=== PATIENT | male | born 1960 | race Caucasian/White ===

== ENCOUNTER 2021-03-11 | Inpatient (IN) | payer MEDICARE | END 2021-03-25 16:27 | DRG 180 | PROVIDERS: ADMIT Family Medicine | PROC: 0W9B3ZX Drainage of Left Pleural Cavity, Percutaneous Approach, Diagnostic (ICD-10-PCS; principal; 2021-03-12) | PROC: 02HV33Z Insertion of Infusion Device into Superior Vena Cava, Percutaneous Approach (ICD-10-PCS; 2021-03-15) | PROC: 3E04305 Introduction of Other Antineoplastic into Central Vein, Percutaneous Approach (ICD-10-PCS; 2021-03-20) | PROC: 0W9B3ZZ Drainage of Left Pleural Cavity, Percutaneous Approach (ICD-10-PCS; 2021-03-22) | DX: C34.82 Malignant neoplasm of overlapping sites of left bronchus and lung (principal); J96.01 Acute respiratory failure with hypoxia; J91.0 Malignant pleural effusion; E22.2 Syndrome of inappropriate secretion of antidiuretic hormone; E44.0 Moderate protein-calorie malnutrition; J98.11 Atelectasis; C79.89 Secondary malignant neoplasm of other specified sites; C78.7 Secondary malignant neoplasm of liver and intrahepatic bile duct; J43.9 Emphysema, unspecified; E11.65 Type 2 diabetes mellitus with hyperglycemia; E66.01 Morbid (severe) obesity due to excess calories; Z66 Do not resuscitate; Z20.822 Contact with and (suspected) exposure to COVID-19; J20.9 Acute bronchitis, unspecified; E78.5 Hyperlipidemia, unspecified; M48.00 Spinal stenosis, site unspecified; K21.9 Gastro-esophageal reflux disease without esophagitis; F32.9 Major depressive disorder, single episode, unspecified; M19.90 Unspecified osteoarthritis, unspecified site; T38.0X5A Adverse effect of glucocorticoids and synthetic analogues, initial encounter; L29.9 Pruritus, unspecified; M25.569 Pain in unspecified knee; R49.0 Dysphonia; R59.0 Localized enlarged lymph nodes; F17.210 Nicotine dependence, cigarettes, uncomplicated; Z71.6 Tobacco abuse counseling; Z99.81 Dependence on supplemental oxygen; Z79.899 Other long term (current) drug therapy; Z68.34 Body mass index [BMI] 34.0-34.9, adult; Z71.3 Dietary counseling and surveillance; Z87.81 Personal history of (healed) traumatic fracture; Z87.19 Personal history of other diseases of the digestive system; Z87.39 Personal history of other diseases of the musculoskeletal system and connective tissue; Z96.643 Presence of artificial hip joint, bilateral; Z60.2 Problems related to living alone; Z98.890 Other specified postprocedural states; Z80.1 Family history of malignant neoplasm of trachea, bronchus and lung; Z80.3 Family history of malignant neoplasm of breast | CPT/HCPCS: 36415; 36573; 36600; 70553; 71045; 71046; 71275; 74177; 76604; 80048; 80053; 82805; 83036; 83615; 83735; 84100; 84155; 84484; 84550; 85025; 85027; 85379; 85610; 85730; 87040; 87070; 87205; 87635; 88108; 88305; 88341; 88342; 89050; 93005; 94640; 94760; 96361; 96374; 99285 ==

== ENCOUNTER → 2021-04-19 | Outpatient (CLI) | payer MEDICARE ==
--- NOTE | 2021-04-19 14:46 | XR ---
EXAMINATION TYPE: XR chest 2V DATE OF EXAM: 04/19/2021 COMPARISON: 03/22/2021 TECHNIQUE: PA and lateral views submitted. HISTORY: History of lung cancer FINDINGS: Diffuse interstitial pattern with left lower lobe consolidation and small effusion. Left-sided PICC l ine is postsurgical change right shoulder arthropathy of the left shoulder with probable bone infarct involving the humeral head. Atherosclerotic change aorta. Underlying COPD. IMPRESSION: 1. Correlate for chronic interstitial lung disease versus interstitial pneumonitis with left lower lo be infiltrate and small effusion. Mild venous congestion in the differential diagnosis correlate clin ically.
== END | disposition home or self-care (01) ==
LOC: RADXRMAIN 14:19
PROVIDERS: ATTEND Internal Medicine Hematology & Oncology
DX: C34.90 Malignant neoplasm of unspecified part of unspecified bronchus or lung (principal); I10 Essential (primary) hypertension; E11.9 Type 2 diabetes mellitus without complications; E78.5 Hyperlipidemia, unspecified
CPT/HCPCS: 71046

== ENCOUNTER → 2021-07-22 | Outpatient (CLI) | payer MEDICARE ==
[2021-07-22 12:27] LABS: African American GFR (CKD) >90 (>60 ml/min/1.73 sqM); Blood Urea Nitrogen 7 mg/dL (9-20); Non-African American GFR(CKD) >90 (>60 ml/min/1.73 sqM)
--- NOTE | 2021-07-22 14:16 | CT ---
EXAMINATION TYPE: CT ChestAbdPelvis w con DATE OF EXAM: 07/22/2021 COMPARISON: 05/19/2021 HISTORY: Lung cancer, possible enlarged lymph nodes to neck. CT DLP: 1345.7 mGycm Automated exposure control for dose reduction was used. CONTRAST: CT scan of the chest, abdomen and pelvis is performed with Oral Contrast and with IV Contrast, patien t injected with 100 mL of Isovue M300. FINDINGS: LUNGS: Background Moderate underlying emphysematous change is redemonstrated. Persistent small left p leural effusion improved from prior. Mild left basilar linear scarring and/or atelectasis. Tiny left pleural effusion. No suspicious nodules or masses clearly seen. Right lung remains clear. Apical soft tissue attenuation within the left lung posteriorly stable measures 2.5 cm in greatest axis and prev iously measured 2.5 cm. Extends to the left hilum is unchanged in appearance. This could be on the ba sis of atelectasis or scarring rather than neoplasm is not excluded but the findings overall stable. MEDIASTINUM: There is marked interval improvement in abnormal lymph nodes in the prevascular region, AP window, paratracheal region, and right paratracheal levels. Some irregular confluent elongated 3.7 x 1.3 cm density in the AP window inferiorly extending towards the left hilum stable. Subcarinal lym ph node 1.7 x 1.0 cm stable from prior study.. Tiny pericardial effusion is now seen. No cardiomegaly . Coronary artery calcification noted. Trace of pericardial fluid seen. LIVER/GB: No significant abnormality is appreciated. PANCREAS: No significant abnormality is seen. SPLEEN: No significant abnormality is seen. ADRENALS: No significant abnormality is seen. KIDNEYS: No significant abnormality is seen. BOWEL: No significant abnormality is seen. LYMPH NODES: No greater than 1 cm abdominal or pelvic lymph nodes are appreciated. OSSEOUS STRUCTURES: Metallic hardware from right shoulder surgery is partially imaged. Metallic cover from bilateral hip arthroplasties causes streak artifact limiting evaluation of pelvic structures. N egative osseous structures are redemonstrated demineralized. Vertebroplasty at [id number] compr ession fractures T12 and L2 level redemonstrated. Multiple additional compression fractures are seen throughout the lumbar and thoracic spine.. Underlying scoliosis noted. Advanced degenerative change l eft glenohumeral joint OTHER: Moderate to severe calcified plaque of the infrarenal abdominal aorta extends into the iliac b ranch vessels. Suspected bilateral iliac artery stenoses. Correlate clinically. Left-sided central li ne or PICC line incidentally noted with tip overlying the SVC. IMPRESSION: 1. Stable previously noted adenopathy unchanged from prior exam. Apical area of consolidation extendi ng to the left hilum is unchanged from prior exam is not. Extensive changes of emphysema noted 2. . Small left pleural effusion and basilar atelectasis stable. 3. No new areas of mass or adenopathy. Overall the exam is stable from prior exam. 4. Suspect bilateral iliac artery stenoses
== END | disposition home or self-care (01) ==
LOC: RADCTMAIN 11:19
PROVIDERS: ATTEND Internal Medicine Hematology & Oncology
DX: C34.92 Malignant neoplasm of unspecified part of left bronchus or lung (principal); J90 Pleural effusion, not elsewhere classified; J98.11 Atelectasis; I10 Essential (primary) hypertension; E11.9 Type 2 diabetes mellitus without complications; E78.5 Hyperlipidemia, unspecified
CPT/HCPCS: 82565; 84520; 71260; 74177; Q9967 ×2

== ENCOUNTER → 2021-07-22 | Outpatient (CLI) | payer MEDICARE ==
[~2021-07-22] MED LIST: SODIUM CHLORIDE 0.9% 500 ML 500 ML in EMPTY BAG 1 BAG IV PRN
[2021-07-22 11:11] VITALS: BP 121/59; PULSE 96; RESP 16; TEMP 98.1
== END | disposition home or self-care (01) ==
LOC: PROCWHC3 10:48
PROVIDERS: ATTEND Internal Medicine Hematology & Oncology
DX: C34.90 Malignant neoplasm of unspecified part of unspecified bronchus or lung (principal)
CPT/HCPCS: 96523

== ENCOUNTER → 2021-08-10 | Outpatient (CLI) | payer MEDICARE ==
[2021-08-10 12:00] VITALS: BP 117/62; PULSE 107; RESP 18; TEMP 98.3
--- NOTE | 2021-08-10 12:14 | P.PAINCN ---
History of Present Illness - Reason for Consult Consult date: 08/10/21 - History of Present Illness Luiz is a 61-year-old male presenting to clinic today for initial evaluation for pain management. 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 This is Priestly completed chemotherapy for lung cancer. Currently looking into immunotherapy depending on insurance. Today he is reporting chronic long-term pain in his low back there was no precipitating event. The pain is located to the right side and left side of his low back with pain radiating down his legs right equal to left pain is radiating to buttocks the lateral portion of thighs to his feet. He describes it as a constant sharp pain. Pain is aggravated with walking and long-term standing. Pain is relieved with sitting. He has tried medications including [place] and tramadol without effect, many years ago he has had injections to attempt nerve blocks without success. Patient also reports she's had physical therapy in the past that has not helped and knees had resident care technician in the past which offered him some benefit. He rates his pain as 10 at 10 on a 0-to-10 scale. He denies any bowel or bladder dysfunction, saddle anesthesia, or any other red flag symptoms. He reports that neurosurgery has not wanted to do any procedures due to brittle bones in his avascular necrosis. Past Medical History Past Medical History: Cancer, COPD, Musculoskeletal Disorder, Osteoarthritis (OA) Additional Past Medical History / Comment(s): LUNG CANCER-currently receiving chemo, gastritis, 3 deteriorating discs History of Any Multi-Drug Resistant Organisms: None Reported Past Surgical History: Joint Replacement, Orthopedic Surgery Additional Past Surgical History / Comment(s): thomas hips & rt shoulder replaced Past Anesthesia/Blood Transfusion Reactions: No Reported Reaction Smoking Status: Former smoker - Past Family History Father Family Medical History: No Reported History Medications and Allergies Home Medications Medication Instructions Recorded Confirmed Type Acetylcyst 10% Alicia 4 ml INHALATION RT-BID 03/11/21 08/10/21 History Atorvastatin [Lipitor] 20 mg PO DAILY 03/11/21 08/10/21 History OXcarbazepine [Trileptal] 300 mg PO BID 03/11/21 08/10/21 History Pantoprazole Sodium [Protonix] 40 mg PO DAILY 03/11/21 08/10/21 History Sucralfate [Carafate] 1 gm PO ACHS 03/11/21 08/10/21 History traZODone HCL [Desyrel] 100 mg PO HS 03/11/21 08/10/21 History ALPRAZolam [Xanax] 0.25 mg PO TID PRN #6 tab 03/23/21 08/10/21 Rx Acetaminophen Tab [Tylenol] 650 mg PO Q6HR PRN tab 03/23/21 08/10/21 Rx Budesonide [Pulmicort] 1 mg INHALATION RT-BID ml 03/23/21 08/10/21 Rx Calcium Carbonate [Tums] 1,000 mg PO TID PRN chew 03/23/21 08/10/21 Rx Formoterol Fumarate [Perforomist] 20 mcg INHALATION RT-BID nebu 03/23/21 08/10/21 Rx INSULIN LISPRO (HumaLOG) [humaLOG] 0 unit SQ ACHS #1 vial 03/23/21 08/10/21 Rx Ipratropium-Albuterol Nebulize 3 ml INHALATION Q2HR PRN ml 03/23/21 08/10/21 Rx [Duoneb 0.5 mg-3 mg/3 ml Soln] Ipratropium-Albuterol Nebulize 3 ml INHALATION RT-Q4H ml 03/23/21 08/10/21 Rx [Duoneb 0.5 mg-3 mg/3 ml Soln] Lidocaine Viscous [Xylocaine 30 ml PO QID ml 03/23/21 08/10/21 Rx Viscous 2%] Nicotine 21Mg/24Hr Patch [Habitrol] 1 patch TRANSDERM DAILY patch 03/23/21 08/10/21 Rx Ondansetron [Zofran] 8 mg PO Q6HR PRN #45 tab 03/23/21 08/10/21 Rx HYDROcodone/APAP 7.5-325MG [[place] 1 tab PO Q6HR PRN 3 Days #12 tab 03/25/21 08/10/21 Rx 7.5-325] Amitriptyline HCl [Elavil] 1 tab PO DAILY 04/21/21 08/10/21 History Allergies Allergy/AdvReac Type Severity Reaction Status Date / Time No Known Allergies Allergy Verified 08/10/21 11:29 Physical Exam REVIEW OF ORGAN SYSTEMS: CONSTITUTIONAL: No fevers or chills. No recent weight loss. EYES: denies troubles with vision. HEENT: No difficulties with hearing. No nosebleeds. No difficulty swallowing. RESPIRATORY: Denies any troubles with breathing or dyspnea on exertion. History of lung cancer CARDIOVASCULAR: Denies any chest pain, palpitations, or recent heart attacks. GASTROINTESTINAL: Denies fatty food intolerance. Has change in bowel habits and gas bloat. GENITOURINARY: Denies any blood in urine. Has increased urinary frequency. NEUROLOGICAL: + numbness and tingling along the distal extremities. No seizure disorders or headaches. MUSCULOSKELETAL: Has back pain. Bilateral hip arthroplasty and right shoulder arthroplasty; avascular necrosis SKIN:no skin cancer. No rash. PSYCHIATRIC: Denies current depression or suicidal thoughts. ENDOCRINE: Denies current thyroid disorders. Denies any blood sugar glucose intolerance. HEME/LYMPHATIC: Denies any lumps and bumps around the neck. History of deep venous thrombosis. ALLERGY/IMMUNOLOGY: No immunoglobulin therapy. No immune deficiencies. BREAST: Denies current breast lumps, pain or nipple discharge. Physical Examinations : Constitutiona : Cooperative , not in acute distress . HEENT : nech : supple , no Lymphadenopathy , normal thyroid size . : eyes no ptosis , no icterus, no photophobia . : ENT normal of hearing , normal oropharynx , no Thrush . Respiratory : Chest clear to auscultations Bilaterally , no wheezing , no Rhonchi . Cardiovascula : regular rate and rhythem , S1 , S2 , no S3 , no S4. Gastrointestina : abdomen soft no tenderness , bowel sounds , no organomegally . Genitourinary : Defferred . neurologic : Cranial nerve II to XII intact , no focal neurological deffecit . psychatric : alert , oriented X 3 , appropriate affect , intact judgment and insight . Lymphatic : no Lymphadenopathy . musculoskeltal : Lumber spine moter stegnth lower extremities ,thigh and legs 5/5 Right side , 5/5 Left side deep tendon reflexes : normal Knee Jerk , normal ankle Jerk lumber facet Loading Test= positive Right , positive Left Range of motion of the lumbar spine Flexion 30 degrees, extension 10 degrees strait leg raising test , positive at 30 degree Fabere test= positive Right , and positive left . Sever tenderness over the Sacroiliac joint on the Right , and Left sides Gaenslen test= positive bilaterally. Seated flexion test= positive bilaterally. Assessment and Plan Assessment: Assessment and plan Assessment: Lumbar spinal stenosis Lumbar spondylosis with facet arthropathy without myelopathy Lumbar radiculopathy Bilateral hip arthroplasty Right shoulder arthroplasty History of lung cancer History of avascular necrosis Plan: Patient could benefit from lumbar epidural steroid injection at L4 5. Consider lumbar medial branch blocks L3 4 and L4 5 in the future up to including radiofrequency ablation Consider spinal cord stimulator Dr. Coronado was available by phone for consultation during his visit. I have spent 50 minutes on patient care today. The time was used to review the medical records including relevant urine studies and Prescription history (MAPs), review of the available imaging, evaluation and examination of the patient, coordination of care with the medical staff and if applicable referring physicians, as well as creation of the medical record. - PQRS measures = - Patient's medications are documented in the chart. -Tobacco use is negative -Patient's has not received pneumococcal vaccine. -Advanced care planning discussed, patient not eligible. -Opiate contract not signed. -Pain positive and follow-up visit/procedure is scheduled. -Patient's blood pressure measured 117/62 , and documented in the record ,and patient will follow up with the primary care. -Patient's weight was measured and body mass index [ ] above the,w ithin the normal limits and counseling was done. and patient instructed to follow-up with the primary care physician. -Patient was not identified as an unhealthy alcohol user Time with Patient: Greater than 30 PQRS Measure Charge Sheet - Pain Location Lower Back Non-Pharmacological Interventions: Chiropractic Treatment, Heat, Inactivity, Physical Therapy, Sitting Pharmacological Interventions: Medication, PRN Medication PQRS Narrative: Pain Intensity [Lower Back] 10 Scale Used Numeric (1 - 10) Home Medications: Ambulatory Orders Acetylcyst 10% Alicia 4 ml INHALATION RT-BID 03/11/21 Atorvastatin [Lipitor] 20 mg PO DAILY 03/11/21 OXcarbazepine [Trileptal] 300 mg PO BID 03/11/21 Pantoprazole Sodium [Protonix] 40 mg PO DAILY 03/11/21 Sucralfate [Carafate] 1 gm PO ACHS 03/11/21 traZODone HCL [Desyrel] 100 mg PO HS 03/11/21 ALPRAZolam [Xanax] 0.25 mg PO TID PRN #6 tab 03/23/21 Acetaminophen Tab [Tylenol] 650 mg PO Q6HR PRN tab 03/23/21 Budesonide [Pulmicort] 1 mg INHALATION RT-BID ml 03/23/21 Calcium Carbonate [Tums] 1,000 mg PO TID PRN chew 03/23/21 Formoterol Fumarate [Perforomist] 20 mcg INHALATION RT-BID nebu 03/23/21 INSULIN LISPRO (HumaLOG) [humaLOG] 0 unit SQ ACHS #1 vial 03/23/21 Ipratropium-Albuterol Nebulize [Duoneb 0.5 mg-3 mg/3 ml Soln] 3 ml INHALATION Q2HR PRN ml 03/23/21 Ipratropium-Albuterol Nebulize [Duoneb 0.5 mg-3 mg/3 ml Soln] 3 ml INHALATION RT-Q4H ml 03/23/21 Lidocaine Viscous [Xylocaine Viscous 2%] 30 ml PO QID ml 03/23/21 Nicotine 21Mg/24Hr Patch [Habitrol] 1 patch TRANSDERM DAILY patch 03/23/21 Ondansetron [Zofran] 8 mg PO Q6HR PRN #45 tab 03/23/21 HYDROcodone/APAP 7.5-325MG [[place] 7.5-325] 1 tab PO Q6HR PRN 3 Days #12 tab 03/25/21 Amitriptyline HCl [Elavil] 1 tab PO DAILY 04/21/21
== END | disposition home or self-care (01) ==
LOC: PNWHC3 11:19
PROVIDERS: ATTEND Student in an Organized Health Care Education/Training Program
DX: M47.896 Other spondylosis, lumbar region (principal); M48.061 Spinal stenosis, lumbar region without neurogenic claudication; M54.16 Radiculopathy, lumbar region; Z96.643 Presence of artificial hip joint, bilateral; Z96.611 Presence of right artificial shoulder joint; Z85.118 Personal history of other malignant neoplasm of bronchus and lung; Z87.39 Personal history of other diseases of the musculoskeletal system and connective tissue
CPT/HCPCS: G0463 ×2; 99202; 99211

== ENCOUNTER 2021-09-27 12:54 | Day surgery (SDC) | payer MEDICARE, OTHER ==
[2021-09-20 15:14] VITALS: BMI 30.9
[~2021-09-27 12:54] MED LIST changes: +LACTATED RINGERS 1,000 ML IV SCH; -SODIUM CHLORIDE 0.9% 500 ML 500 ML in EMPTY BAG 1 BAG IV PRN
[2021-09-27] MEDS: LACTATED RINGERS 1,000 ML IV SCH ×2 (13:17→13:37)
[2021-09-27 13:24] VITALS: RESP 18; TEMP 96.9
[2021-09-27] MEDS ORDERED: IOPAMIDOL M200 10 ML VIAL ONE (13:38)
[2021-09-27] MEDS ORDERED: MIDAZOLAM 2 MG/2 ML VIAL ONE (13:38)
[2021-09-27] MEDS ORDERED: fentaNYL (PF) 50 MCG/ML 2 ML AMP ONE (13:38)
[2021-09-27] MEDS ORDERED: methylPREDNISolone ACETATE 40 MG/ML 1 ML VIAL ONE (13:38)
--- NOTE | 2021-09-27 13:53 | P.PCN ---
Date of Procedure: 09/27/21 Description of Procedure: Procedure: 1. L4-L5 Epidural steroid injection under fluoroscopic guidance # 1/ , 2. Lumbar epidurogram PREOPERATIVE DIAGNOSIS: Lumbar degenerative disc disease, and Lumbar radiculopathy. POSTOPERATIVE DIAGNOSIS: Lumbar degenerative disc disease, and Lumbar radiculopathy. SURGEON: Mary Rooney ANESTHESIA: Local with 1% lidocaine, and IV sedation as per anesthesia record EBL: None. Specimen removed: None Fluoroscopic image: saved to electronic medical records PROCEDURE INDICATION: The patient had history of Lumbar degenerative disc disease and Lumbar radiculopathy. Failed to conservative therapy. Presented for epidural steroid injection. PROCEDURE DESCRIPTION: The patient was seen and identified in the preoperative area. Risks, benefits, complications, and alternatives were discussed with the patient. The patient agreed to proceed with the procedure and signed the consent. IV was started, and vital signs were stable. Patient was taken to the procedure area, and time out was completed. The patient was placed in the prone position on procedure table and a pillow was placed under the abdomen to reduce lumbar lordosis. The lumbosacral area was prepped and draped in the usual sterile fashion. Critical pause was taken. Vital signs were closely monitored during the procedure. Using anterior-posterior fluoroscopy, the L4-L5 interlaminar space was identified, and skin and deeper tissues were localized with 1% lidocaine. Using anterior-posterior fluoroscopy, lateral fluoroscopy, and [id number]-[id number] technique, a 20 gauge 3.5 Tuohy epidural needle entered the epidural space. After negative aspiration of CSF and blood with no paresthesias, 2 ml of [id number] contrast dye was injected and an excellent epidurogram was seen. Again after negative aspiration of CSF and blood with no paresthesias, 8 mL of block solution was injected into the epidural space. Block solution contained 80 mg of Depo-Medrol, and 7 mL of preservative-free normal saline. Needle was withdrawn intact, skin was cleansed, and bandages were applied. COMPLICATIONS: None. DISPOSITION / PLANS: The patient was placed in a supine position and transferred to the recovery area in a stable condition for observation. Patient was discharged from the recovery room after meeting discharge criteria. Home discharge instructions given to the patient by the staff. The patient was reexamined prior to discharge. The patient will schedule a follow up in the clinic in 4 weeks.
[2021-09-27] MEDS ORDERED: IV FLUID CONTINUATION 1,000 ML IV ONE (13:59)
--- NOTE | 2021-09-27 14:08 | FL ---
EXAMINATION TYPE: FL guided pain mgmt statistic DATE OF EXAM: 09/27/2021 HISTORY: Fluoroscopy time 5 seconds of fluoroscopy provided. IMPRESSION: 1. Fluoroscopy time.
[2021-09-27 14:15] VITALS: BP 103/60; PULSE 82
== END 2021-09-27 14:34 | disposition home or self-care (01) ==
LOC: ORPAIN 12:54
DX: M50.30 Other cervical disc degeneration, unspecified cervical region (principal); M51.16 Intervertebral disc disorders with radiculopathy, lumbar region; Z85.118 Personal history of other malignant neoplasm of bronchus and lung; Z96.643 Presence of artificial hip joint, bilateral; Z96.611 Presence of right artificial shoulder joint
CPT/HCPCS: 62323; J2250; J1030; J3010; Q9966; 99152

== ENCOUNTER → 2021-10-18 | Outpatient (CLI) | payer MEDICARE ==
[2021-10-18 15:06] LABS: African American GFR (CKD) >90 (>60 ml/min/1.73 sqM); Blood Urea Nitrogen 14 mg/dL (9-20); Non-African American GFR(CKD) 85 (>60 ml/min/1.73 sqM)
--- NOTE | 2021-10-18 15:57 | CT ---
EXAMINATION TYPE: CT ChestAbdPelvis w con DATE OF EXAM: 10/18/2021 COMPARISON: 07/22/2021 HISTORY: h/o lung CA, obs for mets CT DLP: 1414.2 mGycm CONTRAST: CT scan of the chest, abdomen and pelvis is performed with Oral Contrast and with IV Contrast, patien t injected with 100 mL of Isovue 300. CT Chest: LUNGS: There is an enlarging left upper lobe mass extending from the left hilum to the left upper lob e with pleural extension. The mass measures approximately 7 cm in craniocaudal dimension by 2.8 cm in AP dimension. There is a new pleural-based satellite nodule left lower lobe measuring 9.2 mm. Additi onal satellite nodule left lower lobe measuring 2 mm and 6 mm respectively. MEDIASTINUM: There is new adenopathy noted in the right paratracheal region measuring 2.7 cm. Precari nal adenopathy measures 1.3 cm and right tracheobronchial adenopathy measures 1.3 cm. AP window adeno madhuri measures 2.1 cm. HILAR STRUCTURES: No evidence for mass. No hilar adenopathy is appreciated. OTHER: No significant abnormality. CONTRAST CT ABDOMEN AND PELVIS FINDINGS: LIVER/GB: No calcified gallstones. No space occupying hepatic lesion. Biliary tree is of normal ca liber. PANCREAS: No inflammation. No distinct mass. SPLEEN: No splenic enlargement. No lesion seen. ADRENALS: No nodule. No thickening. KIDNEYS/BLADDER: No hydronephrosis. No nephrolithiasis. No disctinct renal mass. BOWEL: Normal appendix. Normal bowel caliber. No inflammation. GENITAL ORGANS: No gross abnormality. LYMPH NODES: No greater than 1cm abdominal or pelvic lymph nodes are appreciated. AORTA: No significant abnormality. OSSEOUS STRUCTURES: Multiple compression deformities seen throughout the thoracic and lumbar spines u nchanged from prior study. OTHER: No significant additional abnormality is seen. IMPRESSION: 1. Left upper lobe neoplasm with new hilar or mediastinal adenopathy compatible with malignancy.
== END | disposition home or self-care (01) ==
LOC: RADCTMAIN 13:38
PROVIDERS: ATTEND Internal Medicine Hematology & Oncology
DX: Z03.89 Encounter for observation for other suspected diseases and conditions ruled out (principal); C34.92 Malignant neoplasm of unspecified part of left bronchus or lung
CPT/HCPCS: 82565; 84520; 71260; 74177; 36415; Q9967

== ENCOUNTER → 2021-10-24 | Outpatient (CLI) | payer MEDICARE ==
[2021-10-24 13:45] VITALS: BP 127/57; PULSE 100; RESP 18; TEMP 98.4
--- NOTE | 2021-10-24 13:56 | P.PN ---
Subjective Progress Note Date: 10/24/21 Principal diagnosis: A 61 yr old male with a history of severe and chronic low back pain secondary to lumbar degenerative disc diseases and lumbar spondylosis with facet arthropathy presents today for follow-up status post LESI of the L4-L5. Patient states he experienced 0% pain relief with the procedure. Pain level is at 2 out of 10 in intensity at rest but escalates to a 10 out of 10 in intensity when standing for peers of 30 minutes or more. Pain is dull/ achy in the lumbar spine with sharp/ shooting character towards the bilateral hips. Pain is alleviated with medications, injections, physical therapy, chiropractic treatment, home exercise regimen, massage and rest. Interventional pain procedures completed include L4-L5 LESI Patient is currently on Motrin OTC Patient denies any side effects of the medication(s), denies excessive drowsiness or sleepiness, denies suicidal ideation and reports that the current pain medication is helping to control the pain and improve activities of daily living. Patient denies any motor or sensory deficits. Patient denies any fever or night sweats, denies any change in the bowel movements or urination. Physical Examination: -Constitutional: Cooperative. Not in acute distress . -HEENT: Neck is supple. No lymphadenopathy. No thyromegaly. Normal thyroid size. Eyes: No ptosis , no icterus, no photophobia. ENT: No auditory deficits. Normal oropharynx. No Thrush. - Respiratory: Chest clear to auscultations bilaterally. No wheezing. No rhonchi. - Cardiovascular: Regular rate and rhythm. S1 / S2 , no S3 , no S4. - Gastrointestinal: Abdomen soft no tenderness. Bowel sounds positive in all four quadrants. No organomegaly. - Genitourinary: Deferred. - Neurologic: Cranial nerve II to XII intact. No focal neurological deficits. - Psychatric: Alert & oriented x 3. Matching mood & appropriate affect. Judgment and insight intact. - Lymphatic: No Lymphadenopathy. - Musculoskeletal: Cervical spine: Muscle bulk/ tone/ strength in the bilateral upper extremities normal. Facet loading test cervical area positive. Lumbar spine: Motor bulk/ tone/ strength lower extremities , thigh and legs : 5/5 Deep tendon reflexes : Normal Knee Jerk. Normal Ankle Jerk . Mild vertebral body tenderness over the L4 and L5 Lumbar Facet Loading Test positive - mild Straight Leg Raise: positive at 30 degree right side/ left side Grayson test: positive right side / left side Range of motion: Flexion of the lumbar spine <75 degrees Range of motion: Extension of the lumbar spine <20 degrees Severe tenderness over the Sacroiliac joint: right side / left side Assessment and plan: Chronic low back pain secondary to lumbar degenerative disc disease , lumbar spondylosis with facet arthropathy without myelopathy Recommendation of LESI L4-L5 #2 Tylenol 3 one tablet twice daily when necessary pain dispense 60 with 1 refill Urine collected for UDS Opioid agreement signed Chronic and current use of high-risk medication (Opioids). The patient was counseled about risk of opioid use, psychological risk associated with opioids and was orally counseled to not overuse , divert or sell medications. Pt is to store medication in a safe location. The patient is counseled against driving while using narcotic medications and also not to use alcohol or any illicit recreational drugs. Patient verbalized understanding that the lack of compliance will result in failure to renew narcotic prescription(s) as well as possible discharge from the clinic Diagnoses, prognosis and treatment options including but not limited to physical therapy, surgical interventions, interventional therapies and medication management including narcotics and adjuvant medication were discussed. All patient questions answered MAPS reviewed and it was appropriate. I have spent 31 minutes on patient care today. Dr Coronado was available by phone for the evaluation of this patient. The time was used to review the medical records including relevant urine studies and Prescription history (MAPs), review of the available imaging, evaluation and examination of the patient, coordination of care with the medical staff and if applicable referring physicians, as well as creation of the medical record Objective - Vital Signs Vital signs: Vital Signs Temp 98.4 F 10/24/21 13:38 Pulse 100 10/24/21 13:38 Resp 18 10/24/21 13:38 BP 127/57 10/24/21 13:38 Pulse Ox 92 L 10/24/21 13:38 PQRS Measure Charge Sheet Mode of Arrival: Ambulatory, Wheelchair - Pain Location Lower Back Non-Pharmacological Interventions: Chiropractic Treatment, Heat, Home Exercise, Ice, Inactivity, Massage, Physical Therapy, Sitting, Stretching Pharmacological Interventions: Epidural, PRN Medication PQRS Narrative: Blood Pressure 127/57 Pain Intensity [Lower Back] 2 Scale Used Numeric (1 - 10) Hx Alcohol Use (MH) No Home Medications: Ambulatory Orders Acetylcyst 10% Alicia 4 ml INHALATION RT-BID 03/11/21 Atorvastatin [Lipitor] 20 mg PO DAILY 03/11/21 OXcarbazepine [Trileptal] 300 mg PO BID 03/11/21 Pantoprazole Sodium [Protonix] 40 mg PO DAILY 03/11/21 Sucralfate [Carafate] 1 gm PO ACHS 03/11/21 traZODone HCL [Desyrel] 100 mg PO HS 03/11/21 ALPRAZolam [Xanax] 0.25 mg PO TID PRN #6 tab 03/23/21 Budesonide [Pulmicort] 1 mg INHALATION RT-BID ml 03/23/21 Calcium Carbonate [Tums] 1,000 mg PO TID PRN chew 03/23/21 Formoterol Fumarate [Perforomist] 20 mcg INHALATION RT-BID nebu 03/23/21 Ipratropium-Albuterol Nebulize [Duoneb 0.5 mg-3 mg/3 ml Soln] 3 ml INHALATION RT-Q4H ml 03/23/21 Nicotine 21Mg/24Hr Patch [Habitrol] 1 patch TRANSDERM DAILY patch 03/23/21 Melatonin 3 mg PO HS 09/20/21 Atezolizumab [Tecentriq] 1 dose IV Q21D 10/20/21 Ibuprofen 200 - 400 mg PO Q6H PRN 10/20/21
== END | disposition home or self-care (01) ==
LOC: PNWHC3 12:49
PROVIDERS: ATTEND Physician Assistant Medical
DX: M50.30 Other cervical disc degeneration, unspecified cervical region (principal); M51.36 Other intervertebral disc degeneration, lumbar region; M54.50 Low back pain, unspecified
CPT/HCPCS: 99211

== ENCOUNTER → 2021-11-17 | Day surgery (SDC) | payer MEDICARE ==
[2021-11-16 11:24] VITALS: BMI 31.9
[~2021-11-17] MED LIST changes: +IOPAMIDOL M200 10 ML VIAL ONE; +TRIAMCINOLONE ACETONIDE 40 MG/ML 1 ML VIAL ONE
[2021-11-17 11:54] VITALS: TEMP 97.7
--- NOTE | 2021-11-17 12:40 | P.PCN ---
Date of Procedure: 11/17/21 Description of Procedure: Procedure: 1. L4-L5 Epidural steroid injection under fluoroscopic guidance #2, 2. Lumbar epidurogram PREOPERATIVE DIAGNOSIS: Lumbar degenerative disc disease, and Lumbar radiculopathy. POSTOPERATIVE DIAGNOSIS: Lumbar degenerative disc disease, and Lumbar rad iculopathy. SURGEON: Mary Rooney ANESTHESIA: Local with 1% lidocaine, and IV sedation: None. EBL: None. Specimen removed: None Fluoroscopic image: saved to electronic medical records PROCEDURE INDICATION: The patient had history of Lumbar degenerative disc disease and Lumbar radiculopathy. Failed to conservative therapy. Came here for repeat epidural steroid injection. PROCEDURE DESCRIPTION: The patient was seen and identified in the preoperative area. Risks, benefits, complications, and alternatives were discussed with the patient. The patient agreed to proceed with the procedure and signed the consent. IV was started, and vital signs were stable. Patient was taken to the procedure area, and time out was completed. The patient was placed in the prone position on procedure table and a pillow was placed under the abdomen to reduce lumbar lordosis. The lumbosacral area was prepped and draped in the usual sterile fashion. Critical pause was taken. Vital signs were closely monitored during the procedure. Using anterior-posterior fluoroscopy, the L4-L5 interlaminar space was identified, and skin and deeper tissues were localized with 1% lidocaine. Using anterior-posterior fluoroscopy, lateral fluoroscopy, and xcoi-fx-ohkrrjxkad technique, a 20 gauge 3.5 Tuohy epidural needle entered the epidural space. After negative aspiration of CSF and blood with no paresthesias, 2 ml of [id number] contrast dye was injected and an excellent epidurogram was seen. Again after negative aspiration of CSF and blood with no paresthesias, 7 mL of block solution was injected into the epidural space. Block solution contained 80 Kenalog , and 5 mL of preservative-free normal saline. Needle was withdrawn intact, skin was cleansed, and bandages were applied. COMPLICATIONS: None. DISPOSITION / PLANS: The patient was placed in a supine position and transferred to the recovery area in a stable condition for observation. Patient was discharged from the recovery room after meeting discharge criteria. Home discharge instructions given to the patient by the staff. The patient was reexamined prior to discharge. The patient will schedule a follow up in the clinic in 4 weeks.
[2021-11-17 13:02] VITALS: BP 123/70; PULSE 91; RESP 16
--- NOTE | 2021-11-17 13:30 | FL ---
Fluoroscopy HISTORY: Pain 5 seconds fluoroscopy time supplied to the referring clinician. 3 intraoperative C-arm images docume nt the procedure. See dictated report from anesthesia.
== END ==
LOC: ORPAIN 11:38
DX: M51.16 Intervertebral disc disorders with radiculopathy, lumbar region (principal); I10 Essential (primary) hypertension; E11.9 Type 2 diabetes mellitus without complications; J44.9 Chronic obstructive pulmonary disease, unspecified; K21.9 Gastro-esophageal reflux disease without esophagitis; Z96.643 Presence of artificial hip joint, bilateral; Z98.890 Other specified postprocedural states
CPT/HCPCS: 62323; J3301; Q9966

== ENCOUNTER → 2021-11-23 | Outpatient (CLI) | payer MEDICARE ==
[2021-11-23 16:00] LABS: African American GFR (CKD) >90 (>60 ml/min/1.73 sqM); Blood Urea Nitrogen 14 mg/dL (9-20); Non-African American GFR(CKD) >90 (>60 ml/min/1.73 sqM)
--- NOTE | 2021-11-23 16:55 | CT ---
EXAMINATION TYPE: CT angio chest DATE OF EXAM: 11/23/2021 4:26 PM COMPARISON: 10/18/2021 HISTORY: SOB, back pain. History of lung cancer. CT DLP: 399.2 mGycm Automated exposure control for dose reduction was used. CONTRAST: CTA scan of the thorax is performed with IV Contrast, patient injected with 80 mL of Isovue 370, pulm onary embolism protocol. MIP images are created and reviewed. FINDINGS: LUNGS: There is interval increase in size of 5.3 x 3.3 cm irregular left upper lobe perihilar mass (p reviously measured 3.4 x 2.2 cm). The mass encases the adjacent pulmonary arteries without occlusion. There are increased scattered numerous subpleural nodules throughout the left lung, greater than 7 i n number and measuring 0.3 cm to 3.3 cm. Additional scattered few intraparenchymal nodules in the lef t upper and lower lobes measuring up to 4 mm also seen. Also new 4 mm right middle lobe nodule. There is background of moderate centrilobular emphysema. There are persistent diffuse mild peripheral opac ities. No pleural effusion or pneumothorax. MEDIASTINUM: There is satisfactory enhancement of the pulmonary artery and its branches, there is no CT evidence for pulmonary embolism. There are increased scattered numerous mediastinal and hilar lymp h nodes. Index 3.8 x 3.5 cm right paratracheal (previously 2.7 x 2 cm) and 3.5 x 2.6 cm left hilar ly mph nodes are noted (previously measures up to 2.7 cm). Small pericardial effusion is seen. Increased multiple pericardial nodules/lymph nodes measuring up to 1 cm also seen. OTHER: Chronic multiple lower thoracic vertebral compression fractures and T12 vertebroplasty seen. A lso few nodules measuring up to 1.4 cm in the left paravertebral region at T9-T11 seen. IMPRESSION: NO ACUTE PE. PROGRESSION OF LEFT UPPER LOBE PERIHILAR MASS WITH BILATERAL PULMONARY NODULES AND MEDIASTINAL/HILAR LYMPHADENOPATHY DESCRIBED. Increased multiple pericardial nodules/lymph nodes as well as increase prominent left paravertebral r egion nodules.
== END | disposition home or self-care (01) ==
LOC: RADCTMAIN 15:20
PROVIDERS: ATTEND Internal Medicine Hematology & Oncology
DX: C34.92 Malignant neoplasm of unspecified part of left bronchus or lung (principal); R06.02 Shortness of breath
CPT/HCPCS: 82565; 84520; 71275; Q9967

== ENCOUNTER → 2021-12-08 | Outpatient (CLI) | payer MEDICARE ==
[2021-12-08 15:23] LABS: African American GFR (CKD) >90 (>60 ml/min/1.73 sqM); Blood Urea Nitrogen 17 mg/dL (9-20); Non-African American GFR(CKD) >90 (>60 ml/min/1.73 sqM)
--- NOTE | 2021-12-09 01:31 | CT ---
EXAMINATION TYPE: CT ChestAbdPelvis w con DATE OF EXAM: 12/08/2021 COMPARISON: CT dated 10/18/2021 HISTORY: h/o lung CA, obs for mets CT DLP: 1448.6 mGycm Automated exposure control for dose reduction was used. CONTRAST: CT scan of the chest, abdomen and pelvis is performed with Oral Contrast and with IV Contrast, patien t injected with 100 mL of Isovue 300. FINDINGS: LUNGS: Slightly smaller left upper lobe posterior mass extending from the left hilum up to the left l moi apex. It measures up to 2.5 cm in the left hilum compared to 2.8 cm previously. It is inseparable from the bifurcation of the left pulmonary artery. The left lower lobe superior segment pleural-base d posterior nodule is larger measuring 13 mm compared to 9 mm previously. Newly seen 5 mm nodule hellen g the inferior aspect of the left oblique fissure. Minimal infiltration is newly seen in the right up per lobe centrally, nonspecific. No other definite new lung nodule identified. Persistent areas of th ickening along the left pleura, difficult to precisely compare and probably metastatic. MEDIASTINUM: Larger retrocaval lymph node measuring 3.1 cm compared to 2.7 cm previously. An aortopul monary conglomerate of lymph nodes measures 3.6 cm compared to 2.9 cm previously. Unchanged heart and mediastinal vessels. Small pericardial fluid. Larger left pericardiophrenic lymph node measuring 8mm compared to 3 mm previously. OTHER: Slightly larger lytic area in the axillary portion of the left fifth rib, possibly metastatic . Please correlate with bone scan results. Osteopenia. Multilevel vertebral body collapse and vertebr oplasty, appreciated previously. LIVER/GB: No definite hepatic focal lesion. The gallbladder is not distended. PANCREAS: Suspicious centrally necrotic nodule inseparable from the superior aspect of the pancreatic neck measuring 14 mm compared to 8mm previously, likely metastatic. SPLEEN: No significant abnormality is seen. ADRENALS: Larger left retroperitoneal nodule inseparable from the left adrenal gland measuring 2 cm c ompared to 17 mm previously. Unremarkable right adrenal. KIDNEYS: No significant abnormality is seen. BOWEL: No significant abnormality is seen. REPRODUCTIVE ORGANS: Obscured by artifacts. LYMPH NODES: No other pathologically enlarged lymph nodes in the abdomen or the pelvis. OSSEOUS STRUCTURES: Osteopenia. Multilevel vertebral body collapse and vertebroplasty. Bilateral tota l hip arthroplasty causing beam hardening artifacts on the adjacent pelvic structures. OTHER: Extensive arterial atherosclerotic calcifications. Fat-containing umbilical hernia. No sizable ascites. IMPRESSION: Slightly smaller left lung mass however there is interval progression the mediastinal lym phadenopathy, upper abdominal lymph nodes/metastatic nodules, pericardiophrenic lymph nodes with at l east one new lung nodule as described above. This is suggestive of progressive disease. Slightly more prominent lytic lesion in the axillary portion of the left fifth rib, please correlate with bone sca n results. Other interval changes as described above.
== END | disposition home or self-care (01) ==
LOC: RADCTMAIN 10:21
PROVIDERS: ATTEND Internal Medicine Hematology & Oncology
DX: Z03.89 Encounter for observation for other suspected diseases and conditions ruled out (principal); C34.92 Malignant neoplasm of unspecified part of left bronchus or lung; E11.9 Type 2 diabetes mellitus without complications
CPT/HCPCS: 82565; 84520; 71260; 74177; Q9967

== ENCOUNTER 2022-01-03 11:02 | Day surgery (SDC) | payer MEDICARE ==
[2022-01-02 10:57] VITALS: BMI 31.9
[~2022-01-03 11:02] MED LIST changes: -IOPAMIDOL M200 10 ML VIAL ONE; +LIDOCAINE 1% (10MG/ML) FOR IV START INTRADERMA PRN; -TRIAMCINOLONE ACETONIDE 40 MG/ML 1 ML VIAL ONE
[2022-01-03 11:26] VITALS: RESP 16; TEMP 98
[2022-01-03] MEDS ORDERED: methylPREDNISolone ACETATE 40 MG/ML 1 ML VIAL ONE (11:55)
[2022-01-03] MEDS ORDERED: MIDAZOLAM 2 MG/2 ML VIAL ONE (11:55)
[2022-01-03] MEDS ORDERED: fentaNYL (PF) 50 MCG/ML 2 ML AMP ONE (11:55)
[2022-01-03] MEDS ORDERED: ROPIVACAINE 5MG/ML 20ML VIAL ONE (11:55)
--- NOTE | 2022-01-03 12:17 | P.PCN ---
Date of Procedure: 01/03/22 Procedure(s) Performed: PREOPERATIVE DIAGNOSIS : 1- Lumbar spondylosis with Facet Arthropathy without myelopathy . 2- Lumber degenerative disc disease POSTOPERATIVE DIAGNOSIS: 1- Lumbar spondylosis with Facet Arthropathy without myelopathy . 2- Lumber degenerative disc disease PROCEDURE: Diagnostic bilateral L3 , L4 , and L5 medial branch block under fluoroscopy guidance(fluoroscopy images available in the radiology Department ) ( To target the facet joint between bilateral L4-5 , and L5-S1 ) ANESTHESIA:, moderate sedation with intravenous Versed 2 mg and Fentanyl 100 mcg. EBL: Minimal COMPLICATION: None PROCEDURE INDICATION: Chronic low back pain secondary to Facet arthropathy unresponsive to conservative treatment. PROCEDURE DESCRIPTION: the patient was seen and identified in the preop holding area , risks and benefits and possible complications of the procedure and alternative were discussed with the patient, and the patient agreed to proceed with the procedure and signed the consent and vital signs monitored during the procedure and fluoroscopy was used to maximize the benefit and accuracy of the needle placement, and sedation was given to decrease patient anxiety, patient was taken to the procedure room and placed in prone position vital signs monitored in the back prepped with chlorhexidine X3 then under strict sterile technique using a right oblique fluoroscopy ,the junction of the transverse process and the superior articulating process of the right L3 , L4 , and L5 vertebra which corresponding to the fluoroscopy image of the eye of the Roly dog on the block side for the medial branches and subsequently , after local infiltration of skin and subcu tissuies with Ropivacaine 0.5 % , one mL at each level ,then 22-gauge Quincke-type needles , 3 needle was used , each one of them placed at the junction of the base of the transverse process and the superior articular process at the appropriate level, and the needle was advanced until the periosteum contacted, needle placement confirmed with AP oblique and lateral view and after appropriate needle placement confirmed, and after negative aspiration for heme and CSF and there was no paresthesia 1-1/2 mL of Ropivacaine 0.5% mixed with 20 mg Depo-Medrol , then half mL injected at each level after negative aspiration the needle subsequently removed and the same procedure repeated for the left side at left side at L3 , L4 and L5 levels. At the end of the procedure and the needles removed and a bandage applied after the skin was cleaned the cleaning solution patient taken to recovery room in stable condition and monitors in the recovery room for 20-30 minutes and discharged home in stable condition after discharge criteria met and patient will follow up with the pain clinic in 2-4 weeks
[2022-01-03] MEDS ORDERED: IV FLUID CONTINUATION 1,000 ML IV ONE ×2 (12:23)
[2022-01-03 12:34] VITALS: BP 121/79; PULSE 104
--- NOTE | 2022-01-03 12:36 | FL ---
EXAMINATION TYPE: FL guided pain mgmt statistic DATE OF EXAM: 01/03/2022 HISTORY: Fluoroscopy time 10 seconds of fluoroscopy provided. IMPRESSION: 1. Fluoroscopy time.
== END 2022-01-03 12:48 | disposition home or self-care (01) ==
LOC: ORPAIN 11:02
PROVIDERS: ATTEND Specialist
DX: G89.29 Other chronic pain (principal); M47.816 Spondylosis without myelopathy or radiculopathy, lumbar region; M51.36 Other intervertebral disc degeneration, lumbar region
CPT/HCPCS: 64493; 64494; J2250; J1030; J3010; J2795; 99152

== ENCOUNTER → 2022-01-06 | Outpatient (CLI) | payer MEDICARE ==
--- NOTE | 2022-01-09 12:08 | NM ---
EXAMINATION TYPE: NM bone scan whole body DATE OF EXAM: 01/06/2022 COMPARISON: 12/08/2021 CT scan HISTORY: Low back and chest pain Delayed whole-body scanning was performed following the injection of 22.5 mCi Tc 99m MDP. Images acq uired 3.25 hours post injection. FINDINGS: Photopenic defects involving the hips compatible with previous surgery. Mild intensity uptake involving the feet, ankles and knees most typical of arthritic change. Photopenic defect involving the right shoulder compatible with previous surgery. Moderate increased u ptake involving the left shoulder suggestive of severe arthropathy. There is a scoliosis of the spine with multilevel mild to moderate intensity uptake throughout the lo wer cervical, thoracic and lumbar spine appears most likely degenerative. Areas of vertebral plasty a nd compression fracture also likely account for some of the areas of increased uptake. Abnormal uptake involving the left rib cage suggests prior trauma. IMPRESSION: 1. Abnormal uptake noted above suggestive of postsurgical changes, degenerative changes of the spine with evidence of previous vertebroplasty and compression fracture and post arthritic changes as discu ssed above. 2. Intense area of abnormal uptake involving the left rib cage appears to correspond to the CT abnorm ality of a fracture. Review of the previous CT scan does demonstrate some pleural-based thickening th ere. This area should be followed to exclude pathologic fracture. Correlate for history of previous t rauma.
== END | disposition home or self-care (01) ==
LOC: RADNMMAIN 10:54
PROVIDERS: ATTEND Family Medicine
DX: C34.92 Malignant neoplasm of unspecified part of left bronchus or lung (principal); M89.9 Disorder of bone, unspecified
CPT/HCPCS: 78306; A9503

== ENCOUNTER 2022-01-16 10:24 | Day surgery (SDC) | payer MEDICARE ==
[2022-01-13 12:27] VITALS: BMI 30.9
[2022-01-16 10:41] VITALS: TEMP 98.5
[2022-01-16 11:08] LABS: African American GFR (CKD) >90 (>60 ml/min/1.73 sqM); Blood Urea Nitrogen 12 mg/dL (9-20); Non-African American GFR(CKD) >90 (>60 ml/min/1.73 sqM)
[2022-01-16] MEDS ORDERED: LIDOCAINE 1% INJ 10MG/ML (5 ML VIAL-PF) SQ ONE (11:54)
[2022-01-16 12:31] VITALS: BP 148/72; PULSE 110; RESP 16
--- NOTE | 2022-01-16 12:55 | IR ---
PICC LINE exchange over guidewire: HISTORY: Infection requiring long-term antibiotic therapy PROCEDURE: Ultrasound and fluoroscopic guidance of PICC line placement. COMPLICATIONS: None ANESTHESIA: 1. 1% Lidocaine locally. FINDINGS/TECHNIQUE: The procedure was explained to the patient. The risks, complications, benefits and alternatives were discussed and any questions were answered. Informed consent was obtained. The patient was placed supine on the fluoroscopic table and prepped and draped in the usual sterile fash ion. Pre-existing PICC line was cut and exchanged over an 0.018 guidewire. The vein is patent. A 5-F r sheath was placed over the guidewire. The guidewire and dilator were removed and a 5-F. Double lum en PICC line was placed through the sheath with the tip at the level of the SVC. The sheath was umang rob, the catheter was flushed and sutured into position. The patient was stable throughout the proce dure and remained stable upon discharge from the Department of Radiology. The vein puncture was patent under ultrasound. A lopez scale image was obtained to document patency of the vein punctured. All elements of the maximal barrier technique were utilized. FLUOROSCOPY TIME: 320 minutes IMPRESSION: 1. Successful fluoroscopic guided PICC line exchange over guidewire.
== END 2022-01-16 12:51 | disposition home or self-care (01) ==
LOC: CATHCVL 10:24
PROVIDERS: ATTEND Radiology Diagnostic Radiology
DX: Z45.2 Encounter for adjustment and management of vascular access device (principal)
CPT/HCPCS: 36573; 82565; 84520; C1751 ×2; C1769 ×2; J2001

== ENCOUNTER → 2022-01-16 | Outpatient (CLI) | payer MEDICARE ==
[2022-01-16 13:30] VITALS: BP 128/73; PULSE 117; RESP 18; TEMP 97.9
--- NOTE | 2022-01-16 13:32 | P.PN ---
Subjective Progress Note Date: 01/16/22 Principal diagnosis: A 61 yr old male with a history of severe and chronic low back pain secondary to lumbar degenerative disc diseases and lumbar spondylosis with facet arthropathy presents today for evaluation s/p FB of the medial branches BL L4- L5, L5-S1 #1. He states he experienced 80% pain relief for 1 day status post procedure. Pain level is currently at 4 out of 10 in intensity, sore, sharp, fluctuant pain that waxes and wanes throughout the day based on activity but is localized in the mid to lower aspects of his lumbar spine with radiation of sharp pain to the right groin and right knee. Pain is alleviated with medications although Lilly 5/325 has been ineffective per patient, Tylenol OTC, injections, ice, heat, physical therapy years ago, chiropractic treatments 1 year ago but was discharged due to multiple hardware placement in his spine, home stretching regimen and rest. Interventional pain procedures completed include FB/MBBs L3-5 #1 Patient is currently on Lilly 5/325mg, Tylenol OTC Patient denies any side effects of the medication(s), denies excessive drowsiness or sleepiness, denies suicidal ideation and reports that the current pain medication is helping to control the pain and improve activities of daily living. Patient denies any motor or sensory deficits. Patient denies any fever or night sweats, denies any change in the bowel movements or urination. Physical Examination: -Constitutional: Cooperative. Not in acute distress . -HEENT: Neck is supple. No lymphadenopathy. No thyromegaly. Normal thyroid size. Eyes: No ptosis , no icterus, no photophobia. ENT: No auditory deficits. Normal oropharynx. No Thrush. - Respiratory: Chest clear to auscultations bilaterally. No wheezing. No rhonchi. - Cardiovascular: Regular rate and rhythm. S1 / S2 , no S3 , no S4. - Gastrointestinal: Abdomen soft no tenderness. Bowel sounds positive in all four quadrants. No organomegaly. - Genitourinary: Deferred. - Neurologic: Cranial nerve II to XII intact. No focal neurological deficits. - Psychatric: Alert & oriented x 3. Matching mood & appropriate affect. Judgment and insight intact. - Lymphatic: No Lymphadenopathy. - Musculoskeletal: Cervical spine: Muscle bulk/ tone/ strength in the bilateral upper extremities normal. Facet loading test cervical area positive. Lumbar spine: Motor bulk/ tone/ strength lower extremities , thigh and legs : 5/5 Deep tendon reflexes : Normal Knee Jerk. Normal Ankle Jerk . Vertebral body tenderness to palpation over Lumbar Facet Loading Test positive Straight Leg Raise: positive at 30 degrees right side/ left side Gaenslen's Test positive Sacral spine : Severe tenderness over the Sacroiliac joint: right side / left side Range of motion: Flexion of the lumbar spine <60 degrees Range of motion: Extension of the lumbar spine <20 degrees Gaenslen's Test positive Grayson test: positive right side / left side Imaging: Body Scan from 01/06/22 reviewed. Assessment and plan: Chronic low back pain secondary to lumbar degenerative disc disease , lumbar spondylosis with facet arthropathy without myelopathy Recommendation of FB of the MBs L4-L5, L5-S1 #2. Risks, benefit of procedure discussed and pt verbalized understanding. Denies anticoagulant use or medical history of diabetes. Chronic and current use of high-risk medication (Opioids). The patient was counseled about risk of opioid use, psychological risk associated with opioids and was orally counseled to not overuse , divert or sell medications. Pt is to store medication in a safe location. The patient is counseled against driving while using narcotic medications and also not to use alcohol or any illicit recreational drugs. Patient verbalized understanding that the lack of compliance will result in failure to renew narcotic prescription(s) as well as possible discharge from the clinic Diagnoses, prognosis and treatment options including but not limited to physical therapy, surgical interventions, interventional therapies and medication management including narcotics and adjuvant medication were discussed. All patient questions answered MAPS reviewed and it was appropriate. UDS from 12/05/21 reviewed and consistent Prescription for Lilly 10/325mg #60 w 1 refill. I have spent 31 minutes on patient care today. Dr Coronado was available by phone for the evaluation of this patient. The time was used to review the medical records including relevant urine studies and Prescription history (MAPs), review of the available imaging, evaluation and examination of the patient, coordination of care with the medical staff and if applicable referring physicians, as well as creation of the medical record PQRS Measure Charge Sheet Mode of Arrival: Ambulatory, Wheelchair PQRS Narrative: Narcotic Agreement Date Signed 10/24/21 Blood Pressure 128/73 Pain Intensity [Bilateral 4 Lower Back] Scale Used Numeric (1 - 10) Hx Alcohol Use (MH) No Home Medications: Ambulatory Orders Atorvastatin [Lipitor] 20 mg PO DAILY 03/11/21 OXcarbazepine [Trileptal] 300 mg PO BID 03/11/21 Pantoprazole Sodium [Protonix] 40 mg PO BID 03/11/21 Sucralfate [Carafate] 1 gm PO QID 03/11/21 traZODone HCL [Desyrel] 100 mg PO HS 03/11/21 Nicotine 21Mg/24Hr Patch [Habitrol] 1 patch TRANSDERM DAILY patch 03/23/21 HYDROcodone/APAP 5-325MG [Lilly 5-325] 1 tab PO Q12HR PRN 30 Days #60 tab 12/05/21 ALPRAZolam [Xanax] 0.5 mg PO BID 01/13/22 Albuterol .083%/3ml 1 dose INHALATION DIRECTED 01/13/22 Budesonide [Pulmicort] 0.25 mg INHALATION BID 01/13/22 Ergocalciferol [Vitamin D2 (1250 Mcg = 73474 Iu)] 1,250 mcg PO WEEKLY 01/13/22 Famotidine [Pepcid] 40 mg PO DAILY 01/13/22 Fluconazole [Diflucan] 100 mg PO BID 01/13/22 Hydrocortisone [Cortef] 10 mg PO W/SUPPER 01/13/22 Hydrocortisone [Cortef] 20 mg PO QAM 01/13/22 Ipratropium-Albuterol Nebulize [Duoneb 0.5 mg-3 mg/3 ml Soln] 3 ml INHALATION QID 01/13/22 Omeprazole [PriLOSEC] 40 mg PO BID 01/13/22 Ondansetron [Zofran] 4 mg PO Q8HR PRN 01/13/22 metFORMIN HCL 500 mg PO BID 01/13/22
== END | disposition home or self-care (01) ==
LOC: PNWHC3 12:58
PROVIDERS: ATTEND Specialist
DX: M47.896 Other spondylosis, lumbar region (principal)
CPT/HCPCS: 99211

== ENCOUNTER → 2022-01-19 | Outpatient (CLI) | payer MEDICARE ==
[2022-01-19 11:58] LABS: African American GFR (CKD) >90 (>60 ml/min/1.73 sqM); Blood Urea Nitrogen 11 mg/dL (9-20); Non-African American GFR(CKD) >90 (>60 ml/min/1.73 sqM)
--- NOTE | 2022-01-19 13:13 | CT ---
EXAMINATION TYPE: CT ChestAbdPelvis w con DATE OF EXAM: 01/19/2022 COMPARISON: 12/08/2021 HISTORY: Lung cancer CT DLP: 1372.90 mGycm CONTRAST: CT scan of the chest, abdomen and pelvis is performed with Oral Contrast and with IV Contrast, patien t injected with 100 mL of Isovue [address]. [address] Chest: LUNGS: Left suprahilar mass which extends to the left upper lobe pleural surface persists and measure s 5.3 cm in length by 1.7 cm. Prior measurement is 7.0 x 2.7 cm. The mass has decreased in size. Pleu ral-based nodule posterior aspect of the superior segment left lower lobe measures 9 mm versus 1.3 cm previously. No additional pulmonary nodules seen. No new masses present. Scattered subpleural fibros is. Mild hyperinflation compatible with COPD. MEDIASTINUM/HILAR STRUCTURES: Persistent but much improved AP window adenopathy measuring 1.7 cm vers us 3.6 cm previously. Right paratracheal adenopathy is also much improved and currently measures 1.5 cm versus 3.1 cm. No new adenopathy appreciated. Pericardial lymph nodes persist however smaller in s ize. OTHER: No significant abnormality. CONTRAST CT ABDOMEN AND PELVIS FINDINGS: LIVER/GB: Hepatic steatosis. No calcified gallstones. No space occupying hepatic lesion. Biliary t ree is of normal caliber. PANCREAS: No inflammation. No distinct mass. SPLEEN: No splenic enlargement. No lesion seen. ADRENALS: No nodule. No thickening. KIDNEYS/BLADDER: No hydronephrosis. No nephrolithiasis. No disctinct renal mass. BOWEL: Normal appendix. Normal bowel caliber. No inflammation. GENITAL ORGANS: No gross abnormality. LYMPH NODES: Upper abdominal adenopathy persists although is smaller in size for example adjacent to the left celiac axis there is a 1.2 cm lymph node seen versus 2.0 cm previously. Lymph node adjacent to the pancreas seen previously has resolved. No additional adenopathy within the abdomen or pelvis. AORTA: No significant abnormality. OSSEOUS STRUCTURES: Osteopenia. Multilevel vertebral body collapse and vertebroplasty. Bilateral tot al hip arthroplasty causing beam hardening artifacts on the adjacent pelvic structures. OTHER: No significant additional abnormality is seen. IMPRESSION: 1. Left upper lobe mass persists although has diminished in size. No new masses identified. 2. There is also improving mediastinal and upper abdominal adenopathy.
== END | disposition home or self-care (01) ==
LOC: RADCTMAIN 10:54
PROVIDERS: ATTEND Internal Medicine Hematology & Oncology
DX: Z03.89 Encounter for observation for other suspected diseases and conditions ruled out (principal); C34.92 Malignant neoplasm of unspecified part of left bronchus or lung
CPT/HCPCS: 82565; 84520; 71260; 74177; 36415; Q9967

== ENCOUNTER 2022-02-17 12:21 | Day surgery (SDC) | payer MEDICARE ==
[2022-02-17 12:45] VITALS: TEMP 97.5
[2022-02-17 12:45] LABS: Glucose,Whole Blood 256 mg/dL (75-99)
[2022-02-17] MEDS ORDERED: INSULIN ASPART (NovoLOG) 100 UNIT/ML VIAL SQ ONE (12:59)
[2022-02-17] MEDS ORDERED: MIDAZOLAM 2 MG/2 ML VIAL ONE (13:02)
[2022-02-17] MEDS ORDERED: methylPREDNISolone ACETATE 40 MG/ML 1 ML VIAL ONE (13:02)
[2022-02-17] MEDS ORDERED: ROPIVACAINE 5MG/ML 20ML VIAL ONE (13:02)
--- NOTE | 2022-02-17 13:18 | P.PCN ---
Date of Procedure: 02/17/22 Procedure(s) Performed: PREOPERATIVE DIAGNOSIS : 1- Lumbar spondylosis with Facet Arthropathy without myelopathy . 2- Lumber degenerative disc disease POSTOPERATIVE DIAGNOSIS: 1- Lumbar spondylosis with Facet Arthropathy without myelopathy . 2- Lumber degenerative disc disease PROCEDURE: Diagnostic bilateral L3 , L4 , and L5 medial branch block under fluoroscopy guidance(fluoroscopy images available in the radiology Department ) ( To target the facet joint between bilateral L4-5 , and L5-S1 )# 2nd ANESTHESIA:, monitered anesthesia care as per anesthesia department. EBL: Minimal COMPLICATION: None PROCEDURE INDICATION: Chronic low back pain secondary to Facet arthropathy unresponsive to conservative treatment. PROCEDURE DESCRIPTION: the patient was seen and identified in the preop holding area , risks and benefits and possible complications of the procedure and alternative were discussed with the patient, and the patient agreed to proceed with the procedure and signed the consent and vital signs monitored during the procedure and fluoroscopy was used to maximize the benefit and accuracy of the needle placement, and sedation was given to decrease patient anxiety, patient was taken to the procedure room and placed in prone position vital signs monitored in the back prepped with chlorhexidine X3 then under strict sterile technique using a right oblique fluoroscopy ,the junction of the transverse process and the superior articulating process of the right L3 , L4 , and L5 vertebra which corresponding to the fluoroscopy image of the eye of the Roly dog on the block side for the medial branches and subsequently , after local infiltration of skin and subcu tissuies with Ropivacaine 0.5 % , one mL at each level ,then 22-gauge Quincke-type needles , 3 needle was used , each one of them placed at the junction of the base of the transverse process and the superior articular process at the appropriate level, and the needle was advanced until the periosteum contacted, needle placement confirmed with AP oblique and lateral view and after appropriate needle placement confirmed, and after negative aspiration for heme and CSF and there was no paresthesia 1-1/2 mL of Ropivacaine 0.5% mixed with 20 mg Depo-Medrol , then half mL injected at each level after negative aspiration the needle subsequently removed and the same procedure repeated for the left side at left side at L3 , L4 and L5 levels. At the end of the procedure and the needles removed and a bandage applied after the skin was cleaned the cleaning solution patient taken to recovery room in stable condition and monitors in the recovery room for 20-30 minutes and discharged home in stable condition after discharge criteria met and patient will follow up with the pain clinic in 2-4 weeks
[2022-02-17 13:48] VITALS: BP 103/66; PULSE 92; RESP 16
--- NOTE | 2022-02-17 14:09 | FL ---
Fluoroscopy HISTORY: Pain 30 seconds fluoroscopy time supplied to the referring clinician. 4 intraoperative C-arm images docum ent the procedure. See dictated report from anesthesia.
== END 2022-02-17 14:02 | disposition home or self-care (01) ==
LOC: ORPAIN 12:21
PROVIDERS: ATTEND Specialist
DX: M47.816 Spondylosis without myelopathy or radiculopathy, lumbar region (principal); M51.36 Other intervertebral disc degeneration, lumbar region; Z85.118 Personal history of other malignant neoplasm of bronchus and lung; E11.9 Type 2 diabetes mellitus without complications; Z79.899 Other long term (current) drug therapy; Z79.51 Long term (current) use of inhaled steroids; Z79.4 Long term (current) use of insulin
CPT/HCPCS: 64493; 64494; J2250; J1030; J2795

== ENCOUNTER 2022-02-23 05:53 | Inpatient (IN) | payer MEDICARE, OTHER ==
[2022-02-23] MEDS ORDERED: SODIUM CHLORIDE 0.9% 1,000 ML IV STA (06:25)
[2022-02-23] MEDS ORDERED: HYDROmorphone 0.5 MG/0.5 ML SYRINGE IVP STA ×2 (06:25→07:35)
[2022-02-23] MEDS ORDERED: ONDANSETRON 4 MG/2 ML VIAL IVP STA (06:25)
[2022-02-23 06:58] LABS: Anisocytosis Slight; Basophils % (A) 0 %; Eosinophils # (A) 0.1 k/uL (0-0.7); Eosinophils % (A) 1 %; HCT 32.7 % (39.0-53.0); HGB 10.7 gm/dL (13.0-17.5); Lymphocytes # (A) 1.2 k/uL (1.0-4.8); Lymphocytes % (A) 16 %; MCH 35.1 pg (25.0-35.0); MCHC 32.9 g/dL (31.0-37.0); MCV 106.6 fL (80.0-100.0); Macrocytosis Marked; Mean Platelet Volume 8.2; Monocytes # (A) 0.7 k/uL (0-1.0); Monocytes % (A) 9 %; Neutrophils # (A) 5.5 k/uL (1.3-7.7); Neutrophils % (A) 70 %; Poikilocytosis Slight; RBC 3.07 m/uL (4.30-5.90); RDW 18.5 % (11.5-15.5); WBC 7.9 k/uL (3.8-10.6)
[2022-02-23 06:59] LABS: Platelet Count 70 k/uL (150-450)
[2022-02-23 07:30] LABS: ALT 24 U/L (4-49); AST 19 U/L (17-59); African American GFR (CKD) >90 (>60 ml/min/1.73 sqM); Albumin 3.5 g/dL (3.5-5.0); Alkaline Phosphatase 94 U/L (38-126); Amylase 40 U/L (30-110); Anion Gap 10 mmol/L; Blood Urea Nitrogen 11 mg/dL (9-20); Calcium 8.5 mg/dL (8.4-10.2); Carbon Dioxide 20 mmol/L (22-30); Chloride 97 mmol/L (98-107); Glucose 412 mg/dL (74-99); Lipase 86 U/L (23-300); Non-African American GFR(CKD) >90 (>60 ml/min/1.73 sqM); Sodium 127 mmol/L (137-145); Total Bilirubin 0.4 mg/dL (0.2-1.3); Total Protein 6.4 g/dL (6.3-8.2)
[2022-02-23 07:47] LABS: Appearance,Urine Clear (Clear); Bilirubin,Urine Negative (Negative); Blood,Urine Negative (Negative); Color,Urine Light Yellow; Glucose,Urine (UA) 4+ (Negative); Ketones,Urine Negative (Negative); Leukocyte Esterase,Urine Negative (Negative); Nitrite,Urine Negative (Negative); PH, Urine 6.5 (5.0-8.0); Protein,Urine Negative (Negative); Specific Gravity,Urine 1.031 (1.001-1.035); Urobilinogen,Urine <2.0 mg/dL (<2.0)
--- NOTE | 2022-02-23 08:39 | CT ---
EXAMINATION TYPE: CT abdomen pelvis w con DATE OF EXAM: 02/23/2022 COMPARISON: CT dated 01/19/2022 HISTORY: Hx of stomach tumor, lung cancer CT DLP: 1149 mGycm Automated exposure control for dose reduction was used. TECHNIQUE: Helical acquisition of images was performed from the lung bases through the pelvis. CONTRAST: Performed without Oral Contrast and with IV Contrast, patient injected with 70 ml mL of Isovue 300. FINDINGS: LUNG BASES: Mild peripheral pulmonary reticulation and subtle fibrotic changes. Pericardiophrenic nod ules, likely metastatic, measuring up to 16 mm compared to 12 mm previously. LIVER/GB: Suspected hepatic steatosis with this limitation, no definite hepatic focal lesion identifi ed. Unremarkable gallbladder. PANCREAS: No significant abnormality is seen. SPLEEN: No significant abnormality is seen. ADRENALS: Interval progression of the metastatic nodule adjacent to the left adrenal gland measuring 3 cm compared to 1.8 cm previously. Unremarkable right adrenal. KIDNEYS: Larger left perinephric nodule along the upper pole of the left kidney measuring 9 mm compar ed to 6 mm previously. Unremarkable kidneys otherwise. FREE AIR: No free air is visualized. RETROPERITONEAL ADENOPATHY: No other pathologically enlarged retroperitoneal lymph nodes. REPRODUCTIVE ORGANS: Obscured by artifacts. URINARY BLADDER: Obscured by artifacts. PELVIC ADENOPATHY: No pathologically enlarged pelvic lymph nodes. OSSEOUS STRUCTURES: Osteopenia. Bilateral total hip arthroplasty. Multilevel lower thoracic and lumb ar vertebral body collapse, appreciated previously. BOWEL: The known gastric tumor is not well appreciated by this CT scan. No evidence of gastric obstr uction. No gross duodenal or small bowel abnormality. No gross colonic mass. OTHER: Extensive arterial atherosclerotic calcifications. Infrarenal abdominal aortic ectasia measuri ng 2.6 cm. No sizable ascites. IMPRESSION: The known gastric lesion is not appreciated by this CT scan. No evidence of small or large bowel obst ruction. Progressive metastatic pericardiophrenic and upper abdominal nodules/lymph nodes as detailed above. Other interval changes as described above.
[2022-02-23] MEDS ORDERED: NALOXONE 0.4 MG/ML 1 ML VIAL IV PRN (09:09)
[2022-02-23] MEDS ORDERED: ONDANSETRON 4 MG/2 ML VIAL IVP PRN (09:09)
--- NOTE | 2022-02-23 09:09 | ED ---
Abdominal Pain HPI - General Chief Complaint: Abdominal Pain Stated Complaint: abd pain Time Seen by Provider: 02/23/22 06:09 Source: patient, RN notes reviewed Mode of arrival: ambulatory Limitations: no limitations - History of Present Illness Initial Comments: 62-year-old male presents emergency apartment with chief complaint abdominal pain. Patient states that he's having increasing abdominal last 24 hours. Patient states that he feels nauseated having normal bowel movements. 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 Patient states she is scheduled for chemotherapy today. He is followed by Dr. Barksdale. Patient states that his never had any pain like this in the past. Denies any fevers or chills. Patient does have mild pressure feeling. Patient denies any dysuria hematuria. - Related Data Home Medications Medication Instructions Recorded Confirmed Atorvastatin [Lipitor] 20 mg PO DAILY 03/11/21 02/17/22 OXcarbazepine [Trileptal] 300 mg PO BID 03/11/21 02/17/22 Pantoprazole Sodium [Protonix] 40 mg PO BID 03/11/21 02/17/22 Sucralfate [Carafate] 1 gm PO QID 03/11/21 02/17/22 traZODone HCL [Desyrel] 100 mg PO HS 03/11/21 02/17/22 ALPRAZolam [Xanax] 0.5 mg PO BID 01/13/22 02/17/22 Albuterol .083%/3ml 1 dose INHALATION DIRECTED 01/13/22 02/17/22 Budesonide [Pulmicort] 0.25 mg INHALATION BID 01/13/22 02/17/22 Ergocalciferol [Vitamin D2 (1250 1,250 mcg PO WEEKLY 01/13/22 02/17/22 Mcg = 69321 Iu)] Famotidine [Pepcid] 40 mg PO DAILY 01/13/22 02/17/22 Fluconazole [Diflucan] 100 mg PO BID 01/13/22 02/17/22 Hydrocortisone [Cortef] 10 mg PO W/SUPPER 01/13/22 02/17/22 Hydrocortisone [Cortef] 20 mg PO QAM 01/13/22 02/17/22 Ipratropium-Albuterol Nebulize 3 ml INHALATION QID 01/13/22 02/17/22 [Duoneb 0.5 mg-3 mg/3 ml Soln] Omeprazole [PriLOSEC] 40 mg PO BID 01/13/22 02/17/22 Ondansetron [Zofran] 4 mg PO Q8HR PRN 01/13/22 02/17/22 metFORMIN HCL 500 mg PO BID 01/13/22 02/17/22 Previous Rx's Medication Instructions Recorded Nicotine 21Mg/24Hr Patch [Habitrol] 1 patch TRANSDERM DAILY patch 03/23/21 HYDROcodone/APAP 10-325MG [[place] 1 tab PO Q12HR PRN 30 Days #60 tab 01/16/22 10-325] Allergies Allergy/AdvReac Type Severity Reaction Status Date / Time No Known Allergies Allergy Verified 02/23/22 05:59 Review of Systems ROS Statement: Those systems with pertinent positive or pertinent negative responses have been documented in the HPI. ROS Other: All systems not noted in ROS Statement are negative. Past Medical History Past Medical History: Cancer, COPD, GERD/Reflux Additional Past Medical History / Comment(s): LUNG CANCER WITH TUMOR IN STOMACH AND STATES ALSO IN HIS NECK.,. RECEIVING CHEMOTHERAPY., DDD WITH BACK ,HIP & LEG PAIN., (PAIN CLINIC PATIENT)., EMPHYSEMA., GASTRITIS. History of Any Multi-Drug Resistant Organisms: None Reported Past Surgical History: Joint Replacement, Orthopedic Surgery Additional Past Surgical History / Comment(s): RIGHT AND LEFT TOTAL HIPS, RIGHT SHOULDER SURGERY. Past Anesthesia/Blood Transfusion Reactions: No Reported Reaction Past Psychological History: Anxiety, Depression Smoking Status: Former smoker - Past Family History Father Family Medical History: No Reported History General Exam Limitations: no limitations General appearance: alert, in no apparent distress Head exam: Present: atraumatic, normocephalic, normal inspection Eye exam: Present: normal appearance, PERRL, EOMI. Absent: scleral icterus, conjunctival injection, periorbital swelling ENT exam: Present: normal exam, normal oropharynx, mucous membranes moist Neck exam: Present: normal inspection, full ROM. Absent: tenderness, me ningismus, lymphadenopathy Respiratory exam: Present: normal lung sounds bilaterally. Absent: respiratory distress, wheezes, rales, rhonchi, stridor Cardiovascular Exam: Present: normal rhythm, tachycardia, normal heart sounds. Absent: systolic murmur, diastolic murmur, rubs, gallop, clicks GI/Abdominal exam: Present: soft, tenderness, normal bowel sounds. Absent: distended, guarding, rebound, rigid Back exam: Absent: CVA tenderness (R), CVA tenderness (L) Course Vital Signs 02/23/22 02/23/22 05:54 06:17 Temperature 98.0 F Pulse Rate 114 H 112 H Respiratory 18 20 Rate Blood Pressure 142/75 181/87 O2 Sat by Pulse 96 Oximetry Medical Decision Making - Medical Decision Making 61-year-old male presented for increased abdominal pain with normal lung cancer metastasized. CT of abdomen pelvis shows no evidence of bowel instruction progressive metastatic pericardiophrenic and upper abdominal nodes patient does have mild hyponatremic, increase abdominal pain, unable tolerate oral intake. Patient be admitted for pain control, IV fluid hydration. - Lab Data Result diagrams: 02/23/22 06:34 02/23/22 06:34 Lab Results 02/23/22 02/23/22 02/23/22 Range/Units 06:34 06:34 06:34 WBC 7.9 (3.8-10.6) k/uL RBC 3.07 L (4.30-5.90) m/uL Hgb 10.7 L (13.0-17.5) gm/dL Hct 32.7 L (39.0-53.0) % MCV 106.6 H (80.0-100.0) fL MCH 35.1 H (25.0-35.0) pg MCHC 32.9 (31.0-37.0) g/dL RDW 18.5 H (11.5-15.5) % Plt Count 70 L (150-450) k/uL MPV 8.2 Neutrophils % 70 % Lymphocytes % 16 % Monocytes % 9 % Eosinophils % 1 % Basophils % 0 % Neutrophils # 5.5 (1.3-7.7) k/uL Lymphocytes # 1.2 (1.0-4.8) k/uL Monocytes # 0.7 (0-1.0) k/uL Eosinophils # 0.1 (0-0.7) k/uL Basophils # 0.0 (0-0.2) k/uL Poikilocytosis Slight Anisocytosis Slight Macrocytosis Marked A Sodium 127 L (137-145) mmol/L Potassium 4.0 (3.5-5.1) mmol/L Chloride 97 L (98-107) mmol/L Carbon Dioxide 20 L (22-30) mmol/L Anion Gap 10 mmol/L BUN 11 (9-20) mg/dL Creatinine 0.57 L (0.66-1.25) mg/dL Est GFR (CKD-EPI)AfAm >90 (>60 ml/min/1.73 sqM) Est GFR (CKD-EPI)NonAf >90 (>60 ml/min/1.73 sqM) Glucose 412 H (74-99) mg/dL Plasma Lactic Acid Nicholas 2.2 H* (0.7-2.0) mmol/L Calcium 8.5 (8.4-10.2) mg/dL Total Bilirubin 0.4 (0.2-1.3) mg/dL AST 19 (17-59) U/L ALT 24 (4-49) U/L Alkaline Phosphatase 94 (38-126) U/L Total Protein 6.4 (6.3-8.2) g/dL Albumin 3.5 (3.5-5.0) g/dL Amylase 40 (30-110) U/L Lipase 86 (23-300) U/L Urine Color Urine Appearance (Clear) Urine pH (5.0-8.0) Ur Specific [place] (1.001-1.035) Urine Protein (Negative) Urine Glucose (UA) (Negative) Urine Ketones (Negative) Urine Blood (Negative) Urine Nitrite (Negative) Urine Bilirubin (Negative) Urine Urobilinogen (<2.0) mg/dL Ur Leukocyte Esterase (Negative) 02/23/22 Range/Units 07:35 WBC (3.8-10.6) k/uL RBC (4.30-5.90) m/uL Hgb (13.0-17.5) gm/dL Hct (39.0-53.0) % MCV (80.0-100.0) fL MCH (25.0-35.0) pg MCHC (31.0-37.0) g/dL RDW (11.5-15.5) % Plt Count (150-450) k/uL MPV Neutrophils % % Lymphocytes % % Monocytes % % Eosinophils % % Basophils % % Neutrophils # (1.3-7.7) k/uL Lymphocytes # (1.0-4.8) k/uL Monocytes # (0-1.0) k/uL Eosinophils # (0-0.7) k/uL Basophils # (0-0.2) k/uL Poikilocytosis Anisocytosis Macrocytosis Sodium (137-145) mmol/L Potassium (3.5-5.1) mmol/L Chloride (98-107) mmol/L Carbon Dioxide (22-30) mmol/L Anion Gap mmol/L BUN (9-20) mg/dL Creatinine (0.66-1.25) mg/dL Est GFR (CKD-EPI)AfAm (>60 ml/min/1.73 sqM) Est GFR (CKD-EPI)NonAf (>60 ml/min/1.73 sqM) Glucose (74-99) mg/dL Plasma Lactic Acid Nicholas (0.7-2.0) mmol/L Calcium (8.4-10.2) mg/dL Total Bilirubin (0.2-1.3) mg/dL AST (17-59) U/L ALT (4-49) U/L Alkaline Phosphatase (38-126) U/L Total Protein (6.3-8.2) g/dL Albumin (3.5-5.0) g/dL Amylase (30-110) U/L Lipase (23-300) U/L Urine Color Light Yellow Urine Appearance Clear (Clear) Urine pH 6.5 (5.0-8.0) Ur Specific [place] 1.031 (1.001-1.035) Urine Protein Negative (Negative) Urine Glucose (UA) 4+ H (Negative) Urine Ketones Negative (Negative) Urine Blood Negative (Negative) Urine Nitrite Negative (Negative) Urine Bilirubin Negative (Negative) Urine Urobilinogen <2.0 (<2.0) mg/dL Ur Leukocyte Esterase Negative (Negative) Disposition Clinical Impression: Metastatic lung cancer (metastasis from lung to other site), Hyponatremia, Abdominal pain, Hyperglycemia Disposition: ADMITTED IP TO THIS [facility] Condition: Fair Referrals: Alesha Ceron DO [Primary Care Provider] - 1-2 days Time of Disposition: 09:08
[2022-02-23] MEDS: SODIUM CHLORIDE 0.9% 1,000 ML IV SCH ×2 (09:56→23:33)
[2022-02-23] MEDS: HYDROmorphone 0.5 MG/0.5 ML SYRINGE IVP PRN ×4 (09:57→21:16)
--- NOTE | 2022-02-23 21:18 | P.CONS ---
History of Present Illness - Reason for Consult Consult date: 02/23/22 SCLC on treatment Requesting physician: Reji Massey - Chief Complaint abd pain - History of Present Illness Mr Sanchez is a very pleasant 62-year-old male patient of Dr. Barksdale, diagnosed in February 2021 with metastatic small cell lung cancer. Patient has been through multiple lines of therapy-summarized below-currently admitted with abdominal pain. Pain is periumbilical, associated with increase in gas, it started with a rather sudden onset in the last day, persistent, nothing has been helping to relieve the pain, he increased his antacids with no relief. He did have normal consistency stool yesterday. His last treatment was 2 weeks ago he was due for day 15 today. Patient denied fevers, nausea, vomiting, bleeding, cough, dysuria, swelling of the legs. Initially seen in consult Tian 03/12/21, admitted with progressively worsening shortness of breath x 2 weeks. CXR revealed essentially opacification of the left hemithorax. CT scan showed a large mediastinal mass measuring 9.5 cm with pleural effusion. Admitted to the ICU, thoracentesis, positive for metastatic small cell carcinoma. CT AP 03/14/21 showed a large left-sided pleural effusion, bilateral retroperitoneal nodes largest measuring 1.9 cm, periaortic nodes and multiple iliac chain and perirectal lymph nodes, largest measuring 1.2 cm. MRI of the brain on 03/14/21 showed no metastatic disease. He had his first chemotherapy in patient. Symptoms improved, he was transferred to [facility] from the hospital. Seen for his first office visit on 04/13/21. He continued on carboplatin/[employer]. Did very well, completed [address] CAP stable disease no new sites of disease. The patient was subsequently able to get coverage for immunotherapy, and started Tecentriq on 09/28/21, maintenance. Did well until 12/06. He was having increased shortness of breath, CT confirmed progression. He was started on second line treatment with carboplatin and IV irinotecan on 12/01/21. He is status post 4 cycles. Review of Systems 10 point review systems is negative except as stated in HPI Past Medical History Past Medical History: Cancer, COPD, GERD/Reflux Additional Past Medical History / Comment(s): LUNG CANCER WITH TUMOR IN STOMACH AND STATES ALSO IN HIS NECK.,. RECEIVING CHEMOTHERAPY., DDD WITH BACK ,HIP & LEG PAIN., (PAIN CLINIC PATIENT)., EMPHYSEMA., GASTRITIS. History of Any Multi-Drug Resistant Organisms: None Reported Past Surgical History: Joint Replacement, Orthopedic Surgery Additional Past Surgical History / Comment(s): RIGHT AND LEFT TOTAL HIPS, RIGHT SHOULDER SURGERY. Past Anesthesia/Blood Transfusion Reactions: No Reported Reaction Past Psychological History: Anxiety, Depression Smoking Status: Former smoker - Past Family History Father Family Medical History: No Reported History Medications and Allergies Home Medications Medication Instructions Recorded Confirmed Type Atorvastatin [Lipitor] 20 mg PO DAILY 03/11/21 02/23/22 History OXcarbazepine [Trileptal] 300 mg PO BID 03/11/21 02/23/22 History Pantoprazole Sodium [Protonix] 40 mg PO BID 03/11/21 02/23/22 History Sucralfate [Carafate] 1 gm PO QID 03/11/21 02/23/22 History traZODone HCL [Desyrel] 100 mg PO HS 03/11/21 02/23/22 History ALPRAZolam [Xanax] 0.5 mg PO BID 01/13/22 02/23/22 History Budesonide [Pulmicort] 0.25 mg INHALATION RT-BID 01/13/22 02/23/22 History Ergocalciferol [Vitamin D2 (1250 1,250 mcg PO Q7D 01/13/22 02/23/22 History Mcg = 13730 Iu)] Famotidine [Pepcid] 40 mg PO DAILY 01/13/22 02/23/22 History Hydrocortisone [Cortef] 10 mg PO W/SUPPER 01/13/22 02/17/22 History Hydrocortisone [Cortef] 20 mg PO QAM 01/13/22 02/17/22 History Ipratropium-Albuterol Nebulize 3 ml INHALATION RT-QID 01/13/22 02/23/22 History [Duoneb 0.5 mg-3 mg/3 ml Soln] Omeprazole [PriLOSEC] 40 mg PO BID 01/13/22 02/23/22 History Ondansetron [Zofran] 4 mg PO Q8HR PRN 01/13/22 02/23/22 History metFORMIN HCL 500 mg PO BID 04/29/22 06/09/22 History HYDROcodone/APAP 10-325MG [[place] 1 tab PO Q12HR PRN 30 Days #60 tab 01/16/22 02/23/22 Rx 10-325] Albuterol Sulfate [Accuneb] 3 ml INHALATION RT-QID 02/23/22 02/23/22 History Fluconazole [Diflucan] 100 mg PO DAILY PRN 02/23/22 02/23/22 History Allergies Allergy/AdvReac Type Severity Reaction Status Date / Time No Known Allergies Allergy Verified 02/23/22 05:59 Physical Exam Vitals: Vital Signs Temp Pulse Resp BP Pulse Ox 02/23/22 18:05 98 18 138/76 95 02/23/22 12:37 107 H 18 132/92 97 02/23/22 09:58 107 H 18 151/83 96 02/23/22 06:17 112 H 20 181/87 02/23/22 05:54 98.0 F 114 H 18 142/75 96 Intake and Output 02/23/22 02/23/22 02/23/22 06:59 14:59 22:59 Other: Weight 78.925 kg - Constitutional General appearance: average body habitus, cooperative, no acute distress - EENT Eyes: anicteric sclerae, EOMI ENT: hearing grossly normal, normal oropharynx - Neck Neck: no lymphadenopathy - Respiratory Respiratory: bilateral: CTA, diminished - Cardiovascular Rhythm: regular Heart sounds: normal: S1, S2 Abnormal Heart Sounds: no systolic murmur, no diastolic murmur, no rub, no S3 Gallop, no S4 Gallop, no click, no other leg Peripheral Edema: bilateral: None - Gastrointestinal General gastrointestinal: no absent bowel sounds, decreased bowel sounds, no distended, no hepatomegaly, no hyperactive bowel sounds, no normal bowel sounds, no organomegaly, no rigid, no scaphoid, soft, no splenomegaly, no tenderness, no umbilical hernia, no ventral hernia - Integumentary Integumentary: pale - Neurologic Neurologic: CNII-XII intact - Musculoskeletal Musculoskeletal: strength equal bilaterally - Psychiatric Psychiatric: A&O x's 3, appropriate affect, intact judgment & insight Results CBC & Chem 7: 02/23/22 06:34 02/23/22 06:34 Labs: Abnormal Lab Results - Last 24 Hours (Table) 02/23/22 02/23/22 02/23/22 Range/Units 06:34 06:34 06:34 RBC 3.07 L (4.30-5.90) m/uL Hgb 10.7 L (13.0-17.5) gm/dL Hct 32.7 L (39.0-53.0) % MCV 106.6 H (80.0-100.0) fL MCH 35.1 H (25.0-35.0) pg RDW 18.5 H (11.5-15.5) % Plt Count 70 L (150-450) k/uL Macrocytosis Marked A Sodium 127 L (137-145) mmol/L Chloride 97 L (98-107) mmol/L Carbon Dioxide 20 L (22-30) mmol/L Creatinine 0.57 L (0.66-1.25) mg/dL Glucose 412 H (74-99) mg/dL Plasma Lactic Acid Nicholas 2.2 H* (0.7-2.0) mmol/L Urine Glucose (UA) (Negative) 02/23/22 Range/Units 07:35 RBC (4.30-5.90) m/uL Hgb (13.0-17.5) gm/dL Hct (39.0-53.0) % MCV (80.0-100.0) fL MCH (25.0-35.0) pg RDW (11.5-15.5) % Plt Count (150-450) k/uL Macrocytosis Sodium (137-145) mmol/L Chloride (98-107) mmol/L Carbon Dioxide (22-30) mmol/L Creatinine (0.66-1.25) mg/dL Glucose (74-99) mg/dL Plasma Lactic Acid Nicholas (0.7-2.0) mmol/L Urine Glucose (UA) 4+ H (Negative) CT scan - abdomen: report reviewed CT scan - pelvis: report reviewed Assessment and Plan (1) Abdominal pain Current Visit: Yes Status: Acute Priority: High Code(s): R10.9 - UNSPECIFIED ABDOMINAL PAIN SNOMED Code(s): 96707422 (2) Hyperglycemia Current Visit: Yes Status: Acute Priority: High Code(s): R73.9 - HYPERGLYCEMIA, UNSPECIFIED SNOMED Code(s): 12470690 (3) Small cell lung cancer Current Visit: No Status: Chronic Priority: Medium Code(s): C34.90 - MALIGNANT NEOPLASM OF UNSP PART OF UNSP BRONCHUS OR LUNG SNOMED Code(s): 273813512 Plan: Dr. Barksdale reviewed CT of the abdomen and pelvis with patient. There is an adrenal nodule that is enlarged but not felt to be contributing to patient's acute situation. Amylase and lipase WNL. Patient has been using a very excessive amount of PPIs, changed to Carafate only, before meals and at bedtime. Consulted Surgeon to evaluate patient, concerns for maybe in early onset ischemic bowel? Pending their evaluation and recommendations. Patient is actually been doing pretty well on this most recent treatment for small cell lung cancer. Pending recovery from his current situation, treatment will be rescheduled. attests: I have performed H&P, seen and examined patient, developed impression and plan of care. Discussed with dictator. Agree with documentation dictated as a scribe
[2022-02-23] MEDS: PANTOPRAZOLE 40 MG/10 ML VIAL IVP SCH (23:32)
--- NOTE | 2022-02-24 00:28 | P.HPIM ---
History of Present Illness H&P Date: 02/23/22 Chief Complaint: abdominal pain Patient is a 62-year-old male metastatic Lung cancer, COPD, GERD, diabetes type 2 non insulin-dependent, anxiety/depression and previous history of smoking presents to ER with complaints of abdominal pain mainly in the mid abdomen and bloating and distention. Patient has been having symptoms since the yesterday. However his patient did have a small bowel movement yesterday. Denies any nausea or vomiting. No fever no chills. No cough or sputum. No chest pain or shortness of breath. CT of the abdomen pelvis CT abdomen pelvis showed known gastric lesion is not appreciated by the CT scan. No evidence of small or large bowel obstruction. Progressive metastatic pericardiophrenic and upper abdominal nodules and lymph nodes present. Interval progression of the metastatic nodule adjacent to the left adrenal gland measuring 3 cm compared to 1.8 cm previously.Patient is currently on chemotherapy and last dose was 2 weeks ago. Patient is supposed to get chemotherapy today. Laboratory data showed WBC 7.9 hemoglobin 10.7 and platelets 70 Sodium 127 potassium 4.0 chloride 97 bicarb is 20 BUN 11 and creatinine 0.57 and lactic acid 2.2 blood sugars 412 Review of Systems Constitutional: Patient denies any fever or chills . Generalized weakness. Abdomen: Patient denied any nausea or vomiting. Patient does have abdominal pain. Cardiovascular: Patient denies any chest pain or short of breath no pal pitations. Respiratory: patient denied any cough is from production. No shortness of breath Neurologic: Patient denied any numbness or tingling headache. Musculoskeletal: Patient denies any complaints of joint swelling or deformity. Skin: Negative Psychiatric: Negative Endocrine: No heat or cold intolerance. No recent weight gain. Genitourinary: No dysuria or hematuria. All other 14 point ROS negative except the above. Past Medical History Past Medical History: Cancer, COPD, GERD/Reflux Additional Past Medical History / Comment(s): LUNG CANCER WITH TUMOR IN STOMACH AND STATES ALSO IN HIS NECK.,. RECEIVING CHEMOTHERAPY., DDD WITH BACK ,HIP & LEG PAIN., (PAIN CLINIC PATIENT)., EMPHYSEMA., GASTRITIS. History of Any Multi-Drug Resistant Organisms: None Reported Past Surgical History: Joint Replacement, Orthopedic Surgery Additional Past Surgical History / Comment(s): RIGHT AND LEFT TOTAL HIPS, RIGHT SHOULDER SURGERY. Past Anesthesia/Blood Transfusion Reactions: No Reported Reaction Past Psychological History: Anxiety, Depression Smoking Status: Former smoker - Past Family History Father Family Medical History: No Reported History Medications and Allergies Home Medications Medication Instructions Recorded Confirmed Type Atorvastatin [Lipitor] 20 mg PO DAILY 03/11/21 02/23/22 History OXcarbazepine [Trileptal] 300 mg PO BID 03/11/21 02/23/22 History Pantoprazole Sodium [Protonix] 40 mg PO BID 03/11/21 02/23/22 History Sucralfate [Carafate] 1 gm PO QID 03/11/21 02/23/22 History traZODone HCL [Desyrel] 100 mg PO HS 03/11/21 02/23/22 History ALPRAZolam [Xanax] 0.5 mg PO BID 01/13/22 02/23/22 History Budesonide [Pulmicort] 0.25 mg INHALATION RT-BID 01/13/22 02/23/22 History Ergocalciferol [Vitamin D2 (1250 1,250 mcg PO Q7D 01/13/22 02/23/22 History Mcg = 64721 Iu)] Famotidine [Pepcid] 40 mg PO DAILY 01/13/22 02/23/22 History Hydrocortisone [Cortef] 10 mg PO W/SUPPER 01/13/22 02/17/22 History Hydrocortisone [Cortef] 20 mg PO QAM 01/13/22 02/17/22 History Ipratropium-Albuterol Nebulize 3 ml INHALATION RT-QID 01/13/22 02/23/22 History [Duoneb 0.5 mg-3 mg/3 ml Soln] Omeprazole [PriLOSEC] 40 mg PO BID 01/13/22 02/23/22 History Ondansetron [Zofran] 4 mg PO Q8HR PRN 01/13/22 02/23/22 History metFORMIN HCL 500 mg PO BID 01/13/22 02/23/22 History HYDROcodone/APAP 10-325MG [[place] 1 tab PO Q12HR PRN 30 Days #60 tab 01/16/22 02/23/22 Rx 10-325] Albuterol Nebulized [Ventolin 2.5 mg INHALATION RT-QID 02/23/22 02/23/22 History Nebulized] Fluconazole [Diflucan] 100 mg PO DAILY PRN 02/23/22 02/23/22 History Allergies Allergy/AdvReac Type Severity Reaction Status Date / Time No Known Allergies Allergy Verified 02/23/22 05:59 Physical Exam Vitals: Vital Signs Temp Pulse Pulse Resp BP BP Pulse Ox 02/23/22 21:00 98.2 F 111 H 18 145/78 95 02/23/22 20:34 100.2 F H 111 H 16 142/77 96 02/23/22 20:00 18 02/23/22 18:05 98 18 138/76 95 02/23/22 12:37 107 H 18 132/92 97 02/23/22 12:10 18 02/23/22 09:58 107 H 18 151/83 96 02/23/22 06:17 112 H 20 181/87 02/23/22 05:54 98.0 F 114 H 18 142/75 96 Intake and Output 02/23/22 02/23/22 02/24/22 14:59 22:59 06:59 Intake Total 240 Balance 240 Intake: Oral 240 Other: Voiding Method Toilet Weight 78.925 kg PHYSICAL EXAMINATION: Patient is lying in the bed comfortably, no acute distress, awake alert and oriented.. HEENT: Normocephalic. Neck is supple. Pupils reactive. Nostrils clear. Oral cavity is moist. Neck reveals no JVD, carotid bruits, or thyromegaly. CHEST EXAMINATION: Trachea is central. Symmetrical expansion. Lung varner clear to auscultation and percussion. CARDIAC: Normal S1, S2 with no gallops. No murmurs ABDOMEN: Soft. Bowel sounds present. Nontender. No organomegaly. No abdominal bruits. Extremities: reveal no edema. No clubbing or cyanosis Neurologically awake, alert, oriented x3 with well-coordinated movements. No focal deficits noted Skin: No rash or skin lesions. Psychiatric: Coperative. Nonsuicidal, anxious. Musculoskeletal: No joint swelling or deformity. Normal range of motion. Results CBC & Chem 7: 02/23/22 06:34 02/23/22 06:34 Labs: Abnormal Lab Results - Last 24 Hours (Table) 02/23/22 02/23/22 02/23/22 Range/Units 06:34 06:34 06:34 RBC 3.07 L (4.30-5.90) m/uL Hgb 10.7 L (13.0-17.5) gm/dL Hct 32.7 L (39.0-53.0) % MCV 106.6 H (80.0-100.0) fL MCH 35.1 H (25.0-35.0) pg RDW 18.5 H (11.5-15.5) % Plt Count 70 L (150-450) k/uL Macrocytosis Marked A Sodium 127 L (137-145) mmol/L Chloride 97 L (98-107) mmol/L Carbon Dioxide 20 L (22-30) mmol/L Creatinine 0.57 L (0.66-1.25) mg/dL Glucose 412 H (74-99) mg/dL Plasma Lactic Acid Nicholas 2.2 H* (0.7-2.0) mmol/L Urine Glucose (UA) (Negative) 02/23/22 Range/Units 07:35 RBC (4.30-5.90) m/uL Hgb (13.0-17.5) gm/dL Hct (39.0-53.0) % MCV (80.0-100.0) fL MCH (25.0-35.0) pg RDW (11.5-15.5) % Plt Count (150-450) k/uL Macrocytosis Sodium (137-145) mmol/L Chloride (98-107) mmol/L Carbon Dioxide (22-30) mmol/L Creatinine (0.66-1.25) mg/dL Glucose (74-99) mg/dL Plasma Lactic Acid Nicholas (0.7-2.0) mmol/L Urine Glucose (UA) 4+ H (Negative) Thrombosis Risk Factor Assmnt - DVT/VTE Prophylaxis DVT/VTE Prophylaxis: Pharmacologic Prophylaxis ordered - Choose All That Apply Any of the Below Risk Factors Present?: Yes Each Risk Factor Represents 2 Points: Age 61-74 years, Malignancy Thrombosis Risk Factor Assessment Total Risk Factor Score: 4 Thrombosis Risk Factor Assessment Level: Moderate Risk Assessment and Plan Assessment: Abdominal pain likely due to interval progression of the metastatic nodules. New metastatic nodular lesion to the left adrenal gland unlikely the cause of pain. Lactic acidosis Hyperglycemia with uncontrolled diabetes type 2 [id number] Hypovolemic hyponatremia/pseudohyponatremia Thrombocytopenia COPD not in exacerbation GERD Anxiety/depression Previous history of smoking Plan: Patient will be current on IV hydration and pain management with Dilaudid IV. Continue with insulin sliding scale and will add long-acting insulin as needed. Patient is also on hydrocortisone at home. Oncology was consulted and follow-up closely. Continue with supportive care. Prognosis is guarded at this time. Time with Patient: Greater than 30
[2022-02-24 02:10] LABS: Appearance,Urine Clear (Clear); Bilirubin,Urine Negative (Negative); Blood,Urine Negative (Negative); Color,Urine Yellow; Glucose,Urine (UA) 3+ (Negative); Leukocyte Esterase,Urine Negative (Negative); Nitrite,Urine Negative (Negative); Protein,Urine Trace (Negative); Urobilinogen,Urine <2.0 mg/dL (<2.0)
[2022-02-24 02:15] LABS: Ketones,Urine 3+ (Negative)
[2022-02-24 02:25] LABS: Glucose,Whole Blood 184 mg/dL (75-99)
[2022-02-24] MEDS: HYDROmorphone 0.5 MG/0.5 ML SYRINGE IVP PRN ×8 (03:02→23:28)
[2022-02-24] MEDS: SODIUM CHLORIDE 0.9% 1,000 ML IV SCH (03:04)
[2022-02-24 07:39] LABS: Glucose,Whole Blood 183 mg/dL (75-99)
[2022-02-24] MEDS: BUDESONIDE 0.25 MG/2 ML NEBU INHALATION SCH ×2 (08:13→19:48)
[2022-02-24 08:28] LABS: Partial Thromboplastin Time 26.5 sec (22.0-30.0); Prothrombin Time 10.6 sec (9.0-12.0)
[2022-02-24] MEDS: ENOXAPARIN 40 MG/0.4 ML SYRINGE SQ SCH (08:49)
[2022-02-24] MEDS: ATORVASTATIN 20 MG TAB PO SCH (08:50)
[2022-02-24] MEDS: INSULIN ASPART (NovoLOG) 100 UNIT/ML VIAL SQ SCH ×4 (08:50→20:32)
[2022-02-24] MEDS: metFORMIN 500 MG TAB PO SCH ×2 (08:50→20:34)
[2022-02-24] MEDS: PANTOPRAZOLE 40 MG/10 ML VIAL IVP SCH ×2 (08:50→20:34)
[2022-02-24] MEDS: SUCRALFATE 1 GM TAB PO SCH ×4 (08:50→20:40)
[2022-02-24] MEDS: ALPRAZolam 0.5 MG TAB PO SCH ×2 (08:50→22:52)
--- NOTE | 2022-02-24 08:52 | XR ---
EXAMINATION TYPE: XR abdomen 2V DATE OF EXAM: 02/24/2022 COMPARISON: NONE HISTORY: Pain TECHNIQUE: One view abdominal series FINDINGS: The osseous structures are intact. The bowel gas pattern is nonspecific. Postsurgical changes bilate ral hip with vertebroplasty and degenerative changes with scoliosis spine. Retained fecal debris thro ughout the colon. Calcifications in the pelvis are nonspecific IMPRESSION: Nonspecific abdomen correlate constipation.
--- NOTE | 2022-02-24 08:57 | XR ---
EXAMINATION TYPE: XR chest 1V DATE OF EXAM: 02/24/2022 COMPARISON: 04/19/2021 HISTORY: Pain TECHNIQUE: Single frontal view of the chest is obtained. FINDINGS: Biapical pleural thickening noted with small pleural effusions. There is widening of the m ediastinum and left suprahilar soft tissue mass. Coarsened interstitium suggests chronic interstitial lung disease. Postsurgical change right shoulder. Nonspecific sclerotic changes involving the left h umerus partially included on the exam to correlate with bone scan IMPRESSION: 1. Left upper lobe mass and small bilateral pleural effusions correlate for chronic interstitial lung disease, mediastinal adenopathy, and COPD.
[2022-02-24 11:02] LABS: % Iron Saturation 16.12 (15.00-50.00); African American GFR (CKD) 131.5 (60.0-200.0); Albumin 3.4 g/dL (3.8-4.9); Albumin/Globulin Ratio 1.45 (1.60-3.17); Anion Gap 11.6 mmol/L (10.00-18.00); BUN/Creat Ratio 15.31 Ratio (12.00-20.00); Calcium 8.4 mg/dL (8.7-10.3); Carbon Dioxide 23.1 mmol/L (20.0-27.5); Globulin 2.4 g/dL (1.6-3.3); Magnesium 1.6 mg/dL (1.5-2.4); Non-African American GFR(CKD) 113.5 (60.0-200.0); Potassium 3.3 mmol/L (3.5-5.5); Total Bilirubin 0.5 mg/dL (0.30-1.20); Total Protein 5.8 g/dL (6.2-8.2)
[2022-02-24 11:12] LABS: Glucose,Whole Blood 155 mg/dL (75-99)
--- NOTE | 2022-02-24 11:34 | P.PN ---
Subjective Progress Note Date: 02/24/22 Principal diagnosis: ITP Abdominal Xray without obstuction Objective - Vital Signs Vital signs: Vital Signs Temp 98.2 F 02/24/22 05:08 Pulse 80 02/24/22 08:27 Resp 18 02/24/22 05:08 BP 146/84 02/24/22 05:08 Pulse Ox 96 02/24/22 05:08 FiO2 Intake & Output 02/23/22 02/24/22 02/24/22 18:59 06:59 18:59 Intake Total 240 Balance 240 Weight 78.925 kg Intake: Oral 240 Other: Voiding Method Toilet Toilet # Voids 1 - Exam Constitutional General appearance: average body habitus, cooperative, no acute distress - EENT Eyes: anicteric sclerae, EOMI ENT: hearing grossly normal, normal oropharynx - Neck Neck: no lymphadenopathy - Respiratory Respiratory: bilateral: CTA, diminished - Cardiovascular Rhythm: regular Heart sounds: normal: S1, S2 Abnormal Heart Sounds: no systolic murmur, no diastolic murmur, no rub, no S3 Gallop, no S4 Gallop, no click, no other leg Peripheral Edema: bilateral: None - Gastrointestinal General gastrointestinal: no absent bowel sounds, decreased bowel sounds, no distended, no hepatomegaly, no hyperactive bowel sounds, no normal bowel sounds, no organomegaly, no rigid, no scaphoid, soft, no splenomegaly, no tenderness, no umbilical hernia, no ventral hernia - Integumentary Integumentary: pale - Neurologic Neurologic: CNII-XII intact - Musculoskeletal Musculoskeletal: strength equal bilaterally - Labs CBC & Chem 7: 02/24/22 07:41 02/24/22 07:41 Labs: Abnormal Lab Results - Last 24 Hours (Table) 02/24/22 02/24/22 02/24/22 Range/Units 01:35 02:23 07:37 Sodium (135-145) mmol/L Potassium (3.5-5.5) mmol/L BUN (9.0-27.0) mg/dL Creatinine (0.6-1.5) mg/dL Glucose (70-110) mg/dL POC Glucose (mg/dL) 184 H 183 H (75-99) mg/dL Calcium (8.7-10.3) mg/dL Iron (65-175) ug/dL TIBC (228-460) ug/dL Transferrin (204.0-354.0) mg/dL Ferritin (22.0-322.0) ng/mL Total Protein (6.2-8.2) g/dL Albumin (3.8-4.9) g/dL Albumin/Globulin Ratio (1.60-3.17) g/dL Amylase (23-121) U/L Urine Protein Trace H (Negative) Urine Glucose (UA) 3+ H (Negative) Urine Ketones 3+ H (Negative) 02/24/22 02/24/22 Range/Units 07:41 11:10 Sodium 131 L (135-145) mmol/L Potassium 3.3 L (3.5-5.5) mmol/L BUN 8.0 L (9.0-27.0) mg/dL Creatinine 0.5 L (0.6-1.5) mg/dL Glucose 168 H (70-110) mg/dL POC Glucose (mg/dL) 155 H (75-99) mg/dL Calcium 8.4 L (8.7-10.3) mg/dL Iron 34 L (65-175) ug/dL TIBC 213 L (228-460) ug/dL Transferrin 152.0 L (204.0-354.0) mg/dL Ferritin 422.0 H (22.0-322.0) ng/mL Total Protein 5.8 L (6.2-8.2) g/dL Albumin 3.4 L (3.8-4.9) g/dL Albumin/Globulin Ratio 1.45 L (1.60-3.17) g/dL Amylase 12 L (23-121) U/L Urine Protein (Negative) Urine Glucose (UA) (Negative) Urine Ketones (Negative) Assessment and Plan Plan: CT scan - abdomen: report reviewed CT scan - pelvis: report reviewed Assessment and Plan (1) Abdominal pain Current Visit: Yes Status: Acute Priority: High Code(s): R10.9 - UN SPECIFIED ABDOMINAL PAIN SNOMED Code(s): 70196339 - Compoenent of constipation but ensure no evidence of obstruction or ischemic bowel (2) Hyperglycemia Current Visit: Yes Status: Acute Priority: High Code(s): R73.9 - HYPERGLYCEMIA, UNSPECIFIED SNOMED Code(s): 74441058 (3) Small cell lung cancer Current Visit: No Status: Chronic Priority: Medium Code(s): C34.90 - MALIGNANT NEOPLASM OF UNSP PART OF UNSP BRONCHUS OR LUNG SNOMED Code(s): 375984938 Plan: Dr. Barksdale reviewed CT of the abdomen and pelvis with patient yesterday evening. There is an adrenal nodule that is enlarged but not felt to be contributing to patient's acute situation. Patient has been using a very excessive amount of PPIs, changed to IV PPI and Carafateper Dr. Barksdalebefore meals and at bedtime. With Excessive PPI use must consider bacterial overgrowth and/or fungal compoenent - EGD maybe beneficial Consulted Surgeon to evaluate patient, concerns for maybe in early onset ischemic bowel? Pending their evaluation and recommendations as they have not seen at his time yet. . Patient is actually been doing pretty well on this most recent treatment for small cell lung cancer. Pending recovery from his current situation, treatment will be rescheduled. Xray of abdomene with fecal status: - Bowel regimen - Reglan (?) await Surgery farshad Valiente attests: I have performed H&P, seen and examined patient, developed impression and plan of care. Discussed with dictator. Agree with documentation dictated as a scribe
[2022-02-24 12:11] LABS: Basophils # (A) 0.01 X 10*3/uL (0.00-0.10); Basophils % (A) 0.1 %; Eosinophils # (A) 0.06 X 10*3/uL (0.04-0.35); Eosinophils % (A) 0.7 %; HCT 27.2 % (39.6-50.0); HGB 9.5 g/dL (13.0-17.0); Immature Grans, Automated 0.5 %; Immature Platelet Fraction 4.4 % (1.1-6.1); Lymphocytes # (A) 0.89 X 10*3/uL (0.90-5.00); Lymphocytes % (A) 10.8 %; MCH 35.8 pg (27.0-32.0); MCHC 34.9 g/dL (32.0-37.0); MCV 102.6 fL (80.0-97.0); Mean Platelet Volume 10.6 fL (9.5-12.2); Monocytes # (A) 1.21 X 10*3/uL (0.20-1.00); Monocytes % (A) 14.6 %; NRBC Per 100 WBC 0 /100 WBCS (0.0-0.0); Neutrophils # (A) 6.06 X 10*3/uL (1.80-7.70); Neutrophils % (A) 73.3 %; Platelet Count 71 X 10*3/uL (140-440); RBC 2.65 X 10*6/uL (4.40-5.60); RDW 18.7 % (11.5-14.5); WBC 8.27 X 10*3/uL (4.50-10.00)
--- NOTE | 2022-02-24 15:49 | P.GSCN ---
History of Present Illness Consult date: 02/24/22 History of present illness: CHIEF COMPLAINT: Abdominal pain HISTORY OF PRESENT ILLNESS: This is a 62-year-old male who presented to the hospital with complaints of abdominal pain for the last 4 days. He reports the pain is diffuse pain and describes it as sharp. At times it was 10 out of 10 pain. He also has been having nausea no vomiting. Denies any fever chills or sweats. He does have a history of metastatic lung cancer to the stomach. He had received chemotherapy in February last year and he was scheduled to start chemotherapy yesterday. Patient has been having low-grade temps of a heart 0.2 last night and mild tachycardic. White count was normal and he did have a lactic acid elevated on admission of 2.2. Patient reports that his bowel movements have been normal. He denies any prior abdominal surgeries. He reports upset stomach after eating and a decreased appetite. His last EGD was in February of last year which was when the stomach cancer was diagnosed per patient. Last colonoscopy was greater than 10 years ago. Patient denies any cardiac history. Denies being on any blood thinners. Patient reports improvement in abdominal pain with pain medication. PAST MEDICAL HISTORY: See list. PAST SURGICAL HISTORY: See list. MEDICATIONS: See list. ALLERGIES: See list. SOCIAL HISTORY: No illicit drug use. REVIEW OF SYSTEMS: CONSTITUTIONAL: Denies fever or chills. HEENT: Denies blurred vision, vision changes, or eye pain. Denies hemoptysis CARDIOVASCULAR: Denies chest pain or pressure. RESPIRATORY: No shortness of breath. GASTROINTESTINAL: See HPI for pertinent findings HEMATOLOGIC: Denies bleeding disorders. GENITOURINARY: Denies any blood in urine or increased urinary frequency. SKIN: Denies pruitis. Denies rash. PHYSICAL EXAM: VITAL SIGNS: Reviewed GENERAL: Well-developed in no acute distress. HEENT: No sclera icterus. Extraocular movements grossly intact. Moist buccal mucosa. Head is atraumatic, normocephalic. No nasal drainage. ABDOMEN: Soft. Nondistended. Nontender NEUROLOGIC: Alert and oriented. Cranial nerves II through XII grossly intact. LABORATORY DATA: WBC 7.9 hemoglobin 9.5 platelets 71 INR 1.0 Sodium 131 potassium 3.3 creatinine 0.5 glucose 168 iron 34 LFTs normal lipase 86 urinalysis and negative for infection IMAGING: Abdominal x-ray nonspecific abdomen correlate constipation Computed tomography scan abdomen and pelvis with IV contrast the known gastric lesion is not appreciated by the computed tomography scan. No evidence of small or large bowel obstruction. Progressive metastatic pericardiophrenic and upper abdominal nodules/lymph nodes. ASSESSMENT: 1. Abdominal pain 2. Constipation 3. Lung cancer with metastatic disease and evidence of progressive lymph nodes of the abdomen on CAT scan 4. Lactic acidosis 5. Hyponatremia PLAN: -Further recommendations forthcoming per surgeon -Agree with good bowel regimen to treat constipation -Continue IV fluids -Continue clear liquid diet Thank you for this consultation Physician Process Control Tech note has been reviewed by physician. Signing provider agrees with the documented findings, assessment, and plan of care. Past Medical History Past Medical History: Cancer, COPD, GERD/Reflux Additional Past Medical History / Comment(s): LUNG CANCER WITH TUMOR IN STOMACH AND STATES ALSO IN HIS NECK.,. RECEIVING CHEMOTHERAPY., DDD WITH BACK ,HIP & LEG PAIN., (PAIN CLINIC PATIENT)., EMPHYSEMA., GASTRITIS. History of Any Multi-Drug Resistant Organisms: None Reported Past Surgical History: Joint Replacement, Orthopedic Surgery Additional Past Surgical History / Comment(s): RIGHT AND LEFT TOTAL HIPS, RIGHT SHOULDER SURGERY. Past Anesthesia/Blood Transfusion Reactions: No Reported Reaction Past Psychological History: Anxiety, Depression Smoking Status: Former smoker - Past Family History Father Family Medical History: No Reported History Medications and Allergies Home Medications Medication Instructions Recorded Confirmed Type Atorvastatin [Lipitor] 20 mg PO DAILY 03/11/21 02/23/22 History OXcarbazepine [Trileptal] 300 mg PO BID 03/11/21 02/23/22 History Pantoprazole Sodium [Protonix] 40 mg PO BID 03/11/21 02/23/22 History Sucralfate [Carafate] 1 gm PO QID 03/11/21 02/23/22 History traZODone HCL [Desyrel] 100 mg PO HS 03/11/21 02/23/22 History ALPRAZolam [Xanax] 0.5 mg PO BID 01/13/22 02/23/22 History Budesonide [Pulmicort] 0.25 mg INHALATION RT-BID 01/13/22 02/23/22 History Ergocalciferol [Vitamin D2 (1250 1,250 mcg PO Q7D 01/13/22 02/23/22 History Mcg = 95228 Iu)] Famotidine [Pepcid] 40 mg PO DAILY 01/13/22 02/23/22 History Hydrocortisone [Cortef] 10 mg PO W/SUPPER 01/13/22 02/24/22 History Hydrocortisone [Cortef] 20 mg PO DAILY 01/13/22 02/24/22 History Ipratropium-Albuterol Nebulize 3 ml INHALATION RT-QID 01/13/22 02/23/22 History [Duoneb 0.5 mg-3 mg/3 ml Soln] Omeprazole [PriLOSEC] 40 mg PO BID 01/13/22 02/23/22 History Ondansetron [Zofran] 4 mg PO Q8HR PRN 01/13/22 02/23/22 History metFORMIN HCL 500 mg PO BID 01/13/22 02/23/22 History HYDROcodone/APAP 10-325MG [[place] 1 tab PO Q12HR PRN 30 Days #60 tab 01/16/22 02/23/22 Rx 10-325] Albuterol Nebulized [Ventolin 2.5 mg INHALATION RT-QID 02/23/22 02/23/22 History Nebulized] Fluconazole [Diflucan] 100 mg PO DAILY PRN 02/23/22 02/23/22 History Insulin Aspart [NovoLOG Flexpen] See Protocol SQ ACHS 02/24/22 02/24/22 History Allergies Allergy/AdvReac Type Severity Reaction Status Date / Time No Known Allergies Allergy Verified 02/23/22 05:59 Surgical - Exam Vital Signs Temp Pulse Resp BP Pulse Ox 98.0 F 114 H 18 142/75 96 02/23/22 05:54 02/23/22 05:54 02/23/22 05:54 02/23/22 05:54 02/23/22 05:54 Results - Labs 02/24/22 07:41 02/24/22 07:41 Abnormal Lab Results - Last 24 Hours (Table) 02/24/22 02/24/22 02/24/22 Range/Units 01:35 02:23 07:37 RBC (4.40-5.60) X 10*6/uL Hgb (13.0-17.0) g/dL Hct (39.6-50.0) % MCV (80.0-97.0) fL MCH (27.0-32.0) pg RDW (11.5-14.5) % Plt Count (140-440) X 10*3/uL Plt Count Comment Lymphocytes # (0.90-5.00) X 10*3/uL Monocytes # (0.20-1.00) X 10*3/uL Sodium (135-145) mmol/L Potassium (3.5-5.5) mmol/L BUN (9.0-27.0) mg/dL Creatinine (0.6-1.5) mg/dL Glucose (70-110) mg/dL POC Glucose (mg/dL) 184 H 183 H (75-99) mg/dL Calcium (8.7-10.3) mg/dL Iron (65-175) ug/dL TIBC (228-460) ug/dL Transferrin (204.0-354.0) mg/dL Ferritin (22.0-322.0) ng/mL Total Protein (6.2-8.2) g/dL Albumin (3.8-4.9) g/dL Albumin/Globulin Ratio (1.60-3.17) g/dL Amylase (23-121) U/L Urine Protein Trace H (Negative) Urine Glucose (UA) 3+ H (Negative) Urine Ketones 3+ H (Negative) 02/24/22 02/24/22 02/24/22 Range/Units 07:41 07:41 11:10 RBC 2.65 L (4.40-5.60) X 10*6/uL Hgb 9.5 L (13.0-17.0) g/dL Hct 27.2 L (39.6-50.0) % MCV 102.6 H (80.0-97.0) fL MCH 35.8 H (27.0-32.0) pg RDW 18.7 H (11.5-14.5) % Plt Count 71 L (140-440) X 10*3/uL Plt Count Comment DECREASED A Lymphocytes # 0.89 L (0.90-5.00) X 10*3/uL Monocytes # 1.21 H (0.20-1.00) X 10*3/uL Sodium 131 L (135-145) mmol/L Potassium 3.3 L (3.5-5.5) mmol/L BUN 8.0 L (9.0-27.0) mg/dL Creatinine 0.5 L (0.6-1.5) mg/dL Glucose 168 H (70-110) mg/dL POC Glucose (mg/dL) 155 H (75-99) mg/dL Calcium 8.4 L (8.7-10.3) mg/dL Iron 34 L (65-175) ug/dL TIBC 213 L (228-460) ug/dL Transferrin 152.0 L (204.0-354.0) mg/dL Ferritin 422.0 H (22.0-322.0) ng/mL Total Protein 5.8 L (6.2-8.2) g/dL Albumin 3.4 L (3.8-4.9) g/dL Albumin/Globulin Ratio 1.45 L (1.60-3.17) g/dL Amylase 12 L (23-121) U/L Urine Protein (Negative) Urine Glucose (UA) (Negative) Urine Ketones (Negative) Diabetes panel 02/24/22 Range/Units 07:41 Sodium 131 L (135-145) mmol/L Potassium 3.3 L (3.5-5.5) mmol/L Chloride 96 (96-109) mmol/L Carbon Dioxide 23.1 (20.0-27.5) mmol/L BUN 8.0 L (9.0-27.0) mg/dL Creatinine 0.5 L (0.6-1.5) mg/dL Glucose 168 H (70-110) mg/dL Calcium 8.4 L (8.7-10.3) mg/dL AST 16 (14-35) U/L ALT 21 (10-49) U/L Alkaline Phosphatase 81 (41-126) U/L Total Protein 5.8 L (6.2-8.2) g/dL Albumin 3.4 L (3.8-4.9) g/dL Calcium panel 02/24/22 Range/Units 07:41 Calcium 8.4 L (8.7-10.3) mg/dL Albumin 3.4 L (3.8-4.9) g/dL Pituitary panel 02/24/22 Range/Units 07:41 Sodium 131 L (135-145) mmol/L Potassium 3.3 L (3.5-5.5) mmol/L Chloride 96 (96-109) mmol/L Carbon Dioxide 23.1 (20.0-27.5) mmol/L BUN 8.0 L (9.0-27.0) mg/dL Creatinine 0.5 L (0.6-1.5) mg/dL Glucose 168 H (70-110) mg/dL Calcium 8.4 L (8.7-10.3) mg/dL Adrenal panel 02/24/22 Range/Units 07:41 Sodium 131 L (135-145) mmol/L Potassium 3.3 L (3.5-5.5) mmol/L Chloride 96 (96-109) mmol/L Carbon Dioxide 23.1 (20.0-27.5) mmol/L BUN 8.0 L (9.0-27.0) mg/dL Creatinine 0.5 L (0.6-1.5) mg/dL Glucose 168 H (70-110) mg/dL Calcium 8.4 L (8.7-10.3) mg/dL Total Bilirubin 0.50 (0.30-1.20) mg/dL AST 16 (14-35) U/L ALT 21 (10-49) U/L Alkaline Phosphatase 81 (41-126) U/L Total Protein 5.8 L (6.2-8.2) g/dL Albumin 3.4 L (3.8-4.9) g/dL
[2022-02-24 17:00] LABS: Glucose,Whole Blood 131 mg/dL (75-99)
--- NOTE | 2022-02-24 18:56 | P.PN ---
Subjective Progress Note Date: 02/24/22 62-year-old male metastatic Lung cancer, COPD, GERD, diabetes type 2 non insulin-dependent, anxiety/depression and previous history of smoking presents to ER with complaints of abdominal pain mainly in the mid abdomen and bloating and distention. Patient has been having symptoms since the yesterday. However his patient did have a small bowel movement yesterday. Denies any nausea or vomiting. No fever no chills. No cough or sputum. No chest pain or shortness of breath. CT of the abdomen pelvis CT abdomen pelvis showed known gastric lesion is not appreciated by the CT scan. No evidence of small or large bowel obstruction. Progressive metastatic pericardiophrenic and upper abdominal nodules and lymph nodes present. Interval progression of the metastatic nodule adjacent to the left adrenal gland measuring 3 cm compared to 1.8 cm previously.Patient is currently on chemotherapy and last dose was 2 weeks ago. Patient is supposed to get chemotherapy today. Laboratory data showed WBC 7.9 hemoglobin 10.7 and platelets 70 Sodium 127 potassium 4.0 chloride 97 bicarb is 20 BUN 11 and creatinine 0.57 and lactic acid 2.2 blood sugars 412 Objective - Vital Signs Vital signs: Vital Signs Temp 97.9 F 02/24/22 12:17 Pulse 106 H 02/24/22 12:17 Resp 13 02/24/22 12:17 BP 132/70 02/24/22 12:17 Pulse Ox 95 02/24/22 12:17 FiO2 Intake & Output 02/23/22 02/24/22 02/24/22 18:59 06:59 18:59 Intake Total 240 Balance 240 Weight 78.925 kg Intake: Oral 240 Other: Voiding Method Toilet Toilet # Voids 1 - Exam Patient is lying in the bed comfortably, no acute distress, awake alert and oriented.. HEENT: Normocephalic. Neck is supple. Pupils reactive. Nostrils clear. Oral cavity is moist. Neck reveals no JVD, carotid bruits, or thyromegaly. CHEST EXAMINATION: Trachea is central. Symmetrical expansion. Lung varner clear to auscultation and percussion. CARDIAC: Normal S1, S2 with no gallops. No murmurs ABDOMEN: Soft. Bowel sounds present. Nontender. No organomegaly. No abdominal bruits. Extremities: reveal no edema. No clubbing or cyanosis Neurologically awake, alert, oriented x3 with well-coordinated movements. No focal deficits noted Skin: No rash or skin lesions. - Labs CBC & Chem 7: 02/24/22 07:41 02/24/22 07:41 Labs: Abnormal Lab Results - Last 24 Hours (Table) 02/24/22 02/24/22 02/24/22 Range/Units 01:35 02:23 07:37 RBC (4.40-5.60) X 10*6/uL Hgb (13.0-17.0) g/dL Hct (39.6-50.0) % MCV (80.0-97.0) fL MCH (27.0-32.0) pg RDW (11.5-14.5) % Plt Count (140-440) X 10*3/uL Plt Count Comment Lymphocytes # (0.90-5.00) X 10*3/uL Monocytes # (0.20-1.00) X 10*3/uL Sodium (135-145) mmol/L Potassium (3.5-5.5) mmol/L BUN (9.0-27.0) mg/dL Creatinine (0.6-1.5) mg/dL Glucose (70-110) mg/dL POC Glucose (mg/dL) 184 H 183 H (75-99) mg/dL Calcium (8.7-10.3) mg/dL Iron (65-175) ug/dL TIBC (228-460) ug/dL Transferrin (204.0-354.0) mg/dL Ferritin (22.0-322.0) ng/mL Total Protein (6.2-8.2) g/dL Albumin (3.8-4.9) g/dL Albumin/Globulin Ratio (1.60-3.17) g/dL Amylase (23-121) U/L Urine Protein Trace H (Negative) Urine Glucose (UA) 3+ H (Negative) Urine Ketones 3+ H (Negative) 02/24/22 02/24/22 02/24/22 Range/Units 07:41 07:41 11:10 RBC 2.65 L (4.40-5.60) X 10*6/uL Hgb 9.5 L (13.0-17.0) g/dL Hct 27.2 L (39.6-50.0) % MCV 102.6 H (80.0-97.0) fL MCH 35.8 H (27.0-32.0) pg RDW 18.7 H (11.5-14.5) % Plt Count 71 L (140-440) X 10*3/uL Plt Count Comment DECREASED A Lymphocytes # 0.89 L (0.90-5.00) X 10*3/uL Monocytes # 1.21 H (0.20-1.00) X 10*3/uL Sodium 131 L (135-145) mmol/L Potassium 3.3 L (3.5-5.5) mmol/L BUN 8.0 L (9.0-27.0) mg/dL Creatinine 0.5 L (0.6-1.5) mg/dL Glucose 168 H (70-110) mg/dL POC Glucose (mg/dL) 155 H (75-99) mg/dL Calcium 8.4 L (8.7-10.3) mg/dL Iron 34 L (65-175) ug/dL TIBC 213 L (228-460) ug/dL Transferrin 152.0 L (204.0-354.0) mg/dL Ferritin 422.0 H (22.0-322.0) ng/mL Total Protein 5.8 L (6.2-8.2) g/dL Albumin 3.4 L (3.8-4.9) g/dL Albumin/Globulin Ratio 1.45 L (1.60-3.17) g/dL Amylase 12 L (23-121) U/L Urine Protein (Negative) Urine Glucose (UA) (Negative) Urine Ketones (Negative) Assessment and Plan Assessment: Abdominal pain likely due to interval progression of the metastatic nodules. New metastatic nodular lesion to the left adrenal gland unlikely the cause of pain. Lactic acidosis Hyperglycemia with uncontrolled diabetes type 2 [id number] Hypovolemic hyponatremia/pseudohyponatremia Thrombocytopenia COPD not in exacerbation GERD Anxiety/depression Previous history of smoking Plan: Patient will be current on IV hydration and pain management with Dilaudid IV. Continue with insulin sliding scale and will add long-acting insulin as needed. Patient is also on hydrocortisone at home. Oncology was consulted and follow-up closely. Continue with supportive care. Prognosis is guarded at this time.
[2022-02-24 20:17] LABS: Glucose,Whole Blood 121 mg/dL (75-99)
[2022-02-24] MEDS: SENNOSIDES-DOCUSATE SODIUM 1 EACH TAB PO SCH (20:34)
[2022-02-25] MEDS: HYDROmorphone 0.5 MG/0.5 ML SYRINGE IVP PRN ×8 (02:39→22:02)
[2022-02-25] MEDS: SODIUM CHLORIDE 0.9% 1,000 ML IV SCH ×2 (04:18→15:52)
[2022-02-25 07:21] LABS: Glucose,Whole Blood 124 mg/dL (75-99)
[2022-02-25] MEDS: INSULIN ASPART (NovoLOG) 100 UNIT/ML VIAL SQ SCH ×4 (07:26→21:25)
[2022-02-25] MEDS: ALBUTEROL NEBULIZED 2.5 MG/3 ML INHALATION SCH ×7 (07:34→19:06)
[2022-02-25] MEDS: polyethylene glycoL 3350 17 GM POWD.PACK PO SCH (07:34)
[2022-02-25] MEDS: SUCRALFATE 1 GM TAB PO SCH ×4 (08:06→21:24)
[2022-02-25] MEDS: ENOXAPARIN 40 MG/0.4 ML SYRINGE SQ SCH (08:06)
[2022-02-25] MEDS: SENNOSIDES-DOCUSATE SODIUM 1 EACH TAB PO SCH ×2 (08:06→21:25)
[2022-02-25] MEDS: PANTOPRAZOLE 40 MG/10 ML VIAL IVP SCH ×2 (08:06→21:25)
[2022-02-25] MEDS: ATORVASTATIN 20 MG TAB PO SCH (08:06)
[2022-02-25] MEDS: ALPRAZolam 0.5 MG TAB PO SCH ×2 (08:06→22:25)
[2022-02-25] MEDS: metFORMIN 500 MG TAB PO SCH ×2 (08:06→21:25)
[2022-02-25] MEDS: BUDESONIDE 0.25 MG/2 ML NEBU INHALATION SCH ×2 (09:02→19:07)
[2022-02-25 11:55] LABS: Glucose,Whole Blood 97 mg/dL (75-99)
--- NOTE | 2022-02-25 11:58 | P.PN ---
Progress Note - Text Progress Note Date: 02/25/22 Patient has some complaints of back pain and some mild epigastric pain. He is tolerating clear liquids. On exam vitals are stable. Abdomen soft. Metastatic cancer multiple rhytides. Patient will continue to have supportive care. No surgical intervention is planned. He is tolerating his diet currently.
[2022-02-25 17:30] LABS: Glucose,Whole Blood 107 mg/dL (75-99)
--- NOTE | 2022-02-25 19:39 | P.PN ---
Subjective Progress Note Date: 02/25/22 Principal diagnosis: Abdominal pain likely due to interval progression of the metastatic nodules. New metastatic nodular lesion to the left adrenal gland unlikely the cause of pain. Lactic acidosis Hyperglycemia with uncontrolled diabetes type 2 [id number] Hypovolemic hyponatremia/pseudohyponatremia Thrombocytopenia 62-year-old male metastatic Lung cancer, COPD, GERD, diabetes type 2 non insulin-dependent, anxiety/depression and previous history of smoking presents to ER with complaints of abdominal pain mainly in the mid abdomen and bloating and distention. Patient has been having symptoms since the yesterday. However his patient did have a small bowel movement yesterday. Denies any nausea or vomiting. No fever no chills. No cough or sputum. No chest pain or shortness of breath. CT of the abdomen pelvis CT abdomen pelvis showed known gastric lesion is not appreciated by the CT scan. No evidence of small or large bowel o bstruction. Progressive metastatic pericardiophrenic and upper abdominal nodules and lymph nodes present. Interval progression of the metastatic nodule adjacent to the left adrenal gland measuring 3 cm compared to 1.8 cm previously.Patient is currently on chemotherapy and last dose was 2 weeks ago. Patient is supposed to get chemotherapy today. Laboratory data showed WBC 7.9 hemoglobin 10.7 and platelets 70 Sodium 127 potassium 4.0 chloride 97 bicarb is 20 BUN 11 and creatinine 0.57 and lactic acid 2.2 blood sugars 412 02/25/2022 Patient continues to have complaints of back pain and some mild epigastric pain. He is tolerating clear liquids. Vital signs are reviewed and reveal temperature 90.8, pulse 1:15, respiration 18 and blood pressure 112/61 and O2 saturation of 96% on On exam vitals are stable. Abdomen soft. Metastatic cancer multiple rhytides. Patient will continue to have supportive care. No surgical intervention is planned. He is tolerating his diet currently. Objective - Vital Signs Vital signs: Vital Signs Temp 98.8 F 02/25/22 11:32 Pulse 112 H 02/25/22 11:47 Resp 18 02/25/22 11:32 BP 112/61 02/25/22 11:32 Pulse Ox 96 02/25/22 11:32 FiO2 Intake & Output 02/24/22 02/25/22 02/25/22 18:59 06:59 18:59 Intake Total 1020 1330 Balance 1020 1330 Intake: Intake, IV Titration 900 750 Amount Sodium Chloride 0.9% 1, 900 750 000 ml @ 75 mls/hr IV . [id number] [facility] Rx#:[id number] Oral 120 580 Other: Voiding Method Toilet Toilet # Voids 5 - Exam Patient is lying in the bed comfortably, no acute distress, awake alert and oriented.. HEENT: Normocephalic. Neck is supple. Pupils reactive. Nostrils clear. Oral cavity is moist. Neck reveals no JVD, carotid bruits, or thyromegaly. CHEST EXAMINATION: Trachea is central. Symmetrical expansion. Lung varner clear to auscultation and percussion. CARDIAC: Normal S1, S2 with no gallops. No murmurs ABDOMEN: Soft. Bowel sounds present. Nontender. No organomegaly. No abdominal bruits. Extremities: reveal no edema. No clubbing or cyanosis Neurologically awake, alert, oriented x3 with well-coordinated movements. No focal deficits noted Skin: No rash or skin lesions. - Labs CBC & Chem 7: 02/24/22 07:41 02/24/22 07:41 Labs: Abnormal Lab Results - Last 24 Hours (Table) 02/24/22 02/24/22 02/25/22 Range/Units 16:58 20:09 07:10 POC Glucose (mg/dL) 131 H 121 H 124 H (75-99) mg/dL Assessment and Plan Assessment: Abdominal pain likely due to interval progression of the metastatic nodules. New metastatic nodular lesion to the left adrenal gland unlikely the cause of pain. Lactic acidosis Hyperglycemia with uncontrolled diabetes type 2 [id number] Hypovolemic hyponatremia/pseudohyponatremia Thrombocytopenia COPD not in exacerbation GERD Anxiety/depression Previous history of smoking Plan: Patient will be current on IV hydration and pain management with Dilaudid IV. Continue with insulin sliding scale and will add long-acting insulin as needed. Patient is also on hydrocortisone at home. Oncology was consulted and follow-up closely. Continue with supportive care. Prognosis is guarded at this time.
[2022-02-25 21:17] LABS: Glucose,Whole Blood 129 mg/dL (75-99)
[2022-02-26] MEDS: HYDROmorphone 0.5 MG/0.5 ML SYRINGE IVP PRN ×8 (01:23→22:13)
[2022-02-26] MEDS: SODIUM CHLORIDE 0.9% 1,000 ML IV SCH ×2 (04:13→16:08)
[2022-02-26] MEDS: metFORMIN 500 MG TAB PO SCH ×2 (07:15→21:07)
[2022-02-26] MEDS: SENNOSIDES-DOCUSATE SODIUM 1 EACH TAB PO SCH ×2 (07:15→21:08)
[2022-02-26] MEDS: ALPRAZolam 0.5 MG TAB PO SCH (07:15)
[2022-02-26] MEDS: ENOXAPARIN 40 MG/0.4 ML SYRINGE SQ SCH (07:15)
[2022-02-26] MEDS: SUCRALFATE 1 GM TAB PO SCH ×4 (07:16→21:07)
[2022-02-26] MEDS: ATORVASTATIN 20 MG TAB PO SCH (07:16)
[2022-02-26] MEDS: PANTOPRAZOLE 40 MG/10 ML VIAL IVP SCH ×2 (07:16→21:08)
[2022-02-26 07:19] LABS: Glucose,Whole Blood 131 mg/dL (75-99)
[2022-02-26] MEDS: polyethylene glycoL 3350 17 GM POWD.PACK PO SCH (07:19)
[2022-02-26] MEDS: INSULIN ASPART (NovoLOG) 100 UNIT/ML VIAL SQ SCH ×4 (07:22→21:06)
[2022-02-26] MEDS: ALBUTEROL NEBULIZED 2.5 MG/3 ML INHALATION SCH ×4 (07:44→19:33)
[2022-02-26] MEDS: BUDESONIDE 0.25 MG/2 ML NEBU INHALATION SCH ×2 (07:44→19:33)
[2022-02-26 09:20] LABS: HCT 27.5 % (39.6-50.0); HGB 9.1 g/dL (13.0-17.0); MCH 34.9 pg (27.0-32.0); MCHC 33.1 g/dL (32.0-37.0); MCV 105.4 fL (80.0-97.0); Mean Platelet Volume 10.7 fL (9.5-12.2); NRBC Per 100 WBC 0 /100 WBCS (0.0-0.0); Platelet Count 80 X 10*3/uL (140-440); RBC 2.61 X 10*6/uL (4.40-5.60); RDW 19.2 % (11.5-14.5); WBC 7.15 X 10*3/uL (4.50-10.00)
[2022-02-26 09:33] LABS: African American GFR (CKD) 123.6 (60.0-200.0); Anion Gap 10.8 mmol/L (10.00-18.00); BUN/Creat Ratio 8.31 Ratio (12.00-20.00); Calcium 8.3 mg/dL (8.7-10.3); Carbon Dioxide 23.3 mmol/L (20.0-27.5); Non-African American GFR(CKD) 106.6 (60.0-200.0); Potassium 3.1 mmol/L (3.5-5.5)
[2022-02-26] MEDS ORDERED: Potassium Replacement Protocol 1 EACH MISC MISCELLANE PRN ×2 (09:46→14:52)
[2022-02-26] MEDS: POTASSIUM CHLORIDE ER 20 MEQ TAB.ER PO SCH ×4 (10:00→16:48)
[2022-02-26 10:36] LABS: Basophils # (A) 0.02 X 10*3/uL (0.00-0.10); Basophils % (A) 0.3 %; Eosinophils # (A) 0.12 X 10*3/uL (0.04-0.35); Eosinophils % (A) 1.7 %; Immature Grans, Automated 0.4 %; Lymphocytes # (A) 1.07 X 10*3/uL (0.90-5.00); Monocytes # (A) 0.95 X 10*3/uL (0.20-1.00); Monocytes % (A) 13.3 %; Neutrophils # (A) 4.96 X 10*3/uL (1.80-7.70); Neutrophils % (A) 69.3 %; Rouleaux PRESENT
--- NOTE | 2022-02-26 12:13 | P.PN ---
Progress Note - Text Progress Note Date: 02/26/22 Patient is clinically unchanged. He is tolerating a diet. His abdomen soft. Metastatic cancer. Patient feels supportive care.
[2022-02-26 12:28] LABS: Glucose,Whole Blood 94 mg/dL (75-99)
[2022-02-26 17:05] LABS: Glucose,Whole Blood 102 mg/dL (75-99)
[2022-02-26 20:36] LABS: Glucose,Whole Blood 112 mg/dL (75-99)
[2022-02-26 21:26] VITALS: RESP 16
[2022-02-27] MEDS: HYDROmorphone 0.5 MG/0.5 ML SYRINGE IVP PRN ×7 (01:14→22:28)
[2022-02-27] MEDS: ALPRAZolam 0.5 MG TAB PO SCH ×3 (01:20→21:47)
[2022-02-27 07:23] LABS: Glucose,Whole Blood 116 mg/dL (75-99)
[2022-02-27] MEDS: INSULIN ASPART (NovoLOG) 100 UNIT/ML VIAL SQ SCH ×4 (07:35→21:47)
[2022-02-27] MEDS: SODIUM CHLORIDE 0.9% 1,000 ML IV SCH ×2 (08:19→17:05)
[2022-02-27] MEDS: PANTOPRAZOLE 40 MG/10 ML VIAL IVP SCH ×2 (08:20→21:47)
[2022-02-27] MEDS: SENNOSIDES-DOCUSATE SODIUM 1 EACH TAB PO SCH ×2 (08:20→21:47)
[2022-02-27] MEDS: metFORMIN 500 MG TAB PO SCH ×2 (08:20→21:47)
[2022-02-27] MEDS: SUCRALFATE 1 GM TAB PO SCH ×4 (08:20→21:47)
[2022-02-27] MEDS: ATORVASTATIN 20 MG TAB PO SCH (08:21)
[2022-02-27] MEDS: ENOXAPARIN 40 MG/0.4 ML SYRINGE SQ SCH (08:21)
[2022-02-27] MEDS: polyethylene glycoL 3350 17 GM POWD.PACK PO SCH (08:22)
[2022-02-27] MEDS: BUDESONIDE 0.25 MG/2 ML NEBU INHALATION SCH ×2 (08:59→20:16)
[2022-02-27] MEDS: ALBUTEROL NEBULIZED 2.5 MG/3 ML INHALATION SCH ×2 (08:59→11:49)
[2022-02-27] MEDS ORDERED: oxyCODONE-APAP 5-325MG 1 EACH TAB PO PRN (10:45)
[2022-02-27 11:38] LABS: Glucose,Whole Blood 112 mg/dL (75-99)
--- NOTE | 2022-02-27 12:03 | P.PN ---
Subjective Progress Note Date: 02/26/22 Principal diagnosis: Abdominal pain likely due to interval progression of the metastatic nodules. New metastatic nodular lesion to the left adrenal gland unlikely the cause of pain. Lactic acidosis Hyperglycemia with uncontrolled diabetes type 2 [id number] Hypovolemic hyponatremia/pseudohyponatremia Thrombocytopenia 62-year-old male metastatic Lung cancer, COPD, GERD, diabetes type 2 non insulin-dependent, anxiety/depression and previous history of smoking presents to ER with complaints of abdominal pain mainly in the mid abdomen and bloating and distention. Patient has been having symptoms since the yesterday. However his patient did have a small bowel movement yesterday. Denies any nausea or vomiting. No fever no chills. No cough or sputum. No chest pain or shortness of breath. CT of the abdomen pelvis CT abdomen pelvis showed known gastric lesion is not appreciated by the CT scan. No evidence of small or large bowel obstruction. Progressive metastatic pericardiophrenic and upper abdominal nodules and lymph nodes present. Interval progression of the metastatic nodule adjacent to the left adrenal gland measuring 3 cm compared to 1.8 cm previously.Patient is currently on chemotherapy and last dose was 2 weeks ago. Patient is supposed to get chemotherapy today. Laboratory data showed WBC 7.9 hemoglobin 10.7 and platelets 70 Sodium 127 potassium 4.0 chloride 97 bicarb is 20 BUN 11 and creatinine 0.57 and lactic acid 2.2 blood sugars 412 02/25/2022 Patient continues to have complaints of back pain and some mild epigastric pain. He is tolerating clear liquids. Vital signs are reviewed and reveal temperature 90.8, pulse 1:15, respiration 18 and blood pressure 112/61 and O2 saturation of 96% on On exam vitals are stable. Abdomen soft. Metastatic cancer multiple rhytides. Patient will continue to have supportive care. No surgical intervention is planned. He is tolerating his diet currently. 02/26/22 Patient is currently sitting in a chair. Awake alert oriented 3. No compressive chest pain or shortness of breath. Abdominal pain is controlled with medications. No fever no chills. No other acute overnight issues Patient is tolerating oral diet. Anticipate discharge next 24 hours. Laboratory data showed WBC 7.1 hemoglobin 9.1 and platelets 80 Sodium 132 potassium 3.1 chloride 98 bicarb is 23.3 BUN 5 and creatinine 0.6 blood sugar is 122 Current medications reviewed. Objective - Vital Signs Vital signs: Vital Signs Temp 98.4 F 02/26/22 11:37 Pulse 104 H 02/26/22 12:02 Resp 18 02/26/22 11:37 BP 141/67 02/26/22 11:37 Pulse Ox 95 02/26/22 04:32 FiO2 Intake & Output 02/25/22 02/26/22 02/26/22 18:59 06:59 18:59 Intake Total 900 500 Balance 900 500 Intake: Intake, IV Titration 900 Amount Sodium Chloride 0.9% 1, 900 000 ml @ 75 mls/hr IV . [id number] [facility] Rx#:[id number] Oral 500 Other: Voiding Method Toilet Toilet # Voids 4 - Labs CBC & Chem 7: 02/26/22 06:04 02/26/22 14:17 Labs: Abnormal Lab Results - Last 24 Hours (Table) 02/25/22 02/25/22 02/26/22 Range/Units 17:13 21:02 06:04 RBC 2.61 L (4.40-5.60) X 10*6/uL Hgb 9.1 L (13.0-17.0) g/dL Hct 27.5 L (39.6-50.0) % MCV 105.4 H (80.0-97.0) fL MCH 34.9 H (27.0-32.0) pg RDW 19.2 H (11.5-14.5) % Plt Count 80 L (140-440) X 10*3/uL Plt Count Comment DECREASED A Sodium (135-145) mmol/L Potassium (3.5-5.5) mmol/L BUN (9.0-27.0) mg/dL BUN/Creatinine Ratio (12.00-20.00) Ratio Glucose (70-110) mg/dL POC Glucose (mg/dL) 107 H 129 H (75-99) mg/dL Calcium (8.7-10.3) mg/dL 02/26/22 02/26/22 02/26/22 Range/Units 06:04 07:03 14:17 RBC (4.40-5.60) X 10*6/uL Hgb (13.0-17.0) g/dL Hct (39.6-50.0) % MCV (80.0-97.0) fL MCH (27.0-32.0) pg RDW (11.5-14.5) % Plt Count (140-440) X 10*3/uL Plt Count Comment Sodium 132 L (135-145) mmol/L Potassium 3.1 L 3.2 L (3.5-5.5) mmol/L BUN 5.0 L (9.0-27.0) mg/dL BUN/Creatinine Ratio 8.31 L (12.00-20.00) Ratio Glucose 122 H (70-110) mg/dL POC Glucose (mg/dL) 131 H (75-99) mg/dL Calcium 8.3 L (8.7-10.3) mg/dL Assessment and Plan Assessment: Abdominal pain due to interval progression of the metastatic nodules. Controlledwith pain medications. New metastatic nodular lesion to the left adrenal gland unlikely the cause of pain. Lactic acidosis Hyperglycemia with uncontrolled diabetes type 2 [id number] Hypovolemic hyponatremia/pseudohyponatremia Thrombocytopenia COPD not in exacerbation GERD Anxiety/depression Previous history of smoking Plan: Patient will be current on IV hydration and pain management with Dilaudid IV. Continue with insulin sliding scale and will add long-acting insulin as needed. Replace electrolyte. Patient is also on hydrocortisone at home. Oncology was consulted and follow-up closely. Continue with supportive care. Prognosis is guarded at this time.
[2022-02-27] MEDS ORDERED: IPRATROPIUM-ALBUTEROL 3 ML NEB INHALATION PRN (12:45)
[2022-02-27] MEDS ORDERED: Potassium Replacement Protocol 1 EACH MISC MISCELLANE PRN (12:48)
[2022-02-27] MEDS ORDERED: Magnesium Replacement Protocol 1 EACH MISC MISCELLANE PRN (12:48)
--- NOTE | 2022-02-27 12:51 | P.PN ---
Subjective Progress Note Date: 02/27/22 This is a 62-year-old gentleman with past medical history of metastatic small cell lung CA, last treatment approximately 3 weeks ago, admitted with "constant sharp abdominal pain, unchanged since admission, nontender to palpation. Requiring Dilaudid IV push every 3 hours but states it only is lasting him two. Currently not on any oral opioids .Diarrhea by surgery with no surgical intervention recommended. X-ray of abdomen reported fecal stasis, patient reports having bowel movements, last one yesterday. Increased appetite, tolerating well with no nausea or vomiting. Blood sugars controlled. Denies chest pain, palpitations or shortness of breath. Objective - Vital Signs Vital signs: Vital Signs Temp 98.9 F 02/27/22 05:00 Pulse 80 02/27/22 11:50 Resp 16 02/26/22 21:00 BP 113/70 02/27/22 05:00 Pulse Ox 96 02/27/22 05:00 FiO2 Intake & Output 02/26/22 02/27/22 02/27/22 18:59 06:59 18:59 Intake Total 360 590 Balance 360 590 Intake: Oral 360 590 Other: Voiding Method Toilet Toilet Toilet # Voids 4 2 - Exam PHYSICAL EXAM: VITAL SIGNS: As above GENERAL: Alert and oriented 3, Sitting up at side of bed, no acute distress HEENT: Conjunctivae normal. eyes normal. NECK: No JVD. No thyroid enlargement. No LNs CARDIOVASCULAR: S1, S2 regular. No murmur RESPIRATION: Breath sounds diminished in the bases. No rhonchi or crackles. No bronchial breathing. ABDOMEN: Soft, nontender . No guarding. no masses palpable. Bowel sounds heard. LEGS: No edema. no swelling NERVOUS SYSTEM: Cranial N 2-12 grossly normal. Moves all 4 limbs. No focal deficits. Strength and sensation grossly intact. Skin: Warm and dry, no rash - Labs CBC & Chem 7: 02/26/22 06:04 02/26/22 14:17 Labs: Abnormal Lab Results - Last 24 Hours (Table) 02/26/22 02/26/22 02/26/22 Range/Units 14:17 17:01 20:36 Potassium 3.2 L (3.5-5.1) mmol/L POC Glucose (mg/dL) 102 H 112 H (75-99) mg/dL 02/27/22 02/27/22 Range/Units 07:21 11:37 Potassium (3.5-5.1) mmol/L POC Glucose (mg/dL) 116 H 112 H (75-99) mg/dL Assessment and Plan Assessment: Abdominal pain. 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 Enlarged ad renal nodule per oncology's review of CT-not contributing to patient's acute abdominal pain. Small cell lung CA Diabetes mellitus type 2 Hyponatremia, hypovolemic Thrombocytopenia Gastroesophageal reflux disease COPD, stable Anxiety Depression Former nicotine dependence Plan: Continue on current medication regime ,monitoring and symptomatic treatment. Oral opioids added to pain management- Percocet. CBC, potassium magnesium level ordered/pending .Discharge planning in progress for tomorrow, pending oncology DC recommendations including pain management and clearance. The impression and plan of care has been dictated as directed. : I performed a history and examination of this patient, discussed the same with the dictator. I agree with the dictator's note ,documented as a scribe. Any additional findings or plans will be noted.
[2022-02-27 13:19] LABS: Anisocytosis Slight; HCT 28.8 % (39.0-53.0); HGB 9.3 gm/dL (13.0-17.5); Hypochromasia Slight; MCH 35.5 pg (25.0-35.0); MCHC 32.4 g/dL (31.0-37.0); MCV 109.6 fL (80.0-100.0); Macrocytosis Marked; Mean Platelet Volume 8.9; Poikilocytosis Slight; RBC 2.63 m/uL (4.30-5.90); RDW 18.1 % (11.5-15.5); WBC 5.1 k/uL (3.8-10.6)
[2022-02-27 13:52] LABS: Magnesium 1.7 mg/dL (1.6-2.3); Potassium 3.6 mmol/L (3.5-5.1)
[2022-02-27 14:24] LABS: Eosinophils # (M) 0.26 k/uL (0-0.7); Lymphocytes # (M) 1.17 k/uL (1.0-4.8); Monocytes # (M) 0.51 k/uL (0-1.0); Neutrophils # (M) 3.16 k/uL (1.3-7.7); Neutrophils % (M) 62 %; Nucleated Red Blood Cells 0 /100 WBC (0-0); Total Cells Counted 100
[2022-02-27 14:27] LABS: Platelet Count 72 k/uL (150-450)
--- NOTE | 2022-02-27 14:51 | P.PN ---
Progress Note - Text Progress Note Date: 02/27/22 Patient is resting in his bed comfortably. He denies any significant abdominal pain. He is tolerating diet. On exam vital signs are still. Abdomen soft. Patient will continue receive supportive care. No surgical intervention is planned.
--- NOTE | 2022-02-27 15:34 | P.PN ---
Subjective Progress Note Date: 02/27/22 Principal diagnosis: ITP Patient sitting on side of bed, states he feels ok. Objective - Vital Signs Vital signs: Vital Signs Temp 98.4 F 02/27/22 12:22 Pulse 106 H 02/27/22 12:22 Resp 16 02/27/22 12:22 BP 110/61 02/27/22 12:22 Pulse Ox 99 02/27/22 12:22 FiO2 Intake & Output 02/26/22 02/27/22 02/27/22 18:59 06:59 18:59 Intake Total 360 590 Balance 360 590 Intake: Oral 360 590 Other: Voiding Method Toilet Toilet Toilet # Voids 4 2 - Exam Constitutional General appearance: average body habitus, cooperative, no acute distress - EENT Eyes: anicteric sclerae, EOMI ENT: hearing grossly normal, normal oropharynx - Neck Neck: no lymphadenopathy - Respiratory Respiratory: bilateral: CTA, diminished - Cardiovascular Rhythm: regular Heart sounds: normal: S1, S2 Abnormal Heart Sounds: no systolic murmur, no diastolic murmur, no rub, no S3 Gallop, no S4 Gallop, no click, no other leg Peripheral Edema: bilateral: None - Gastrointestinal General gastrointestinal: no absent bowel sounds, decreased bowel sounds, no distended, no hepatomegaly, no hyperactive bowel sounds, no normal bowel sounds, no organomegaly, no rigid, no scaphoid, soft, no splenomegaly, no tenderness, no umbilical hernia, no ventral hernia - Integumentary Integumentary: pale - Neurologic Neurologic: CNII-XII intact - Musculoskeletal Musculoskeletal: strength equal bilaterally - Labs CBC & Chem 7: 02/27/22 13:00 02/27/22 13:00 Labs: Abnormal Lab Results - Last 24 Hours (Table) 02/26/22 02/26/22 02/27/22 Range/Units 17:01 20:36 07:21 RBC (4.30-5.90) m/uL Hgb (13.0-17.5) gm/dL Hct (39.0-53.0) % MCV (80.0-100.0) fL MCH (25.0-35.0) pg RDW (11.5-15.5) % Plt Count (150-450) k/uL Macrocytosis POC Glucose (mg/dL) 102 H 112 H 116 H (75-99) mg/dL 02/27/22 02/27/22 Range/Units 11:37 13:00 RBC 2.63 L (4.30-5.90) m/uL Hgb 9.3 L (13.0-17.5) gm/dL Hct 28.8 L (39.0-53.0) % MCV 109.6 H (80.0-100.0) fL MCH 35.5 H (25.0-35.0) pg RDW 18.1 H (11.5-15.5) % Plt Count 72 L (150-450) k/uL Macrocytosis Marked A POC Glucose (mg/dL) 112 H (75-99) mg/dL Assessment and Plan Plan: CT scan - abdomen: report reviewed CT scan - pelvis: report reviewed Assessment and Plan (1) Abdominal pain Current Visit: Yes Status: Acute Priority: High Code(s): R10.9 - UNSPECIFIED ABDOMINAL PAIN SNOMED Code(s): 51332569 - Compoenent of constipation but ensure no evidence of obstruction or ischemic bowel (2) Hyperglycemia Current Visit: Yes Status: Acute Priority: High Code(s): R73.9 - HYPERGLYCEMIA, UNSPECIFIED SNOMED Code(s): 58305790 (3) Small cell lung cancer Current Visit: No Status: Chronic Priority: Medium Code(s): C34.90 - MALIGNANT NEOPLASM OF UNSP PART OF UNSP BRONCHUS OR LUNG SNOMED Code(s): 084751519 Plan: Dr. Barksdale reviewed CT of the abdomen and pelvis with patient yesterday evening. There is an adrenal nodule that is enlarged but not felt to be contributing to patient's acute situation. Patient has been using a very excessive amount of PPIs, changed to IV PPI and Carafateper Dr. Barksdalebefore meals and at bedtime. With Excessive PPI use must consider bacterial overgrowth and/or fungal compoenent - EGD maybe beneficial Consulted Surgeon to evaluate patient, concerns for maybe in early onset ischemic bowel? Pending their evaluation and recommendations as they have not seen at his time yet. . Patient is actually been doing pretty well on this most recent treatment for small cell lung cancer. Pending recovery from his current situation, treatment will be rescheduled. Xray of abdomene with fecal status: - Bowel regimen - Reglan (?) - Surgery has evaluated and do not feel he is a surgical candidate at this time Qill continue supportive care and await recovery to resume treatment for SCLCA
[2022-02-27] MEDS: IPRATROPIUM-ALBUTEROL 3 ML NEB INHALATION SCH ×2 (16:04→20:08)
[2022-02-27 17:33] LABS: Glucose,Whole Blood 104 mg/dL (75-99)
[2022-02-27] MEDS: MAGNESIUM SULFATE-D5W PMX 1 GM in DEXTROSE/WATER 1 100ML.BAG IVPB SCH ×2 (17:45→19:36)
[2022-02-27] MEDS ORDERED: POTASSIUM CHLORIDE ER 20 MEQ TAB.ER PO SCH (18:00)
[2022-02-27 20:22] LABS: Glucose,Whole Blood 151 mg/dL (75-99)
[2022-02-28] MEDS: HYDROmorphone 0.5 MG/0.5 ML SYRINGE IVP PRN ×3 (01:09→08:36)
[2022-02-28] MEDS: SODIUM CHLORIDE 0.9% 1,000 ML IV SCH (05:58)
[2022-02-28 07:10] LABS: Glucose,Whole Blood 138 mg/dL (75-99)
[2022-02-28] MEDS: BUDESONIDE 0.25 MG/2 ML NEBU INHALATION SCH (08:20)
[2022-02-28] MEDS: IPRATROPIUM-ALBUTEROL 3 ML NEB INHALATION SCH ×2 (08:20→11:35)
[2022-02-28] MEDS: INSULIN ASPART (NovoLOG) 100 UNIT/ML VIAL SQ SCH ×2 (08:35→12:08)
[2022-02-28] MEDS: ALPRAZolam 0.5 MG TAB PO SCH (08:36)
[2022-02-28] MEDS: metFORMIN 500 MG TAB PO SCH (08:36)
[2022-02-28] MEDS: ATORVASTATIN 20 MG TAB PO SCH (08:36)
[2022-02-28] MEDS: SUCRALFATE 1 GM TAB PO SCH ×2 (08:36→12:09)
[2022-02-28] MEDS: polyethylene glycoL 3350 17 GM POWD.PACK PO SCH (08:37)
[2022-02-28] MEDS: ENOXAPARIN 40 MG/0.4 ML SYRINGE SQ SCH (08:37)
[2022-02-28] MEDS: PANTOPRAZOLE 40 MG/10 ML VIAL IVP SCH (08:37)
[2022-02-28] MEDS: SENNOSIDES-DOCUSATE SODIUM 1 EACH TAB PO SCH (08:38)
[2022-02-28 09:33] LABS: Anion Gap 11.5 mmol/L (10.00-18.00); Blood Urea Nitrogen 2.4 mg/dL (9.0-27.0); Carbon Dioxide 22.5 mmol/L (20.0-27.5); Potassium 3.8 mmol/L (3.5-5.5)
[2022-02-28] MEDS ORDERED: HYDROmorphone 0.5 MG/0.5 ML SYRINGE IVP PRN (09:40)
[2022-02-28] MEDS ORDERED: oxyCODONE-APAP 10-325MG 1 EACH TAB PO PRN (09:41)
[2022-02-28 11:47] LABS: Glucose,Whole Blood 70 mg/dL (75-99)
[2022-02-28 13:06] VITALS: BP 103/54; PULSE 106; TEMP 98
--- NOTE | 2022-02-28 13:10 | P.PN ---
Progress Note - Text Progress Note Date: 02/28/22 Patient feels better today. He does have some back pain. He is requesting Morty was placed on a regular diet. On exam vital signs are stable. Abdomen soft. Patient will have his diet advanced to regular diet. No surgical intervention is planned.
--- NOTE | 2022-03-01 14:50 | P.DS ---
Providers Date of admission: 02/23/22 09:01 Expected date of discharge: 02/28/22 Attending physician: Raghav Ceron MD Consults: 02/23/22 09:09 Consult Physician Urgent Consulting Provider: Maynor Barksdale Consult Reason/Comments: Established patient Do you want consulting provider notified?: Yes 02/23/22 21:02 Consult Physician Routine Consulting Provider: Rod Muro Consult Reason/Comments: abd pain, on chemo, concern for bowel ischemia Do you want consulting provider notified?: Yes, Notify in am Primary care physician: Alesha Ceron [facility] Course: Final Diagnoses: Abdominal pain. 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 Enlarged adrenal nodule per oncology's review of CT-not contributing to patient's acute abdominal pain. Right hand cellulitis, secondary to infiltrated IV Small cell lung CA Diabetes mellitus type 2 Hyponatremia, hypovolemic Thrombocytopenia Gastroesophageal reflux disease COPD, stable Anxiety Depression Former nicotine dependence Hospital course:This is a 62-year-old gentleman with past medical history of metastatic small cell lung CA, last treatment approximately 3 weeks ago, admitted with "constant sharp abdominal pain, unchanged since admission, nontender to palpation. Requiring Dilaudid IV push every 3 hours but states it only is lasting him two. Currently not on any oral opioids .Diarrhea by surgery with no surgical intervention recommended. X-ray of abdomen reported fecal stasis, patient reports having bowel movements, last one yesterday. Increased appetite, tolerating well with no nausea or vomiting. Blood sugars controlled. Denies chest pain, palpitations or shortness of breath. Percocet added to med regimen yesterday in preparation for planning for oral pain management and discharge today. Patient reports tried one last night at bedtime, didn't work as well as the Dilaudid IV and continued on Dilaudid IV push throughout the night into this morning. Percocet dose will be increased. Positive bowel movement this morning. Denies nausea or vomiting. Pain currently controlled. Patient also presents with a right hand cellulitis from IV saline infiltration and will be discharged home on oral antibiotics .Significant clinical improvement. Patient will be discharged home today in a stable condition with guarded prognosis. The impression and plan of care has been dictated as directed. : I performed a history and examination of this patient, discussed the same with the dictator. I agree with the dictator's note ,documented as a scribe. Any additional findings or plans will be noted. Patient Condition at Discharge: Stable Plan - Discharge Summary Discharge Rx Participant: No New Discharge Prescriptions: New polyethylene glycoL 3350 [Miralax] 17 gm PO DAILY packet oxyCODONE-APAP 10-325MG [Percocet 10-325 mg] 1 each PO Q8H PRN #9 tab PRN Reason: Pain Sennosides-Docusate Sodium [Senokot-S] 2 each PO BID tab Cephalexin [Keflex] 500 mg PO QID 5 Days #20 cap Continue Sucralfate [Carafate] 1 gm PO QID Pantoprazole Sodium [Protonix] 40 mg PO BID OXcarbazepine [Trileptal] 300 mg PO BID Atorvastatin [Lipitor] 20 mg PO DAILY traZODone HCL [Desyrel] 100 mg PO HS Ergocalciferol [Vitamin D2 (1250 Mcg = 32748 Iu)] 1,250 mcg PO Q7D Ondansetron [Zofran] 4 mg PO Q8HR PRN PRN Reason: Nausea metFORMIN HCL 500 mg PO BID Famotidine [Pepcid] 40 mg PO DAILY Omeprazole [PriLOSEC] 40 mg PO BID Hydrocortisone [Cortef] 20 mg PO DAILY Budesonide [Pulmicort] 0.25 mg INHALATION RT-BID Fluconazole [Diflucan] 100 mg PO DAILY PRN PRN Reason: THRUSH Albuterol Nebulized [Ventolin Nebulized] 2.5 mg INHALATION RT-QID Ipratropium-Albuterol Nebulize [Duoneb 0.5 mg-3 mg/3 ml Soln] 3 ml INHALATION RT-QID ALPRAZolam [Xanax] 0.5 mg PO BID Hydrocortisone [Cortef] 10 mg PO W/SUPPER Insulin Aspart [NovoLOG Flexpen] See Protocol SQ ACHS Discontinued HYDROcodone/APAP 10-325MG [[place] 10-325] 1 tab PO Q12HR PRN 30 Days #60 tab PRN Reason: Pain Discharge Medication List Atorvastatin [Lipitor] 20 mg PO DAILY 03/11/21 [History] OXcarbazepine [Trileptal] 300 mg PO BID 03/11/21 [History] Pantoprazole Sodium [Protonix] 40 mg PO BID 06/25/21 [History] Sucralfate [Carafate] 1 gm PO QID 03/11/21 [History] traZODone HCL [Desyrel] 100 mg PO HS 03/11/21 [History] ALPRAZolam [Xanax] 0.5 mg PO BID 01/13/22 [History] Budesonide [Pulmicort] 0.25 mg INHALATION RT-BID 01/13/22 [History] Ergocalciferol [Vitamin D2 (1250 Mcg = 69030 Iu)] 1,250 mcg PO Q7D 01/13/22 [History] Famotidine [Pepcid] 40 mg PO DAILY 01/13/22 [History] Hydrocortisone [Cortef] 10 mg PO W/SUPPER 01/13/22 [History] Hydrocortisone [Cortef] 20 mg PO DAILY 01/13/22 [History] Ipratropium-Albuterol Nebulize [Duoneb 0.5 mg-3 mg/3 ml Soln] 3 ml INHALATION RT-QID 01/13/22 [History] Omeprazole [PriLOSEC] 40 mg PO BID 01/13/22 [History] Ondansetron [Zofran] 4 mg PO Q8HR PRN 01/13/22 [History] metFORMIN HCL 500 mg PO BID 01/13/22 [History] Albuterol Nebulized [Ventolin Nebulized] 2.5 mg INHALATION RT-QID 02/23/22 [History] Fluconazole [Diflucan] 100 mg PO DAILY PRN 02/23/22 [History] Insulin Aspart [NovoLOG Flexpen] See Protocol SQ ACHS 02/24/22 [History] Cephalexin [Keflex] 500 mg PO QID 5 Days #20 cap 02/28/22 [Rx] Sennosides-Docusate Sodium [Senokot-S] 2 each PO BID tab 02/28/22 [Rx] oxyCODONE-APAP 10-325MG [Percocet 10-325 mg] 1 each PO Q8H PRN #9 tab 02/28/22 [Rx] polyethylene glycoL 3350 [Miralax] 17 gm PO DAILY packet 02/28/22 [Rx] Follow up Appointment(s)/Referral(s): Maynor Barksdale MD [STAFF PHYSICIAN] - 1 Week (Dr. Herrera office will be in contact to arrange for follow-up appt. and next chemotherapy. ) Alesha Ceron DO [Primary Care Provider] - 03/02/22 2:45 pm (This will be at the [place] office.) Patient Instructions/Handouts: Cephalexin (By mouth), Oxycodone/Acetaminophen (By mouth), Hyponatremia (DC), Type 2 Diabetes in the Older Adult (DC) Activity/Diet/Wound Care/Special Instructions: Right hand, site of prior IV infiltration of saline. Minimally raised, reddened with serous drainage, cultured. Discharge on Keflex 500 mg 4 times a day 5 days-reevaluate site in clinic at follow-up visit with PCP. Per Dr. Muro-Diet as tolerated-Consistent Carbohydrate Discharge Disposition: HOME SELF-CARE
[2022-03-01 16:35] LABS: LD Isoenzymes 1 24 % (19-38); LD Isoenzymes 2 37 % (30-43); LD Isoenzymes 3 21 % (16-26); LD Isoenzymes 4 8 % (3-12); LD Isoenzymes 5 10 % (3-14); Lactacte Dehydrogenase(LD) ISO 202 U/L (120-250)
== END 2022-02-28 14:21 | disposition home or self-care (01) | DRG 375 ==
LOC: EC 05:53 → 5NMEDONC 09:01
PROVIDERS: ADMIT Family Medicine; ATTEND Family Medicine
DX: C78.89 Secondary malignant neoplasm of other digestive organs (principal); C77.1 Secondary and unspecified malignant neoplasm of intrathoracic lymph nodes; C79.72 Secondary malignant neoplasm of left adrenal gland; D69.3 Immune thrombocytopenic purpura; E87.1 Hypo-osmolality and hyponatremia; C34.12 Malignant neoplasm of upper lobe, left bronchus or lung; E87.2 Acidosis; T80.29XA Infection following other infusion, transfusion and therapeutic injection, initial encounter; L03.113 Cellulitis of right upper limb; E11.65 Type 2 diabetes mellitus with hyperglycemia; J43.9 Emphysema, unspecified; Z79.4 Long term (current) use of insulin; E86.1 Hypovolemia; G89.3 Neoplasm related pain (acute) (chronic); K59.00 Constipation, unspecified; K29.70 Gastritis, unspecified, without bleeding; K21.9 Gastro-esophageal reflux disease without esophagitis; M54.9 Dorsalgia, unspecified; F41.9 Anxiety disorder, unspecified; F32.A Depression, unspecified; Z79.51 Long term (current) use of inhaled steroids; Z79.84 Long term (current) use of oral hypoglycemic drugs; Z79.899 Other long term (current) drug therapy; Z96.643 Presence of artificial hip joint, bilateral; Z87.891 Personal history of nicotine dependence; Z87.39 Personal history of other diseases of the musculoskeletal system and connective tissue; Z98.890 Other specified postprocedural states; Y92.230 Patient room in hospital as the place of occurrence of the external cause
CPT/HCPCS: 36415; 71045; 74019; 74177; 80048; 80053; 81003; 82150; 82728; 83540; 83550; 83605; 83625; 83690; 83735; 84132; 85025; 85610; 85730; 87070; 87077; 87186; 87205; 94640; 96361; 96374; 96375; 96376; 99285

== ENCOUNTER → 2022-03-06 | Outpatient (CLI) | payer MEDICARE ==
[2022-03-06 13:40] VITALS: BP 134/71; PULSE 109; RESP 18; TEMP 98.1
--- NOTE | 2022-03-06 13:44 | P.PAINPG ---
PQRS Measure Charge Sheet Comment: HISTORY OF PRESENT ILLNESS: 62 yr old male presents today with severe and chronic LBP secondary to DDD and facet arthropathy for evaluation. Pt completed a BL facet block L4-L5, L5-S1 #2 with 75% pain relief x 2 hrs s/p procedure. Today, he states his LBP is 4/10 in intensity, constant, dull & achy in character but escalates to 8/10 in intensity when standing with change in character to sharp and shooting intensity. Pain is relieved with medications (Tylenol OTC, Keno), pain patches but are difficult to put on/take off by himself, alternating heat or ice, sitting, repositioning and rest. Pt has a history of Lung CA and states the Keno 10/325mg prescribed to him at a prior visit is ineffective in managing his pain. REVIEW OF ORGAN SYSTEMS: CONSTITUTIONAL: No fevers or chills. No recent weight loss. HEENT: No visual acuity loss, eye pain, difficulties with hearing. No nosebleeds. No difficulty swallowing. RESPIRATORY: Denies any troubles with breathing or dyspnea on exertion. CARDIOVASCULAR: Denies any chest pain, palpitations, or recent heart attacks. GASTROINTESTINAL: Denies fatty food intolerance. Has change in bowel habits and gas bloat. GENITOURINARY: Denies any blood in urine. Has increased urinary frequency. NEUROLOGICAL: + numbness and tingling along the distal extremities. No seizure disorders or headaches. MUSCULOSKELETAL: + back pain SKIN: No skin cancer. No rash. PSYCHIATRIC: Denies current depression or suicidal thoughts. ENDOCRINE: Denies current thyroid disorders. Denies any blood sugar glucose intolerance. HEME/LYMPHATIC: Denies any lumps and bumps around the neck. History of deep venous thrombosis. ALLERGY/IMMUNOLOGY: No immunoglobulin therapy. No immune deficiencies. BREAST: Denies current breast lumps, pain or nipple discharge. Physical Examinations : Constitutional : Cooperative , not in acute distress . HEENT: Neck supple. No Lymphadenopathy. Normal thyroid size . Eyes no ptosis , no icterus, no photophobia . Hearing intact. Normal oropharynx. No Thrush. Respiratory : Chest clear to auscultations bilaterally. No wheezing. No rhonchi. Cardiovascular : Regular rate and rhythm , S1 / S2. No S3 . No S4. Gastrointestinal : Abdomen soft. No tenderness. Bowel sounds x 4. No organomegaly . Genitourinary : Deferred. Neurologic : Cranial nerve II to XII intact. No focal neurological deficits. Psychiatric : alert & oriented x 3. Matching mood & appropriate affect. Judgment & insight intact. Lymphatic No Lymphadenopathy. Musculoskeletal : Cervical Spine Motor strength in the deltoid and biceps: Normal right side. Normal Left side Motor strength biceps and the wrist extensors: Normal right side . Normal left side Motor strength in the triceps muscle: Normal right side. Normal left side Deep tendon reflexes: Normal at the biceps. Normal at Brachioradialis. Normal at triceps Cervical facet loading test: positive bilaterally Spurling test: positive bilaterally Neck distraction test: positive bilaterally Dandy sign: positive bilaterally Lumbar spine Motor strength lower extremities ,thigh and legs 5/5 Right side , 5/5 Left side Deep tendon reflexes : Normal Knee Jerk. Normal Ankle Jerk Vertebral body tenderness over Lumbar facet Loading Test: positive Right / positive Left Range of motion of the lumbar spine Flexion 30 degrees, extension 10 degrees Straight Leg Raise test: Left/ Right positive at degree Grayson test: positive right / positive left. Severe tenderness over the Sacroiliac joint on the Right / Left sides Gaenslen test: positive bilaterally Seated flexion test: positive bilaterally. Sacral spine : Severe tenderness over the Sacroiliac joint: right side / left side Range of motion: Flexion of the lumbar spine <60 degrees Range of motion: Extension of the lumbar spine <20 degrees Gaenslen's Test positive Lawrence's Test positive Grayson test: positive right side / left side Thigh Thrust Test Sacral Thrust Test Assessment/ Plan : Lumbar DDD, Lumbar Radiculopathy Recommendation of BL RFA L4-L5, L5-S1. Patient experienced sufficient and satisfactory pain relief with the prior facet blocks of the medial branches. Risks, benefits of procedure discussed and patient verbalized understanding. Denies aspirin or anti- coagulant use. Admits to a medical history of diabetes. Protocol for discontinuation/continuation of medications jasmine procedure discussed. All questions answered. Discontinue Keno 10/325mg #90. Prescribe MS ER 15mg BID #60 w 1 refill. New opiate agreement signed. Use of medication, side effects, storage, drug interactions and what to do in case of emergency discussed. Pt acknowledged understanding. I have spent greater than 50 minutes on patient care today. Dr Coronado was available by phone for the evaluation of this patient. The time was used to review the medical records including relevant urine studies and Prescription history (MAPs), review of the available imaging, evaluation and examination of the patient, coordination of care with the medical staff and if applicable referring physicians, as well as creation of the medical record - Pain Location Bilateral Lower Back Non-Pharmacological Interventions: Inactivity, Sitting Pharmacological Interventions: Block, Scheduled Medication PQRS Narrative: Narcotic Agreement Date Signed 10/24/21 Hx Alcohol Use (MH) No Home Medications: Ambulatory Orders Atorvastatin [Lipitor] 20 mg PO DAILY 03/11/21 OXcarbazepine [Trileptal] 300 mg PO BID 03/11/21 Pantoprazole Sodium [Protonix] 40 mg PO BID 03/11/21 Sucralfate [Carafate] 1 gm PO QID 03/11/21 traZODone HCL [Desyrel] 100 mg PO HS 03/11/21 ALPRAZolam [Xanax] 0.5 mg PO BID 01/13/22 Budesonide [Pulmicort] 0.25 mg INHALATION RT-BID 01/13/22 Ergocalciferol [Vitamin D2 (1250 Mcg = 98083 Iu)] 1,250 mcg PO Q7D 01/13/22 Famotidine [Pepcid] 40 mg PO DAILY 01/13/22 Hydrocortisone [Cortef] 10 mg PO W/SUPPER 01/13/22 Hydrocortisone [Cortef] 20 mg PO DAILY 01/13/22 Ipratropium-Albuterol Nebulize [Duoneb 0.5 mg-3 mg/3 ml Soln] 3 ml INHALATION RT-QID 01/13/22 Omeprazole [PriLOSEC] 40 mg PO BID 01/13/22 Ondansetron [Zofran] 4 mg PO Q8HR PRN 01/13/22 metFORMIN HCL 500 mg PO BID 01/13/22 Albuterol Nebulized [Ventolin Nebulized] 2.5 mg INHALATION RT-QID 02/23/22 Fluconazole [Diflucan] 100 mg PO DAILY PRN 02/23/22 Insulin Aspart [NovoLOG Flexpen] See Protocol SQ ACHS 02/24/22 Cephalexin [Keflex] 500 mg PO QID 5 Days #20 cap 02/28/22 Sennosides-Docusate Sodium [Senokot-S] 2 each PO BID tab 02/28/22 oxyCODONE-APAP 10-325MG [Percocet 10-325 mg] 1 each PO Q8H PRN #9 tab 02/28/22 polyethylene glycoL 3350 [Miralax] 17 gm PO DAILY packet 02/28/22 Morphine Sulfate ER [Ms Contin] 15 mg PO BID 30 Days #60 tab 03/06/22 Morphine Sulfate ER [Ms Contin] 15 mg PO Q12HR 30 Days #60 tab 03/06/22 Controlled Substance Measures - Controlled Substance Measures Is patient prescribed a controlled substance at discharge?: Yes When asked, does pt state using other controlled substances?: Yes If prescribed controlled substance>3 days was MAPS reviewed?: Yes If Rx opioid, was Start Talking consent form obtained?: Yes If opioid is for acute pain is fill amount 7 days or less?: Yes Was information provided regarding opioid addiction?: Yes
== END | disposition home or self-care (01) ==
LOC: PNWHC3 13:04
PROVIDERS: ATTEND Specialist
DX: M51.16 Intervertebral disc disorders with radiculopathy, lumbar region (principal)
CPT/HCPCS: 99211

== ENCOUNTER → 2022-03-29 | Outpatient (CLI) | payer MEDICARE ==
[2022-03-29 16:19] LABS: African American GFR (CKD) >90 (>60 ml/min/1.73 sqM); Blood Urea Nitrogen 8 mg/dL (9-20); Non-African American GFR(CKD) >90 (>60 ml/min/1.73 sqM)
--- NOTE | 2022-03-29 22:41 | CT ---
EXAMINATION TYPE: CT ChestAbdPelvis w con CT DLP: 1411 mGycm, Automated exposure control for dose reduction was used. DATE OF EXAM: 03/29/2022 5:11 PM COMPARISON: CT chest abdomen pelvis 01/19/2022 and 02/23/2022 CT abdomen pelvis. CLINICAL INDICATION:Male, 62 years old with history of C34.92 lung ca; h/o Lung CA, f/u Technique: Multiple axial images of the chest, abdomen, and pelvis were obtained following the intrav enous administration of 70 mL Isovue-300. Two-dimensional coronal and sagittal reconstructions were o btained. Findings: CHEST: LUNGS/ PLEURA: Left perihilar soft tissue/lymphadenopathy measures 25 x 24 mm. There is more distal s uspected atelectasis changes present extending to the pleural surface. These are not significantly ch anged from immediate prior. There is severe centrilobular emphysema changes throughout the lungs. Sca ttered increased reticulation of the lung parenchyma is present AIRWAY: Patent and unremarkable.. HEART: Size within normal limits. . Mediastinum: interval decrease in epicardial fat lymph nodes now measuring 7 mm short axis previously measuring 9 mm. There is similar versus fractionally increased in size lymph node measuring 17 mm on today's exam and 16 mm on prior, this could be within measuring error. AP window lymph node is small er measuring 16 mm in short axis, previously 18 mm. Layering oral contrast is seen throughout the eso phagus. VASCULATURE: No aortic aneurysm. Atherosclerosis of the arterial vasculature is present. MUSCULOSKELETAL: No acute osseous abnormalities. Right shoulder arthroplasty changes are present. Sub acute left rib 6 fracture. SOFT TISSUES/LYMPH NODES: Unremarkable. LOWER NECK: No significant findings. ABDOMEN: ABDOMEN LIVER: Diffusely hypoattenuating parenchyma. GALLBLADDER AND BILE DUCTS: Unremarkable. PANCREAS: Unremarkable. SPLEEN: Unremarkable. ADRENAL GLANDS: Interval decrease in size of left adrenal mass now measuring 21 x 16 mm, previously 3 0 x 21 mm. KIDNEYS AND URETERS: No evidence of hydronephrosis or renal calculus. The ureters are unremarkable. PELVIS Evaluation of the pelvis is limited given streak artifact. BLADDER: Incompletely evaluated due to streak artifact. REPRODUCTIVE: Incompletely evaluated due to streak artifact. ABDOMEN & PELVIS STOMACH AND BOWEL: There is a moderate stool burden throughout the colon. No evidence of bowel obstru ction. PERITONEUM: No evidence of pneumoperitoneum or free fluid. VASCULATURE: There is moderate to severe atherosclerosis changes throughout the visualized aorta. MUSCULOSKELETAL: No acute osseous abnormalities. There are vertebroplasty changes at L1 and T11. Otf tional multilevel biconcave vertebral body compression deformities are present. Overall the osseous s tructure findings are not significantly changed from prior examinations. LYMPH NODES: Lymph nodes just superior to the left renal sinus measures 6 mm in short axis which is l arger than prior where it measured 4 mm. SOFT TISSUE/ABDOMINAL WALL: Fat containing umbilical hernia. IMPRESSION: 1. Persistent left hilar consolidation with suspected atelectasis extending to the lung periphery. 2. Interval decrease in size of a majority of the lymph nodes seen on prior. One right low paratrach eal lymph node appears stable to fractionally increased in size. Additional intra-abdominal lymph nod e just superior to the left renal sinus has increased in size on today's exam. 3. Layering debris within the esophagus likely secondary to reflux and/or esophageal dysmotility. 4. Hepatic steatosis. 5. Severe COPD
== END | disposition home or self-care (01) ==
LOC: RADCTMAIN 14:45
PROVIDERS: ATTEND Internal Medicine Hematology & Oncology
DX: Z03.89 Encounter for observation for other suspected diseases and conditions ruled out (principal); C34.92 Malignant neoplasm of unspecified part of left bronchus or lung
CPT/HCPCS: 82565; 84520; 71260; 74177; 36415; Q9967

== ENCOUNTER 2022-04-07 12:42 | Day surgery (SDC) | payer MEDICARE ==
[2022-04-06 12:03] VITALS: BMI 29.8
[2022-04-07 12:56] VITALS: RESP 18; TEMP 97.8
[2022-04-07] MEDS ORDERED: LACTATED RINGERS 1,000 ML IV ONE (12:56)
[2022-04-07 13:06] LABS: Glucose,Whole Blood 140 mg/dL (70-110)
[2022-04-07] MEDS ORDERED: MIDAZOLAM 2 MG/2 ML VIAL ONE (13:17)
[2022-04-07] MEDS ORDERED: ROPIVACAINE 5 MG/ML 20 ML AMPULE ONE (13:17)
[2022-04-07] MEDS ORDERED: fentaNYL (PF) 50 MCG/ML 2 ML AMP ONE (13:17)
[2022-04-07] MEDS ORDERED: TRIAMCINOLONE ACETONIDE 40 MG/ML 1 ML VIAL ONE (13:17)
[2022-04-07] MEDS ORDERED: LIDOCAINE 2% INJ 20 MG/ML (2 ML VIAL) ONE (13:17)
--- NOTE | 2022-04-07 13:50 | P.PCN ---
Date of Procedure: 04/07/22 Surgeon: Lamont Guillen Pathology: none sent Condition: stable Disposition: PACU Description of Procedure: PREOPERATIVE DIAGNOSIS: Lumbar spondylosis without myelopathy, morbid obesity POSTOPERATIVE DIAGNOSIS: Lumbar spondylosis without myelopathy,morbid obesity PROCEDURES : Bilateral Radiofrequency thermocoagulation L4-L5, and L5-S1 medial branch, with fluoroscopic guidance ANESTHESIA: IV moderate conscious sedation with versed and fentanyl by the anesthesia Department and local infiltration with lidocaine 1% 5 ml Physician:Lamont Guillen MD EBL: Minimal PROCEDURE INDICATION: The patient with low back pain secondary to lumbar facet arthropathy who had significant relief of pain with previous diagnostic lumbar medial branch block with Ropivacaine0.5%. PROCEDURE DESCRIPTION / TECHNIQUE: The patient was seen and identified in the preoperative area. Risks, benefits, complications, including but not limited to risk of infection ,bleeding , allergic reactions to the medications and no complete pain relief , and alternatives were discussed with the patient, the patient agreed to proceed with the procedure and signed the consent. IV was started. Vital signs remained stable throughout the procedure. Patient was taken to the OR and time out was completed. The patient was placed in the prone position on the procedure table. The lumber area was prepped and draped in the usual sterile fashion. . Vital signs were closely monitored during the procedure .IV sedation was used during the procedure to decrease patients anxiety. The target points were identified as follows: For the L5-S1 level which corresponds to the dorsal ramus of L5 the target point was at the superior medial aspect of the sacral ala on the Rt side of the spine on the AP view of fluoroscopy and for the L3, and L4 medial branches the target points were at the connection between the transverse process and the superior articular process of L4, and L5 vertebra respectively on the Rt oblique view of fluoroscopy. skin was marked, and localized with 1% lidocaineat these points. Subsequently, an 18 [id number] radiofrequency needles with a 10-mm curved active tips were advanced guided by fluoroscopy to each of the target points mentioned above in a superior medial direction to get the active tips as parallel as possible to the medial branches tracks. AP, oblique, and lateral views of fluoroscopy were used to verify needle tips position. Each level then underwent motor testing at 2.5 Hz and 0 to 3 volt with local stimulation, but no radicular symptoms down the legs. I then injected 1 mL of lidocaine 1% in each needle before starting radiofrequency thermocoagulation at 80 degrees celsius for 90 seconds. After that I injected 1 ml of PF Ropivacaine 0.5%(3 mls) with 40 mg of Kenalog, 1 mL of this mixture was given in each needle before taking the needles out intact. Then the left side with the same levels was done in the same manner. At the end of the procedure, the skin was cleansed and bandages were applied. A copy of needle placement fluoroscopy was saved on the C-arm machine. COMPLICATIONS: No acute complications. DISPOSITION / PLANS: The patient was placed in a supine position and transferred to the recovery area in a stable condition for observation and was discharged from the recovery room after meeting discharge criteria. Home discharge instructions given to the patient by the staff. The patient was reexamined prior to discharge. The patient will schedule a follow up in the clinic in 2-4 weeks.
[2022-04-07] MEDS ORDERED: IV FLUID CONTINUATION 1,000 ML IV ONE (13:53)
[2022-04-07 14:10] VITALS: BP 126/71; PULSE 106
--- NOTE | 2022-04-07 14:48 | FL ---
Fluoroscopy HISTORY: Pain 29 seconds fluoroscopy time supplied to the referring clinician. 5 intraoperative C-arm images docum ent the procedure. See dictated report from anesthesia.
== END 2022-04-07 14:24 | disposition home or self-care (01) ==
LOC: ORPAIN 12:42
PROVIDERS: ATTEND Anesthesiology
DX: M47.817 Spondylosis without myelopathy or radiculopathy, lumbosacral region (principal); E11.9 Type 2 diabetes mellitus without complications; E66.01 Morbid (severe) obesity due to excess calories; J44.9 Chronic obstructive pulmonary disease, unspecified; C34.90 Malignant neoplasm of unspecified part of unspecified bronchus or lung; F41.9 Anxiety disorder, unspecified; F32.A Depression, unspecified; Z68.29 Body mass index [BMI] 29.0-29.9, adult; Z79.899 Other long term (current) drug therapy; Z79.84 Long term (current) use of oral hypoglycemic drugs; Z79.4 Long term (current) use of insulin; Z97.2 Presence of dental prosthetic device (complete) (partial)
CPT/HCPCS: 64635; 64636; J2250; J3301; J2001 ×2; J3010; J2795

== ENCOUNTER 2022-04-12 15:48 | Emergency (ER) | payer MEDICARE ==
[2022-04-12] MEDS ORDERED: SODIUM CHLORIDE 0.9% 1,000 ML IV STA (16:38)
[2022-04-12] MEDS ORDERED: HYDROmorphone 0.5 MG/0.5 ML SYRINGE IVP STA ×2 (16:38→18:11)
[2022-04-12] MEDS ORDERED: ONDANSETRON 4 MG/2 ML VIAL IVP STA (16:39)
[2022-04-12 17:00] LABS: ALT 26 U/L (4-49); AST 24 U/L (17-59); African American GFR (CKD) >90 (>60 ml/min/1.73 sqM); Albumin 3.6 g/dL (3.5-5.0); Alkaline Phosphatase 86 U/L (38-126); Amylase 30 U/L (30-110); Anion Gap 8 mmol/L; Blood Urea Nitrogen 22 mg/dL (9-20); Calcium 8.5 mg/dL (8.4-10.2); Carbon Dioxide 26 mmol/L (22-30); Chloride 100 mmol/L (98-107); Glucose 113 mg/dL (74-99); Lipase 158 U/L (23-300); Non-African American GFR(CKD) >90 (>60 ml/min/1.73 sqM); Potassium 3.3 mmol/L (3.5-5.1); Sodium 134 mmol/L (137-145); Total Bilirubin 0.8 mg/dL (0.2-1.3); Total Protein 6.6 g/dL (6.3-8.2)
--- NOTE | 2022-04-12 17:00 | XR ---
EXAMINATION TYPE: XR KUB DATE OF EXAM: 04/12/2022 4:50 PM INDICATION: Patient age:Male; 62 years old; Reason for study: abdominal pain; COMPARISON: Abdominal radiograph 02/24/2022 TECHNIQUE: One radiographic view of the abdomen was obtained. FINDINGS: The bowel gas pattern is nonspecific without dilated loops of small or large bowel. There i s no evidence for organomegaly or pneumoperitoneum. The osseous structures are intact. No abnormal calcifications are present. Fecal material and gas are demonstrated throughout the colon and rectum. Bilateral hip prostheses. There is multilevel disc degeneration changes with vertebroplasty changes. IMPRESSION: Nonspecific bowel gas pattern without radiographic evidence for acute process.
[2022-04-12 17:01] LABS: Partial Thromboplastin Time 23.8 sec (22.0-30.0); Prothrombin Time 11.2 sec (9.0-12.0)
--- NOTE | 2022-04-12 17:02 | XR ---
EXAMINATION TYPE: XR chest 1V portable DATE OF EXAM: 04/12/2022 4:50 PM COMPARISON: Chest radiographs from 02/24/2022 TECHNIQUE: XR chest 1V portable Portable AP radiograph of the chest. CLINICAL INDICATION:Male, 62 years old with history of abdominal pain; FINDINGS: Lungs/Pleura: Prominent interstitial lung markings are seen scattered throughout the lungs. No eviden ce of focal consolidation, pneumothorax or pleural effusion. Pulmonary vascularity: Unremarkable. Heart/mediastinum: Cardiomediastinal silhouette is unremarkable. Musculoskeletal: No acute osseous pathology. Right shoulder arthroplasty changes. Hardware is intact. IMPRESSION: Chronic changes without acute pulmonary process. No significant change from prior.
[2022-04-12 17:03] LABS: Anisocytosis Slight; Basophils % (A) 0 %; Eosinophils # (A) 0.1 k/uL (0-0.7); Eosinophils % (A) 1 %; HCT 30.6 % (39.0-53.0); HGB 10.2 gm/dL (13.0-17.5); Hypochromasia Slight; Lymphocytes # (A) 1.1 k/uL (1.0-4.8); Lymphocytes % (A) 22 %; MCH 36.7 pg (25.0-35.0); MCHC 33.4 g/dL (31.0-37.0); MCV 109.8 fL (80.0-100.0); Macrocytosis Marked; Mean Platelet Volume 9.3; Monocytes # (A) 0.6 k/uL (0-1.0); Monocytes % (A) 12 %; Neutrophils % (A) 61 %; Poikilocytosis Slight; RBC 2.78 m/uL (4.30-5.90); RDW 17.6 % (11.5-15.5); WBC 4.9 k/uL (3.8-10.6)
[2022-04-12] MEDS ORDERED: MAG HYDROX/AL HYDROX/SIMETH 30 ML, HYOSCYAMINE ELIXIR 10 ML, LIDOCAINE VISCOUS 2% 10 ML PO STA ×3 (17:25)
--- NOTE | 2022-04-12 17:29 | ED ---
General Adult HPI - General Chief complaint: Abdominal Pain Stated complaint: ABD Pain Time Seen by Provider: 04/12/22 16:25 Source: patient, EMS, RN notes reviewed, old records reviewed Mode of arrival: EMS Limitations: no limitations - History of Present Illness Initial comments: Patient is a 62-year-old male with past medical history remarkable for lung cancer currently receiving chemotherapy presents emergency Department complaining of 2 day history of diffuse nonspecific sharp abdominal pain. Does not radiate. Denies nausea, vomiting, diarrhea. States he still having normal bowel movements. Still tolerating oral intake. Has a history of gastritis. Denies any chest pain, shortness of breath. His no other acute complaints at this time. Presents emergency department for further evaluation. Denies any fevers, chills, cough. Uncertain what is causing this pain. - Related Data Home Medications Medication Instructions Recorded Confirmed Atorvastatin [Lipitor] 20 mg PO DAILY 03/11/21 04/12/22 OXcarbazepine [Trileptal] 300 mg PO BID 03/11/21 04/12/22 Pantoprazole Sodium [Protonix] 40 mg PO BID 03/11/21 04/12/22 Sucralfate [Carafate] 1 gm PO QID 03/11/21 04/12/22 traZODone HCL [Desyrel] 100 mg PO HS 03/11/21 04/12/22 ALPRAZolam [Xanax] 0.5 mg PO BID 01/13/22 04/12/22 Budesonide [Pulmicort] 0.25 mg INHALATION RT-BID 01/13/22 04/12/22 Hydrocortisone [Cortef] 10 mg PO W/SUPPER 01/13/22 04/12/22 Hydrocortisone [Cortef] 20 mg PO DAILY 01/13/22 04/12/22 Ipratropium-Albuterol Nebulize 3 ml INHALATION RT-QID 01/13/22 04/12/22 [Duoneb 0.5 mg-3 mg/3 ml Soln] Ondansetron [Zofran] 4 mg PO Q8HR PRN 01/13/22 04/12/22 metFORMIN HCL 500 mg PO BID 01/13/22 04/12/22 Albuterol Nebulized [Ventolin 2.5 mg INHALATION RT-QID 02/23/22 04/12/22 Nebulized] Fluconazole [Diflucan] 100 mg PO DAILY PRN 02/23/22 04/12/22 Insulin Aspart [NovoLOG Flexpen] See Protocol SQ ACHS 02/24/22 04/12/22 Famotidine 40 mg PO DAILY 04/12/22 04/12/22 Gabapentin [Neurontin] 400 mg PO BID 04/12/22 04/12/22 Metoclopramide [Reglan] 5 mg PO AC-BID PRN 04/12/22 04/12/22 Semaglutide [Rybelsus] 3 mg PO DAILY 04/12/22 04/12/22 oxyCODONE-APAP 10-325MG [Percocet 1 tab PO Q8HR PRN 04/12/22 04/12/22 10-325 mg] Previous Rx's Medication Instructions Recorded polyethylene glycoL 3350 [Miralax] 17 gm PO DAILY packet 02/28/22 Morphine Sulfate ER [Ms Contin] 15 mg PO BID 30 Days #60 tab 03/06/22 Dicyclomine [Bentyl] 10 mg PO TID PRN 10 Days #30 04/12/22 capsule HYDROcodone/APAP 5-325MG [[place] 1 tab PO Q6HR PRN 3 Days #12 tab 04/12/22 5-325] Allergies Allergy/AdvReac Type Severity Reaction Status Date / Time No Known Allergies Allergy Verified 04/12/22 17:00 Review of Systems ROS Statement: Those systems with pertinent positive or pertinent negative responses have been documented in the HPI. Review of Systems: CONST: Denies fever EYES: Denies blurry vision ENT: Denies nasal congestion C/V: Denies Chest pain RESP: Denies shortness of breath GI: Endorses abdominal pain : Denies dysuria SKIN: Denies rash. MSK: Denies joint pain. NEURO: Denies headache ROS Other: All systems not noted in ROS Statement are negative. Past Medical History Past Medical History: Cancer, COPD, GERD/Reflux Additional Past Medical History / Comment(s): LUNG CANCER WITH TUMOR IN STOMACH AND STATES ALSO IN HIS NECK.,. RECEIVING CHEMOTHERAPY., DDD WITH BACK ,HIP & LEG PAIN., (PAIN CLINIC PATIENT)., EMPHYSEMA., GASTRITIS. History of Any Multi-Drug Resistant Organisms: None Reported Past Surgical History: Joint Replacement, Orthopedic Surgery Additional Past Surgical History / Comment(s): RIGHT AND LEFT TOTAL HIPS, RIGHT SHOULDER SURGERY. Past Anesthesia/Blood Transfusion Reactions: No Reported Reaction Past Psychological History: Anxiety, Depression Smoking Status: Former smoker Past Alcohol Use History: None Reported Past Drug Use History: None Reported - Past Family History Father Family Medical History: No Reported History General Exam - General Exam Comments Initial Comments: General: Appears in no acute distress. HEAD: Normal with no signs of head trauma. EYES: PERRLA, EOMI, conjunctiva normal, no discharge. ENT: Hearing grossly intact, normal oropharynx. RESPIRATORY: Clear breath sounds bilaterally. No wheezes, rales, or rhonchi. C/V: Regular rate and rhythm. S1 and S2 auscultated, no edema, peripheral pulses 2+ and intact throughout ABD: Abdomen soft, nondistended. Diffusely tender with no focal areas. No guarding. No peritoneal signs. No rebound tenderness. EXT: Normal range of motion, no obvious deformity SKIN: No rashes or lesions observed on exposed skin. NEURO: Alert and oriented 4. No focal deficits. Limitations: no limitations Course Vital Signs 04/12/22 04/12/22 04/12/22 15:50 18:15 19:52 Temperature 98.1 F 98.2 F Pulse Rate 110 H 105 H 103 H Respiratory 20 18 18 Rate Blood Pressure 165/84 133/69 119/60 O2 Sat by Pulse 98 97 97 Oximetry Medical Decision Making - Medical Decision Making Based on the patient's presentation and physical exam, I'm concerned for acute intra-abdominal process for his current symptoms. We'll obtain abdominal laboratory studies, screening EKG, as well as abdominal imaging. We will be symptomatically treated with IV pain medications, GI cocktail, 1 L fluid bolus. He was in agreement this plan. Laboratory studies remarkable for a macrocytic anemia with hemoglobin of 10.2 which is chronic for the patient. Patient also has some lymphocytopenia with a platelet count 75 which is also chronic for the patient. Both likely related to his current chemoradiation. Patient is slightly hypokalemic at 3.3, Covid is negative. Urine is still pending. Chest and abdominal x-ray revealed no acute process. Abdominal and pelvis CT was obtained as well. It shows possibly worsening metastatic cancer disease. The lymphadenopathy seems to be progressed versus CAT scan from last month. I discussed the findings with the patient. I discussed discharged home with his oncology follow-up or admission for pain control, as his symptoms seem chronic, likely secondary to his progressing disease.. I believe it is safe for him to go home and he was in agreement this plan. Will be sent home with Mon[place] 5. He was in agreement this plan. We'll follow up with his oncologist this week. I will provide the patient with a prescription for [place] 5. I instructed the patient to follow up with their PCP in the next 1-3 days. I explained that the patient should return to the emergency department if they experience any worsening symptoms. Strict return precautions were discussed with the patient. The patient expressed understanding of these instructions. I answered all questions that the patient had. The patient was discharged home in fair condition with their prescriptions and follow up information. - Lab Data Result diagrams: 04/12/22 16:43 04/12/22 16:43 Lab Results 04/12/22 04/12/22 04/12/22 Range/Units 16:43 16:43 16:43 WBC 4.9 (3.8-10.6) k/uL RBC 2.78 L (4.30-5.90) m/uL Hgb 10.2 L (13.0-17.5) gm/dL Hct 30.6 L (39.0-53.0) % MCV 109.8 H (80.0-100.0) fL MCH 36.7 H (25.0-35.0) pg MCHC 33.4 (31.0-37.0) g/dL RDW 17.6 H (11.5-15.5) % Plt Count 75 L D (150-450) k/uL MPV 9.3 Neutrophils % 61 % Lymphocytes % 22 % Monocytes % 12 % Eosinophils % 1 % Basophils % 0 % Neutrophils # 3.0 (1.3-7.7) k/uL Lymphocytes # 1.1 (1.0-4.8) k/uL Monocytes # 0.6 (0-1.0) k/uL Eosinophils # 0.1 (0-0.7) k/uL Basophils # 0.0 (0-0.2) k/uL Manual Slide Review Performed Polychromasia Present Hypochromasia Slight Poikilocytosis Slight Anisocytosis Slight Macrocytosis Marked A PT 11.2 (9.0-12.0) sec INR 1.0 (<1.2) APTT 23.8 (22.0-30.0) sec Sodium 134 L (137-145) mmol/L Potassium 3.3 L (3.5-5.1) mmol/L Chloride 100 (98-107) mmol/L Carbon Dioxide 26 (22-30) mmol/L Anion Gap 8 mmol/L BUN 22 H (9-20) mg/dL Creatinine 0.63 L (0.66-1.25) mg/dL Est GFR (CKD-EPI)AfAm >90 (>60 ml/min/1.73 sqM) Est GFR (CKD-EPI)NonAf >90 (>60 ml/min/1.73 sqM) Glucose 113 H (74-99) mg/dL Plasma Lactic Acid Nicholas (0.7-2.0) mmol/L Calcium 8.5 (8.4-10.2) mg/dL Total Bilirubin 0.8 (0.2-1.3) mg/dL AST 24 (17-59) U/L ALT 26 (4-49) U/L Alkaline Phosphatase 86 (38-126) U/L Total Protein 6.6 (6.3-8.2) g/dL Albumin 3.6 (3.5-5.0) g/dL Amylase 30 (30-110) U/L Lipase 158 (23-300) U/L Coronavirus (PCR) (Not Detectd) 04/12/22 04/12/22 Range/Units 16:43 17:24 WBC (3.8-10.6) k/uL RBC (4.30-5.90) m/uL Hgb (13.0-17.5) gm/dL Hct (39.0-53.0) % MCV (80.0-100.0) fL MCH (25.0-35.0) pg MCHC (31.0-37.0) g/dL RDW (11.5-15.5) % Plt Count (150-450) k/uL MPV Neutrophils % % Lymphocytes % % Monocytes % % Eosinophils % % Basophils % % Neutrophils # (1.3-7.7) k/uL Lymphocytes # (1.0-4.8) k/uL Monocytes # (0-1.0) k/uL Eosinophils # (0-0.7) k/uL Basophils # (0-0.2) k/uL Manual Slide Review Polychromasia Hypochromasia Poikilocytosis Anisocytosis Macrocytosis PT (9.0-12.0) sec INR (<1.2) APTT (22.0-30.0) sec Sodium (137-145) mmol/L Potassium (3.5-5.1) mmol/L Chloride (98-107) mmol/L Carbon Dioxide (22-30) mmol/L Anion Gap mmol/L BUN (9-20) mg/dL Creatinine (0.66-1.25) mg/dL Est GFR (CKD-EPI)AfAm (>60 ml/min/1.73 sqM) Est GFR (CKD-EPI)NonAf (>60 ml/min/1.73 sqM) Glucose (74-99) mg/dL Plasma Lactic Acid Nicholas 1.6 (0.7-2.0) mmol/L Calcium (8.4-10.2) mg/dL Total Bilirubin (0.2-1.3) mg/dL AST (17-59) U/L ALT (4-49) U/L Alkaline Phosphatase (38-126) U/L Total Protein (6.3-8.2) g/dL Albumin (3.5-5.0) g/dL Amylase (30-110) U/L Lipase (23-300) U/L Coronavirus (PCR) Not Detected (Not Detectd) - EKG Data -: EKG Interpreted by Me EKG Comments: 12-lead Electrocardiogram Interpretation Note EKG was reviewed and interpreted by myself. 12-lead ECG performed at 1711 is interpreted by me as revealing sinus tachycardia at a rate of 111 beats per minute. [place] is normal. CT interval is 131 ms, QRS duration is 82 ms, QTc is 416 ms.. There were no ST or T wave abnormalities to suggest myocardial ischemia or injury. R wave progression across the precordium was satisfactory. By my interpretation this EKG is non-diagnostic for acute ischemia. Disposition Clinical Impression: Abdominal pain of unknown cause, Metastatic cancer, Chronic abdominal pain Disposition: HOME SELF-CARE Condition: Fair Instructions (If sedation given, give patient instructions): Abdominal Pain (ED) Prescriptions: Dicyclomine [Bentyl] 10 mg PO TID PRN 10 Days #30 capsule PRN Reason: Pain HYDROcodone/APAP 5-325MG [[place] 5-325] 1 tab PO Q6HR PRN 3 Days #12 tab PRN Reason: Pain Is patient prescribed a controlled substance at d/c from ED?: Yes When asked, does pt state using other controlled substances?: No If prescribed controlled substance>3 days was MAPS reviewed?: Prescribed <3 Days If opioid is for acute pain is fill amount 7 days or less?: Yes If Rx opioid, was Start Talking consent form obtained?: Yes Referrals: Alesha Ceron DO [Primary Care Provider] - 1-2 days Time of Disposition: 19:00
[2022-04-12 18:11] LABS: Polychromasia Present
[2022-04-12 18:12] LABS: Platelet Count 75 k/uL (150-450)
[2022-04-12 18:16] VITALS: RESP 18
--- NOTE | 2022-04-12 18:17 | CT ---
EXAMINATION TYPE: CT abdomen pelvis w con CT DLP: 1168.7 mGycm, Automated exposure control for dose reduction was used. DATE OF EXAM: 04/12/2022 5:52 PM COMPARISON: 03/29/2022 CLINICAL INDICATION:Male, 62 years old with history of abdominal pain, acute, nonlocalized; abdominal pain TECHNIQUE: Axial CT of the abdomen and pelvis. Sagittal and coronal reformats were created on a [employer] workstation. Contrast used:100 mL of Isovue 300 with IV Contrast, Oral contrast used: without Oral Contrast FINDINGS: LOWER CHEST: Left epicardial fat lymph nodes have increased in size now measuring 1.4 and 1.5 cm in s hort axis previously 0.7 and 1.0 cm lung within the lymph node previously 0.6 cm 1.3 cm. ABDOMEN LIVER: Marketed low-attenuation to the liver, GALLBLADDER AND BILE DUCTS: Unremarkable. PANCREAS: Unremarkable. SPLEEN: Unremarkable. ADRENAL GLANDS: Unremarkable. KIDNEYS AND URETERS: No evidence of hydronephrosis or renal calculus. The ureters are unremarkable. PELVIS, streak artifact limits evaluation of the pelvis. BLADDER: Unremarkable REPRODUCTIVE: Unremarkable. ABDOMEN & PELVIS STOMACH AND BOWEL: Scattered clonic diverticula present. No evidence of bowel obstruction. PERITONEUM: No evidence of pneumoperitoneum or free fluid. VASCULATURE: No evidence of aortic aneurysm. Moderate to severe coronary artery atherosclerosis MUSCULOSKELETAL: No acute osseous abnormalities, multilevel disc degeneration changes seen throughout the spine multilevel biconcave vertebral deformity with vertebroplasty changes at L2 and T12. Fixati on hardware bilaterally of the hips noted which limits evaluation the pelvis. Mild dextroscoliosis ap ex at L1. LYMPH NODES: Soft tissue mass near the aorta just below the left diaphragm measuring 3.1 x 2.7 cm pre viously 03/29/2022 measuring 2.1 x 1.6 cm. Additional adjacent to the left kidney superior pole medial ly is a 1.1 cm lymph node in short axis previously 0.9 cm. SOFT TISSUE/ABDOMINAL WALL: Unremarkable IMPRESSION: 1. No evidence for acute intra-abdominal process 2. Increase in size of left aortic lymphadenopathy near the gastroesophageal junction and increase in size of left epicardial fat lymph nodes concerning for progression of disease. 3. Hepatic steatosis.
[2022-04-12] MEDS ORDERED: ACET/COD 300 MG/30 MG STARTER PACK 6 TAB BTL PO STA (19:39)
[2022-04-12 19:54] VITALS: BP 119/60; PULSE 103; TEMP 98.2
== END 2022-04-12 19:55 | disposition home or self-care (01) ==
LOC: EC 15:48
DX: C76.2 Malignant neoplasm of abdomen (principal); C34.90 Malignant neoplasm of unspecified part of unspecified bronchus or lung; D53.9 Nutritional anemia, unspecified; E87.6 Hypokalemia; Z87.891 Personal history of nicotine dependence; J44.9 Chronic obstructive pulmonary disease, unspecified; K21.9 Gastro-esophageal reflux disease without esophagitis; Z20.822 Contact with and (suspected) exposure to COVID-19; Z79.899 Other long term (current) drug therapy; Z79.51 Long term (current) use of inhaled steroids
CPT/HCPCS: 93005; 80053; 82150; 83605; 83690; 85025; 85610; 85730; 87635; 71045; 74018; 74177; 99285; 96374; 96375; 96361; 96376; J2405; J1170; Q9967

== ENCOUNTER → 2022-04-19 | Outpatient (CLI) | payer MEDICARE ==
[2022-04-19 14:27] VITALS: BP 123/78; PULSE 109; RESP 18; TEMP 97.7
--- NOTE | 2022-04-24 08:15 | P.PAINPG ---
PQRS Measure Charge Sheet Comment: A 62 yr old male with a history of severe and chronic low back pain secondary to lumbar degenerative disc diseases and lumbar spondylosis with facet arthropathy presents today for evaluation s/p BL RFA L3-L5 and medication refills. Pt states he received 20% pain relief s/p procedure. Pain level is currently at 4/10 in intensity, constant, sharp, stabbing, sore shooting towards the BLEs. Pain is provoked by chiropractic treatments which provide no relief, standing/ walking for periods of 15 min or more. Pain is alleviated with medications (MS), pain patches, heat, ice, sitting, repositioning and rest. Interventional pain procedures completed include LESIs, BL RFA L3-L5 Patient is currently on Morphine Sulfate 15mg #60 Patient denies any side effects of the medication(s), denies excessive drowsiness or sleepiness, denies suicidal ideation and reports that the current pain medication is helping to control the pain and improve activities of daily living. Patient denies any motor or sensory deficits. Patient denies any fever or night sweats, denies any change in the bowel movements or urination. Physical Examination: -Constitutional: Cooperative. Not in acute distress . - Neurologic: Cranial nerve II to XII intact. No focal neurological deficits. - Psychatric: Alert & oriented x 3. Matching mood & appropriate affect. Judgment and insight intact. - Musculoskeletal: Cervical spine: Muscle bulk/ tone/ strength in the bilateral upper extremities normal Vertebral body tenderness to palpation over Spurling test positive Distraction test positive Facet loading test positive Thoracic spine Muscle bulk / tone/ strength in the bilateral paraspinal muscles normal Vertebral body tender to palpation over Facet loading test positive Lumbar spine: Motor bulk/ tone/ strength lower extremities , thigh and legs : 5/5 Deep tendon reflexes : Normal Knee Jerk. Normal Ankle Jerk . Vertebral body tenderness to palpation over L1-L2 Lumbar Facet Loading Test positive Straight Leg Raise: positive at 30 degrees right side/ left side Gaenslen's Test positive Sacral spine : Severe tenderness over the Sacroiliac joint: right side / left side Range of motion: Flexion of the lumbar spine <60 degrees Range of motion: Extension of the lumbar spine <20 degrees Gaenslen's Test positive Lawrence's Test positive Grayson test: positive right side / left side Thigh Thrust Test Sacral Thrust Test Assessment and plan: Chronic low back pain secondary to lumbar degenerative disc disease , lumbar spondylosis with facet arthropathy without myelopathy Recommendation of LESI L1-L2. May need a series of injections, up to 4 within a 12 mo period, for optimal pain relief. Risks, benefits of procedure discussed and pt verbalized understanding. Denies anticoagulant use or medical history of diabetes. Chronic and current use of high-risk medication (Opioids). The patient was counseled about risk of opioid use, psychological risk associated with opioids and was orally counseled to not overuse , divert or sell medications. Pt is to store medication in a safe location. The patient is counseled against driving while using narcotic medications and also not to use alcohol or any illicit recreational drugs. Patient verbalized understanding that the lack of compliance will result in failure to renew narcotic prescription(s) as well as possible discharge from the clinic Diagnoses, prognosis and treatment options including but not limited to physical therapy, surgical interventions, interventional therapies and medication management including narcotics and adjuvant medication were discussed. All patient questions answered MAPS reviewed and it was appropriate. UDS to be collected at next visit. Pt states he no longer takes [place] because it does not alleviate pain. Prescription refill for Morphine Sulfate 30mg #60 w 1 refill. I have spent less than 30 minutes on patient care today. Dr Coronado was available by phone for the evaluation of this patient. The time was used to review the medical records including relevant urine studies and Prescription history (MAPs), review of the available imaging, evaluation and examination of the patient, coordination of care with the medical staff and if applicable referring physicians, as well as creation of the medical record - Pain Location Bilateral Lower Back Non-Pharmacological Interventions: Chiropractic Treatment, Heat, Ice, Inactivity, Sitting Pharmacological Interventions: Block, Epidural, Scheduled Medication, Topical Medication PQRS Narrative: Narcotic Agreement Date Signed 10/24/21 Hx Alcohol Use (MH) No Home Medications: Ambulatory Orders Atorvastatin [Lipitor] 20 mg PO DAILY 03/11/21 OXcarbazepine [Trileptal] 300 mg PO BID 03/11/21 Pantoprazole Sodium [Protonix] 40 mg PO BID 03/11/21 Sucralfate [Carafate] 1 gm PO QID 03/11/21 traZODone HCL [Desyrel] 100 mg PO HS 03/11/21 ALPRAZolam [Xanax] 0.5 mg PO BID 01/13/22 Budesonide [Pulmicort] 0.25 mg INHALATION RT-BID 01/13/22 Hydrocortisone [Cortef] 10 mg PO W/SUPPER 01/13/22 Ipratropium-Albuterol Nebulize [Duoneb 0.5 mg-3 mg/3 ml Soln] 3 ml INHALATION RT-QID 01/13/22 Ondansetron [Zofran] 4 mg PO Q8HR PRN 01/13/22 metFORMIN HCL 500 mg PO BID 01/13/22 Albuterol Nebulized [Ventolin Nebulized] 2.5 mg INHALATION RT-QID 02/23/22 Fluconazole [Diflucan] 100 mg PO DAILY PRN 02/23/22 Insulin Aspart [NovoLOG Flexpen] See Protocol SQ ACHS 02/24/22 polyethylene glycoL 3350 [Miralax] 17 gm PO DAILY packet 02/28/22 Dicyclomine [Bentyl] 10 mg PO TID PRN 10 Days #30 capsule 04/12/22 Famotidine 40 mg PO DAILY 04/12/22 Gabapentin [Neurontin] 400 mg PO BID 04/12/22 Metoclopramide [Reglan] 5 mg PO AC-BID PRN 04/12/22 Semaglutide [Rybelsus] 3 mg PO DAILY 04/12/22 oxyCODONE-APAP 10-325MG [Percocet 10-325 mg] 1 tab PO Q8HR PRN 04/12/22 Morphine Sulfate ER [Ms Contin] 30 mg PO BID 30 Days #60 tab 04/19/22 Morphine Sulfate ER [Ms Contin] 30 mg PO Q12HR 30 Days #60 tab 04/19/22 Controlled Substance Measures - Controlled Substance Measures Is patient prescribed a controlled substance at discharge?: Yes When asked, does pt state using other controlled substances?: No If prescribed controlled substance>3 days was MAPS reviewed?: Yes If Rx opioid, was Start Talking consent form obtained?: Yes Was information provided regarding opioid addiction?: Yes
== END | disposition home or self-care (01) ==
LOC: PNWHC3 13:47
PROVIDERS: ATTEND Specialist
DX: M47.896 Other spondylosis, lumbar region (principal); M51.36 Other intervertebral disc degeneration, lumbar region
CPT/HCPCS: 99211

== ENCOUNTER → 2022-05-24 | Outpatient (CLI) | payer MEDICARE ==
[2022-05-24 14:14] VITALS: BP 142/58; PULSE 110; RESP 16; TEMP 98.6
--- NOTE | 2022-05-24 14:41 | P.PN ---
Subjective Progress Note Date: 05/24/22 This is 62 yr old male with a history of severe and chronic low back pain secondary to lumbar degenerative disc diseases ,and lumbar spondylosis with facet arthropathy presents today for evaluation s/p BL RFA L3-L5 and medication refills. Pt states he received 20% pain relief s/p procedure. Patient continued to have severe low back pain with some numbness and tingling sensation in the lower extremity Pain level is currently at 4/10 in intensity, constant, sharp, stabbing, sore shooting towards the BLEs. Pain is provoked by chiropractic treatments which provide no relief, standing/ walking for periods of 15 min or more, she'll currently on morphine sulfate 30 mg twice a day, was on Neurontin 400 mg twice a day and he stopped taking it for a few weeks, since reported that the current medication is not helping his pain Patient denies any side effects of the medication(s), denies excessive d rowsiness or sleepiness, denies suicidal ideation and reports that the current pain medication is helping to control the pain and improve activities of daily living. Patient denies any motor or sensory deficits. Patient denies any fever or night sweats, denies any change in the bowel movements or urination. Physical Examinations : -Constitutiona : Cooperative , not in acute distress . -HEENT : nech : supple , no Lymphadenopathy , normal thyroid size . : eyes : no ptosis , no icterus, no photophobia . - neurologic : Cranial nerve II to XII intact , no focal neurological deffecit . -psychatric : alert , oriented X 3 , appropriate affect , intact judgment and insight . -Lymphatic : no Lymphadenopathy . - musculoskeltal : Lumber spine moter stegnth lower extremities ,thigh and legs 5/5 Right side , 5/5 Left side deep tendon reflexes : normal Knee Jerk , normal ankle Jerk lumber facet Loading Test =positive Right , positive Left Range of motion of the lumbar spine Flexion 30 degrees, extension 10 degrees strait leg raising test = negative bilaterally Fabere test= positive Right , and positive LT . mild tenderness over the Sacroiliac joint on the Right , and Left sides Assessment and plan: Chronic low back pain secondary to lumbar degenerative disc disease , lumbar spondylosis with facet arthropathy without myelopathy he had limited benefit from interventional pain management Chronic and current use of high-risk medication (Opioids). The patient was counseled about risk of opioid use, psychological risk associated with opioids and was orally counseled to not overuse , divert or sell medications. Pt is to store medication in a safe location. The patient is counseled against driving while using narcotic medications and also not to use alcohol or any illicit recreational drugs. Patient verbalized understanding that the lack of compliance will result in failure to renew narcotic prescription(s) as well as possible discharge from the clinic Diagnoses, prognosis and treatment options including but not limited to physical therapy, surgical interventions, interventional therapies and medication management including narcotics and adjuvant medication were discussed. All patient questions answered MAPS reviewed and it was appropriate. UDS to be collected at next visit. Pt states he no longer takes [place] because it does not alleviate pain. Recommend to discontinue morphine sulfate ( had no benefit from it ) Recommend to start patient on fentanyl patch 25 g every 72 hours dispense 10 with no refills. ReCommend to restart patient on Neurontin 100 mg 3 times a day, dispensed 90 with no refills Next visit we'll reevaluate Objective - Vital Signs Vital signs: Vital Signs Temp 98.6 F 05/24/22 14:09 Pulse 110 H 05/24/22 14:09 Resp 16 05/24/22 14:09 BP 142/58 05/24/22 14:09 Pulse Ox 96 05/24/22 14:09 FiO2 Intake & Output 05/23/22 05/24/22 05/24/22 18:59 06:59 18:59 Weight 80.286 kg
== END ==
LOC: PNWHC3 13:48
PROVIDERS: ATTEND Specialist
DX: M51.36 Other intervertebral disc degeneration, lumbar region (principal); M47.816 Spondylosis without myelopathy or radiculopathy, lumbar region; G89.29 Other chronic pain; Z79.891 Long term (current) use of opiate analgesic
CPT/HCPCS: 99211

== ENCOUNTER → 2022-06-09 | Outpatient (CLI) | payer MEDICARE ==
[2022-06-09 10:02] LABS: African American GFR (CKD) >90 (>60 ml/min/1.73 sqM); Blood Urea Nitrogen 9 mg/dL (9-20); Non-African American GFR(CKD) >90 (>60 ml/min/1.73 sqM)
--- NOTE | 2022-06-09 12:02 | CT ---
EXAMINATION TYPE: CT ChestAbdPelvis w con DATE OF EXAM: 06/09/2022 COMPARISON: 03/29/2022 HISTORY: Lung cancer CT DLP: 1106.7 mGycm CONTRAST: CT scan of the chest, abdomen and pelvis is performed with Oral Contrast and with IV Contrast, patien t injected with 70 mL of Isovue 300. CT Chest: LUNGS: Left suprahilar mass with extension to the left upper lobe pleural surface. Suprahilar compone nt measures 3.0 x 2.9 cm versus 2.5 x 2.4 cm previously. Left upper lobe pleural-based mass component currently measuring 3.0 x 3.0 cm versus 2.8 x 2.5 cm previously. 1 cm pleural-based nodule left upper lobe posteriorly image 23. No additional masses present. Scatter ed subpleural fibrosis. Small stable 4 mm nodular density right upper lobe image 26. MEDIASTINUM: Progressive mediastinal adenopathy. Low right paratracheal lymph node measures 1.7 cm pr eviously versus 3.4 cm currently. AP window adenopathy measures 1.7 cm versus 1.6 cm. Increasing left hilar adenopathy measuring up to 1.8 cm. Left Epicardial lymph nodes persist and have increased in s ize measuring 2.1 cm and 1.8 cm versus 10 mm and 7 mm previously. Thoracic aorta is of normal caliber .: No evidence for mass. No hilar adenopathy is appreciated. OTHER: There are new paraspinal soft tissue masses measuring 1.6 cm and 2.1 cm left paraspinal region of T8 and T9 levels. CONTRAST CT ABDOMEN AND PELVIS FINDINGS: LIVER/GB: No calcified gallstones. Hepatic steatosis noted. No space occupying hepatic lesion. Jeremy iary tree is of normal caliber. PANCREAS: No inflammation. No distinct mass. SPLEEN: No splenic enlargement. No lesion seen. ADRENALS: Left adrenal mass has increased in size and measures 3.1 x 3.2 cm versus 2.1 x 1.6 cm previ ously. KIDNEYS/BLADDER: No hydronephrosis. No nephrolithiasis. No distinct renal mass. BOWEL: Normal appendix. Normal bowel caliber. No inflammation. GENITAL ORGANS: No gross abnormality. LYMPH NODES: No greater than 1cm abdominal or pelvic lymph nodes are appreciated. AORTA: No significant abnormality. OSSEOUS STRUCTURES: Loss of vertebral body height at multiple levels persists. Bilateral hip prosthes es with streak artifact within the pelvis. OTHER: No significant additional abnormality is seen. IMPRESSION: 1. Findings compatible with disease progression with enlarging left upper mass and increasing adenopa thy. There is a new Pleural-based nodule left upper lobe posteriorly 2. There are new paraspinal soft tissue masses measuring 1.6 cm and 2.1 cm left paraspinal region of T8 and T9 levels. 3 enlarging left adrenal mass.
== END | disposition home or self-care (01) ==
LOC: RADCTMAIN 09:18
PROVIDERS: ATTEND Internal Medicine Hematology & Oncology
DX: Z03.89 Encounter for observation for other suspected diseases and conditions ruled out (principal); C34.92 Malignant neoplasm of unspecified part of left bronchus or lung
CPT/HCPCS: 82565; 84520; 71260; 74177; 36415; Q9967 ×2

== ENCOUNTER 2022-06-17 16:08 | Inpatient (IN) | payer MEDICARE ==
--- NOTE | 2022-06-17 16:16 | ED ---
General Adult HPI - General Chief complaint: Shortness of Breath Stated complaint: JASVIR, Back Pain Time Seen by Provider: 06/17/22 16:14 Source: patient Mode of arrival: ambulatory Limitations: no limitations - History of Present Illness Initial comments: Patient presents to the ED complaining of having left posterior rib/back pain that has become worse over the past few weeks. Patient has metastatic lung cancer, and he states that he is always dyspneic, but he admits to having slightly increased dyspnea today. Patient states that he did take 2 home neb treatments today. Patient denies known trauma/injury/fall, fever or chills, headache, focal neuro deficit, chest pain or pressure, cough or cold symptoms, palpitations, dizziness, abdominal pain, nausea/vomiting/diarrhea, dysuria/hematuria/urinary frequency/urinary symptoms, leg pain/numbness/ weakness, incontinence, urinary retention, leg or calf swelling or pain, or any other symptoms or complaints. - Related Data Home Medications Medication Instructions Recorded Confirmed Atorvastatin [Lipitor] 20 mg PO DAILY 03/11/21 05/26/22 OXcarbazepine [Trileptal] 300 mg PO BID 03/11/21 05/26/22 Pantoprazole Sodium [Protonix] 40 mg PO BID 03/11/21 05/26/22 Sucralfate [Carafate] 1 gm PO QID 03/11/21 05/26/22 traZODone HCL [Desyrel] 100 mg PO HS 03/11/21 05/26/22 ALPRAZolam [Xanax] 0.5 mg PO BID 01/13/22 05/26/22 Budesonide [Pulmicort] 0.25 mg INHALATION RT-BID 01/13/22 05/26/22 Hydrocortisone [Cortef] 10 mg PO W/SUPPER 01/13/22 05/26/22 Ipratropium-Albuterol Nebulize 3 ml INHALATION RT-QID 01/13/22 05/26/22 [Duoneb 0.5 mg-3 mg/3 ml Soln] Ondansetron [Zofran] 4 mg PO Q8HR PRN 01/13/22 05/26/22 metFORMIN HCL 500 mg PO BID 01/13/22 05/26/22 Albuterol Nebulized [Ventolin 2.5 mg INHALATION RT-QID 02/23/22 05/26/22 Nebulized] Fluconazole [Diflucan] 100 mg PO DAILY PRN 02/23/22 05/26/22 Insulin Aspart [NovoLOG Flexpen] See Protocol SQ ACHS 02/24/22 05/26/22 Famotidine 40 mg PO DAILY 04/12/22 05/26/22 Metoclopramide [Reglan] 5 mg PO AC-BID PRN 04/12/22 05/26/22 Semaglutide [Rybelsus] 3 mg PO DAILY 04/12/22 05/26/22 Previous Rx's Medication Instructions Recorded polyethylene glycoL 3350 [Miralax] 17 gm PO DAILY packet 02/28/22 Dicyclomine [Bentyl] 10 mg PO TID PRN 10 Days #30 04/12/22 capsule fentaNYL 25MCG/HR PATCH [Duragesic 25 mcg TRANSDERM Q72H 30 Days #10 05/24/22 25MCG/HR] patch fentaNYL 25MCG/HR PATCH [Duragesic 25 mcg TRANSDERM Q72H 15 Days #5 05/29/22 25MCG/HR] patch fentaNYL 25MCG/HR PATCH [Duragesic 25 mcg TRANSDERM Q72H 30 Days #10 06/14/22 25MCG/HR] patch Gabapentin [Neurontin] 100 mg PO BID 30 Days #60 cap 06/15/22 fentaNYL 25MCG/HR PATCH [Duragesic 25 mcg TRANSDERM Q48H 30 Days #15 06/15/22 25MCG/HR] patch Allergies Allergy/AdvReac Type Severity Reaction Status Date / Time No Known Allergies Allergy Verified 06/17/22 16:13 Review of Systems ROS Statement: Those systems with pertinent positive or pertinent negative responses have been documented in the HPI. ROS Other: All systems not noted in ROS Statement are negative. Past Medical History Past Medical History: Cancer, COPD, GERD/Reflux Additional Past Medical History / Comment(s): LUNG CANCER WITH TUMOR IN STOMACH AND STATES ALSO IN HIS NECK.,. RECEIVING CHEMOTHERAPY., DDD WITH BACK ,HIP & L EG PAIN., (PAIN CLINIC PATIENT)., EMPHYSEMA., GASTRITIS. History of Any Multi-Drug Resistant Organisms: None Reported Past Surgical History: Joint Replacement, Orthopedic Surgery Additional Past Surgical History / Comment(s): RIGHT AND LEFT TOTAL HIPS, RIGHT SHOULDER SURGERY. Past Anesthesia/Blood Transfusion Reactions: No Reported Reaction Past Psychological History: Anxiety, Depression Smoking Status: Former smoker Past Alcohol Use History: None Reported Past Drug Use History: None Reported - Past Family History Father Family Medical History: No Reported History General Exam Limitations: no limitations General appearance: alert Head exam: Present: atraumatic, normocephalic Eye exam: Present: normal appearance, EOMI ENT exam: Present: mucous membranes moist Neck exam: Present: other (Trachea is in midline) Respiratory exam: Present: respiratory distress, wheezes. Absent: rales, rhonchi, stridor, chest wall tenderness Cardiovascular Exam: Present: normal rhythm, tachycardia, normal heart sounds, other (Normal radial pulses bilaterally) GI/Abdominal exam: Present: soft. Absent: distended, tenderness, guarding Extremities exam: Present: other (Negative Homans sign bilaterally). Absent: tenderness, pedal edema, calf tenderness Back exam: Absent: tenderness, CVA tenderness (R), CVA tenderness (L) Neurological exam: Present: alert, oriented X3, other (No evidence of lower extremity neurological deficit or saddle anesthesia on exam). Absent: motor sensory deficit Psychiatric exam: Present: anxious Skin exam: Present: warm, dry, intact, normal color Course Vital Signs 06/17/22 06/17/22 06/17/22 16:11 16:47 16:54 Temperature 98 F Pulse Rate 130 H 100 108 H Respiratory 38 H Rate Blood Pressure 146/91 O2 Sat by Pulse 96 Oximetry 06/17/22 17:11 Temperature Pulse Rate 123 H Respiratory 25 H Rate Blood Pressure 126/76 O2 Sat by Pulse 97 Oximetry - Reevaluation(s) Reevaluation #1: 06/17/22 19:07 Case, H&P, test results and ED management were discussed with RADHA Hardy. He accepts hospital admission on behalf of himself in Dr. Trotter. He agrees with oncology (Dr. Barksdale) consultation. He has no further recommendations at this time. 06/17/22 19:10 Patient is now breathing more comfortably. Patient's wheezing has improved on examination. Patient states that his dyspnea and pain have both improved, and he denies development of any new symptoms while in the ED. Patient is aware of his test results, and he agrees with hospital admission at this time. EKG Findings - EKG Comments: EKG Findings:: EKG is somewhat limited secondary to motion; Sinus tachycardia, ventricular rate 117 bpm, no ectopy, normal KS and QRS intervals, normal QT interval, normal axis, no definite ST or T-wave abnormality Medical Decision Making - Medical Decision Making Patient's CTs are negative for a definite explanation for the patient's pain. Patient does not have any evidence of pulmonary embolism. I suspect that the patient's pain is likely due to metastatic disease. I suspect that the patien t's wheezing and dyspnea are likely due to COPD exacerbation. Will admit the patient to the hospital for continued pain management, neb treatments and oncology consultation. RADHA Hardy has accepted admission on behalf of himself and Dr. Trotter. - Lab Data Result diagrams: 06/17/22 16:43 06/17/22 16:43 Lab Results 06/17/22 06/17/22 06/17/22 Range/Units 16:43 16:43 16:43 WBC 7.9 (3.8-10.6) k/uL RBC 2.38 L (4.30-5.90) m/uL Hgb 8.7 L (13.0-17.5) gm/dL Hct 26.3 L (39.0-53.0) % MCV 110.6 H (80.0-100.0) fL MCH 36.5 H (25.0-35.0) pg MCHC 33.0 (31.0-37.0) g/dL RDW 17.6 H (11.5-15.5) % Plt Count 90 L D (150-450) k/uL MPV 8.9 Neutrophils % 85 % Lymphocytes % 9 % Monocytes % 4 % Eosinophils % 1 % Basophils % 0 % Neutrophils # 6.7 (1.3-7.7) k/uL Lymphocytes # 0.7 L (1.0-4.8) k/uL Monocytes # 0.3 (0-1.0) k/uL Eosinophils # 0.0 (0-0.7) k/uL Basophils # 0.0 (0-0.2) k/uL Manual Slide Review Performed Hypochromasia Slight Poikilocytosis Slight Anisocytosis Slight Macrocytosis Marked A PT 10.5 (9.0-12.0) sec INR 1.0 (<1.2) APTT 32.2 H (22.0-30.0) sec Sodium 126 L (137-145) mmol/L Potassium 4.4 (3.5-5.1) mmol/L Chloride 96 L (98-107) mmol/L Carbon Dioxide 15 L (22-30) mmol/L Anion Gap 15 mmol/L BUN 13 (9-20) mg/dL Creatinine 0.51 L (0.66-1.25) mg/dL Est GFR (CKD-EPI)AfAm >90 (>60 ml/min/1.73 sqM) Est GFR (CKD-EPI)NonAf >90 (>60 ml/min/1.73 sqM) Glucose 205 H (74-99) mg/dL Calcium 8.6 (8.4-10.2) mg/dL Magnesium 1.7 (1.6-2.3) mg/dL Total Bilirubin 0.2 (0.2-1.3) mg/dL AST 41 (17-59) U/L ALT 26 (4-49) U/L Alkaline Phosphatase 88 (38-126) U/L Troponin I (0.000-0.034) ng/mL NT-Pro-B Natriuret Pep pg/mL Total Protein 7.0 (6.3-8.2) g/dL Albumin 3.8 (3.5-5.0) g/dL 06/17/22 06/17/22 Range/Units 16:43 16:43 WBC (3.8-10.6) k/uL RBC (4.30-5.90) m/uL Hgb (13.0-17.5) gm/dL Hct (39.0-53.0) % MCV (80.0-100.0) fL MCH (25.0-35.0) pg MCHC (31.0-37.0) g/dL RDW (11.5-15.5) % Plt Count (150-450) k/uL MPV Neutrophils % % Lymphocytes % % Monocytes % % Eosinophils % % Basophils % % Neutrophils # (1.3-7.7) k/uL Lymphocytes # (1.0-4.8) k/uL Monocytes # (0-1.0) k/uL Eosinophils # (0-0.7) k/uL Basophils # (0-0.2) k/uL Manual Slide Review Hypochromasia Poikilocytosis Anisocytosis Macrocytosis PT (9.0-12.0) sec INR (<1.2) APTT (22.0-30.0) sec Sodium (137-145) mmol/L Potassium (3.5-5.1) mmol/L Chloride (98-107) mmol/L Carbon Dioxide (22-30) mmol/L Anion Gap mmol/L BUN (9-20) mg/dL Creatinine (0.66-1.25) mg/dL Est GFR (CKD-EPI)AfAm (>60 ml/min/1.73 sqM) Est GFR (CKD-EPI)NonAf (>60 ml/min/1.73 sqM) Glucose (74-99) mg/dL Calcium (8.4-10.2) mg/dL Magnesium (1.6-2.3) mg/dL Total Bilirubin (0.2-1.3) mg/dL AST (17-59) U/L ALT (4-49) U/L Alkaline Phosphatase (38-126) U/L Troponin I <0.012 (0.000-0.034) ng/mL NT-Pro-B Natriuret Pep 182 pg/mL Total Protein (6.3-8.2) g/dL Albumin (3.5-5.0) g/dL - Radiology Data CT angiography chest with IV contrast: No evidence of pulmonary embolism. Large mass at the left pulmonary hilum with encasement of the left lower lobe pulmonary artery which has progressed compared to old exam. Left upper lobe masslike infiltrate slightly decreased in size compared to the old exam. Massive mediastinal adenopathy without change. There is right middle lobe nodule which is new compared to old exam and could be metastatic disease. There is left adrenal mass increased compared to old exam and consistent with metastatic disease. Noncontrast CT abdomen/pelvis: Pericardial effusion is slightly increased compared to last exam. Masses at the left cardiac border are the same or increased. Left adrenal mass slightly increased. Retrocrural metastatic nodules in the left paraspinal region slightly increased. Disposition Clinical Impression: COPD exacerbation, Back pain, Metastatic disease, Hyponatremia Disposition: ADMITTED IP TO THIS HOSP Condition: Stable Is patient prescribed a controlled substance at d/c from ED?: No Referrals: None,Stated [REFERRING] - 1-2 days Time of Disposition: 19:11
[2022-06-17] MEDS ORDERED: SODIUM CHLORIDE 0.9% 500 ML 500 ML IV STA (16:26)
[2022-06-17] MEDS ORDERED: predniSONE 20 MG TAB PO STA (16:28)
[2022-06-17] MEDS ORDERED: HYDROmorphone 1 MG/ML 1 ML SYRINGE IVP STA (16:28)
[2022-06-17] MEDS ORDERED: IPRATROPIUM-ALBUTEROL 3 ML NEB INHALATION STA (16:28)
[2022-06-17] MEDS ORDERED: LORazepam 2 MG/ML INJ IV STA (16:54)
[2022-06-17 17:05] LABS: ALT 26 U/L (4-49); AST 41 U/L (17-59); African American GFR (CKD) >90 (>60 ml/min/1.73 sqM); Albumin 3.8 g/dL (3.5-5.0); Alkaline Phosphatase 88 U/L (38-126); Anion Gap 15 mmol/L; Blood Urea Nitrogen 13 mg/dL (9-20); Calcium 8.6 mg/dL (8.4-10.2); Carbon Dioxide 15 mmol/L (22-30); Chloride 96 mmol/L (98-107); Glucose 205 mg/dL (74-99); Magnesium 1.7 mg/dL (1.6-2.3); Non-African American GFR(CKD) >90 (>60 ml/min/1.73 sqM); Potassium 4.4 mmol/L (3.5-5.1); Sodium 126 mmol/L (137-145); Total Bilirubin 0.2 mg/dL (0.2-1.3)
[2022-06-17 17:06] LABS: Partial Thromboplastin Time 32.2 sec (22.0-30.0); Prothrombin Time 10.5 sec (9.0-12.0)
[2022-06-17 17:09] LABS: Anisocytosis Slight; Basophils % (A) 0 %; Eosinophils % (A) 1 %; HCT 26.3 % (39.0-53.0); HGB 8.7 gm/dL (13.0-17.5); Hypochromasia Slight; Lymphocytes # (A) 0.7 k/uL (1.0-4.8); Lymphocytes % (A) 9 %; MCH 36.5 pg (25.0-35.0); MCV 110.6 fL (80.0-100.0); Macrocytosis Marked; Mean Platelet Volume 8.9; Monocytes # (A) 0.3 k/uL (0-1.0); Monocytes % (A) 4 %; Neutrophils # (A) 6.7 k/uL (1.3-7.7); Neutrophils % (A) 85 %; Poikilocytosis Slight; RBC 2.38 m/uL (4.30-5.90); RDW 17.6 % (11.5-15.5); WBC 7.9 k/uL (3.8-10.6)
[2022-06-17 17:26] LABS: Platelet Count 90 k/uL (150-450)
[2022-06-17] MEDS ORDERED: MORPHINE SULFATE 4 MG/ML SYRINGE IVP STA (17:40)
--- NOTE | 2022-06-17 18:39 | CT ---
EXAMINATION TYPE: CT chest angio for PE DATE OF EXAM: 06/17/2022 COMPARISON: 11/23/2021 HISTORY: metastatic lung CA and JASVIR CT DLP: combined 2277.3 mGycm Automated exposure control for dose reduction was used. CONTRAST: Performed with IV Contrast, patient injected with 68 mL of Isovue 370. There are Three-D postprocessed images. There is mediastinal adenopathy with paratracheal and anterior mediastinal masses that measure up to 3.5 cm. There is mass at the left pulmonary hilum that measures 6 cm. There is some encasement of the pulmonary arteries. There is significant luminal narrowing of the left lower lobe pulmonary artery. No filling defect. There is a 3.5 cm mass at the left cardiac border cardiophrenic angle. There is 1. 6 cm rounded mass also at the left lateral cardiac border. Thoracic aorta is intact. No aneurysm or d issection. Heart size is normal. There is some left upper lobe patchy consolidation extending from the left ovary hilum to the left up per lateral chest wall. There is pulmonary emphysema. There is some reticular patchy interstitial inf iltrate in the right mid lung field. There is 1 cm noncalcified nodule in the lateral right middle lo be. There is a 4 cm left adrenal mass. There is biconcave deformity and compression fractures of numerous thoracic vertebra up to 50%. Torres um is intact. There is vertebroplasty of T12. IMPRESSION: No evidence of pulmonary embolism. Large mass at the left pulmonary hilum with encasement of the left lower lobe pulmonary artery which has progressed compared to old exam. Left upper lobe masslike infiltrate slightly decreased in size c ompared to the old exam. Massive mediastinal adenopathy without change. There is right middle lobe no dule which is new compared to old exam and could be metastatic disease. There is left adrenal mass in creased compared to old exam and consistent with metastatic disease.
--- NOTE | 2022-06-17 18:49 | CT ---
EXAMINATION TYPE: CT abdomen pelvis wo con DATE OF EXAM: 06/17/2022 COMPARISON: 06/09/2022 HISTORY: left posterior rib/flank pain. pt had hard time holding breath for length of scan due to met astatic lung CA. no contrast. pt had ct scan on 06.09.22 with oral and iv contrast CT DLP: combined 2277.3 mGycm Automated exposure control for dose reduction was used. Images obtained from the diaphragm to the floor the pelvis with oral contrast only. There is normal size heart. There is pericardial effusion. There are rounded masses at the left cardi ac border consistent with metastatic disease. There is some mild interstitial infiltrates in the lowe r lung varner. No pleural effusion. Liver and spleen are intact. Stomach is intact. The bile duct are not dilated. No pancreatic mass. Ga llbladder appears normal. There are retrocrural masses in the left paraspinal region of the lower thoracic spine. These are con sistent with metastatic disease. Masses measure up to 1.5 cm in thickness. There is 4 cm rounded left adrenal mass. Kidneys have normal size. No hydronephrosis. Ureters are not dilated. No retroperitoneal adenopathy. Abdominal aorta is atheromatous. The bladder distends smoothly. There is no inguinal hernia. There is metal artifact from bilateral hi p prosthesis. No mesenteric edema. No ascites or free air. No sign of a bowel obstruction. There is contrast materi al down to the rectum. Appendix appears normal. There is compression deformities of the lumbar vertebra up to 50%. There is biconcave deformities. Th ere is vertebroplasty of L2 and T12. IMPRESSION: Pericardial effusion is slightly increased compared to last exam. Masses at the left cardiac border a re the same or increased. Left adrenal mass slightly increased. Retrocrural metastatic nodules in the left paraspinal region slightly increased.
[2022-06-17] MEDS ORDERED: NALOXONE 0.4 MG/ML 1 ML VIAL IV PRN (19:11)
[2022-06-17] MEDS: ALBUTEROL NEBULIZED 2.5 MG/3 ML INHALATION SCH (19:28)
[2022-06-17 20:43] LABS: Appearance,Urine Clear (Clear); Bilirubin,Urine Negative (Negative); Blood,Urine Negative (Negative); Color,Urine Light Yellow; Glucose,Urine (UA) 3+ (Negative); Ketones,Urine 1+ (Negative); Leukocyte Esterase,Urine Negative (Negative); Nitrite,Urine Negative (Negative); PH, Urine 5.5 (5.0-8.0); Protein,Urine Trace (Negative); Urobilinogen,Urine <2.0 mg/dL (<2.0)
[2022-06-17] MEDS: HYDROmorphone 1 MG/ML 1 ML SYRINGE IVP PRN (23:44)
[2022-06-18] MEDS: ALBUTEROL NEBULIZED 2.5 MG/3 ML INHALATION SCH ×2 (01:21→08:09)
[2022-06-18] MEDS: PANTOPRAZOLE 40 MG/10 ML VIAL IVP SCH ×2 (01:45→08:20)
[2022-06-18] MEDS: KETOROLAC 15 MG/ML 1 ML VIAL IVP PRN (01:46)
[2022-06-18] MEDS: HYDROmorphone 1 MG/ML 1 ML SYRINGE IVP PRN ×6 (02:37→21:38)
[2022-06-18 09:33] LABS: Basophils # (A) 0.01 X 10*3/uL (0.00-0.10); Basophils % (A) 0.1 %; Eosinophils # (A) 0 X 10*3/uL (0.04-0.35); Eosinophils % (A) 0 %; HCT 28.5 % (39.6-50.0); HGB 9.3 g/dL (13.0-17.0); Immature Grans, Automated 0.8 %; Lymphocytes # (A) 0.61 X 10*3/uL (0.90-5.00); Lymphocytes % (A) 8.6 %; MCH 37.1 pg (27.0-32.0); MCHC 32.6 g/dL (32.0-37.0); MCV 113.5 fL (80.0-97.0); Mean Platelet Volume 9.9 fL (9.5-12.2); Monocytes # (A) 0.22 X 10*3/uL (0.20-1.00); Monocytes % (A) 3.1 %; NRBC Per 100 WBC 0 /100 WBCS (0.0-0.0); Neutrophils # (A) 6.16 X 10*3/uL (1.80-7.70); Neutrophils % (A) 87.4 %; Platelet Count 89 X 10*3/uL (140-440); RBC 2.51 X 10*6/uL (4.40-5.60); RDW 18.6 % (11.5-14.5); WBC 7.06 X 10*3/uL (4.50-10.00)
[2022-06-18 09:42] LABS: ALT 37 U/L (10-49); AST 45 U/L (14-35); African American GFR (CKD) 111.6 (60.0-200.0); Albumin 4.1 g/dL (3.8-4.9); Albumin/Globulin Ratio 1.35 (1.60-3.17); Alkaline Phosphatase 83 U/L (41-126); BUN/Creat Ratio 19.85 Ratio (12.00-20.00); Blood Urea Nitrogen 15.4 mg/dL (9.0-27.0); Calcium 8.4 mg/dL (8.7-10.3); Carbon Dioxide 17.4 mmol/L (20.0-27.5); Chloride 97 mmol/L (96-109); Glucose 174 mg/dL (70-110); Non-African American GFR(CKD) 96.3 (60.0-200.0); Potassium 3.9 mmol/L (3.5-5.5); Sodium 132 mmol/L (135-145); Total Bilirubin <0.15 mg/dL (0.30-1.20)
[2022-06-18] MEDS ORDERED: polyethylene glycoL 3350 17 GM POWD.PACK PO PRN (10:49)
[2022-06-18] MEDS ORDERED: DICYCLOMINE 10 MG CAP PO PRN (10:49)
[2022-06-18] MEDS: IPRATROPIUM-ALBUTEROL 3 ML NEB INHALATION PRN ×2 (11:50→20:24)
[2022-06-18] MEDS: FAMOTIDINE 20 MG TAB PO SCH (13:00)
[2022-06-18] MEDS: MORPHINE SULFATE ER 30 MG TABLET PO PRN (13:01)
[2022-06-18 17:03] LABS: Glucose,Whole Blood 108 mg/dL (70-110)
[2022-06-18] MEDS: HYDROCORTISONE 10 MG TAB PO SCH (17:36)
[2022-06-18] MEDS: BUDESONIDE 0.25 MG/2 ML NEBU INHALATION SCH (20:24)
[2022-06-18] MEDS: PANTOPRAZOLE 40 MG TABLET PO SCH (21:37)
[2022-06-18] MEDS: traZODone HCL 100 MG TAB PO SCH (21:37)
[2022-06-18] MEDS: GABAPENTIN 100 MG CAP PO SCH (21:37)
[2022-06-18] MEDS: OXcarbazepine 300 MG TAB PO SCH (21:38)
--- NOTE | 2022-06-18 23:05 | P.HPIM ---
History of Present Illness H&P Date: 06/18/22 Chief Complaint: Rib pain and back pain Patient is a 62-year-old male with a known history of lung cancer with mets to bone/ribs, currently undergoing chemotherapy, biliary dyskinesis, GERD, COPD, anxiety/depression and prior history of smoking presents to ER with complaints of pain mainly in the left posterior rib and back pain. Patient has been having pain for several weeks. Patient is also complaining of dyspnea and also anxious. Patient did take breathing treatments today without much improvement. Denies any falls. No complaints of chest pain. No cough or sputum production. No fever no chills. No nausea vomiting abdominal pain or diarrhea. Denies any dysuria or hematuria. No bowel or bladder incontinence. CTA chest showed no evidence of PE. Lung mass at the left pulmonary hilum with encasement of the left lower lobe pulmonary artery which has progressed compared to old exam. Left upper lobe masslike infiltrate slightly decreased in size compared to old exam. Massive mediastinal adenopathy without change. There is a right middle lobe nodule which is new compared to old exam. And could be metastatic disease. There is a left adrenal mass increased compared to old exam consistent with metastatic disease. CT of the abdomen pelvis showed pericardial effusion is slightly increased compared to last exam. Masses in the left cardiac border are the same or decreases. Laboratory pressure WBC 7.9 hemoglobin 8.7 platelets 90 Sodium 126 potassium 4.4 chloride 96 bicarb is 15 BUN 39 creatinine 0.51 and blood sugar is 205 Neurology has evaluated proBNP 182 and troponin x1 negative urinalysis is negative for infection. Review of Systems Constitutional: Patient denies any fever or chills . no Generalized weakness. Abdomen: Patient denied any nausea or vomiting or abd. pain Cardiovascular: Patient denies any chest pain or short of breath no palpitations. Respiratory: patient denied any cough . no sputum production. No shortness of breath Neurologic: Patient denied any numbness or tingling headache. Musculoskeletal: Patient denies any complaints of joint swelling or deformity. Patient does have left-sided rib pains and chest pain. Skin: Negative Psychiatric: Negative Endocrine: No heat or cold intolerance. No recent weight gain. Genitourinary: No dysuria or hematuria. All other 14 point ROS negative except the above Past Medical History Past Medical History: Cancer, COPD, GERD/Reflux Additional Past Medical History / Comment(s): LUNG CANCER WITH TUMOR IN STOMACH AND STATES ALSO IN HIS NECK.,. RECEIVING CHEMOTHERAPY., DDD WITH BACK ,HIP & LEG PAIN., (PAIN CLINIC PATIENT)., EMPHYSEMA., GASTRITIS. History of Any Multi-Drug Resistant Organisms: None Reported Past Surgical History: Joint Replacement, Orthopedic Surgery Additional Past Surgical History / Comment(s): RIGHT AND LEFT TOTAL HIPS, RIGHT SHOULDER SURGERY. Past Anesthesia/Blood Transfusion Reactions: No Reported Reaction Past Psychological History: Anxiety, Depression Smoking Status: Former smoker Past Alcohol Use History: None Reported Past Drug Use History: None Reported - Past Family History Father Family Medical History: No Reported History Medications and Allergies Home Medications Medication Instructions Recorded Confirmed Type Atorvastatin [Lipitor] 20 mg PO DAILY 03/11/21 06/17/22 History OXcarbazepine [Trileptal] 300 mg PO BID 03/11/21 06/17/22 History Pantoprazole Sodium [Protonix] 40 mg PO BID 03/11/21 06/17/22 History Sucralfate [Carafate] 1 gm PO ACHS 03/11/21 06/17/22 History traZODone HCL [Desyrel] 100 mg PO HS 03/11/21 06/17/22 History ALPRAZolam [Xanax] 0.5 mg PO BID PRN 01/13/22 06/17/22 History Budesonide [Pulmicort] 0.25 mg INHALATION RT-BID 01/13/22 06/17/22 History Hydrocortisone [Cortef] 10 mg PO DAILY@1400 01/13/22 06/17/22 History Ipratropium-Albuterol Nebulize 3 ml INHALATION RT-QID PRN 01/13/22 06/17/22 History [Duoneb 0.5 mg-3 mg/3 ml Soln] metFORMIN HCL 500 mg PO BID 01/13/22 06/17/22 History Albuterol Nebulized [Ventolin 2.5 mg INHALATION RT-QID PRN 02/23/22 06/17/22 History Nebulized] Fluconazole [Diflucan] 100 mg PO DAILY PRN 02/23/22 06/17/22 History Insulin Aspart [NovoLOG Flexpen] See Protocol SQ ACHS 02/24/22 06/17/22 History Dicyclomine [Bentyl] 10 mg PO TID PRN 10 Days #30 04/12/22 06/17/22 Rx capsule Famotidine 40 mg PO DAILY 04/12/22 06/17/22 History Metoclopramide [Reglan] 5 mg PO AC-BID PRN 04/12/22 06/17/22 History Semaglutide [Rybelsus] 3 mg PO DAILY 04/12/22 06/17/22 History Gabapentin [Neurontin] 100 mg PO BID 30 Days #60 cap 06/15/22 06/17/22 Rx Hydrocortisone [Cortef] 20 mg PO DAILY@0800 06/17/22 06/17/22 History Morphine Sulfate ER [Ms Contin] 30 mg PO Q12HR PRN 06/17/22 06/17/22 History fentaNYL 25MCG/HR PATCH [Duragesic 1 patch TRANSDERM Q72H 06/17/22 06/17/22 History 25MCG/HR] polyethylene glycoL 3350 [Miralax] 17 gm PO DAILY PRN 06/17/22 06/17/22 History Allergies Allergy/AdvReac Type Severity Reaction Status Date / Time No Known Allergies Allergy Verified 06/17/22 21:46 Physical Exam Vitals: Vital Signs Temp Pulse Pulse Resp BP BP Pulse Ox 06/18/22 08:21 110 H 06/18/22 08:09 110 H 06/18/22 07:27 111 H 18 113/69 100 06/18/22 01:32 117 H 06/18/22 01:21 114 H 06/18/22 01:10 98.9 F 120 H 22 142/80 97 06/17/22 23:40 116 H 20 125/73 97 06/17/22 21:24 121 H 26 H 137/87 97 06/17/22 20:28 117 H 98 06/17/22 20:03 120 H 94 L 06/17/22 19:43 124 H 06/17/22 19:28 110 H 06/17/22 17:11 123 H 25 H 126/76 97 06/17/22 16:54 108 H 06/17/22 16:47 100 06/17/22 16:11 98 F 130 H 38 H 146/91 96 Intake and Output 06/17/22 06/18/22 06/18/22 22:59 06:59 14:59 Output Total 500 Balance -500 Output: Urine 500 Other: Weight 77.564 kg PHYSICAL EXAMINATION: Patient is lying in the bed comfortably, no acute distress, awake alert and oriented.. HEENT: Normocephalic. Neck is supple. Pupils reactive. Nostrils clear. Oral cavity is moist. Neck reveals no JVD, carotid bruits, or thyromegaly. CHEST EXAMINATION: Trachea is central. Symmetrical expansion. Lung varner clear to auscultation and percussion. CARDIAC: Normal S1, S2 with no gallops. No murmurs ABDOMEN: Soft. Bowel sounds present. Nontender. No organomegaly. No abdominal bruits. Extremities: reveal no edema. No clubbing or cyanosis Tenderness of the left rib cage. Neurologically awake, alert, oriented x3 with well-coordinated movements. No focal deficits noted Skin: No rash or skin lesions. Psychiatric: Coperative. Nonsuicidal, Musculoskeletal: No joint swelling or deformity. Normal range of motion. Results CBC & Chem 7: 06/25/22 08:07 06/25/22 08:07 Labs: Abnormal Lab Results - Last 24 Hours (Table) 06/17/22 06/17/22 06/17/22 Range/Units 16:43 16:43 16:43 RBC 2.38 L (4.30-5.90) m/uL Hgb 8.7 L (13.0-17.5) gm/dL Hct 26.3 L (39.0-53.0) % MCV 110.6 H (80.0-100.0) fL MCH 36.5 H (25.0-35.0) pg RDW 17.6 H (11.5-15.5) % Plt Count 90 L D (150-450) k/uL Immature Gran # (0.00-0.04) X 10*3/uL Lymphocytes # 0.7 L (1.0-4.8) k/uL Eosinophils # (0.04-0.35) X 10*3/uL Macrocytosis Marked A APTT 32.2 H (22.0-30.0) sec Sodium 126 L (137-145) mmol/L Chloride 96 L (98-107) mmol/L Carbon Dioxide 15 L (22-30) mmol/L Creatinine 0.51 L (0.66-1.25) mg/dL Glucose 205 H (74-99) mg/dL Calcium (8.7-10.3) mg/dL Total Bilirubin (0.30-1.20) mg/dL AST (14-35) U/L Albumin/Globulin Ratio (1.60-3.17) g/dL Ur Specific Powell (1.001-1.035) Urine Protein (Negative) Urine Glucose (UA) (Negative) Urine Ketones (Negative) 06/17/22 06/18/22 06/18/22 Range/Units 20:28 04:57 04:57 RBC 2.51 L (4.30-5.90) m/uL Hgb 9.3 L (13.0-17.5) gm/dL Hct 28.5 L (39.0-53.0) % MCV 113.5 H (80.0-100.0) fL MCH 37.1 H (25.0-35.0) pg RDW 18.6 H (11.5-15.5) % Plt Count 89 L (150-450) k/uL Immature Gran # 0.06 H (0.00-0.04) X 10*3/uL Lymphocytes # 0.61 L (1.0-4.8) k/uL Eosinophils # 0 L (0.04-0.35) X 10*3/uL Macrocytosis APTT (22.0-30.0) sec Sodium 132 L (137-145) mmol/L Chloride (98-107) mmol/L Carbon Dioxide 17.4 L (22-30) mmol/L Creatinine (0.66-1.25) mg/dL Glucose 174 H (74-99) mg/dL Calcium 8.4 L (8.7-10.3) mg/dL Total Bilirubin <0.15 L (0.30-1.20) mg/dL AST 45 H (14-35) U/L Albumin/Globulin Ratio 1.35 L (1.60-3.17) g/dL Ur Specific Powell 1.050 H (1.001-1.035) Urine Protein Trace H (Negative) Urine Glucose (UA) 3+ H (Negative) Urine Ketones 1+ H (Negative) Thrombosis Risk Factor Assmnt - DVT/VTE Prophylaxis DVT/VTE Prophylaxis: Pharmacologic Prophylaxis ordered Assessment and Plan Assessment: Left rib cage and back pain due to metastatic lung disease Left pulmonary hilum lung mass with multiple mets in the lung increased in size compared to previous exam Adrenal mass likely secondary to metastatic lesion. Shortness of breath secondary to lung mass COPD GERD Anxiety/depression Previous history of smoking Adrenal insufficiency currently on Cortef at home. DVT prophylaxis with Lovenox subcu. Plan: Patient will be current pain management with Dilaudid IV and also on gabapentin. Continue with GI DVT prophylaxis. Continue with home medications and duo nebs. Oncology was consulted. Prognosis poor at this time. Continue to follow closely. Time with Patient: Greater than 30
--- NOTE | 2022-06-18 23:48 | P.CONS ---
History of Present Illness - Reason for Consult Consult date: 06/18/22 - History of Present Illness The patient is a 62-year-old white male,well known to myself, with a a known diagnosis of metastatic small cell lung cancer. The patient has had ongoing issues with left-sided mid back and flank pain with radiation to the abdomen, as well as generalized abdominal pain. He has previously been admitted with complaint of abdominal pain, with no etiology found on workup. The patient follows up with the pain clinic, and has been prescribed fentanyl 25 g, as well as morphine. He was seen in the office recently, with CT scans of the chest abdomen and pelvis showing evidence of progression in the lung, as well as a new paraspinal masses in the lower thoracic/upper lumbar area. The patient apparently had used up his morphine prior to the end date of his prescription. apparently he had not received his fentanyl prescription either.he had contacted the pain clinic and had an appointment upcoming this week. he did become his fentanyl prescription and apply detachment states that his lower, generalized abdominal pain was very significant, and not controlled with the same. He therefore came into the emergency room. In the ER, on evaluation he was also found to be more short of breath compared to his baseline. He was therefore admitted for further management. His oncology history is as follows: He was initially seen in consult at [facility] on 03/12/21. He had been admitted with progressively worsening shortness of breath over the past 2 weeks. In the ER he had a chest x-ray that revealed essentially opacification of the left hemithorax. A CT scan showed a large mediastinal mass measuring 9.5 cm with pleural effusion. The patient was subsequently admitted to the ICU. He then had a thoracentesis. At the time of his initial evaluation cytology was pending. This subsequently came back positive for metastatic small cell carcinoma CT of the abdomen and pelvis on 03/14/21 showed a large left-sided pleural effusion, bilateral retroperitoneal nodes largest measuring 1.9 cm. In addition there were periaortic nodes and multiple iliac chain and perirectal lymph nodes, largest measuring 1.2 cm. MRI of the brain on 03/14/21 showed no metastatic disease. Even after the thoracentesis and some improvement, the patient is still extremely short of breath. After cytology was obtained, the diagnosis and indications were discussed in detail with the patient and his family. They decided to opt for active treatment and the patient received [facility]16 and carboplatin inpatient from 03/19-03/21/21. The patient actually tolerated treatment quite well with mucositis as the main side effects. Posttreatment within 2-3 days he started having improvement in his shortness of breath. As the patient was still quite weak, [facility]. He came back home on 04/11/21 and was seen for his first office visit on 04/13/21. The patient has a long-standing history of smoking, currently about a pack a day. He had started smoking in his early teens and for most of his life and smoked between 1-1/2-2 packs a day. Prior to his symptoms leading up to this admission his performance status had been well maintained. He did have a prior history of COPD, and has been on O2 since his hospitalization. The patient was started back on chemotherapy after his initial office visit on 04/13/21. Immunotherapy was not covered by his insurance, despite multiple attempts from our office. The patient was subsequently able to get coverage for immunotherapy, and started Tecentriq on 09/28/21. H reported some increase in cough at his visit in 10/08. Repeat Ct scans showed increase in size at the primary sites and in some mmediastinal zachary areas. It is felt that this potentially could be due to pseudo-progression from immunotherapy. Therefore chemotherapy was continued with plan to repeat CT scans in 5-6 weeks. The patient had a CTA in the hospital in early 12/06 as he was having increased shortness of breath. This confirmed further progression. Chemotherapy was therefore discontinued and the patient was started on second line treatment with carboplatin and IV irinotecan on 12/01/21. He is status post 6 cycles He was admitted during C4 with abdominal pain. No specific etiology was found, on imaging and labs. It was felt this was possibly due to chemo related bowel inflammation. He improved with supportive care. 06/14/22 OV note: He denied any fever/chills/n/vomiting. he continues to complain of left mid back/flank pain, with radiation and anteriorly, which has become more prominent. Patient is on fentanyl 25 g, prescribed by the pain clinic, but states that this is not effective. He reports persistent SOB with exertion. this is overall stable. he has not had O2 at home due to insurance issues. He reports stable cough. Breathing is stable. He has had dizziness with changing positions, that is stable. He has not had any near syncopes or falls. He continues to have some hoarseness of voice, and occasional difficulty swallowing with thin liquids. He states that he is being careful after sitting or laying down for any prolonged period of time. He has not had any falls or syncope. No history of any mouth sores or diarrhea. most recent CT scans from 06/09/22 showed progression in the lung, as well as new paraspinal masses. Patient's current treatment was discontinued. He was recommended to be switched to Lubrinectedin, and was also referred to radiation oncology for radiation to the paraspinal masses. He has not yet started his new treatment. Review of Systems Constitutional: Reports chronic pain, Reports fatigue, Reports poor appetite, Reports weakness Eyes: denies blurred vision, denies pain Ears: bilateral: decreased hearing, deny: ear discharge, earache, tinnitus Ears, nose, mouth and throat: Reports hoarseness Cardiovascular: Reports shortness of breath Respiratory: Reports cough (the), Reports dyspnea Gastrointestinal: Reports abdominal pain, Reports loss of appetite Genitourinary: Reports as per HPI (he is an) Musculoskeletal: Reports muscle weakness (is) Integumentary: Denies pruritus, Denies rash Neurological: Reports weakness (he isS) Psychiatric: Reports anxiety (she) Endocrine: Reports fatigue, Reports weight change (this) Hematologic/Lymphatic: Reports as per HPI Past Medical History Past Medical History: Cancer, COPD, GERD/Reflux Additional Past Medical History / Comment(s): LUNG CANCER WITH TUMOR IN STOMACH AND STATES ALSO IN HIS NECK.,. RECEIVING CHEMOTHERAPY., DDD WITH BACK ,HIP & LEG PAIN., (PAIN CLINIC PATIENT)., EMPHYSEMA., GASTRITIS. History of Any Multi-Drug Resistant Organisms: None Reported Past Surgical History: Joint Replacement, Orthopedic Surgery Additional Past Surgical History / Comment(s): RIGHT AND LEFT TOTAL HIPS, RIGHT SHOULDER SURGERY. Past Anesthesia/Blood Transfusion Reactions: No Reported Reaction Past Psychological History: Anxiety, Depression Smoking Status: Former smoker Past Alcohol Use History: None Reported Past Drug Use History: None Reported - Past Family History Father Family Medical History: No Reported History Medications and Allergies Home Medications Medication Instructions Recorded Confirmed Type Atorvastatin [Lipitor] 20 mg PO DAILY 03/11/21 06/17/22 History OXcarbazepine [Trileptal] 300 mg PO BID 03/11/21 06/17/22 History Pantoprazole Sodium [Protonix] 40 mg PO BID 03/11/21 06/17/22 History Sucralfate [Carafate] 1 gm PO ACHS 03/11/21 06/17/22 History traZODone HCL [Desyrel] 100 mg PO HS 03/11/21 06/17/22 History ALPRAZolam [Xanax] 0.5 mg PO BID PRN 01/13/22 06/17/22 History Budesonide [Pulmicort] 0.25 mg INHALATION RT-BID 01/13/22 06/17/22 History Hydrocortisone [Cortef] 10 mg PO DAILY@1400 01/13/22 06/17/22 History Ipratropium-Albuterol Nebulize 3 ml INHALATION RT-QID PRN 01/13/22 06/17/22 History [Duoneb 0.5 mg-3 mg/3 ml Soln] metFORMIN HCL 500 mg PO BID 01/13/22 06/17/22 History Albuterol Nebulized [Ventolin 2.5 mg INHALATION RT-QID PRN 02/23/22 06/17/22 History Nebulized] Fluconazole [Diflucan] 100 mg PO DAILY PRN 02/23/22 06/17/22 History Insulin Aspart [NovoLOG Flexpen] See Protocol SQ ACHS 02/24/22 06/17/22 History Dicyclomine [Bentyl] 10 mg PO TID PRN 10 Days #30 04/12/22 06/17/22 Rx capsule Famotidine 40 mg PO DAILY 04/12/22 06/17/22 History Metoclopramide [Reglan] 5 mg PO AC-BID PRN 04/12/22 06/17/22 History Semaglutide [Rybelsus] 3 mg PO DAILY 04/12/22 06/17/22 History Gabapentin [Neurontin] 100 mg PO BID 30 Days #60 cap 06/15/22 06/17/22 Rx Hydrocortisone [Cortef] 20 mg PO DAILY@0800 06/17/22 06/17/22 History Morphine Sulfate ER [Ms Contin] 30 mg PO Q12HR PRN 06/17/22 06/17/22 History fentaNYL 25MCG/HR PATCH [Duragesic 1 patch TRANSDERM Q72H 06/17/22 06/17/22 History 25MCG/HR] polyethylene glycoL 3350 [Miralax] 17 gm PO DAILY PRN 06/17/22 06/17/22 History Allergies Allergy/AdvReac Type Severity Reaction Status Date / Time No Known Allergies Allergy Verified 06/17/22 21:46 Physical Exam Vitals: Vital Signs Temp Pulse Pulse Resp BP BP Pulse Ox 06/18/22 20:36 104 H 06/18/22 20:24 105 H 95 06/18/22 16:13 97.9 F 117 H 18 104/59 94 L 06/18/22 13:02 111 H 20 137/60 96 06/18/22 11:59 110 H 06/18/22 11:50 109 H 06/18/22 08:21 110 H 06/18/22 08:09 110 H 06/18/22 07:27 111 H 18 113/69 100 06/18/22 01:32 117 H 06/18/22 01:21 114 H 06/18/22 01:10 98.9 F 120 H 22 142/80 97 06/17/22 23:40 116 H 20 125/73 97 FiO2 06/18/22 20:36 06/18/22 20:24 21 06/18/22 16:13 06/18/22 13:02 06/18/22 11:59 06/18/22 11:50 06/18/22 08:21 06/18/22 08:09 06/18/22 07:27 06/18/22 01:32 06/18/22 01:21 06/18/22 01:10 06/17/22 23:40 Intake and Output 06/18/22 06/18/22 06/19/22 14:59 22:59 06:59 Intake Total 118 Balance 118 Intake: Oral 118 Other: # Voids 2 Weight 77.564 kg - Constitutional General appearance: mild distress - EENT Eyes: EOMI, PERRLA ENT: hearing grossly normal, normal oropharynx (visit is) - Neck Neck: no lymphadenopathy Thyroid: bilateral: normal size - Respiratory Respiratory: bilateral: diminished - Cardiovascular Rhythm: regular Heart sounds: normal: S1, S2 - Gastrointestinal General gastrointestinal: normal bowel sounds, soft - Integumentary Integumentary: normal - Neurologic Neurologic: CNII-XII intact - Musculoskeletal Musculoskeletal: generalized weakness, strength equal bilaterally - Psychiatric Psychiatric: A&O x's 3 Results Results: CBC & Chem 7: 06/18/22 04:57 06/18/22 04:57 Labs: Abnormal Lab Results - Last 24 Hours (Table) 06/18/22 06/18/22 Range/Units 04:57 04:57 RBC 2.51 L (4.40-5.60) X 10*6/uL Hgb 9.3 L (13.0-17.0) g/dL Hct 28.5 L (39.6-50.0) % MCV 113.5 H (80.0-97.0) fL MCH 37.1 H (27.0-32.0) pg RDW 18.6 H (11.5-14.5) % Plt Count 89 L (140-440) X 10*3/uL Immature Gran # 0.06 H (0.00-0.04) X 10*3/uL Lymphocytes # 0.61 L (0.90-5.00) X 10*3/uL Eosinophils # 0 L (0.04-0.35) X 10*3/uL Sodium 132 L (135-145) mmol/L Carbon Dioxide 17.4 L (20.0-27.5) mmol/L Glucose 174 H (70-110) mg/dL Calcium 8.4 L (8.7-10.3) mg/dL Total Bilirubin <0.15 L (0.30-1.20) mg/dL AST 45 H (14-35) U/L Albumin/Globulin Ratio 1.35 L (1.60-3.17) g/dL Comments: EKG reviewed CT scan - chest: image reviewed CT scan - pelvis: image reviewed Assessment and Plan (1) Abdominal pain Narrative/Plan: the patient has been having issues with abdominal pain now for some months without a clear etiology. He was extensively evaluated when he was in the hospital previously with no etiology found. This was therefore presumed to be chemotherapy effect. However patient continues to have the same complains and without any definite relation to when he gets chemotherapy. In addition he does not have any diarrhea which would typically be expected with colitis related to his regimen. Patient had CT scans most recently on 06/09/22 which showed no findings that would explain his lower and mid abdominal pain. - Patient's pain has gotten worse recently, as he had not been able to get his fentanyl prescription on time, and use of his morphine prior to the end plate of the prescription. He'll get started back on the fentanyl, but states that it is not working. - Consult GI for endoscopic evaluation for possible etiology. -Continue fentanyl, with IV short-acting morphine for breakthrough. Consult pain management service to adjust his medications for home, depending on his need for the short acting medication Current Visit: No Status: Acute Priority: High Code(s): R10.9 - UNSPECIFIED ABDOMINAL PAIN SNOMED Code(s): 81216083 (2) COPD exacerbation Narrative/Plan: the patient has chronic shortness of breath, but does not have oxygen at home, because of coverage issues. His breathing was worse during this admission and he was admitted also for COPD exacerbation. Deferred to the admitting service and pulmonary medicine for management Current Visit: Yes Status: Acute Code(s): J44.1 - CHRONIC OBSTRUCTIVE PULMONARY DISEASE W (ACUTE) EXACERBATION SNOMED Code(s): 203702585 (3) Primary small cell malignant neoplasm of lung, stage 4 Narrative/Plan: diagnostic and therapeutic circumstances as described. The patient has been prescribed a new regimen but has not yet started that. He was scheduled to see radiation oncology this week for palliative radiation to a new paraspinal masses which are felt to be the cause of his left flank and back pain and possibly some of the upper abdominal pain. These are however unlikely to be the cause of his middle and lower abdominal pain, has a symptoms predate the findings of these masses by some months - consult radiation oncology Current Visit: No Status: Acute Code(s): C34.90 - MALIGNANT NEOPLASM OF UNSP PART OF UNSP BRONCHUS OR LUNG SNOMED Code(s): 16519099650295
[2022-06-19] MEDS: MORPHINE SULFATE ER 30 MG TABLET PO PRN (05:48)
[2022-06-19] MEDS: BUDESONIDE 0.25 MG/2 ML NEBU INHALATION SCH ×2 (07:46→19:55)
[2022-06-19] MEDS: IPRATROPIUM-ALBUTEROL 3 ML NEB INHALATION PRN ×4 (07:46→19:56)
[2022-06-19] MEDS: PANTOPRAZOLE 40 MG TABLET PO SCH ×2 (08:34→20:44)
[2022-06-19] MEDS: ENOXAPARIN 30 MG/0.3 ML SYRINGE SQ SCH (08:34)
[2022-06-19] MEDS: ATORVASTATIN 20 MG TAB PO SCH (08:34)
[2022-06-19] MEDS: HYDROCORTISONE 20 MG TAB PO SCH (08:34)
[2022-06-19] MEDS: FAMOTIDINE 20 MG TAB PO SCH (08:34)
[2022-06-19] MEDS: HYDROmorphone 1 MG/ML 1 ML SYRINGE IVP PRN ×4 (08:35→20:45)
[2022-06-19 09:32] LABS: Anion Gap 12.1 mmol/L (10.00-18.00); BUN/Creat Ratio 23.33 Ratio (12.00-20.00); Calcium 7.9 mg/dL (8.7-10.3); Carbon Dioxide 21.9 mmol/L (20.0-27.5); Non-African American GFR(CKD) 90.6 (60.0-200.0); Potassium 3.3 mmol/L (3.5-5.5)
[2022-06-19 09:39] LABS: Basophils # (A) 0.02 X 10*3/uL (0.00-0.10); Basophils % (A) 0.3 %; Eosinophils # (A) 0.08 X 10*3/uL (0.04-0.35); Eosinophils % (A) 1.3 %; HCT 24.5 % (39.6-50.0); Immature Grans, Automated 0.5 %; Lymphocytes # (A) 1.14 X 10*3/uL (0.90-5.00); Lymphocytes % (A) 18.7 %; MCH 37.4 pg (27.0-32.0); MCHC 32.7 g/dL (32.0-37.0); MCV 114.5 fL (80.0-97.0); Mean Platelet Volume 10.7 fL (9.5-12.2); Monocytes # (A) 1.14 X 10*3/uL (0.20-1.00); Monocytes % (A) 18.7 %; NRBC Per 100 WBC 0.5 /100 WBCS (0.0-0.0); Neutrophils % (A) 60.5 %; Platelet Count 85 X 10*3/uL (140-440); RBC 2.14 X 10*6/uL (4.40-5.60); RDW 18.8 % (11.5-14.5); WBC 6.11 X 10*3/uL (4.50-10.00)
[2022-06-19] MEDS: GABAPENTIN 100 MG CAP PO SCH ×2 (10:32→20:44)
[2022-06-19] MEDS: OXcarbazepine 300 MG TAB PO SCH ×2 (10:33→20:44)
[2022-06-19] MEDS ORDERED: METOCLOPRAMIDE 5 MG TAB PO PRN (10:37)
--- NOTE | 2022-06-19 14:58 | P.CONS ---
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 He underwent treatment with chemotherapy followed by immunotherapy, and had evidence of disease progression in November 2021. At this time, he started carboplatin and Irinotecan. His most recent chemotherapy was approximately 2-3 weeks ago. The patient was hospitalized secondary to increased pain and difficulty controlling his pain at home. Following his hospitalization, the patient underwent a repeat CT scan of the chest, abdomen and pelvis on June 17. This revealed increased size of the left hilar lesion, as well as stable enlarged mediastinal adenopathy bilaterally. There was an increased size of the left adrenal nodule as well. There is increased size of left-sided paraspinal region nodularity. At this time, the patient reports that he has pains that are very sharp and frequent. He is currently getting some relief from his pain medication, but during this hospital stay he is currently taking Dilaudid, a fentanyl patch and gabapentin. The patient reports that the pain is primarily in the left flank, and that he also has some generalized abdominal pain as well. These 2 areas of pain do not always correlate. His current pain is approximately 4 out of 10, and at the time of my visit he is about to take his next Dilaudid. Review of Systems Constitutional: Denies chills, Denies fever Eyes: denies blurred vision Ears, nose, mouth and throat: Denies headache Respiratory: Denies congestion, Denies cough Gastrointestinal: Reports abdominal pain Genitourinary: Reports flank pain Musculoskeletal: Denies arm numbness/tingling, Denies frequent falls Neurological: Denies ataxia, Denies confusion Psychiatric: Denies anxiety Past Medical History Past Medical History: Cancer, COPD, GERD/Reflux Additional Past Medical History / Comment(s): LUNG CANCER WITH TUMOR IN STOMACH AND STATES ALSO IN HIS NECK.,. RECEIVING CHEMOTHERAPY., DDD WITH BACK ,HIP & LEG PAIN., (PAIN CLINIC PATIENT)., EMPHYSEMA., GASTRITIS. History of Any Multi-Drug Resistant Organisms: None Reported Past Surgical History: Joint Replacement, Orthopedic Surgery Additional Past Surgical History / Comment(s): RIGHT AND LEFT TOTAL HIPS, RIGHT SHOULDER SURGERY. Past Anesthesia/Blood Transfusion Reactions: No Reported Reaction Past Psychological History: Anxiety, Depression Smoking Status: Former smoker Past Alcohol Use History: None Reported Past Drug Use History: None Reported - Past Family History Father Family Medical History: No Reported History Medications and Allergies Home Medications Medication Instructions Recorded Confirmed Type Atorvastatin [Lipitor] 20 mg PO DAILY 03/11/21 06/17/22 History OXcarbazepine [Trileptal] 300 mg PO BID 03/11/21 06/17/22 History Pantoprazole Sodium [Protonix] 40 mg PO BID 03/11/21 06/17/22 History Sucralfate [Carafate] 1 gm PO ACHS 03/11/21 06/17/22 History traZODone HCL [Desyrel] 100 mg PO HS 03/11/21 06/17/22 History ALPRAZolam [Xanax] 0.5 mg PO BID PRN 01/13/22 06/17/22 History Budesonide [Pulmicort] 0.25 mg INHALATION RT-BID 01/13/22 06/17/22 History Hydrocortisone [Cortef] 10 mg PO DAILY@1400 01/13/22 06/17/22 History Ipratropium-Albuterol Nebulize 3 ml INHALATION RT-QID PRN 01/13/22 06/17/22 History [Duoneb 0.5 mg-3 mg/3 ml Soln] metFORMIN HCL 500 mg PO BID 01/13/22 06/17/22 History Albuterol Nebulized [Ventolin 2.5 mg INHALATION RT-QID PRN 02/23/22 06/17/22 History Nebulized] Fluconazole [Diflucan] 100 mg PO DAILY PRN 02/23/22 06/17/22 History Insulin Aspart [NovoLOG Flexpen] See Protocol SQ ACHS 02/24/22 06/17/22 History Dicyclomine [Bentyl] 10 mg PO TID PRN 10 Days #30 04/12/22 06/17/22 Rx capsule Famotidine 40 mg PO DAILY 04/12/22 06/17/22 History Metoclopramide [Reglan] 5 mg PO AC-BID PRN 04/12/22 06/17/22 History Semaglutide [Rybelsus] 3 mg PO DAILY 04/12/22 06/17/22 History Gabapentin [Neurontin] 100 mg PO BID 30 Days #60 cap 06/15/22 06/17/22 Rx Hydrocortisone [Cortef] 20 mg PO DAILY@0800 06/17/22 06/17/22 History Morphine Sulfate ER [Ms Contin] 30 mg PO Q12HR PRN 06/17/22 06/17/22 History fentaNYL 25MCG/HR PATCH [Duragesic 1 patch TRANSDERM Q72H 06/17/22 06/17/22 History 25MCG/HR] polyethylene glycoL 3350 [Miralax] 17 gm PO DAILY PRN 06/17/22 06/17/22 History Allergies Allergy/AdvReac Type Severity Reaction Status Date / Time No Known Allergies Allergy Verified 06/17/22 21:46 Physical Exam Vitals: Vital Signs Temp Pulse Pulse Resp BP Pulse Ox FiO2 06/19/22 12:32 118 H 06/19/22 12:22 113 H 06/19/22 07:57 124 H 06/19/22 07:49 97 06/19/22 07:46 118 H 06/19/22 07:11 98.3 F 128 H 18 99/51 96 06/19/22 02:36 97.1 F L 106 H 17 111/54 95 06/18/22 20:36 104 H 06/18/22 20:24 105 H 95 21 06/18/22 20:21 97.7 F 117 H 19 104/51 94 L 06/18/22 16:13 97.9 F 117 H 18 104/59 94 L Intake and Output 06/18/22 06/19/22 06/19/22 22:59 06:59 14:59 Intake Total 118 360 Balance 118 360 Intake: Oral 118 360 Other: # Voids 2 2 Weight 77.564 kg - Constitutional General appearance: no acute distress - EENT Eyes: PERRLA ENT: hearing grossly normal - Neck Neck: no lymphadenopathy - Respiratory Respiratory: bilateral: CTA - Cardiovascular Rhythm: regular - Gastrointestinal General gastrointestinal: no distended, no tenderness - Integumentary Integumentary: pale - Neurologic Neurologic: CNII-XII intact - Musculoskeletal Musculoskeletal: strength equal bilaterally - Psychiatric Psychiatric: A&O x's 3, appropriate affect Results CBC & Chem 7: 06/19/22 04:55 06/19/22 04:55 Labs: Abnormal Lab Results - Last 24 Hours (Table) 06/19/22 06/19/22 Range/Units 04:55 04:55 RBC 2.14 L (4.40-5.60) X 10*6/uL Hgb 8.0 L (13.0-17.0) g/dL Hct 24.5 L (39.6-50.0) % MCV 114.5 H (80.0-97.0) fL MCH 37.4 H (27.0-32.0) pg RDW 18.8 H (11.5-14.5) % Plt Count 85 L (140-440) X 10*3/uL Absolute Nucleated RBC 0.03 H (0.00-0.00) X 10*3/uL Monocytes # 1.14 H (0.20-1.00) X 10*3/uL NRBC/100 WBC Diff 0.5 H (0.0-0.0) /100 WBCS Sodium 134 L (135-145) mmol/L Potassium 3.3 L (3.5-5.5) mmol/L BUN/Creatinine Ratio 23.33 H (12.00-20.00) Ratio Calcium 7.9 L (8.7-10.3) mg/dL CT scan - abdomen: report reviewed, image reviewed CT scan - chest: report reviewed, image reviewed CT Scan - head: report reviewed, image reviewed Assessment and Plan Assessment: The patient is a 62-year-old male with a history of the metastatic small cell lung cancer of the left lung, diagnosed in February 2021. He underwent treatment with chemotherapy followed by immunotherapy, and had evidence of disease progression in November 2021. At this time, he started carboplatin and Irinotecan. His most recent chemotherapy was approximately 2-3 weeks ago. The patient was hospitalized secondary to increased pain and difficulty controlling his pain at home. Plan: 1. Left flank pain: I discussed with the patient that the left paraspinal lesions may be the source of his pain. These are located in the lower thoracic spine. These are situated such that they may be causing compression of exiting nerves. The patient also has an enlarging left adrenal mass. I discussed with the patient that a palliative course of radiotherapy directed to this area would be reasonable. I explained that small cell lung cancer is typically responsive to radiation treatments. I discussed however that the benefit of this pain relief may take 1-2 weeks for full treatment affect. I discussed the importance of finding is stable pain regimen during this hospital stay. 2. Abdominal pain: At least based on his imaging, there is no clear etiology for the generalized abdominal pain. The enlarging left adrenal mass does abut the celiac plexus, but this may also simply be contributing to his left-sided flank pain. 3. Metastatic SCLC: As noted above, the patient unfortunately appears to be progressing on second line chemotherapy. Considering this progression, it may be reasonable to repeat neuro imaging although the patient is not symptomatic at this time. The patient is agreeable to undergo a palliative course of radiotherapy. We will plan to target the paraspinal lesions, and also may include the left adrenal mass considering the location. I discussed with the patient that he would first undergo CT simulation for treatment planning. I explained the treatments to be delivered over approximately 1 week. I discussed possible side effects this treatment includes, but is not limited to; fatigue, skin irritation, nausea, esophagitis, and low risk of long-term toxicity considering palliative dosing. The patient was agreeable to move forward with treatment as discussed. Time: I spent 40 minutes with this patient, of which greater than 50% of that time was spent counseling, coordinating care, and reviewing the risks, benefits, and all potential complications of radiation. I appreciate the opportunity to participate in the care of this patient. Time with Patient: Greater than 30
--- NOTE | 2022-06-19 15:18 | P.PAINPG ---
Objective - Vital Signs Vital signs: Vital Signs Temp 98.1 F 06/19/22 14:00 Pulse 120 H 06/19/22 14:00 Resp 16 06/19/22 14:00 BP 102/59 06/19/22 14:00 Pulse Ox 93 L 06/19/22 14:00 FiO2 21 06/18/22 20:24 Intake & Output 06/18/22 06/19/22 06/19/22 18:59 06:59 18:59 Intake Total 118 360 Balance 118 360 Weight 77.564 kg Intake: Oral 118 360 Other: # Voids 2 2 - Labs CBC & Chem 7: 06/19/22 04:55 06/19/22 04:55 Labs: Abnormal Lab Results - Last 24 Hours (Table) 06/19/22 06/19/22 Range/Units 04:55 04:55 RBC 2.14 L (4.40-5.60) X 10*6/uL Hgb 8.0 L (13.0-17.0) g/dL Hct 24.5 L (39.6-50.0) % MCV 114.5 H (80.0-97.0) fL MCH 37.4 H (27.0-32.0) pg RDW 18.8 H (11.5-14.5) % Plt Count 85 L (140-440) X 10*3/uL Absolute Nucleated RBC 0.03 H (0.00-0.00) X 10*3/uL Monocytes # 1.14 H (0.20-1.00) X 10*3/uL NRBC/100 WBC Diff 0.5 H (0.0-0.0) /100 WBCS Sodium 134 L (135-145) mmol/L Potassium 3.3 L (3.5-5.5) mmol/L BUN/Creatinine Ratio 23.33 H (12.00-20.00) Ratio Calcium 7.9 L (8.7-10.3) mg/dL PQRS Measure Charge Sheet Comment: HISTORY OF PRESENT ILLNESS: 62 yr old inpatient male as a referral from Dr Barksdale presents today w severe and intractable pain secondary to DDD, spondylosis and facet arthropathy without myelopathy for an evaluation. Pt states his pain level is currently at 9/10 in intensity, constant and localized in the mid to lower aspect of his lumbar spine. Pt states he normally takes pain meds at home but they have been ineffective in managing his pain. Fentanyl was initially prescribed once every 72 hrs but was not managing his pain so it was documented to change to Q72H upon the next refill date. Pt is also on MS ER 30mg which will remain unchanged at this time. Pt is also on Dilaudid 1mg IVP Q3H prn pain but this is only for the inpatient status and is not expected to be filled upon discharge. PMH: Small Cell Carcinoma w metastasis, NIDDM, COPD/ Emphysema, GERD, MDD/Anxiety PSH: BL Total Hip Replacements, R Shoulder Arthroscopy SH: Former tobacco user, No ETOH abuse, No illicit drug use. FH: Fa- No Reported History All: NKDA Meds: See list REVIEW OF ORGAN SYSTEMS: CONSTITUTIONAL: No fevers or chills. No recent weight loss. NEUROLOGICAL: + numbness and tingling along the distal extremities. No seizure disorders or headaches. MUSCULOSKELETAL: + pain PSYCHIATRIC: Denies current depression or suicidal thoughts. Physical Examinations : Constitutional : Cooperative , not in acute distress . Neurologic : Cranial nerve II to XII intact. No focal neurological deficits. Psychiatric : alert & oriented x 3. Matching mood & appropriate affect. Judgment & insight intact. Musculoskeletal : Cervical Spine Motor strength in the deltoid and biceps: Normal right side. Normal Left side Motor strength biceps and the wrist extensors: Normal right side . Normal left side Motor strength in the triceps muscle: Normal right side. Normal left side Deep tendon reflexes: Normal at the biceps. Normal at Brachioradialis. Normal at triceps Vertebral body tenderness to deep palpation over Cervical facet loading test: positive bilaterally Spurling test: positive bilaterally Neck distraction test: positive bilaterally Dandy sign: positive bilaterally Lumbar spine Motor strength lower extremities ,thigh and legs 5/5 Right side , 5/5 Left side Deep tendon reflexes : Normal Knee Jerk. Normal Ankle Jerk Vertebral body tenderness over L2, L3, L4, L4 Lumbar facet Loading Test: positive Right / positive Left Range of motion of the lumbar spine Flexion 30 degrees, extension 10 degrees Straight Leg Raise test: Left/ Right positive at degree Grayson test: positive right / positive left. Severe tenderness over the Sacroiliac joint on the Right / Left sides Gaenslen test: positive bilaterally Seated flexion test: positive bilaterally. Sacral spine : Severe tenderness over the Sacroiliac joint: right side / left side Range of motion: Flexion of the lumbar spine <60 degrees Range of motion: Extension of the lumbar spine <20 degrees Gaenslen's Test positive Lawrence's Test positive Grayson test: positive right side / le ft side Thigh Thrust Test Sacral Thrust Test Imaging: CT scan from 06/09/22 reviewed Assessment/ Plan : Lumbar DDD, Lumbar spondylosis Recommendation of adjusting pain medications. Will increase frequency of Fentanyl 25mcg/hr from Q72H to Q48H. Will continue Morphine Sulfate ER at 30mg BID. He is currently on Dilaudid IVP q3h prn pain but this is not expected to be continued post discharge. Risks, benefits discussed and patient verbalized understanding. All questions answered. I have spent greater than 30 minutes on patient care today. Dr Coronado was available by phone for the evaluation of this patient. The time was used to review the medical records including relevant urine studies and Prescription history (MAPs), review of the available imaging, evaluation and examination of the patient, coordination of care with the medical staff and if applicable referring physicians, as well as creation of the medical record - Pain Location Generalized Non-Pharmacological Interventions: Darkened Room, Distraction Pharmacological Interventions: PRN Medication None Pharmacological Interventions: Discuss Pain Med Options, PRN Medication PQRS Narrative: Do You Want the Pneumonia Vaccine Up to Date Vaccine AT THIS TIME? Narcotic Agreement Date Signed 10/24/21 Blood Pressure [Right Arm 102/59 Sitting] Blood Pressure 137/60 Pain Intensity [None] 0 Pain Intensity [Generalized] 9 Pain Intensity 7 Pain Scale Used Numeric (1 - 10) Scale Used Numeric (1 - 10) Hx Alcohol Use (MH) No Home Medications: Ambulatory Orders Atorvastatin [Lipitor] 20 mg PO DAILY 03/11/21 OXcarbazepine [Trileptal] 300 mg PO BID 03/11/21 Pantoprazole Sodium [Protonix] 40 mg PO BID 03/11/21 Sucralfate [Carafate] 1 gm PO ACHS 03/11/21 traZODone HCL [Desyrel] 100 mg PO HS 03/11/21 ALPRAZolam [Xanax] 0.5 mg PO BID PRN 01/13/22 Budesonide [Pulmicort] 0.25 mg INHALATION RT-BID 01/13/22 Hydrocortisone [Cortef] 10 mg PO DAILY@1400 04/29/22 Ipratropium-Albuterol Nebulize [Duoneb 0.5 mg-3 mg/3 ml Soln] 3 ml INHALATION RT-QID PRN 01/13/22 metFORMIN HCL 500 mg PO BID 01/13/22 Albuterol Nebulized [Ventolin Nebulized] 2.5 mg INHALATION RT-QID PRN 02/23/22 Fluconazole [Diflucan] 100 mg PO DAILY PRN 02/23/22 Insulin Aspart [NovoLOG Flexpen] See Protocol SQ ACHS 02/24/22 Dicyclomine [Bentyl] 10 mg PO TID PRN 10 Days #30 capsule 04/12/22 Famotidine 40 mg PO DAILY 04/12/22 Metoclopramide [Reglan] 5 mg PO AC-BID PRN 04/12/22 Semaglutide [Rybelsus] 3 mg PO DAILY 04/12/22 Gabapentin [Neurontin] 100 mg PO BID 30 Days #60 cap 06/15/22 Hydrocortisone [Cortef] 20 mg PO DAILY@0800 06/17/22 Morphine Sulfate ER [Ms Contin] 30 mg PO Q12HR PRN 06/17/22 fentaNYL 25MCG/HR PATCH [Duragesic 25MCG/HR] 1 patch TRANSDERM Q72H 06/17/22 polyethylene glycoL 3350 [Miralax] 17 gm PO DAILY PRN 06/17/22 Controlled Substance Measures - Controlled Substance Measures Is patient prescribed a controlled substance at discharge?: No
[2022-06-19] MEDS ORDERED: Potassium Replacement Protocol 1 EACH MISC MISCELLANE PRN (17:42)
[2022-06-19] MEDS: HYDROCORTISONE 10 MG TAB PO SCH (17:49)
[2022-06-19] MEDS: traZODone HCL 100 MG TAB PO SCH (20:44)
[2022-06-19] MEDS: ALPRAZolam 0.5 MG TAB PO PRN (20:44)
[2022-06-20] MEDS: MORPHINE SULFATE ER 30 MG TABLET PO PRN ×2 (02:07→13:35)
[2022-06-20] MEDS: HYDROmorphone 1 MG/ML 1 ML SYRINGE IVP PRN ×5 (05:24→23:06)
[2022-06-20] MEDS: GABAPENTIN 100 MG CAP PO SCH ×2 (07:41→20:06)
[2022-06-20] MEDS: ATORVASTATIN 20 MG TAB PO SCH (07:41)
[2022-06-20] MEDS: PANTOPRAZOLE 40 MG TABLET PO SCH ×2 (07:41→20:07)
[2022-06-20] MEDS: HYDROCORTISONE 20 MG TAB PO SCH (07:42)
[2022-06-20] MEDS: OXcarbazepine 300 MG TAB PO SCH ×2 (07:42→20:06)
[2022-06-20] MEDS: FAMOTIDINE 20 MG TAB PO SCH (07:42)
[2022-06-20] MEDS: BUDESONIDE 0.25 MG/2 ML NEBU INHALATION SCH ×2 (08:46→20:33)
[2022-06-20] MEDS: IPRATROPIUM-ALBUTEROL 3 ML NEB INHALATION PRN ×4 (08:46→20:33)
[2022-06-20 09:24] LABS: African American GFR (CKD) 116.4 (60.0-200.0); Anion Gap 12.7 mmol/L (10.00-18.00); Calcium 8.2 mg/dL (8.7-10.3); Carbon Dioxide 22.3 mmol/L (20.0-27.5); Non-African American GFR(CKD) 100.4 (60.0-200.0); Potassium 3.3 mmol/L (3.5-5.5)
[2022-06-20 09:49] LABS: HCT 24.9 % (39.6-50.0); HGB 7.8 g/dL (13.0-17.0); MCH 37.3 pg (27.0-32.0); MCHC 31.3 g/dL (32.0-37.0); MCV 119.1 fL (80.0-97.0); Mean Platelet Volume 11.1 fL (9.5-12.2); NRBC Per 100 WBC 0.7 /100 WBCS (0.0-0.0); Platelet Count 83 X 10*3/uL (140-440); RBC 2.09 X 10*6/uL (4.40-5.60); RDW 18.6 % (11.5-14.5); WBC 7.25 X 10*3/uL (4.50-10.00)
[2022-06-20 10:12] LABS: Basophils # (A) 0.02 X 10*3/uL (0.00-0.10); Basophils % (A) 0.3 %; Eosinophils # (A) 0.07 X 10*3/uL (0.04-0.35); Immature Grans, Automated 0.6 %; Immature Platelet Fraction 5.6 % (1.1-6.1); Lymphocytes # (A) 1.28 X 10*3/uL (0.90-5.00); Lymphocytes % (A) 17.7 %; Macrocytosis (M) 2+; Monocytes % (A) 24.8 %; Neutrophils # (A) 4.04 X 10*3/uL (1.80-7.70); Neutrophils % (A) 55.6 %; Rouleaux PRESENT
[2022-06-20] MEDS: SUCRALFATE 1 GM TAB PO SCH ×4 (10:23→20:07)
[2022-06-20] MEDS: ENOXAPARIN 30 MG/0.3 ML SYRINGE SQ SCH (11:56)
[2022-06-20] MEDS: KETOROLAC 15 MG/ML 1 ML VIAL IVP PRN (11:57)
[2022-06-20] MEDS: HYDROCORTISONE 10 MG TAB PO SCH (13:35)
[2022-06-20] MEDS ORDERED: POTASSIUM CHLORIDE ER 20 MEQ TAB.ER PO STA (13:42)
--- NOTE | 2022-06-20 14:02 | P.GSCN ---
History of Present Illness Consult date: 06/20/22 History of present illness: CHIEF COMPLAINT: Abdominal pain HISTORY OF PRESENT ILLNESS: This is a 62-year-old male with a history of metastatic small cell lung cancer of the left lung diagnosed in February 2021. He does have known metastatic disease to the spine. He reports finishing chemo about 3 weeks ago. He is followed by oncology service and the radiation oncolog ist. Patient's initially presented with back pain and left flank pain. He also reports that he's been having uncontrollable mid lower abdominal pain for months. Patient reports that all of his symptoms are not new however he could not control his pain at home. He therefore came into the hospital for further evaluation. He reports that his pain in the abdomen can become sharp and rates it about a 10 out of 10. He has had some nausea. He reports having normal bowel movements. Denies any blood or black stools. He reports his last EGD and colonoscopy was greater than 10 years ago at that time had reported gastritis. Oncology service has requested surgical evaluation for EGD and colonoscopy for further evaluation of patient's abdominal pain. Patient reports a decreased appetite at home. But since hospitalized able to tolerate diet better. Patient seen and examined with Dr. carter PAST MEDICAL HISTORY: Lung cancer, COPD, GERD, degenerative disc disease, anxiety and depression PAST SURGICAL HISTORY: See list. MEDICATIONS: See list. ALLERGIES: See list. SOCIAL HISTORY: No illicit drug use. REVIEW OF SYSTEMS: CONSTITUTIONAL: Denies fever or chills. HEENT: Denies blurred vision, vision changes, or eye pain. Denies hemoptysis CARDIOVASCULAR: Denies chest pain or pressure. RESPIRATORY: No shortness of breath. GASTROINTESTINAL: See HPI for pertinent findings HEMATOLOGIC: Denies bleeding disorders. GENITOURINARY: Denies any blood in urine or increased urinary frequency. SKIN: Denies pruitis. Denies rash. PHYSICAL EXAM: VITAL SIGNS: Reviewed GENERAL: Well-developed in no acute distress. HEENT: No sclera icterus. Extraocular movements grossly intact. Moist buccal mucosa. Head is atraumatic, normocephalic. No nasal drainage. ABDOMEN: Soft. Nondistended. Nontender NEUROLOGIC: Alert and oriented. Cranial nerves II through XII grossly intact. LABORATORY DATA: WBC is 7.25 Hgb 7.8 platelets are 83 Sodium 133 potassium is 3.3 creatinine 0.7 IMAGING: Computed tomography scan abdomen and pelvis pericardial effusion is slightly increased compared to last exam. Masses at the left cardiac border are the same or increased. Left adrenal mass slightly increased. Retrocrural metastatic nodules on the left paraspinal region slightly increased. ASSESSMENT: 1. Abdominal pain 2. Lung cancer with metastatic disease 3. Hypokalemia PLAN: -Patient scheduled for EGD and colonoscopy on , 06/22/[address] carter -Start full liquid diet tonight -Start clear liquid diet tomorrow morning -Start GoLYTELY prep tomorrow morning -Potassium replaced -Repeat labs in a.m. Thank you for this consultation Physician Egg Setter note has been reviewed by physician. Signing provider agrees with the documented findings, assessment, and plan of care. Past Medical History Past Medical History: Cancer, COPD, GERD/Reflux Additional Past Medical History / Comment(s): LUNG CANCER WITH TUMOR IN STOMACH AND STATES ALSO IN HIS NECK.,. RECEIVING CHEMOTHERAPY., DDD WITH BACK ,HIP & LEG PAIN., (PAIN CLINIC PATIENT)., EMPHYSEMA., GASTRITIS. History of Any Multi-Drug Resistant Organisms: None Reported Past Surgical History: Joint Replacement, Orthopedic Surgery Additional Past Surgical History / Comment(s): RIGHT AND LEFT TOTAL HIPS, RIGHT SHOULDER SURGERY. Past Anesthesia/Blood Transfusion Reactions: No Reported Reaction Past Psychological History: Anxiety, Depression Smoking Status: Former smoker Past Alcohol Use History: None Reported Past Drug Use History: None Reported - Past Family History Father Family Medical History: No Reported History Medications and Allergies Home Medications Medication Instructions Recorded Confirmed Type Atorvastatin [Lipitor] 20 mg PO DAILY 03/11/21 06/17/22 History OXcarbazepine [Trileptal] 300 mg PO BID 03/11/21 06/17/22 History Pantoprazole Sodium [Protonix] 40 mg PO BID 03/11/21 06/17/22 History Sucralfate [Carafate] 1 gm PO ACHS 03/11/21 06/17/22 History traZODone HCL [Desyrel] 100 mg PO HS 03/11/21 06/17/22 History ALPRAZolam [Xanax] 0.5 mg PO BID PRN 01/13/22 06/17/22 History Budesonide [Pulmicort] 0.25 mg INHALATION RT-BID 01/13/22 06/17/22 History Hydrocortisone [Cortef] 10 mg PO DAILY@1400 01/13/22 06/17/22 History Ipratropium-Albuterol Nebulize 3 ml INHALATION RT-QID PRN 01/13/22 06/17/22 Hi story [Duoneb 0.5 mg-3 mg/3 ml Soln] metFORMIN HCL 500 mg PO BID 01/13/22 06/17/22 History Albuterol Nebulized [Ventolin 2.5 mg INHALATION RT-QID PRN 02/23/22 06/17/22 History Nebulized] Fluconazole [Diflucan] 100 mg PO DAILY PRN 02/23/22 06/17/22 History Insulin Aspart [NovoLOG Flexpen] See Protocol SQ ACHS 02/24/22 06/17/22 History Dicyclomine [Bentyl] 10 mg PO TID PRN 10 Days #30 04/12/22 06/17/22 Rx capsule Famotidine 40 mg PO DAILY 04/12/22 06/17/22 History Metoclopramide [Reglan] 5 mg PO AC-BID PRN 04/12/22 06/17/22 History Semaglutide [Rybelsus] 3 mg PO DAILY 04/12/22 06/17/22 History Gabapentin [Neurontin] 100 mg PO BID 30 Days #60 cap 06/15/22 06/17/22 Rx Hydrocortisone [Cortef] 20 mg PO DAILY@0800 06/17/22 06/17/22 History Morphine Sulfate ER [Ms Contin] 30 mg PO Q12HR PRN 06/17/22 06/17/22 History fentaNYL 25MCG/HR PATCH [Duragesic 1 patch TRANSDERM Q72H 06/17/22 06/17/22 History 25MCG/HR] polyethylene glycoL 3350 [Miralax] 17 gm PO DAILY PRN 06/17/22 06/17/22 History Allergies Allergy/AdvReac Type Severity Reaction Status Date / Time No Known Allergies Allergy Verified 06/17/22 21:46 Surgical - Exam Vital Signs Temp Pulse Resp BP Pulse Ox 98 F 130 H 38 H 146/91 96 06/17/22 16:11 06/17/22 16:11 06/17/22 16:11 06/17/22 16:11 06/17/22 16:11 Results - Labs 06/20/22 05:17 06/20/22 05:17 Abnormal Lab Results - Last 24 Hours (Table) 06/20/22 06/20/22 Range/Units 05:17 05:17 RBC 2.09 L (4.40-5.60) X 10*6/uL Hgb 7.8 L (13.0-17.0) g/dL Hct 24.9 L (39.6-50.0) % MCV 119.1 H (80.0-97.0) fL MCH 37.3 H (27.0-32.0) pg MCHC 31.3 L (32.0-37.0) g/dL RDW 18.6 H (11.5-14.5) % Plt Count 83 L (140-440) X 10*3/uL Plt Count Comment DECREASED A Absolute Nucleated RBC 0.05 H (0.00-0.00) X 10*3/uL Monocytes # 1.80 H (0.20-1.00) X 10*3/uL NRBC/100 WBC Diff 0.7 H (0.0-0.0) /100 WBCS Sodium 133 L (135-145) mmol/L Potassium 3.3 L (3.5-5.5) mmol/L Calcium 8.2 L (8.7-10.3) mg/dL Diabetes panel 06/20/22 Range/Units 05:17 Sodium 133 L (135-145) mmol/L Potassium 3.3 L (3.5-5.5) mmol/L Chloride 98 (96-109) mmol/L Carbon Dioxide 22.3 (20.0-27.5) mmol/L BUN 14.0 (9.0-27.0) mg/dL Creatinine 0.7 (0.6-1.5) mg/dL Glucose 98 (70-110) mg/dL Calcium 8.2 L (8.7-10.3) mg/dL Calcium panel 06/20/22 Range/Units 05:17 Calcium 8.2 L (8.7-10.3) mg/dL Pituitary panel 06/20/22 Range/Units 05:17 Sodium 133 L (135-145) mmol/L Potassium 3.3 L (3.5-5.5) mmol/L Chloride 98 (96-109) mmol/L Carbon Dioxide 22.3 (20.0-27.5) mmol/L BUN 14.0 (9.0-27.0) mg/dL Creatinine 0.7 (0.6-1.5) mg/dL Glucose 98 (70-110) mg/dL Calcium 8.2 L (8.7-10.3) mg/dL Adrenal panel 06/20/22 Range/Units 05:17 Sodium 133 L (135-145) mmol/L Potassium 3.3 L (3.5-5.5) mmol/L Chloride 98 (96-109) mmol/L Carbon Dioxide 22.3 (20.0-27.5) mmol/L BUN 14.0 (9.0-27.0) mg/dL Creatinine 0.7 (0.6-1.5) mg/dL Glucose 98 (70-110) mg/dL Calcium 8.2 L (8.7-10.3) mg/dL
--- NOTE | 2022-06-20 15:05 | P.PN ---
Subjective Progress Note Date: 06/19/22 This is a 62-year-old gentleman admitted with abdominal pain radiating around to bilateral flanks, lower back and between scapulas due to metastatic lung disease in a patient with history of primary small cell malignant neoplasm of lung, stage IV. He reports extensive workup of abdominal pain and per oncology attributing it to chemo effect. Good diet intake with no nausea or vomiting- states pain is unaffected by diet intake, ongoing sharp, continuous. Reports Last chemo completed approximately 2 weeks ago and had not yet met with radiation oncology outpatient. Reports current pain management at home not working. Pain rated at 9-10. Pain management team as well as radiation oncology consult in place. Afebrile, normal WBC. Potassium 3.3, replacement protocol ordered. Hemoglobin decreased to 8. Objective - Vital Signs Vital signs: Vital Signs Temp 98.1 F 06/19/22 14:00 Pulse 119 H 06/19/22 16:05 Resp 16 06/19/22 14:00 BP 102/59 06/19/22 14:00 Pulse Ox 93 L 06/19/22 14:00 FiO2 21 06/18/22 20:24 Intake & Output 06/18/22 06/19/22 06/19/22 18:59 06:59 18:59 Intake Total 118 360 Balance 118 360 Weight 77.564 kg Intake: Oral 118 360 Other: # Voids 2 2 - Exam PHYSICAL EXAM: VITAL SIGNS: [As above] GENERAL: Alert and oriented 3, Sitting up at side of bed, no acute distress HEENT: Conjunctivae normal. eyes normal. NECK: No JVD. No thyroid enlargement. No LNs CARDIOVASCULAR: S1, S2 regular.. No murmur RESPIRATION: Breath sounds diminished in the bases. No rhonchi or crackles. No bronchial breathing. ABDOMEN: Soft, diffuse tenderness radiating around to lower back .No guarding.Bowel sounds heard. LEGS: No edema. no swelling PSYCHIATRY: Alert and oriented X3, mood and affect normal. NERVOUS SYSTEM: Cranial N 2-12 grossly normal.No focal deficits. Strength and sensation grossly intact. Skin: Warm and dry, no rash - Labs CBC & Chem 7: 06/20/22 05:17 06/20/22 05:17 Labs: Abnormal Lab Results - Last 24 Hours (Table) 06/19/22 06/19/22 Range/Units 04:55 04:55 RBC 2.14 L (4.40-5.60) X 10*6/uL Hgb 8.0 L (13.0-17.0) g/dL Hct 24.5 L (39.6-50.0) % MCV 114.5 H (80.0-97.0) fL MCH 37.4 H (27.0-32.0) pg RDW 18.8 H (11.5-14.5) % Plt Count 85 L (140-440) X 10*3/uL Absolute Nucleated RBC 0.03 H (0.00-0.00) X 10*3/uL Monocytes # 1.14 H (0.20-1.00) X 10*3/uL NRBC/100 WBC Diff 0.5 H (0.0-0.0) /100 WBCS Sodium 134 L (135-145) mmol/L Potassium 3.3 L (3.5-5.5) mmol/L BUN/Creatinine Ratio 23.33 H (12.00-20.00) Ratio Calcium 7.9 L (8.7-10.3) mg/dL Assessment and Plan Assessment: Abdominal pain radiating around to bilateral flanks, lower back and between scapulas due to metastatic lung disease in a patient with history of primary small cell malignant neoplasm of lung, stage IV. Left pulmonary hilum lung mass with multiple mets in the lung increased in size compared to previous exam Adrenal mass likely secondary to metastatic lesion. Shortness of breath secondary to lung mass COPD GERD Anxiety/depression Previous history of smoking Adrenal insufficiency currently on Cortef at home. Plan: Continue on current medication regime ,monitoring and symptomatic treatment. Electrolyte replacement orders for potassium, magnesium level ordered/pending. Pain management; pain management team, radiation oncology consult in place. Prognosis guarded given multiple complex medical issues. The impression and plan of care has been dictated as directed. : I performed a history and examination of this patient, discussed the same with the dictator. I agree with the dictator's note ,documented as a scribe. Any additional findings or plans will be noted.
--- NOTE | 2022-06-20 15:21 | P.PN ---
Subjective Progress Note Date: 06/20/22 This is a 62-year-old gentleman admitted with abdominal pain radiating around to bilateral flanks, lower back and between scapulas due to metastatic lung disease in a patient with history of primary small cell malignant neoplasm of lung, stage IV. He reports extensive workup of abdominal pain and per oncology attributing it to chemo effect. Good diet intake with no nausea or vomiting- states pain is unaffected by diet intake, ongoing sharp, continuous. Reports Last chemo completed approximately 2 weeks ago and had not yet met with radiation oncology outpatient. Reports current pain management at home not working. Pain rated at 9-10. Pain management team as well as radiation oncology consult in place. Afebrile, normal WBC. Potassium 3.3, replacement protocol ordered. Hemoglobin decreased to 8. 06/20/2022 evaluated by oncology radiation and pain management team with recommendations noted and appreciated. Scheduled for radiation this morning. Sitting up at bedside, eating breakfast. Denies nausea vomiting or diarrhea. Reports normal bowel movements, nonbloody, not black or darkened. Reports Dr. Barksdale recommending outpatient scope, but having difficulties with transportation secondary to being in [facility]. Currently pain better controlled. Hemoglobin 7.8, platelets decreased A, potassium 3.3, replaced. Denies chest pain, palpitations or shortness of breath. Objective - Vital Signs Vital signs: Vital Signs Temp 98.5 F 06/20/22 14:00 Pulse 76 06/20/22 14:00 Resp 16 06/20/22 14:00 BP 144/80 06/20/22 14:00 Pulse Ox 92 L 06/20/22 14:00 FiO2 21 06/18/22 20:24 Intake & Output 06/19/22 06/20/22 06/20/22 18:59 06:59 18:59 Intake Total 720 240 Balance 720 240 Intake: Oral 720 240 Other: # Voids 1 1 - Exam PHYSICAL EXAM: VITAL SIGNS: [As above] GENERAL: Alert and oriented 3, Sitting up at side of bed, no acute distress HEENT: Conjunctivae normal. eyes normal. MMM. NECK: Supple, No JVD. CARDIOVASCULAR: S1, S2 regular, tachycardic. No murmur. RESPIRATION: Breath sounds diminished in the bases. No rhonchi or crackles. ABDOMEN: Soft, nontender, No guarding.Bowel sounds heard. LEGS: No edema. no swelling. PSYCHIATRY: Alert and oriented X3, mood and affect normal. NERVOUS SYSTEM: Cranial N 2-12 grossly normal.No focal deficits. Strength and sensation grossly intact. Skin: Warm and dry, no rash - Labs CBC & Chem 7: 06/20/22 05:17 06/20/22 05:17 Labs: Abnormal Lab Results - Last 24 Hours (Table) 06/20/22 06/20/22 Range/Units 05:17 05:17 RBC 2.09 L (4.40-5.60) X 10*6/uL Hgb 7.8 L (13.0-17.0) g/dL Hct 24.9 L (39.6-50.0) % MCV 119.1 H (80.0-97.0) fL MCH 37.3 H (27.0-32.0) pg MCHC 31.3 L (32.0-37.0) g/dL RDW 18.6 H (11.5-14.5) % Plt Count 83 L (140-440) X 10*3/uL Plt Count Comment DECREASED A Absolute Nucleated RBC 0.05 H (0.00-0.00) X 10*3/uL Monocytes # 1.80 H (0.20-1.00) X 10*3/uL NRBC/100 WBC Diff 0.7 H (0.0-0.0) /100 WBCS Sodium 133 L (135-145) mmol/L Potassium 3.3 L (3.5-5.5) mmol/L Calcium 8.2 L (8.7-10.3) mg/dL Assessment and Plan Assessment: Abdominal pain radiating around to bilateral flanks, lower back and between scapulas due to metastatic lung disease in a patient with history of primary small cell malignant neoplasm of lung, stage IV. Left pulmonary hilum lung mass with multiple mets in the lung increased in size compared to previous exam Adrenal mass likely secondary to metastatic lesion. Shortness of breath secondary to lung mass COPD GERD Anxiety/depression Previous history of smoking Adrenal insufficiency currently on Cortef at home. Plan: Continue on current medication regime ,monitoring and symptomatic treatment. Electrolyte replacement completed. Pain management as per pain management team; scheduled for palliative radiation today. Close monitoring of CBC, electrolytes with repeat labs ordered for a.m. Prognosis guarded given mult iple complex medical issues. The impression and plan of care has been dictated as directed. : I performed a history and examination of this patient, discussed the same with the dictator. I agree with the dictator's note ,documented as a scribe. Any additional findings or plans will be noted.
[2022-06-20] MEDS: traZODone HCL 100 MG TAB PO SCH (20:06)
[2022-06-20] MEDS: ALPRAZolam 0.5 MG TAB PO PRN (23:06)
[2022-06-21] MEDS: MORPHINE SULFATE ER 30 MG TABLET PO PRN ×2 (01:32→20:36)
[2022-06-21] MEDS: HYDROmorphone 1 MG/ML 1 ML SYRINGE IVP PRN ×3 (02:48→20:41)
[2022-06-21 06:59] LABS: African American GFR (CKD) >90 (>60 ml/min/1.73 sqM); Anion Gap 8 mmol/L; Blood Urea Nitrogen 14 mg/dL (9-20); Calcium 8.1 mg/dL (8.4-10.2); Carbon Dioxide 25 mmol/L (22-30); Chloride 99 mmol/L (98-107); Glucose 132 mg/dL (74-99); Non-African American GFR(CKD) >90 (>60 ml/min/1.73 sqM); Potassium 4.1 mmol/L (3.5-5.1); Sodium 132 mmol/L (137-145)
[2022-06-21] MEDS: SUCRALFATE 1 GM TAB PO SCH ×4 (07:30→20:36)
[2022-06-21 07:31] LABS: Anisocytosis Slight; HCT 23.4 % (39.0-53.0); HGB 7.5 gm/dL (13.0-17.5); Hypochromasia Moderate; MCH 36.6 pg (25.0-35.0); MCV 114.4 fL (80.0-100.0); Macrocytosis Marked; Mean Platelet Volume 9.2; Poikilocytosis Slight; RBC 2.05 m/uL (4.30-5.90); RDW 18.2 % (11.5-15.5)
[2022-06-21] MEDS: HYDROCORTISONE 20 MG TAB PO SCH (07:31)
[2022-06-21] MEDS: ENOXAPARIN 30 MG/0.3 ML SYRINGE SQ SCH (07:31)
[2022-06-21] MEDS: FAMOTIDINE 20 MG TAB PO SCH (07:31)
[2022-06-21 07:32] LABS: Platelet Count 92 k/uL (150-450)
[2022-06-21] MEDS: ATORVASTATIN 20 MG TAB PO SCH (07:32)
[2022-06-21] MEDS: OXcarbazepine 300 MG TAB PO SCH ×2 (07:32→20:39)
[2022-06-21] MEDS: PANTOPRAZOLE 40 MG TABLET PO SCH ×2 (07:32→20:36)
[2022-06-21] MEDS: GABAPENTIN 100 MG CAP PO SCH ×2 (07:32→20:36)
[2022-06-21] MEDS: BUDESONIDE 0.25 MG/2 ML NEBU INHALATION SCH ×2 (08:57→21:27)
[2022-06-21] MEDS ORDERED: PEG 3350 (236 GM/BTL) + LYTES 4,000 ML BOTTLE PO ONE (09:00)
--- NOTE | 2022-06-21 11:17 | P.PN ---
Progress Note - Text Progress Note Date: 06/21/22 Patient not seen, off the floor receiving second radiation treatment. The impression and plan of care has been dictated as directed. : I performed a history and examination of this patient, discussed the same with the dictator. I agree with the dictator's note ,documented as a scribe. Any additional findings or plans will be noted.
--- NOTE | 2022-06-21 11:43 | P.PN ---
Subjective Progress Note Date: 06/21/22 CHIEF COMPLAINT: Abdominal pain HISTORY OF PRESENT ILLNESS: This is a 62-year-old male with a known history of metastatic lung cancer. Patient currently undergoing radiation treatment. Surgical service consulted for evaluation of patient's abdominal pain with endoscopies. Patient started GoLYTELY prep today. He has been tachycardic. Heart rate is up to 132. He does have some underlying anxiety issues. Medicine service is aware and his consulted cardiology. Afebrile. WBC is 7 hemoglobin 7.8 down to 7.5. Repeat potassium is up from 3.3-4.1 Patient seen and examined with Dr. carter PHYSICAL EXAM: VITAL SIGNS: Reviewed. GENERAL: Well-developed in no acute distress. HEENT: No sclera icterus. Extraocular movements grossly intact. Moist buccal mucosa. Head is atraumatic, normocephalic. ABDOMEN: Soft. Nondistended. NEUROLOGIC: Alert and oriented. Cranial nerves II through XII grossly intact. ASSESSMENT: 1. Abdominal pain 2. Lung cancer with metastatic disease 3. Hypokalemia 4. Tachycardia being evaluated by cardiology PLAN: -EGD and colonoscopy scheduled for tomorrow, 06/22/[address] carter -Clear liquid diet today -Continue GoLYTELY prep -Nothing by mouth after midnight Physician Forensic Science Examiner note has been reviewed by physician. Signing provider agrees with the documented findings, assessment, and plan of care. Objective - Vital Signs Vital signs: Vital Signs Temp 98.0 F 06/21/22 07:59 Pulse 84 06/21/22 07:59 Resp 22 06/21/22 07:59 BP 113/63 06/21/22 07:59 Pulse Ox 97 06/21/22 07:59 FiO2 21 06/18/22 20:24 Intake & Output 06/20/22 06/21/22 06/21/22 18:59 06:59 18:59 Intake Total 600 Balance 600 Intake: Oral 600 Other: # Voids 3 1 - Labs CBC & Chem 7: 06/21/22 06:26 06/21/22 06:26 Labs: Abnormal Lab Results - Last 24 Hours (Table) 06/21/22 06/21/22 Range/Units 06:26 06:26 RBC 2.05 L (4.30-5.90) m/uL Hgb 7.5 L (13.0-17.5) gm/dL Hct 23.4 L (39.0-53.0) % MCV 114.4 H (80.0-100.0) fL MCH 36.6 H (25.0-35.0) pg RDW 18.2 H (11.5-15.5) % Plt Count 92 L (150-450) k/uL Macrocytosis Marked A Sodium 132 L (137-145) mmol/L Creatinine 0.65 L (0.66-1.25) mg/dL Glucose 132 H (74-99) mg/dL Calcium 8.1 L (8.4-10.2) mg/dL
[2022-06-21] MEDS: IPRATROPIUM-ALBUTEROL 3 ML NEB INHALATION PRN ×3 (12:02→21:27)
[2022-06-21] MEDS: METOPROLOL TARTRATE 12.5 MG TAB PO SCH ×2 (12:21→20:36)
--- NOTE | 2022-06-21 12:57 | CA ---
Transthoracic Echo Report Name: Luiz Sanchez Age: 62 Gender: M : 1960 Exam Date: 06/21/2022 10:39 Exam Location: [facility] Ht (in): 64 Wt (lb): 171 Ordering Physician: Maria D Worthy Attending/Referring Phys: Arnoldo Hackett DO Crane Chaser April Slater, KIMBERLEY Procedure CPT: Indications: SOB, pericardiac effusion. Hx metastatic lung CA Cardiac Hx: Technical Quality: Fair Contrast 1: Total Dose (mL): Contrast 2: Total Dose (mL): MEASUREMENTS (Male / Female) Normal Values 2D ECHO LV Diastolic Diameter PLAX 4.2 cm 4.2 - 5.9 / 3.9 - 5.3 cm LV Systolic Diameter PLAX 3.4 cm IVS Diastolic Thickness 1.1 cm 0.6 - 1.0 / 0.6 - 0.9 cm LVPW Diastolic Thickness 1.5 cm 0.6 - 1.0 / 0.6 - 0.9 cm LV Relative Wall Thickness 0.6 M-MODE MV E Point Septal Separation 0.4 cm FINDINGS Left Ventricle Left ventricular ejection fraction is estimated at 55-60 %. Mildly increased left ventricular wall thickness. Right Ventricle Normal right ventricular size and function. Right Atrium Normal right atrial size. Left Atrium Normal left atrial size. Mitral Valve Mitral annular calcification. Mild mitral regurgitation. Aortic Valve Trileaflet aortic valve. Tricuspid Valve Structurally normal tricuspid valve. Mild tricuspid regurgitation. Pulmonic Valve Pulmonic valve not well visualized. Pericardium Minimal pericardial effusion (normal variant). Aorta Normal size aortic root and proximal ascending aorta. CONCLUSIONS 1. Normal left ventricle size and systolic function 2. Mild mitral and tricuspid regurgitation Previewed by: Dr. Carrie De Leon MD (Electronically Signed) Final Date: 21 June 2022 12:56
--- NOTE | 2022-06-21 13:54 | P.CRDCN ---
History of Present Illness History of present illness: HISTORY OF PRESENTING ILLNESS This is a pleasant 62-year-old male with a past medical history of stage IV metastatic small cell lung cancer s/p radiation and chemotherapy, adrenal insufficiency COPD, hyperlipidemia, former tobacco use. He does not follow with a commission associate. Cardiology consulted for anemia, tachycardia and shortness of breath. Patient presented to the ER on 06/17/2022 with complaints of worsening back pain, shortness of breath, and abdominal pain. He states he has been having these symptoms for quite some time, however they have worsened. Patient is currently being followed up Oncology and Surgery. He was found to have worsening anemia, and CT scans with increased size of metastatic disease. Patient denies any chest pain, lightheadedness, dizziness, syncope or near syncope or palpitations. He denies any blood in his stool or urine, denies any constipation or diarrhea. Denies an worsening LE edema, symptoms of orthopnea or PND. Telemetry reviewed patient has been maintaining sinus mechanism HR 100-120. Patient denies any history of CAD, TN, stroke, seizures, or hypertension. He is a former smoker, quit a little over 1 year ago. DIAGNOSTICS * EKG reveals sinus tachycardia, heart rate 117, no significant STT wave abnormalities. * Telemetry tracings indicate sinus tachycardia 100-120s, no arrhythmia noted. * CTA- reported no evidence of pulmonary embolism, large mass at the left pulmonary hilum with encasement of the left lower lobe pulmonary artery which has progressed compared to old exam. Left upper lobe masslike infiltrate slightly decreased in size compared to old exam, massive mediastinal adenopathy without change, there is right middle lobe nodule which is new compared to exam, could be metastatic disease.left adrenal mass increased compared to old exam, consistent with metastatic disease * CT abdomen and pelvis reported pericardial effusion is slightly increased compared to last exam. No masses of the left cardiac border are the same or increased, adrenal mass slightly increased, retrocrural metastatic nodules in the left paraspinal region slightly increased * Laboratory reviewed, WBC 7.0, hemoglobin 7.5, platelets 92, sodium 132, potassium 4.1, BUN 14, 70 g 0.6 * Current home cardiac medications include atorvastatin 20 mg daily REVIEW OF SYSTEMS CONSTITUTIONAL: Denies fever or chills. CARDIOVASCULAR: Denies chest pain, +shortness of breath, Denies orthopnea, PND or palpitations. RESPIRATORY: Denies cough. GASTROINTESTINAL: + abdominal pain, Denies diarrhea, constipation, nausea or vomiting. MUSCULOSKELETAL: Reports back pain NEUROLOGIC: Denies numbness, tingling, headache or weakness. ENDOCRINE: Denies fatigue, weight change, polydipsia or polyurina. GENITOURINARY: Denies burning, hematuria or urgency with micturation. HEMATOLOGIC: Denies bleeding. PHYSICAL EXAMINATION Blood pressure 113/63, heart rate 84, afebrile, oxygen saturations 97% on room air CONSTITUTIONAL: No apparent distress. HEENT: Head is normocephalic. Pupils are equal, round. Sclerae anicteric. Mucous membranes of the mouth are moist. No JVD. No carotid bruit. CHEST EXAMINATION: Lungs diminished with expiratory wheezing bilateral upper lo bes to auscultation. No chest wall tenderness is noted on palpation or with deep breathing. HEART EXAMINATION: Regular rate and rhythm. S1, S2 heard. No murmurs, gallops or rub. ABDOMEN: Soft, tenderness to palpation. Positive bowel sounds. EXTREMITIES: 2+ peripheral pulses, mild non-pitting bilateral ankle edema and no calf tenderness. NEUROLOGIC EXAMINATION: Patient is awake, alert and oriented x3. ASSESSMENT Sinus tachycardia Stage IV metastatic small cell lung cancer CTA reported increased metastasis in lungs CT reported pericardial effusion slightly increased from old exam Anemia Thrombocytopenia History of COPD GERD History of tobacco use Adrenal insufficiency Hyperlipidemia PLAN Patient in sinus tachycardia, related to current metastatic lung cancer, pain, anemia. Echocardiogram revealed EF 55-60%, mild mitral regurgitation, mild tricuspid regurgitation. Do not recommend starting any cardiac medications at this time. No further changes from cardiology perspective. We will follow the patient as needed. Please reach out with any further questions or concerns. Nurse practitioner note has been reviewed by physician. Signing provider agrees with the documented findings, assessment, and plan of care. Past Medical History Past Medical History: Cancer, COPD, GERD/Reflux Additional Past Medical History / Comment(s): LUNG CANCER WITH TUMOR IN STOMACH AND STATES ALSO IN HIS NECK.,. RECEIVING CHEMOTHERAPY., DDD WITH BACK ,HIP & LEG PAIN., (PAIN CLINIC PATIENT)., EMPHYSEMA., GASTRITIS. History of Any Multi-Drug Resistant Organisms: None Reported Past Surgical History: Joint Replacement, Orthopedic Surgery Additional Past Surgical History / Comment(s): RIGHT AND LEFT TOTAL HIPS, RIGHT SHOULDER SURGERY. Past Anesthesia/Blood Transfusion Reactions: No Reported Reaction Past Psychological History: Anxiety, Depression Smoking Status: Former smoker Past Alcohol Use History: None Reported Past Drug Use History: None Reported - Past Family History Father Family Medical History: No Reported History Medications and Allergies Home Medications Medication Instructions Recorded Confirmed Type Atorvastatin [Lipitor] 20 mg PO DAILY 03/11/21 06/17/22 History OXcarbazepine [Trileptal] 300 mg PO BID 03/11/21 06/17/22 History Pantoprazole Sodium [Protonix] 40 mg PO BID 03/11/21 06/17/22 History Sucralfate [Carafate] 1 gm PO ACHS 03/11/21 06/17/22 History traZODone HCL [Desyrel] 100 mg PO HS 03/11/21 06/17/22 History ALPRAZolam [Xanax] 0.5 mg PO BID PRN 01/13/22 06/17/22 History Budesonide [Pulmicort] 0.25 mg INHALATION RT-BID 01/13/22 06/17/22 History Hydrocortisone [Cortef] 10 mg PO DAILY@1400 01/13/22 06/17/22 History Ipratropium-Albuterol Nebulize 3 ml INHALATION RT-QID PRN 01/13/22 06/17/22 History [Duoneb 0.5 mg-3 mg/3 ml Soln] metFORMIN HCL 500 mg PO BID 01/13/22 06/17/22 History Albuterol Nebulized [Ventolin 2.5 mg INHALATION RT-QID PRN 02/23/22 06/17/22 History Nebulized] Fluconazole [Diflucan] 100 mg PO DAILY PRN 02/23/22 06/17/22 History Insulin Aspart [NovoLOG Flexpen] See Protocol SQ ACHS 02/24/22 06/17/22 History Dicyclomine [Bentyl] 10 mg PO TID PRN 10 Days #30 04/12/22 06/17/22 Rx capsule Famotidine 40 mg PO DAILY 04/12/22 06/17/22 History Metoclopramide [Reglan] 5 mg PO AC-BID PRN 04/12/22 06/17/22 History Semaglutide [Rybelsus] 3 mg PO DAILY 04/12/22 06/17/22 History Gabapentin [Neurontin] 100 mg PO BID 30 Days #60 cap 06/15/22 06/17/22 Rx Hydrocortisone [Cortef] 20 mg PO DAILY@0800 06/17/22 06/17/22 History Morphine Sulfate ER [Ms Contin] 30 mg PO Q12HR PRN 06/17/22 06/17/22 History fentaNYL 25MCG/HR PATCH [Duragesic 1 patch TRANSDERM Q72H 06/17/22 06/17/22 History 25MCG/HR] polyethylene glycoL 3350 [Miralax] 17 gm PO DAILY PRN 06/17/22 06/17/22 History Allergies Allergy/AdvReac Type Severity Reaction Status Date / Time No Known Allergies Allergy Verified 06/17/22 21:46 Physical Exam Vitals: Vital Signs Temp Pulse Pulse Resp BP Pulse Ox 06/21/22 07:59 98.0 F 84 22 113/63 97 06/21/22 02:52 98.4 F 132 H 21 134/69 91 L 06/20/22 20:44 100 06/20/22 20:34 104 H 06/20/22 20:29 98.1 F 109 H 19 106/69 95 06/20/22 16:08 102 H 06/20/22 15:58 102 H 06/20/22 14:00 98.5 F 76 16 144/80 92 L 06/20/22 12:22 114 H 06/20/22 12:12 115 H Intake and Output 06/20/22 06/21/22 06/21/22 22:59 06:59 14:59 Intake Total 360 Balance 360 Intake: Oral 360 Other: # Voids 3 1 Results 06/21/22 06:26 06/21/22 06:26 CBC 06/20/22 06/21/22 Range/Units 05:17 06:26 WBC 7.25 7.0 (4.50-10.00) X 10*3/uL RBC 2.09 L 2.05 L (4.40-5.60) X 10*6/uL Hgb 7.8 L 7.5 L (13.0-17.0) g/dL Hct 24.9 L 23.4 L (39.6-50.0) % Plt Count 83 L 92 L (140-440) X 10*3/uL Comprehensive Metabolic Panel 06/21/22 Range/Units 06:26 Sodium 132 L (137-145) mmol/L Potassium 4.1 (3.5-5.1) mmol/L Chloride 99 (98-107) mmol/L Carbon Dioxide 25 (22-30) mmol/L BUN 14 (9-20) mg/dL Creatinine 0.65 L (0.66-1.25) mg/dL Glucose 132 H (74-99) mg/dL Calcium 8.1 L (8.4-10.2) mg/dL Current Medications Generic Name Dose Route Start Last Admin Trade Name Freq PRN Reason Stop Dose Admin Albuterol/Ipratropium 3 ml 06/18/22 10:49 06/20/22 20:33 Ipratropium-Albuterol 3 Ml Neb INHALATION 3 ml RT-QID PRN Administration Shortness Of Breath Alprazolam 0.5 mg 06/18/22 10:49 06/20/22 23:06 Alprazolam 0.5 Mg Tab PO 0.5 mg BID PRN Administration Anxiety Atorvastatin Calcium 20 mg 06/19/22 09:00 06/21/22 07:32 Atorvastatin 20 Mg Tab PO 20 mg DAILY CHETNA Administration Budesonide 0.25 mg 06/18/22 20:00 06/21/22 08:57 Budesonide 0.25 Mg/2 Ml Nebu INHALATION Not Given RT-BID [facility] Dicyclomine HCl 10 mg 06/18/22 10:49 Dicyclomine 10 Mg Cap PO TID PRN STOMACH PAIN Enoxaparin Sodium 30 mg 06/19/22 09:00 06/21/22 07:31 Enoxaparin 30 Mg/0.3 Ml Syringe SQ 30 mg DAILY CEHTNA Administration Famotidine 40 mg 06/18/22 11:00 06/21/22 07:31 Famotidine 20 Mg Tab PO Not Given DAILY CHETNA Fentanyl 1 patch 06/21/22 12:00 Fentanyl 25mcg/Hr Patch TRANSDERM Q48H [facility] Protocol Gabapentin 100 mg 06/18/22 21:00 06/21/22 07:32 Gabapentin 100 Mg Cap PO 100 mg BID CHETNA Administration Hydrocortisone 10 mg 06/18/22 14:00 06/20/22 13:35 Hydrocortisone 10 Mg Tab PO 10 mg DAILY@1400 CHETNA Administration Hydrocortisone 20 mg 06/19/22 08:00 06/21/22 07:31 Hydrocortisone 20 Mg Tab PO 20 mg DAILY@0800 CHETNA Administration Hydromorphone HCl 1 mg 06/17/22 19:11 06/21/22 02:48 Hydromorphone 1 Mg/Ml 1 Ml Syringe IVP 1 mg Q3HR PRN Administration Severe Pain (Scale 7 to 10) Metoclopramide HCl 5 mg 06/19/22 10:37 Metoclopramide 5 Mg Tab PO AC-BID PRN Nausea Miscellaneous Information 1 each 06/19/22 17:42 Potassium Replacement Protocol 1 Each Misc MISCELLANE DAILY PRN Per Protocol Protocol Morphine Sulfate 30 mg 06/18/22 10:49 06/21/22 01:32 Morphine Sulfate Er 30 Mg Tablet PO 30 mg Q12HR PRN Administration Pain Protocol Naloxone HCl 0.2 mg 06/17/22 19:11 Naloxone 0.4 Mg/Ml 1 Ml Vial IV Q2M PRN Opioid Reversal Oxcarbazepine 300 mg 06/18/22 21:00 06/21/22 07:32 Oxcarbazepine 300 Mg Tab PO 300 mg BID CHETNA Administration Pantoprazole Sodium 40 mg 06/18/22 21:00 06/21/22 07:32 Pantoprazole 40 Mg Tablet PO 40 mg BID CHETNA Administration Polyethylene Glycol 17 gm 06/18/22 10:49 Polyethylene Glycol 3350 17 Gm Powd.Pack PO DAILY PRN Constipation Sucralfate 1 gm 06/20/22 10:15 06/21/22 07:30 Sucralfate 1 Gm Tab PO 1 gm ACHS CHETNA Administration Trazodone HCl 100 mg 06/18/22 21:00 06/20/22 20:06 Trazodone Hcl 100 Mg Tab PO 100 mg HS CHETNA Administration Intake and Output 06/20/22 06/21/22 06/21/22 22:59 06:59 14:59 Intake Total 360 Balance 360 Intake: Oral 360 Other: # Voids 3 1 06/21/22 06:26 06/21/22 06:26
[2022-06-21] MEDS: HYDROCORTISONE 10 MG TAB PO SCH (14:52)
[2022-06-21] MEDS: traZODone HCL 100 MG TAB PO SCH (20:36)
[2022-06-22] MEDS: HYDROmorphone 1 MG/ML 1 ML SYRINGE IVP PRN ×6 (03:01→23:53)
[2022-06-22 05:58] LABS: Anisocytosis Slight; HCT 26.4 % (39.0-53.0); Hypochromasia Marked; MCH 36.2 pg (25.0-35.0); MCHC 30.3 g/dL (31.0-37.0); Macrocytosis Marked; Mean Platelet Volume 8.8; Poikilocytosis Slight; RBC 2.21 m/uL (4.30-5.90); RDW 17.6 % (11.5-15.5); WBC 4.7 k/uL (3.8-10.6)
[2022-06-22 05:59] LABS: MCV 119.6 fL (80.0-100.0); Platelet Count 90 k/uL (150-450)
[2022-06-22 06:01] LABS: African American GFR (CKD) >90 (>60 ml/min/1.73 sqM); Anion Gap 9 mmol/L; Blood Urea Nitrogen 7 mg/dL (9-20); Calcium 8.2 mg/dL (8.4-10.2); Carbon Dioxide 26 mmol/L (22-30); Chloride 100 mmol/L (98-107); Glucose 99 mg/dL (74-99); Non-African American GFR(CKD) >90 (>60 ml/min/1.73 sqM); Potassium 3.2 mmol/L (3.5-5.1); Sodium 135 mmol/L (137-145)
[2022-06-22] MEDS ORDERED: Potassium Replacement Protocol 1 EACH MISC MISCELLANE PRN (06:07)
[2022-06-22] MEDS: BUDESONIDE 0.25 MG/2 ML NEBU INHALATION SCH ×2 (07:37→20:34)
[2022-06-22] MEDS: IPRATROPIUM-ALBUTEROL 3 ML NEB INHALATION PRN ×3 (07:37→20:34)
[2022-06-22] MEDS: POTASSIUM CHLORIDE ER 20 MEQ TAB.ER PO SCH ×2 (08:00→08:33)
[2022-06-22] MEDS ORDERED: POTASSIUM CHLORIDE ER 20 MEQ TAB.ER PO STA (08:07)
[2022-06-22] MEDS: PANTOPRAZOLE 40 MG TABLET PO SCH ×2 (08:22→21:27)
[2022-06-22] MEDS: GABAPENTIN 100 MG CAP PO SCH ×2 (08:23→21:26)
[2022-06-22] MEDS: SUCRALFATE 1 GM TAB PO SCH ×4 (08:23→21:27)
[2022-06-22] MEDS: ATORVASTATIN 20 MG TAB PO SCH (08:23)
[2022-06-22] MEDS: ENOXAPARIN 30 MG/0.3 ML SYRINGE SQ SCH (08:23)
[2022-06-22] MEDS: FAMOTIDINE 20 MG TAB PO SCH (08:23)
[2022-06-22] MEDS: METOPROLOL TARTRATE 12.5 MG TAB PO SCH ×2 (08:23→21:27)
[2022-06-22] MEDS: HYDROCORTISONE 20 MG TAB PO SCH (08:24)
[2022-06-22] MEDS: OXcarbazepine 300 MG TAB PO SCH ×2 (08:24→21:26)
[2022-06-22] MEDS ORDERED: PROPOFOL 10 MG/ML 20 ML VIAL IV ONE (10:11)
[2022-06-22] MEDS ORDERED: LACTATED RINGERS 1,000 ML IV ONE (10:13)
--- NOTE | 2022-06-22 10:38 | P.OP ---
Date of Procedure: 06/22/22 Preoperative Diagnosis: Abdominal pain Metastatic colon cancer Postoperative Diagnosis: Gastritis Right colon lipoma Procedure(s) Performed: EGD Colonoscopy Anesthesia: MAC Surgeon: Rod Muro Pathology: other (Stomach, right colon) Condition: stable Disposition: PACU Description of Procedure: The patient's placed on the endoscopy table in the lateral position. He received IV sedation. The gastroscope patient oropharynx passed in the esophagus stomach. Scope was placed through the pylorus. The first and second portion of the duodenum appeared normal. Scope was then brought back the antrum and there was evidence of some gastritis. Scope was then withdrawn and in the mid portion stomach there was increased gastritis. This area is biopsied. The remainder the stomach appeared normal. The GE junction was at 47 is. The distal esophagus appeared normal. The proximal esophagus appeared normal. Scope withdrawn for patient. Next digital rectal exam was performed which revealed a few external hemorrhoids. The flexible colonoscope was then placed in patient's anus and passed throughout the entire colon. The ileocecal valve was visually is. At this level cecum there was a small lipoma at the ileocecal valve. This area is biopsied. The ascending colon appeared normal. The transverse colon appeared normal. The descending and sigmoid colon had a few scattered diverticuli. The scope was brought back the rectum this appeared normal. Scope withdrawn for patient.
--- NOTE | 2022-06-22 12:08 | P.PN ---
Progress Note - Text Progress Note Date: 06/22/22 Attempted to see patient twice today, once on MedSurg unit, another in recovery room. Patient currently in endoscopic procedure room-patient not seen. The impression and plan of care has been dictated as directed. : I performed a history and examination of this patient, discussed the same with the dictator. I agree with the dictator's note ,documented as a scribe. Any additional findings or plans will be noted.
[2022-06-22] MEDS: HYDROCORTISONE 10 MG TAB PO SCH (13:51)
[2022-06-22] MEDS: MORPHINE SULFATE ER 30 MG TABLET PO PRN (17:10)
[2022-06-22] MEDS: traZODone HCL 100 MG TAB PO SCH (21:27)
[2022-06-22] MEDS: ALPRAZolam 0.5 MG TAB PO PRN (23:57)
[2022-06-23] MEDS: HYDROmorphone 1 MG/ML 1 ML SYRINGE IVP PRN ×4 (07:12→21:51)
[2022-06-23] MEDS: FAMOTIDINE 20 MG TAB PO SCH (07:15)
[2022-06-23] MEDS: SUCRALFATE 1 GM TAB PO SCH ×4 (07:15→20:32)
[2022-06-23] MEDS: OXcarbazepine 300 MG TAB PO SCH ×2 (07:15→20:32)
[2022-06-23] MEDS: GABAPENTIN 100 MG CAP PO SCH ×2 (07:16→20:33)
[2022-06-23] MEDS: PANTOPRAZOLE 40 MG TABLET PO SCH ×2 (07:16→20:32)
[2022-06-23] MEDS: METOPROLOL TARTRATE 12.5 MG TAB PO SCH ×2 (07:16→20:32)
[2022-06-23] MEDS: ENOXAPARIN 30 MG/0.3 ML SYRINGE SQ SCH (07:16)
[2022-06-23] MEDS: HYDROCORTISONE 20 MG TAB PO SCH (07:16)
[2022-06-23] MEDS: ATORVASTATIN 20 MG TAB PO SCH (07:16)
[2022-06-23] MEDS: IPRATROPIUM-ALBUTEROL 3 ML NEB INHALATION PRN ×3 (07:21→19:32)
[2022-06-23] MEDS: BUDESONIDE 0.25 MG/2 ML NEBU INHALATION SCH ×2 (07:21→19:31)
[2022-06-23] MEDS: MORPHINE SULFATE ER 30 MG TABLET PO PRN ×2 (10:22→22:42)
--- NOTE | 2022-06-23 15:06 | P.PN ---
Subjective Progress Note Date: 06/23/22 CHIEF COMPLAINT: Abdominal pain HISTORY OF PRESENT ILLNESS: This is a 62-year-old male with a known history of metastatic lung cancer. Patient currently undergoing radiation treatment. Patient is status post EGD and colonoscopy that shows gastritis, right colon lipoma and diverticulosis. Patient does complain of the same abdominal pain. Denies any nausea or vomiting. He is having bowel movements. He is tolerating diet. Patient seen and examined with Dr. carter PHYSICAL EXAM: VITAL SIGNS: Reviewed. GENERAL: Well-developed in no acute distress. HEENT: No sclera icterus. Extraocular movements grossly intact. Moist buccal mucosa. Head is atraumatic, normocephalic. ABDOMEN: Soft. Nondistended. NEUROLOGIC: Alert and oriented. Cranial nerves II through XII grossly intact. ASSESSMENT: 1. Abdominal pain status post EGD and colonoscopy 2. Lung cancer with metastatic disease 3. Hypokalemia PLAN: -Continue regular diet -Continue PPI for gastritis -Continue supportive care Physician Senior Research Executive note has been reviewed by physician. Signing provider agrees with the documented findings, assessment, and plan of care. Objective - Vital Signs Vital signs: Vital Signs Temp 97.7 F 06/23/22 14:00 Pulse 98 06/23/22 14:00 Resp 20 06/23/22 14:00 BP 122/57 06/23/22 14:00 Pulse Ox 92 L 06/23/22 14:00 FiO2 21 06/18/22 20:24 Intake & Output 06/22/22 06/23/22 06/23/22 18:59 06:59 18:59 Intake Total 100 Balance 100 Intake: IV 100 Other: Voiding Method Toilet Toilet Toilet - Labs CBC & Chem 7: 06/22/22 05:34 06/22/22 05:34
[2022-06-23] MEDS: HYDROCORTISONE 10 MG TAB PO SCH (15:19)
--- NOTE | 2022-06-23 17:52 | P.PN ---
Subjective Progress Note Date: 06/23/22 patient is status post EGD and colonoscopy. He states that his abdominal pain is controlled with IV Dilaudid. begin states that his baseline regimen is not effective. No fever/chills/nausea/vomiting Objective - Vital Signs Vital signs: Vital Signs Temp 97.7 F 06/23/22 14:00 Pulse 98 06/23/22 14:00 Resp 20 06/23/22 14:00 BP 122/57 06/23/22 14:00 Pulse Ox 92 L 06/23/22 14:00 FiO2 21 06/18/22 20:24 Intake & Output 06/22/22 06/23/22 06/23/22 18:59 06:59 18:59 Intake Total 100 Balance 100 Intake: IV 100 Other: Voiding Method Toilet Toilet Toilet - Constitutional General appearance: Present: no acute distress - EENT Eyes: Present: EOMI ENT: Present: hearing grossly normal, normal oropharynx - Respiratory Respiratory: bilateral: diminished - Cardiovascular Rhythm: regular Heart sounds: normal: S1, S2 - Gastrointestinal General gastrointestinal: Present: normal bowel sounds, soft - Integumentary Integumentary: Present: normal - Neurologic Neurologic: Present: CNII-XII intact - Musculoskeletal Musculoskeletal: Present: generalized weakness, strength equal bilaterally - Psychiatric Psychiatric: Present: A&O x's 3, appropriate affect - Labs CBC & Chem 7: 06/22/22 05:34 06/22/22 05:34 Assessment and Plan (1) Abdominal pain Narrative/Plan: this remains persistent, with control of symptoms with the Dilaudid. The patient again states that his baseline regimen of to long-acting preparations is not effective. - the patient's EGD and colonoscopy did not reveal a specific etiology for his pain. The patient did have some gastritis which would not explain the generalized, severe abdominal pain that he is having. Colonoscopy was essentially negative. - Case discussed in detail with radiation oncology. It was again felt that the paraspinal masses could potentially be contributing to the left back and flank pain but would unlikely be causing the generalized abdominal pain. The left adrenal mass which appears to be larger, was close to the celiac plexus and could be causing pain due to local patient affect. However his abdominal pain actually predates the increase in size of the adrenal mass. In any case the paraspinal masses and the adrenal nodules are both going to be targeted with the ongoing radiation. - Pain is being managed by the pain service. Await their recommendations - the patient will likely need increasing his long-acting the patient knows, and probably addition of an oral short acting preparation for the outpatient setting. It may also be reasonable for the pain service to consider celiac plexus block. Current Visit: No Status: Acute Priority: High Code(s): R10.9 - UNSPECIFIED ABDOMINAL PAIN SNOMED Code(s): 56354632 (2) COPD exacerbation Narrative/Plan: this has improved with ongoing treatment with respiratory status is back to baseline Current Visit: Yes Status: Acute Code(s): J44.1 - CHRONIC OBSTRUCTIVE PULMONARY DISEASE W (ACUTE) EXACERBATION SNOMED Code(s): 232036061 (3) Primary small cell malignant neoplasm of lung, stage 4 Narrative/Plan: the patient is to start third line therapy with Lubrinectedin after discharge Current Visit: No Status: Acute Code(s): C34.90 - MALIGNANT NEOPLASM OF UNSP PART OF UNSP BRONCHUS OR LUNG SNOMED Code(s): 95787838580022
[2022-06-23] MEDS: traZODone HCL 100 MG TAB PO SCH (21:56)
--- NOTE | 2022-06-23 22:57 | P.PN ---
Subjective Progress Note Date: 06/23/22 Pt s/p EGD and Colonoscopy showing mild gastritis. He continues to complain of generalized abdominal pain as well as mid back pain that is severe and requiring dilaudid. Hgb stable today. Pt receiving radiation therapy targeting paraspinal mass. Objective - Vital Signs Vital signs: Vital Signs Temp 97.9 F 06/23/22 20:24 Pulse 100 06/23/22 20:24 Resp 16 06/23/22 20:24 BP 118/67 06/23/22 20:24 Pulse Ox 100 06/23/22 20:24 FiO2 21 06/18/22 20:24 Intake & Output 06/23/22 06/23/22 06/24/22 06:59 18:59 06:59 Intake Total 240 Balance 240 Intake: Oral 240 Other: Voiding Method Toilet Toilet # Voids 2 - Exam Gen: well developed, well nourished NAD CV: RRR, no murmur Lungs: Wheezing. No rales Neuro: alert and oriented x3, no focal deficit - Labs CBC & Chem 7: 06/22/22 05:34 06/22/22 05:34 Assessment and Plan Plan: Continue with radiation therapy, oncology and rad oncology following. Monitor Hgb. Pain control
[2022-06-24] MEDS: HYDROmorphone 1 MG/ML 1 ML SYRINGE IVP PRN ×6 (04:06→21:05)
[2022-06-24] MEDS: PANTOPRAZOLE 40 MG TABLET PO SCH ×2 (07:18→21:08)
[2022-06-24] MEDS: FAMOTIDINE 20 MG TAB PO SCH (07:18)
[2022-06-24] MEDS: ATORVASTATIN 20 MG TAB PO SCH (07:18)
[2022-06-24] MEDS: GABAPENTIN 100 MG CAP PO SCH ×2 (07:18→21:08)
[2022-06-24] MEDS: METOPROLOL TARTRATE 12.5 MG TAB PO SCH ×2 (07:18→21:08)
[2022-06-24] MEDS: SUCRALFATE 1 GM TAB PO SCH ×4 (07:18→21:08)
[2022-06-24] MEDS: ENOXAPARIN 30 MG/0.3 ML SYRINGE SQ SCH (07:18)
[2022-06-24] MEDS: HYDROCORTISONE 20 MG TAB PO SCH (07:19)
[2022-06-24] MEDS: OXcarbazepine 300 MG TAB PO SCH ×2 (07:19→21:08)
[2022-06-24] MEDS: BUDESONIDE 0.25 MG/2 ML NEBU INHALATION SCH ×2 (08:02→20:15)
[2022-06-24] MEDS: IPRATROPIUM-ALBUTEROL 3 ML NEB INHALATION PRN (08:03)
[2022-06-24] MEDS: MORPHINE SULFATE ER 30 MG TABLET PO PRN (10:26)
[2022-06-24 10:42] LABS: Basophils # (A) 0.01 X 10*3/uL (0.00-0.10); Basophils % (A) 0.2 %; Eosinophils # (A) 0.13 X 10*3/uL (0.04-0.35); Eosinophils % (A) 2.8 %; HCT 22.4 % (39.6-50.0); HGB 7.1 g/dL (13.0-17.0); Immature Grans, Automated 0.6 %; Immature Platelet Fraction 4.1 % (1.1-6.1); Lymphocytes # (A) 0.84 X 10*3/uL (0.90-5.00); MCH 37.4 pg (27.0-32.0); MCHC 31.7 g/dL (32.0-37.0); MCV 117.9 fL (80.0-97.0); Mean Platelet Volume 10.3 fL (9.5-12.2); Monocytes # (A) 0.66 X 10*3/uL (0.20-1.00); Monocytes % (A) 14.2 %; NRBC Per 100 WBC 0.4 /100 WBCS (0.0-0.0); Neutrophils # (A) 2.99 X 10*3/uL (1.80-7.70); Neutrophils % (A) 64.2 %; Platelet Count 84 X 10*3/uL (140-440); RDW 17.5 % (11.5-14.5); WBC 4.66 X 10*3/uL (4.50-10.00)
--- NOTE | 2022-06-24 10:57 | P.PN ---
Progress Note - Text Progress Note Date: 06/24/22 Patient [place] stable. He still has some vague complaints of abdominal pain. Status post metastatic lung cancer. There is no surgical intervention planned for the patient's abdominal pain.
[2022-06-24] MEDS: IPRATROPIUM-ALBUTEROL 3 ML NEB INHALATION SCH ×3 (11:55→20:15)
[2022-06-24 12:12] LABS: Anion Gap 10.1 mmol/L (10.00-18.00); BUN/Creat Ratio 12.86 Ratio (12.00-20.00); Calcium 8.1 mg/dL (8.7-10.3); Carbon Dioxide 22.8 mmol/L (20.0-27.5); Non-African American GFR(CKD) 111.3 (60.0-200.0); Potassium 4.1 mmol/L (3.5-5.5)
[2022-06-24] MEDS: HYDROCORTISONE 10 MG TAB PO SCH (13:31)
[2022-06-24] MEDS: MORPHINE SULFATE ER 15 MG TABLET PO PRN (18:47)
[2022-06-24] MEDS: traZODone HCL 100 MG TAB PO SCH (21:08)
[2022-06-25] MEDS: HYDROmorphone 1 MG/ML 1 ML SYRINGE IVP PRN ×6 (01:05→23:44)
[2022-06-25] MEDS: SUCRALFATE 1 GM TAB PO SCH ×4 (07:22→19:47)
[2022-06-25] MEDS: PANTOPRAZOLE 40 MG TABLET PO SCH ×2 (07:22→19:47)
[2022-06-25] MEDS: METOPROLOL TARTRATE 12.5 MG TAB PO SCH ×2 (07:22→19:47)
[2022-06-25] MEDS: ENOXAPARIN 30 MG/0.3 ML SYRINGE SQ SCH (07:22)
[2022-06-25] MEDS: HYDROCORTISONE 20 MG TAB PO SCH (07:22)
[2022-06-25] MEDS: ATORVASTATIN 20 MG TAB PO SCH (07:22)
[2022-06-25] MEDS: GABAPENTIN 100 MG CAP PO SCH ×2 (07:22→19:47)
[2022-06-25] MEDS: FAMOTIDINE 20 MG TAB PO SCH (07:22)
[2022-06-25] MEDS: OXcarbazepine 300 MG TAB PO SCH ×2 (07:23→19:47)
[2022-06-25] MEDS: BUDESONIDE 0.25 MG/2 ML NEBU INHALATION SCH ×2 (07:32→19:30)
[2022-06-25] MEDS: IPRATROPIUM-ALBUTEROL 3 ML NEB INHALATION SCH ×4 (07:32→19:30)
[2022-06-25] MEDS: MORPHINE SULFATE ER 15 MG TABLET PO PRN (10:32)
[2022-06-25 11:26] LABS: Basophils # (A) 0.02 X 10*3/uL (0.00-0.10); Basophils % (A) 0.4 %; Eosinophils # (A) 0.14 X 10*3/uL (0.04-0.35); Eosinophils % (A) 2.7 %; HCT 24.7 % (39.6-50.0); HGB 7.9 g/dL (13.0-17.0); Immature Grans, Automated 0.8 %; Lymphocytes # (A) 0.76 X 10*3/uL (0.90-5.00); Lymphocytes % (A) 14.8 %; MCH 37.4 pg (27.0-32.0); MCV 117.1 fL (80.0-97.0); Monocytes # (A) 0.84 X 10*3/uL (0.20-1.00); Monocytes % (A) 16.3 %; NRBC Per 100 WBC 0.4 /100 WBCS (0.0-0.0); Neutrophils # (A) 3.35 X 10*3/uL (1.80-7.70); Platelet Count 85 X 10*3/uL (140-440); RBC 2.11 X 10*6/uL (4.40-5.60); RDW 17.4 % (11.5-14.5); WBC 5.15 X 10*3/uL (4.50-10.00)
[2022-06-25 11:36] LABS: African American GFR (CKD) 121.2 (60.0-200.0); Albumin 3.3 g/dL (3.8-4.9); Albumin/Globulin Ratio 1.24 (1.60-3.17); Anion Gap 9.9 mmol/L (10.00-18.00); BUN/Creat Ratio 12.08 Ratio (12.00-20.00); Blood Urea Nitrogen 7.7 mg/dL (9.0-27.0); Calcium 8.5 mg/dL (8.7-10.3); Carbon Dioxide 25.7 mmol/L (20.0-27.5); Globulin 2.7 g/dL (1.6-3.3); Non-African American GFR(CKD) 104.6 (60.0-200.0); Potassium 4.2 mmol/L (3.5-5.5); Total Bilirubin 0.3 mg/dL (0.30-1.20)
[2022-06-25] MEDS: HYDROCORTISONE 10 MG TAB PO SCH (11:37)
--- NOTE | 2022-06-25 13:22 | P.PN ---
Progress Note - Text Progress Note Date: 06/25/22 Patient remains unchanged. He still has some mild vague abdominal pain. On exam vital signs are stable. Abdomen soft minimally diffuse. Metastatic lung cancer. Chronic abdominal pain. Patient will continue receive supportive care.
--- NOTE | 2022-06-25 16:20 | PN ---
PROGRESS NOTE SUBJECTIVE: This 62-year-old gentleman admitted with possible , complaining of severe back pain. The patient with multiple medications at home, pain medication adjusted. The patient apparently also has some confusion present on admission. PAST MEDICAL HISTORY: Reviewed. REVIEW OF SYSTEMS: A 14-point review is negative as mentioned earlier. CURRENT MEDICATIONS: Reviewed include Dilaudid and also some medications reviewed. PHYSICAL EXAMINATION: VITAL SIGNS: Pulse is 100, blood pressure 101/60, respirations 18. HEENT: Conjunctivae normal. NECK: No jugular vein distention. RESPIRATIONS: Diminished at the bases. Few scattered rhonchi and crackles. ABDOMEN: Soft, nontender. LEGS: No edema. NERVOUS SYSTEM: No focal deficits. LABS: Reviewed, hemoglobin 7.1. The rest of the labs are noted. ASSESSMENT: 1. Diffuse pain and back pain, possibly secondary to metastatic malignancy. 2. History of chronic obstructive pulmonary disease. 3. Gastroesophageal reflux disease. 4. History of lung cancer with mets. 5. Anxiety, depression. RECOMMENDATIONS: 1. Recommended to continue current management and I would increase the dose of long- acting morphine to 45 mg and cut down the IV dose of Dilaudid. 2. Otherwise, DVT prophylaxis. Continue the rest of medications. 3. Prognosis guarded because of the multiple complex medical issues and further recommendations to follow. See orders for details. MMODL / IJN: [id number] / MTDD
[2022-06-25] MEDS: traZODone HCL 100 MG TAB PO SCH (19:47)
[2022-06-26] MEDS: HYDROmorphone 1 MG/ML 1 ML SYRINGE IVP PRN ×7 (03:53→23:30)
[2022-06-26] MEDS: IPRATROPIUM-ALBUTEROL 3 ML NEB INHALATION SCH ×4 (07:17→19:44)
[2022-06-26] MEDS: BUDESONIDE 0.25 MG/2 ML NEBU INHALATION SCH ×2 (07:17→19:44)
--- NOTE | 2022-06-26 07:32 | PN ---
PROGRESS NOTE SUBJECTIVE: This 62-year-old gentleman, who was admitted with multiple medical problems, complaining of significant back pain, medication being arranged at this time. EGD and colonoscopy showed only mild gastritis. There is no history of any fever, rigors, or chills at this time. PAST MEDICAL HISTORY: Reviewed. PHYSICAL EXAMINATION: VITAL SIGNS: Pulse is 100, blood pressure is 115/64, respirations 20. CHEST: Clear to auscultation. CARDIOVASCULAR: S1, S2. ABDOMEN: Soft. NERVOUS SYSTEM: Nonfocal. LABORATORY DATA: Hemoglobin 7.9. Rest of the labs noted. ASSESSMENT: 1. Abdominal pain and back pain. 2. Chronic obstructive pulmonary disease. 3. Small cell malignant neoplasm with mets. RECOMMENDATIONS AND DISCUSSION: I recommend to continue current management and symptomatic treatment and adjust the pain medications. Dr. Ceron will follow. See orders for details. We will repeat the labs also tomorrow. MMODL / IJN: [id number] /
[2022-06-26] MEDS: SUCRALFATE 1 GM TAB PO SCH ×4 (07:47→19:47)
[2022-06-26] MEDS: HYDROCORTISONE 20 MG TAB PO SCH (07:47)
[2022-06-26 09:04] LABS: Anion Gap 7.3 mmol/L (10.00-18.00); BUN/Creat Ratio 16.33 Ratio (12.00-20.00); Blood Urea Nitrogen 9.8 mg/dL (9.0-27.0); Calcium 8.3 mg/dL (8.7-10.3); Carbon Dioxide 27.7 mmol/L (20.0-27.5); Potassium 4.5 mmol/L (3.5-5.5)
[2022-06-26 09:09] LABS: Basophils # (A) 0.02 X 10*3/uL (0.00-0.10); Basophils % (A) 0.4 %; Eosinophils # (A) 0.13 X 10*3/uL (0.04-0.35); Eosinophils % (A) 2.5 %; HGB 7.7 g/dL (13.0-17.0); Immature Grans, Automated 0.9 %; Lymphocytes # (A) 0.95 X 10*3/uL (0.90-5.00); MCH 37.2 pg (27.0-32.0); MCHC 32.1 g/dL (32.0-37.0); MCV 115.9 fL (80.0-97.0); Mean Platelet Volume 10.9 fL (9.5-12.2); Monocytes # (A) 0.82 X 10*3/uL (0.20-1.00); Monocytes % (A) 15.5 %; NRBC Per 100 WBC 0 /100 WBCS (0.0-0.0); Neutrophils # (A) 3.31 X 10*3/uL (1.80-7.70); Neutrophils % (A) 62.7 %; Platelet Count 87 X 10*3/uL (140-440); RBC 2.07 X 10*6/uL (4.40-5.60); RDW 17.2 % (11.5-14.5); WBC 5.28 X 10*3/uL (4.50-10.00)
[2022-06-26] MEDS: ENOXAPARIN 30 MG/0.3 ML SYRINGE SQ SCH (10:08)
[2022-06-26] MEDS: ATORVASTATIN 20 MG TAB PO SCH (10:09)
[2022-06-26] MEDS: FAMOTIDINE 20 MG TAB PO SCH (10:09)
[2022-06-26] MEDS: METOPROLOL TARTRATE 12.5 MG TAB PO SCH ×2 (10:10→19:47)
[2022-06-26] MEDS: GABAPENTIN 100 MG CAP PO SCH ×2 (10:10→19:47)
[2022-06-26] MEDS: OXcarbazepine 300 MG TAB PO SCH ×2 (10:10→19:47)
[2022-06-26] MEDS: PANTOPRAZOLE 40 MG TABLET PO SCH ×2 (10:10→19:47)
[2022-06-26 10:18] VITALS: BMI 29.3
[2022-06-26] MEDS: HYDROCORTISONE 10 MG TAB PO SCH (14:11)
--- NOTE | 2022-06-26 14:29 | P.PN ---
Subjective Progress Note Date: 06/26/22 CHIEF COMPLAINT: Abdominal pain HISTORY OF PRESENT ILLNESS: This is a 62-year-old male with a known history of metastatic lung cancer. Patient currently undergoing radiation treatment. Patient is status post EGD and colonoscopy that shows gastritis, right colon lipoma and diverticulosis. Patient does complain of the same abdominal pain. He reports that his pain medication has been adjusted by oncology. He feels his pain is better controlled. He is tiring diet. Denies any nausea vomiting. He is having bowel movements. He is scheduled for radiation treatment today and again tomorrow. Patient reports that he thinks he is being discharged tomorrow. Afebrile. Mild tachycardia. WBC is 5.2 a hemoglobin 7.7 platelets are 87 sodium is 137 potassium is 4.5 creatinine 0.6 Patient seen and examined with Dr. carter PHYSICAL EXAM: VITAL SIGNS: Reviewed. GENERAL: Well-developed in no acute distress. HEENT: No sclera icterus. Extraocular movements grossly intact. Moist buccal mucosa. Head is atraumatic, normocephalic. ABDOMEN: Soft. Nondistended. NEUROLOGIC: Alert and oriented. Cranial nerves II through XII grossly intact. ASSESSMENT: 1. Abdominal pain status post EGD and colonoscopy 2. Lung cancer with metastatic disease PLAN: -Continue regular diet -Continue PPI for gastritis -Continue supportive care -Patient can be discharged and surgical service when medically cleared Physician Supervisor Chemical note has been reviewed by physician. Signing provider agrees with the documented findings, assessment, and plan of care. Objective - Vital Signs Vital signs: Vital Signs Temp 97.7 F 06/26/22 08:00 Pulse 104 H 06/26/22 10:51 Resp 20 06/26/22 08:00 BP 114/69 06/26/22 08:00 Pulse Ox 95 06/26/22 08:00 FiO2 21 06/25/22 19:30 Intake & Output 06/25/22 06/26/22 06/26/22 18:59 06:59 18:59 Intake Total 240 Balance 240 Weight 77.564 kg Intake: Oral 240 Other: Voiding Method Toilet Toilet # Voids 2 1 - Labs CBC & Chem 7: 06/26/22 06:11 06/26/22 06:11 Labs: Abnormal Lab Results - Last 24 Hours (Table) 06/26/22 06/26/22 Range/Units 06:11 06:11 RBC 2.07 L (4.40-5.60) X 10*6/uL Hgb 7.7 L (13.0-17.0) g/dL Hct 24.0 L (39.6-50.0) % MCV 115.9 H (80.0-97.0) fL MCH 37.2 H (27.0-32.0) pg RDW 17.2 H (11.5-14.5) % Plt Count 87 L (140-440) X 10*3/uL Immature Gran # 0.05 H (0.00-0.04) X 10*3/uL Carbon Dioxide 27.7 H (20.0-27.5) mmol/L Anion Gap 7.30 L (10.00-18.00) mmol/L Calcium 8.3 L (8.7-10.3) mg/dL
--- NOTE | 2022-06-26 18:49 | P.PN ---
Subjective Progress Note Date: 06/26/22 Principal diagnosis: COPD, intractable pain. Small cell lung cancer In follow-up today patient has had his EGD and colonoscopy, no evidence of malignancy. Patient is going to be completing radiation tomorrow. We discussed his back pain which is not new back pain, just worse since had the cancer. Patient has never had a pain score of 0, even before cancer. He has had some medication adjustments, he continues to not have adequate relief. Per his reports. Patient basically watches the clock and asks for Dilaudid when it's due Objective - Vital Signs Vital signs: Vital Signs Temp 98.1 F 06/26/22 14:00 Pulse 104 H 06/26/22 16:05 Resp 20 06/26/22 14:00 BP 137/74 06/26/22 14:00 Pulse Ox 95 06/26/22 14:00 FiO2 21 06/25/22 19:30 Intake & Output 06/25/22 06/26/22 06/26/22 18:59 06:59 18:59 Intake Total 240 Balance 240 Weight 77.564 kg Intake: Oral 240 Other: Voiding Method Toilet Toilet # Voids 2 1 - Constitutional General appearance: Present: average body habitus, cooperative, no acute distress - EENT Eyes: Present: anicteric sclerae, EOMI ENT: Present: hearing grossly normal - Respiratory Respiratory: bilateral: CTA, diminished - Cardiovascular Rhythm: regular Heart sounds: normal: S1, S2 Abnormal Heart Sounds: Absent: systolic murmur, diastolic murmur, rub, S3 Gallop, S4 Gallop, click, other - Peripheral edema leg Peripheral Edema: bilateral: None - Gastrointestinal General gastrointestinal: Present: normal bowel sounds, soft - Integumentary Integumentary: Present: pale - Neurologic Neurologic: Present: CNII-XII intact (Grossly) - Musculoskeletal Musculoskeletal: Present: generalized weakness - Psychiatric Psychiatric: Present: A&O x's 3, appropriate affect, intact judgment & insight - Labs CBC & Chem 7: 06/26/22 06:11 06/26/22 06:11 Labs: Abnormal Lab Results - Last 24 Hours (Table) 06/26/22 06/26/22 Range/Units 06:11 06:11 RBC 2.07 L (4.40-5.60) X 10*6/uL Hgb 7.7 L (13.0-17.0) g/dL Hct 24.0 L (39.6-50.0) % MCV 115.9 H (80.0-97.0) fL MCH 37.2 H (27.0-32.0) pg RDW 17.2 H (11.5-14.5) % Plt Count 87 L (140-440) X 10*3/uL Immature Gran # 0.05 H (0.00-0.04) X 10*3/uL Carbon Dioxide 27.7 H (20.0-27.5) mmol/L Anion Gap 7.30 L (10.00-18.00) mmol/L Calcium 8.3 L (8.7-10.3) mg/dL Assessment and Plan (1) COPD exacerbation Current Visit: Yes Status: Acute Priority: High Code(s): J44.1 - CHRONIC OBSTRUCTIVE PULMONARY DISEASE W (ACUTE) EXACERBATION SNOMED Code(s): 351944309 (2) Back pain Current Visit: Yes Status: Chronic Priority: Medium Code(s): M54.9 - DORSALGIA, UNSPECIFIED SNOMED Code(s): 320561138 (3) Small cell lung cancer Current Visit: No Status: Chronic Priority: Medium Code(s): C34.90 - MALIGNANT NEOPLASM OF UNSP PART OF UNSP BRONCHUS OR LUNG SNOMED Code(s): 525143502 Plan: EGD and colonoscopy were negative for any acute process, biopsies negative for malignancy. We discussed patient's abdominal pain, he reports is as intermittent, does not last for long periods of time, not progressive at this time. He actually gets the most relief from abd pain when he takes Carafate. He is taking Protonix as well. Patient will continue on the same. Patient's main complaint continues to be his back. This was a problem before cancer and has progressed since having cancer. Patient agrees that he has never had a pain score close to 0. We came to an agreement that pain is likely only going to get as good as 2-4. Patient states that he agrees with that. We reviewed medication list in detail. The patient was taking extended release morphine as needed. I told him that wasn't realistic, taking a long acting pain medication as needed is not effective for pain control. He said it doesn't work anyways so, this was discontinued. He said that his fentanyl patch was being increase today. Therefore, patient will be on the fentanyl patch, now at a dose of 50 g. It was very obvious during my exam that the patient watches the clock for when his next dose of Dilaudid is due. I told the patient that I'm not going to medicate his mind but, I will work on treating his actual back pain. It is his job to ask for the pain medication when he is having pain-NOT because the clock says so- with our agreed upon pain goal in mind. He verbalized that he understood what I was saying and agreed but, began to argue with the RN about how he will be due for a dose of dilaudid in the next 10min because of the order change. We will see how much Dilaudid he is used in the next 24 hours AND what his pain score reports are. If they continue to be the same despite increasing fentanyl as well as increasing frequency of Dilaudid then next recommendation would be for nerve block but, that is a decision for Pain Management. Did increase his Neurontin.
[2022-06-26] MEDS: traZODone HCL 100 MG TAB PO SCH (19:47)
--- NOTE | 2022-06-26 22:48 | P.PN ---
Subjective Progress Note Date: 06/26/22 Pt feels his abdominal pain is slowly improving but the back pain remains severe. He continues with radiation treatments. His EGD and colonoscopy are negative for malignancy. Pt requiring dilaudid around the clock. Objective - Vital Signs Vital signs: Vital Signs Temp 98.0 F 06/26/22 19:22 Pulse 106 H 06/26/22 19:56 Resp 16 06/26/22 19:22 BP 107/62 06/26/22 19:22 Pulse Ox 97 06/26/22 19:44 FiO2 21 06/26/22 19:44 Intake & Output 06/26/22 06/26/22 06/27/22 06:59 18:59 06:59 Weight 77.564 kg Other: Voiding Method Toilet Toilet # Voids 1 - Exam Gen: well developed, well nourished NAD CV: RRR, no murmur Lungs: Wheezing. No rales Neuro: alert and oriented x3, no focal deficit - Labs CBC & Chem 7: 06/26/22 06:11 06/26/22 06:11 Labs: Abnormal Lab Results - Last 24 Hours (Table) 06/26/22 06/26/22 Range/Units 06:11 06:11 RBC 2.07 L (4.40-5.60) X 10*6/uL Hgb 7.7 L (13.0-17.0) g/dL Hct 24.0 L (39.6-50.0) % MCV 115.9 H (80.0-97.0) fL MCH 37.2 H (27.0-32.0) pg RDW 17.2 H (11.5-14.5) % Plt Count 87 L (140-440) X 10*3/uL Immature Gran # 0.05 H (0.00-0.04) X 10*3/uL Carbon Dioxide 27.7 H (20.0-27.5) mmol/L Anion Gap 7.30 L (10.00-18.00) mmol/L Calcium 8.3 L (8.7-10.3) mg/dL Assessment and Plan Plan: Increase fentanyl to 50 mcg. Continue dilaudid. Continue with protonix and carafate. Complete radiation. Oncology following
[2022-06-27] MEDS: HYDROmorphone 1 MG/ML 1 ML SYRINGE IVP PRN ×2 (03:13→07:49)
[2022-06-27] MEDS: IPRATROPIUM-ALBUTEROL 3 ML NEB INHALATION SCH ×2 (07:16→10:36)
[2022-06-27] MEDS: BUDESONIDE 0.25 MG/2 ML NEBU INHALATION SCH (07:16)
[2022-06-27] MEDS: HYDROCORTISONE 20 MG TAB PO SCH (07:49)
[2022-06-27] MEDS: SUCRALFATE 1 GM TAB PO SCH ×2 (07:49→12:26)
[2022-06-27 08:32] VITALS: RESP 16
[2022-06-27] MEDS ORDERED: SENNOSIDES-DOCUSATE SODIUM 1 EACH TAB PO SCH (09:00)
[2022-06-27] MEDS ORDERED: MORPHINE SULFATE IR 15 MG TABLET PO PRN (09:38)
[2022-06-27] MEDS: METOPROLOL TARTRATE 12.5 MG TAB PO SCH (09:41)
[2022-06-27] MEDS: ATORVASTATIN 20 MG TAB PO SCH (09:41)
[2022-06-27] MEDS: ENOXAPARIN 30 MG/0.3 ML SYRINGE SQ SCH (09:41)
[2022-06-27] MEDS: FAMOTIDINE 20 MG TAB PO SCH (09:41)
[2022-06-27] MEDS: PANTOPRAZOLE 40 MG TABLET PO SCH (09:41)
[2022-06-27] MEDS: OXcarbazepine 300 MG TAB PO SCH (09:42)
[2022-06-27] MEDS: GABAPENTIN 100 MG CAP PO SCH (09:43)
--- NOTE | 2022-06-27 10:14 | P.PN ---
Subjective Progress Note Date: 06/27/22 This is a 62-year-old gentleman admitted with abdominal pain radiating around to bilateral flanks, lower back and between scapulas due to metastatic lung disease in a patient with history of primary small cell malignant neoplasm of lung, stage IV. He reports extensive workup of abdominal pain and per oncology attributing it to chemo effect. Good diet intake with no nausea or vomiting- states pain is unaffected by diet intake, ongoing sharp, continuous. Reports Last chemo completed approximately 2 weeks ago and had not yet met with radiation oncology outpatient. Reports current pain management at home not working. Pain rated at 9-10. Pain management team as well as radiation oncology consult in place. Afebrile, normal WBC. Potassium 3.3, replacement protocol ordered. Hemoglobin decreased to 8. 06/20/2022 evaluated by oncology radiation and pain management team with recommendations noted and appreciated. Scheduled for radiation this morning. Sitting up at bedside, eating breakfast. Denies nausea vomiting or diarrhea. Reports normal bowel movements, nonbloody, not black or darkened. Reports Dr. Barksdale recommending outpatient scope, but having difficulties with transportation secondary to being in [facility]. Currently pain better controlled. Hemoglobin 7.8, platelets decreased A, potassium 3.3, replaced. Denies chest pain, palpitations or shortness of breath. 06/27/2022 continues on his radiation treatments. States despite pain medication regimens he continues to have sharp, stabbing stomach and back pain without relief. Further pain management adjustments as per oncology, including discontinuation of Dilaudid IV push. Objective - Vital Signs Vital signs: Vital Signs Temp 97.6 F 06/27/22 08:00 Pulse 104 H 06/27/22 08:00 Resp 16 06/27/22 08:00 BP 124/56 06/27/22 08:00 Pulse Ox 93 L 06/27/22 08:00 FiO2 21 06/26/22 19:44 Intake & Output 06/26/22 06/27/22 06/27/22 18:59 06:59 18:59 Intake Total 360 Balance 360 Weight 77.564 kg Intake: Oral 360 Other: Voiding Method Toilet # Voids 2 - Exam PHYSICAL EXAM: VITAL SIGNS: [As above] GENERAL: Alert and oriented 3, Sitting up at side of bed, no acute distress HEENT: Conjunctivae normal. eyes normal. MMM. NECK: Supple, No JVD. CARDIOVASCULAR: S1, S2 regular, mild tachycardia. No murmur. RESPIRATION: Breath sounds diminished in the bases. No rhonchi or crackles. ABDOMEN: Soft, nontender, No guarding.Bowel sounds heard. LEGS: No edema. no swelling. NERVOUS SYSTEM: Cranial N 2-12 grossly normal.No focal deficits. Strength and sensation grossly intact. Skin: Warm and dry, no rash - Labs CBC & Chem 7: 06/26/22 06:11 06/26/22 06:11 Assessment and Plan Assessment: Abdominal pain radiating around to bilateral flanks, lower back and between scapulas due to metastatic lung disease in a patient with history of primary small cell malignant neoplasm of lung, stage IV. Left pulmonary hilum lung mass with multiple mets in the lung increased in size compared to previous exam Adrenal mass likely secondary to metastatic lesion. Shortness of breath secondary to lung mass COPD GERD Anxiety/depression Previous history of smoking Adrenal insufficiency currently on Cortef at home. Plan: Continue on current medication regime ,monitoring and symptomatic treatment. Complete Radiation. Pain management as per oncology. Discharge planning in progress soon. Prognosis guarded given multiple complex medical issues. The impression and plan of care has been dictated as directed. : I performed a history and examination of this patient, discussed the same with the dictator. I agree with the dictator's note ,documented as a scribe. Any additional findings or plans will be noted.
[2022-06-27 12:25] VITALS: BP 122/63; PULSE 112; TEMP 98.1
--- NOTE | 2022-06-27 14:55 | P.DS ---
Providers Date of admission: 06/19/22 12:44 Expected date of discharge: 06/27/22 Attending physician: Raghav Ceron MD Consults: 06/17/22 19:11 Consult Physician Urgent Consulting Provider: Maynor Barksdale Consult Reason/Comments: Metastatic disease Do you want consulting provider notified?: Yes 06/18/22 23:50 Consult Physician Routine Consulting Provider: Nikko Denton Consult Reason/Comments: palliative RT to paraspinal masses Do you want consulting provider notified?: Yes 06/20/22 09:31 Consult Physician Routine Consulting Provider: Rod Muro Consult Reason/Comments: abd pain, imaging negative. ? endoscopic eval Do you want consulting provider notified?: Yes 06/21/22 08:45 Consult Physician Routine Consulting Provider: Carrie De Leon Consult Reason/Comments: anemia, tachycardia, SOB, Do you want consulting provider notified?: Yes Primary care physician: Alesha Osmany [facility] Course: Final Diagnoses: Abdominal pain radiating around to bilateral flanks, lower back and between scapulas due to metastatic lung disease in a patient with history of primary small cell malignant neoplasm of lung, stage IV. Left pulmonary hilum lung mass with multiple mets in the lung increased in size compared to previous exam Adrenal mass likely secondary to metastatic lesion. Shortness of breath secondary to lung mass COPD GERD Anxiety/depression Previous history of smoking Adrenal insufficiency currently on Cortef at home. Hospital course:This is a 62-year-old gentleman admitted with abdominal pain radiating around to bilateral flanks, lower back and between scapulas due to metastatic lung disease in a patient with history of primary small cell malignant neoplasm of lung, stage IV. He reports extensive workup of abdominal pain and per oncology attributing it to chemo effect. Good diet intake with no nausea or vomiting- states pain is unaffected by diet intake, ongoing sharp, continuous. Reports Last chemo completed approximately 2 weeks ago and had not yet met with radiation oncology outpatient. Reports current pain management at home not working. Pain rated at 9-10. Pain management team as well as radiation oncology consult in place. Afebrile, normal WBC. Potassium 3.3, replacement protocol ordered. Hemoglobin decreased to 8. 06/20/2022 evaluated by oncology radiation and pain management team with recommendations noted and appreciated. Scheduled for radiation this morning. Sitting up at bedside, eating breakfast. Denies nausea vomiting or diarrhea. Reports normal bowel movements, nonbloody, not black or darkened. Reports Dr. Barksdale recommending outpatient scope, but having difficulties with transportation secondary to being in [facility]. Currently pain better controlled. Hemoglobin 7.8, platelets decreased A, potassium 3.3, replaced. Denies chest pain, palpitations or shortness of breath. Completing his radiation series today. Cleared by oncology for discharge. Oncology working with [facility] pharmacy for discharge pain medication regimen of morphine sulfate IR and increased fentanyl patch; patient will have enough pain medications to last him until his visit with Dr. barksdale. Patient has been instructed to bring all of his medications into the office visit with oncology, for further recommendations. Patient will be discharged home today in a stable condition with guarded prognosis. The impression and plan of care has been dictated as directed. : I performed a history and examination of this patient, discussed the same with the dictator. I agree with the dictator's note ,documented as a scribe. Any additional findings or plans will be noted. Patient Condition at Discharge: Stable Plan - Discharge Summary Discharge Rx Participant: No New Discharge Prescriptions: New Morphine Sulfate Ir [MSIR] 30 mg PO Q4HR PRN 3 Days #18 tab PRN Reason: Pain Metoprolol Tartrate [Lopressor] 12.5 mg PO BID #60 tab Sennosides-Docusate Sodium [Senokot-S] 2 each PO BID tab Continue Sucralfate [Carafate] 1 gm PO ACHS Pantoprazole Sodium [Protonix] 40 mg PO BID OXcarbazepine [Trileptal] 300 mg PO BID Atorvastatin [Lipitor] 20 mg PO DAILY traZODone HCL [Desyrel] 100 mg PO HS metFORMIN HCL 500 mg PO BID Budesonide [Pulmicort] 0.25 mg INHALATION RT-BID Fluconazole [Diflucan] 100 mg PO DAILY PRN PRN Reason: THRUSH Albuterol Nebulized [Ventolin Nebulized] 2.5 mg INHALATION RT-QID PRN PRN Reason: Shortness Of Breath Gabapentin [Neurontin] 100 mg PO BID 30 Days #60 cap Hydrocortisone [Cortef] 20 mg PO DAILY@0800 polyethylene glycoL 3350 [Miralax] 17 gm PO DAILY PRN PRN Reason: Constipation Ipratropium-Albuterol Nebulize [Duoneb 0.5 mg-3 mg/3 ml Soln] 3 ml INHALATION RT-QID PRN PRN Reason: Shortness Of Breath ALPRAZolam [Xanax] 0.5 mg PO BID PRN PRN Reason: Anxiety Hydrocortisone [Cortef] 10 mg PO DAILY@1400 Insulin Aspart [NovoLOG Flexpen] See Protocol SQ ACHS Metoclopramide [Reglan] 5 mg PO AC-BID PRN PRN Reason: Nausea Famotidine 40 mg PO DAILY Semaglutide [Rybelsus] 3 mg PO DAILY Dicyclomine [Bentyl] 10 mg PO TID PRN 10 Days #30 capsule PRN Reason: Pain Discontinued Morphine Sulfate ER [Ms Contin] 30 mg PO Q12HR PRN PRN Reason: Pain fentaNYL 25MCG/HR PATCH [Duragesic 25MCG/HR] 1 patch TRANSDERM Q72H Discharge Medication List Atorvastatin [Lipitor] 20 mg PO DAILY 03/11/21 [History] OXcarbazepine [Trileptal] 300 mg PO BID 03/11/21 [History] Pantoprazole Sodium [Protonix] 40 mg PO BID 03/11/21 [History] Sucralfate [Carafate] 1 gm PO ACHS 03/11/21 [History] traZODone HCL [Desyrel] 100 mg PO HS 03/11/21 [History] ALPRAZolam [Xanax] 0.5 mg PO BID PRN 01/13/22 [History] Budesonide [Pulmicort] 0.25 mg INHALATION RT-BID 01/13/22 [History] Hydrocortisone [Cortef] 10 mg PO DAILY@1400 01/13/22 [History] Ipratropium-Albuterol Nebulize [Duoneb 0.5 mg-3 mg/3 ml Soln] 3 ml INHALATION RT-QID PRN 01/13/22 [History] metFORMIN HCL 500 mg PO BID 01/13/22 [History] Albuterol Nebulized [Ventolin Nebulized] 2.5 mg INHALATION RT-QID PRN 02/23/22 [History] Fluconazole [Diflucan] 100 mg PO DAILY PRN 02/23/22 [History] Insulin Aspart [NovoLOG Flexpen] See Protocol SQ ACHS 02/24/22 [History] Dicyclomine [Bentyl] 10 mg PO TID PRN 10 Days #30 capsule 04/12/22 [Rx] Famotidine 40 mg PO DAILY 04/12/22 [History] Metoclopramide [Reglan] 5 mg PO AC-BID PRN 04/12/22 [History] Semaglutide [Rybelsus] 3 mg PO DAILY 04/12/22 [History] Gabapentin [Neurontin] 100 mg PO BID 30 Days #60 cap 06/15/22 [Rx] Hydrocortisone [Cortef] 20 mg PO DAILY@0800 06/17/22 [History] polyethylene glycoL 3350 [Miralax] 17 gm PO DAILY PRN 06/17/22 [History] Metoprolol Tartrate [Lopressor] 12.5 mg PO BID #60 tab 06/27/22 [Rx] Morphine Sulfate Ir [MSIR] 30 mg PO Q4HR PRN 3 Days #18 tab 06/27/22 [Rx] Sennosides-Docusate Sodium [Senokot-S] 2 each PO BID tab 06/27/22 [Rx] Follow up Appointment(s)/Referral(s): Maynor Barksdale MD [STAFF PHYSICIAN] - 07/12/22 1:30 pm (This appt is at the office [facility] on [facility] behind [facility]) Nikko Denton MD [STAFF PHYSICIAN] - 07/26/22 1:00 pm (Follow-Up appt is July 26, [address] Denton 1st floor Radiation/Oncology) None,Stated [REFERRING] - 1-2 days Patient Instructions/Handouts: COPD (Chronic Obstructive Pulmonary Disease) (DC) Activity/Diet/Wound Care/Special Instructions: Pain management has been arranged as per oncology with fentanyl patch and MS IR with enough to last patient until his follow-up visit with Dr. barksdale.
--- NOTE | 2022-06-27 15:26 | P.PN ---
Subjective Progress Note Date: 06/27/22 CHIEF COMPLAINT: Abdominal pain HISTORY OF PRESENT ILLNESS: This is a 62-year-old male with a known history of metastatic lung cancer. Patient currently undergoing radiation treatment. Patient is status post EGD and colonoscopy that shows gastritis, right colon lipoma and diverticulosis. Patient does complain of the same abdominal pain. He reports that his pain medication has been adjusted by oncology. He feels his pain is better controlled. He is tolerating diet. Denies any nausea vomiting. He is having bowel movements. He is scheduled for radiation treatment today. Patient thinks he might be discharged today. Patient seen and examined with Dr. carter PHYSICAL EXAM: VITAL SIGNS: Reviewed. GENERAL: Well-developed in no acute distress. HEENT: No sclera icterus. Extraocular movements grossly intact. Moist buccal mucosa. Head is atraumatic, normocephalic. ABDOMEN: Soft. Nondistended. NEUROLOGIC: Alert and oriented. Cranial nerves II through XII grossly intact. ASSESSMENT: 1. Abdominal pain status post EGD and colonoscopy 2. Lung cancer with metastatic disease PLAN: -Continue regular diet -Continue PPI for gastritis -Continue supportive care -Patient can be discharged and surgical service when medically cleared Physician Store Facility Technician note has been reviewed by physician. Signing provider agrees with the documented findings, assessment, and plan of care. Objective - Vital Signs Vital signs: Vital Signs Temp 98.1 F 06/27/22 12:24 Pulse 112 H 06/27/22 12:24 Resp 16 06/27/22 12:24 BP 122/63 06/27/22 12:24 Pulse Ox 93 L 06/27/22 12:24 FiO2 21 06/26/22 19:44 Intake & Output 06/26/22 06/27/22 06/27/22 18:59 06:59 18:59 Intake Total 360 Balance 360 Weight 77.564 kg Intake: Oral 360 Other: Voiding Method Toilet # Voids 2 - Labs CBC & Chem 7: 06/26/22 06:11 06/26/22 06:11
--- NOTE | 2022-06-27 16:59 | P.PN ---
Subjective Progress Note Date: 06/27/22 Principal diagnosis: COPD, intractable pain. Small cell lung cancer In follow-up today patient will be completing radiation later on this morning. Despite changes to medications, patient doesn't report much improvement in his pain. Objective - Vital Signs Vital signs: Vital Signs Temp 97.6 F 06/27/22 08:00 Pulse 104 H 06/27/22 10:47 Resp 16 06/27/22 08:00 BP 124/56 06/27/22 08:00 Pulse Ox 97 06/27/22 09:30 FiO2 21 06/26/22 19:44 Intake & Output 06/26/22 06/27/22 06/27/22 18:59 06:59 18:59 Intake Total 360 Balance 360 Weight 77.564 kg Intake: Oral 360 Other: Voiding Method Toilet # Voids 2 - Constitutional General appearance: Present: cooperative, no acute distress, obese - EENT Eyes: Present: anicteric sclerae, EOMI ENT: Present: hearing grossly normal - Respiratory Respiratory: bilateral: CTA - Peripheral edema leg Peripheral Edema: bilateral: None - Integumentary Integumentary: Present: pale - Neurologic Neurologic: Present: CNII-XII intact - Musculoskeletal Musculoskeletal: Present: strength equal bilaterally - Psychiatric Psychiatric: Present: A&O x's 3 - Labs CBC & Chem 7: 06/26/22 06:11 06/26/22 06:11 Assessment and Plan (1) COPD exacerbation Status: Acute Priority: High Code(s): J44.1 - CHRONIC OBSTRUCTIVE PULMONARY DISEASE W (ACUTE) EXACERBATION SNOMED Code(s): 791515181 (2) Back pain Status: Chronic Priority: Medium Code(s): M54.9 - DORSALGIA, UNSPECIFIED SNOMED Code(s): 593600849 (3) Small cell lung cancer Status: Chronic Priority: Medium Code(s): C34.90 - MALIGNANT NEOPLASM OF UNSP PART OF UNSP BRONCHUS OR LUNG SNOMED Code(s): 800794593 Plan: Patient gets his treatment at [facility], he has appt for the same. He will continue on schedule. He has a follow-up appointment with his Primary Oncologist already scheduled. Patient's pain scores have not changed despite multiple attempts and changes in pain medications. Did have farm D convert IV Dilaudid to oral morphine. Amparo lagunas has a follow-up with Dr. hui in 2 weeks, prescriptions were given for narcotics for 14 days. Prescriptions were sent via [facility] to [facility] so pt was certain to have them on DC. Case was discussed with Internal Medicine LOG CLERK so that they knew what medications were ordered, in what strength and quantity. Patient also instructed to bring all of his medications to his appointment with for review Since numerous medications he is not utilizing, some medications, especially long-acting narcotics, have been adjusted or discontinued. Greater than 30 minutes spent counseling and coordinating care
== END 2022-06-27 13:37 | disposition home or self-care (01) | DRG 392 ==
LOC: EC 16:08 → 5NMEDONC 19:11 → 6NMEDSUR 06-18 13:15 → OBSVTOIN 06-19 12:44 → 6NMEDSUR 06-20 00:59
PROVIDERS: ADMIT Family Medicine; ATTEND Family Medicine
PROC: 0DB78ZX Excision of Stomach, Pylorus, Via Natural or Artificial Opening Endoscopic, Diagnostic (ICD-10-PCS; principal; 2022-06-22 11:00)
PROC: 0DBC8ZX Excision of Ileocecal Valve, Via Natural or Artificial Opening Endoscopic, Diagnostic (ICD-10-PCS; 2022-06-22 11:00)
PROC: DP0C4ZZ Beam Radiation of Other Bone using Heavy Particles (Protons,Ions) (ICD-10-PCS; 2022-06-26)
DX: K29.70 Gastritis, unspecified, without bleeding (principal); C34.90 Malignant neoplasm of unspecified part of unspecified bronchus or lung; C78.00 Secondary malignant neoplasm of unspecified lung; C79.51 Secondary malignant neoplasm of bone; E87.1 Hypo-osmolality and hyponatremia; I31.39 Other pericardial effusion (noninflammatory); C79.70 Secondary malignant neoplasm of unspecified adrenal gland; I27.20 Pulmonary hypertension, unspecified; R00.0 Tachycardia, unspecified; K64.4 Residual hemorrhoidal skin tags; D17.5 Benign lipomatous neoplasm of intra-abdominal organs; J43.9 Emphysema, unspecified; K52.9 Noninfective gastroenteritis and colitis, unspecified; D64.9 Anemia, unspecified; D69.6 Thrombocytopenia, unspecified; E27.8 Other specified disorders of adrenal gland; E78.5 Hyperlipidemia, unspecified; E87.6 Hypokalemia; F32.A Depression, unspecified; F41.9 Anxiety disorder, unspecified; G89.3 Neoplasm related pain (acute) (chronic); K12.30 Oral mucositis (ulcerative), unspecified; K21.9 Gastro-esophageal reflux disease without esophagitis; Z79.84 Long term (current) use of oral hypoglycemic drugs; Z79.899 Other long term (current) drug therapy; Z85.118 Personal history of other malignant neoplasm of bronchus and lung; Z92.21 Personal history of antineoplastic chemotherapy; Z92.3 Personal history of irradiation; Z96.643 Presence of artificial hip joint, bilateral
CPT/HCPCS: 36415; 43239; 45380; 71275; 74176; 77280; 77290; 77307; 77332; 77334; 77387; 77412; 80048; 80053; 81003; 83735; 83880; 84484; 85025; 85027; 85610; 85730; 88305; 93005; 93306; 94640; 94760; 96361; 96374; 96375; 99285

== ENCOUNTER 2022-07-19 19:21 | Inpatient (IN) | payer MEDICARE ==
[2022-07-19] MEDS ORDERED: SODIUM CHLORIDE 0.9% 500 ML 500 ML IV STA (19:50)
[2022-07-19] MEDS ORDERED: PANTOPRAZOLE 40 MG/10 ML VIAL IVP STA (19:51)
--- NOTE | 2022-07-19 19:57 | ED ---
SOB HPI - General Chief Complaint: Shortness of Breath Stated Complaint: JASVIR Time Seen by Provider: 07/19/22 19:42 Source: patient, RN notes reviewed, old records reviewed Mode of arrival: EMS Limitations: no limitations - History of Present Illness Initial Comments: 62-year-old male presents to the emergency room with complaints of shortness of breath for 2 days and 3 episodes of bloody stool today. Shortness of breath worse with exertion. He denies any chest pain. Patient does have a history of lung cancer and is currently undergoing chemotherapy. Last chemotherapy was 10 days ago at [place]. Patient states he did have metastasis to his stomach and neck, however those tumors have shrunk with chemotherapy. Patient does have a history of COPD, no home oxygen. MD Complaint: shortness of breath -: days(s) (2) Severity scale (1-10): 0 Consistency: constant Improves With: rest Worsens With: exertion Known History Of: COPD, other (Lung cancer with metastases) Associated Symptoms: other (GI bleed 3 episodes today) Treatments Prior to Arrival: other (Albuterol steroids by EMS) - Related Data Home Oxygen Therapy: No Home Medications Medication Instructions Recorded Confirmed Atorvastatin [Lipitor] 20 mg PO DAILY 03/11/21 07/19/22 OXcarbazepine [Trileptal] 300 mg PO BID 03/11/21 07/19/22 Pantoprazole Sodium [Protonix] 40 mg PO BID 03/11/21 07/19/22 Sucralfate [Carafate] 1 gm PO ACHS 03/11/21 07/19/22 traZODone HCL [Desyrel] 100 mg PO HS 03/11/21 07/19/22 ALPRAZolam [Xanax] 0.5 mg PO BID PRN 01/13/22 07/19/22 Budesonide [Pulmicort] 0.25 mg INHALATION RT-BID 01/13/22 07/19/22 Hydrocortisone [Cortef] 10 mg PO DAILY@1400 01/13/22 07/19/22 Ipratropium-Albuterol Nebulize 3 ml INHALATION RT-QID PRN 01/13/22 07/19/22 [Duoneb 0.5 mg-3 mg/3 ml Soln] metFORMIN HCL 500 mg PO BID 01/13/22 07/19/22 Albuterol Nebulized [Ventolin 2.5 mg INHALATION RT-QID PRN 02/23/22 07/19/22 Nebulized] Fluconazole [Diflucan] 100 mg PO DAILY PRN 02/23/22 07/19/22 Insulin Aspart [NovoLOG Flexpen] See Protocol SQ ACHS 02/24/22 07/19/22 Famotidine 40 mg PO DAILY 04/12/22 07/19/22 Metoclopramide [Reglan] 5 mg PO AC-BID PRN 04/12/22 07/19/22 Semaglutide [Rybelsus] 3 mg PO DAILY 04/12/22 07/19/22 Hydrocortisone [Cortef] 20 mg PO DAILY@0800 06/17/22 07/19/22 polyethylene glycoL 3350 [Miralax] 17 gm PO DAILY PRN 06/17/22 07/19/22 Gabapentin [Neurontin] 400 mg PO BID 07/19/22 07/19/22 Metoprolol Tartrate [Lopressor] 12.5 mg PO BID 07/19/22 07/19/22 Ondansetron [Zofran] 4 mg PO Q4H PRN 07/19/22 07/19/22 Sennosides-Docusate Sodium 2 tab PO BID PRN 07/19/22 07/19/22 [Senokot-S] fentaNYL 50MCG/HR PATCH [Duragesic 1 patch TRANSDERM Q72H 07/19/22 07/19/22 50MCG/HR] oxyCODONE-APAP 10-325MG [Percocet 1 tab PO Q3H PRN 07/19/22 07/19/22 10-325 mg] Previous Rx's Medication Instructions Recorded Dicyclomine [Bentyl] 10 mg PO TID PRN 10 Days #30 04/12/22 capsule Morphine Sulfate Ir [MSIR] 30 mg PO Q4HR PRN 3 Days #18 tab 06/27/22 Allergies Allergy/AdvReac Type Severity Reaction Status Date / Time No Known Allergies Allergy Verified 07/19/22 22:49 Review of Systems ROS Statement: Those systems with pertinent positive or pertinent negative responses have been documented in the HPI. ROS Other: All systems not noted in ROS Statement are negative. Past Medical History Past Medical History: Cancer, COPD, GERD/Reflux Additional Past Medical History / Comment(s): LUNG CANCER WITH TUMOR IN STOMACH AND STATES ALSO IN HIS NECK.,. RECEIVING CHEMOTHERAPY., DDD WITH BACK ,HIP & LEG PAIN., (PAIN CLINIC PATIENT)., EMPHYSEMA., GASTRITIS. History of Any Multi-Drug Resistant Organisms: None Reported Past Surgical History: Joint Replacement, Orthopedic Surgery Additional Past Surgical History / Comment(s): RIGHT AND LEFT TOTAL HIPS, RIGHT SHOULDER SURGERY. Past Anesthesia/Blood Transfusion Reactions: No Reported Reaction Smoking Status: Former smoker - Past Family History Father Family Medical History: No Reported History General Exam Limitations: no limitations General appearance: alert, in no apparent distress Head exam: Present: atraumatic, normocephalic Eye exam: Present: other (Pale conjunctiva). Absent: scleral icterus, conjunctival injection, periorbital swelling, periorbital tenderness ENT exam: Present: mucous membranes moist Neck exam: Absent: tenderness, meningismus Respiratory exam: Present: normal lung sounds bilaterally. Absent: respiratory distress, wheezes, rales, rhonchi, stridor, chest wall tenderness, accessory muscle use Cardiovascular Exam: Present: tachycardia GI/Abdominal exam: Present: soft. Absent: distended, tenderness, guarding, rebound, rigid Extremities exam: Absent: pedal edema Left Forearm Wrist exam: Present: other (Petechiae) Back exam: Present: full ROM. Absent: tenderness, CVA tenderness (R), CVA tenderness (L), rash noted Neurological exam: Present: alert, oriented X3 Psychiatric exam: Present: normal affect, normal mood Skin exam: Present: warm, dry, pallor. Absent: cyanosis, diaphoretic Course Vital Signs 07/19/22 07/19/22 07/19/22 19:28 19:36 20:40 Temperature 98.5 F Pulse Rate 111 H 105 H Respiratory 26 H 20 Rate Blood Pressure 124/85 96/56 O2 Sat by Pulse 100 100 100 Oximetry 07/19/22 07/19/22 07/19/22 21:00 22:00 22:12 Temperature 97.8 F 98 F Pulse Rate 100 102 H 100 Respiratory 20 20 20 Rate Blood Pressure 140/66 110/60 124/70 O2 Sat by Pulse 99 98 99 Oximetry 07/19/22 07/19/22 07/19/22 22:19 22:31 23:00 Temperature 98 F 98 F Pulse Rate 100 100 100 Respiratory 20 18 18 Rate Blood Pressure 136/68 107/56 132/66 O2 Sat by Pulse 99 100 100 Oximetry 07/19/22 07/19/22 07/19/22 23:03 23:23 23:30 Temperature 98 F 98 F Pulse Rate 100 100 100 Respiratory 20 20 20 Rate Blood Pressure 105/65 105/66 110/58 O2 Sat by Pulse 99 100 100 Oximetry - Reevaluation(s) Reevaluation #1: 07/19/22 22:[address] Hernandez who recommended CT angio of chest due to elevated d-dimer despite elevated d-dimer history related to patient complaints of shortness of breath and history of lung cancer. Time: 22:13 Medical Decision Making - Medical Decision Making Patient presents today shortness of breath worse with exertion. Denies any chest pain. No nausea or vomiting. Has had multiple episodes of bloody stool. Patient is currently undergoing chemotherapy for lung cancer with metastasis. Last chemotherapy 10 days ago. EKG interpreted by me shows sinus tachycardia without ectopy, normal axis no ST elevation. Chest x-ray shows scattered opacities which may represent pneumonia. Left upper lobe and left perihilar mass as seen on prior CT, known history of left lung cancer, on chemo. Due to neutropenia will be given antibiotics. Labs show neutropenia of 0.2. Hemoglobin 6.5, hematocrit of 18.9, platelets 5. On June 26, 2022 hemoglobin was 7.7 and platelets 87. Patient was given 1 unit of platelets and one unit of packed RBCs. D-dimer elevated at 1.76. Case discussed with Dr. Hernandez recommended CTA chest to rule out PE. CT shows no evidence of pulmonary embolism. Vital signs are stable. Patient will be admitted to the hospital. He is a full code. He is agreeable to this plan of care. 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 Hypochromasia Marked Poikilocytosis Moderate Macrocytosis Moderate PT 10.5 (9.0-12.0) sec INR 1.0 (<1.2) APTT 24.1 (22.0-30.0) sec D-Dimer 1.76 H (<0.60) mg/L FEU Sodium (137-145) mmol/L Potassium (3.5-5.1) mmol/L Chloride (98-107) mmol/L Carbon Dioxide (22-30) mmol/L Anion Gap mmol/L BUN (9-20) mg/dL Creatinine (0.66-1.25) mg/dL Est GFR (CKD-EPI)AfAm (>60 ml/min/1.73 sqM) Est GFR (CKD-EPI)NonAf (>60 ml/min/1.73 sqM) Glucose (74-99) mg/dL Plasma Lactic Acid Nicholas (0.7-2.0) mmol/L Calcium (8.4-10.2) mg/dL Magnesium (1.6-2.3) mg/dL Total Bilirubin (0.2-1.3) mg/dL AST (17-59) U/L ALT (4-49) U/L Alkaline Phosphatase (38-126) U/L Troponin I (0.000-0.034) ng/mL Total Protein (6.3-8.2) g/dL Albumin (3.5-5.0) g/dL Blood Type O Positive Blood Type Recheck O Pos Bld Type Recheck Status No Antibody Screen NEGATIVE Crossmatch See Detail Transfuse Platelets Spec Expiration Date 07/22/2022 - 232407/19/22 07/19/22 07/19/22 Range/Units 20:32 20:32 20:32 WBC (3.8-10.6) k/uL RBC (4.30-5.90) m/uL Hgb (13.0-17.5) gm/dL Hct (39.0-53.0) % MCV (80.0-100.0) fL MCH (25.0-35.0) pg MCHC (31.0-37.0) g/dL RDW (11.5-15.5) % Plt Count (150-450) k/uL MPV Lymphocytes % % Neutrophils # Hypochromasia Poikilocytosis Macrocytosis PT (9.0-12.0) sec INR (<1.2) APTT (22.0-30.0) sec D-Dimer (<0.60) mg/L FEU Sodium 136 L (137-145) mmol/L Potassium 4.4 (3.5-5.1) mmol/L Chloride 106 (98-107) mmol/L Carbon Dioxide 19 L (22-30) mmol/L Anion Gap 11 mmol/L BUN 12 (9-20) mg/dL Creatinine 0.63 L (0.66-1.25) mg/dL Est GFR (CKD-EPI)AfAm >90 (>60 ml/min/1.73 sqM) Est GFR (CKD-EPI)NonAf >90 (>60 ml/min/1.73 sqM) Glucose 115 H (74-99) mg/dL Plasma Lactic Acid Nicholas 1.5 (0.7-2.0) mmol/L Calcium 7.5 L (8.4-10.2) mg/dL Magnesium 2.0 (1.6-2.3) mg/dL Total Bilirubin 0.4 (0.2-1.3) mg/dL AST 23 (17-59) U/L ALT 22 (4-49) U/L Alkaline Phosphatase 60 (38-126) U/L Troponin I 0.017 (0.000-0.034) ng/mL Total Protein 5.5 L (6.3-8.2) g/dL Albumin 2.8 L (3.5-5.0) g/dL Blood Type Blood Type Recheck Bld Type Recheck Status Antibody Screen Crossmatch Transfuse Platelets Spec Expiration Date 07/19/22 Range/Units 21:30 WBC (3.8-10.6) k/uL RBC (4.30-5.90) m/uL Hgb (13.0-17.5) gm/dL Hct (39.0-53.0) % MCV (80.0-100.0) fL MCH (25.0-35.0) pg MCHC (31.0-37.0) g/dL RDW (11.5-15.5) % Plt Count (150-450) k/uL MPV Lymphocytes % % Neutrophils # Hypochromasia Poikilocytosis Macrocytosis PT (9.0-12.0) sec INR (<1.2) APTT (22.0-30.0) sec D-Dimer (<0.60) mg/L FEU Sodium (137-145) mmol/L Potassium (3.5-5.1) mmol/L Chloride (98-107) mmol/L Carbon Dioxide (22-30) mmol/L Anion Gap mmol/L BUN (9-20) mg/dL Creatinine (0.66-1.25) mg/dL Est GFR (CKD-EPI)AfAm (>60 ml/min/1.73 sqM) Est GFR (CKD-EPI)NonAf (>60 ml/min/1.73 sqM) Glucose (74-99) mg/dL Plasma Lactic Acid Nicholas (0.7-2.0) mmol/L Calcium (8.4-10.2) mg/dL Magnesium (1.6-2.3) mg/dL Total Bilirubin (0.2-1.3) mg/dL AST (17-59) U/L ALT (4-49) U/L Alkaline Phosphatase (38-126) U/L Troponin I (0.000-0.034) ng/mL Total Protein (6.3-8.2) g/dL Albumin (3.5-5.0) g/dL Blood Type Blood Type Recheck Bld Type Recheck Status Antibody Screen Crossmatch Transfuse Platelets [id number] Spec Expiration Date - EKG Data -: EKG Interpreted by Me EKG shows normal: sinus rhythm (Ventricular rate 102, [place] interval .123, QRS 0.85, QTC 0.429; normal axis) Critical Care Time Critical Care Time: Yes Total Critical Care Time: 32 Disposition Clinical Impression: GI bleed, Symptomatic anemia, Thrombocytopenia, Leukopenia due to antineoplastic chemotherapy Disposition: ADMITTED IP TO THIS HOSP Decision Date: 07/19/22 Decision Time: 21:10
[2022-07-19 20:41] LABS: Hypochromasia Marked; MCH 36.8 pg (25.0-35.0); MCHC 34.7 g/dL (31.0-37.0); Macrocytosis Moderate; Mean Platelet Volume 12.4; Poikilocytosis Moderate; RBC 1.78 m/uL (4.30-5.90); RDW 15.1 % (11.5-15.5)
[2022-07-19 20:54] LABS: HGB 6.5 gm/dL (13.0-17.5); WBC 0.2 k/uL (3.8-10.6)
[2022-07-19 20:55] LABS: HCT 18.9 % (39.0-53.0); MCV 106.2 fL (80.0-100.0)
[2022-07-19 20:56] LABS: Partial Thromboplastin Time 24.1 sec (22.0-30.0); Prothrombin Time 10.5 sec (9.0-12.0)
[2022-07-19 20:58] LABS: ALT 22 U/L (4-49); AST 23 U/L (17-59); African American GFR (CKD) >90 (>60 ml/min/1.73 sqM); Albumin 2.8 g/dL (3.5-5.0); Alkaline Phosphatase 60 U/L (38-126); Anion Gap 11 mmol/L; Blood Urea Nitrogen 12 mg/dL (9-20); Calcium 7.5 mg/dL (8.4-10.2); Carbon Dioxide 19 mmol/L (22-30); Chloride 106 mmol/L (98-107); Glucose 115 mg/dL (74-99); Non-African American GFR(CKD) >90 (>60 ml/min/1.73 sqM); Potassium 4.4 mmol/L (3.5-5.1); Sodium 136 mmol/L (137-145); Total Bilirubin 0.4 mg/dL (0.2-1.3); Total Protein 5.5 g/dL (6.3-8.2)
[2022-07-19 20:59] LABS: Platelet Count 5 k/uL (150-450)
[2022-07-19] MEDS ORDERED: SODIUM CHLORIDE 0.9% 500 ML 500 ML IV ONE (21:11)
[2022-07-19] MEDS ORDERED: NALOXONE 0.4 MG/ML 1 ML VIAL IV PRN (21:23)
[2022-07-19] MEDS ORDERED: ACETAMINOPHEN TAB 325 MG TAB PO PRN (21:23)
[2022-07-19] MEDS ORDERED: ALBUTEROL NEBULIZED 2.5 MG/3 ML INHALATION PRN (21:48)
--- NOTE | 2022-07-19 21:57 | XR ---
EXAMINATION TYPE: XR chest 2V DATE OF EXAM: 07/19/2022 9:48 PM COMPARISON: Chest radiographs from CT 06/17/2022, chest radiograph 04/12/2022 TECHNIQUE: XR chest 2V Frontal and lateral views of the chest. CLINICAL INDICATION:Male, 62 years old with history of difficulty breathing; FINDINGS: Lungs/Pleura: Left perihilar and left upper lobe again demonstrated and less well visualized. Scatter ed subtle reticular and hazy opacities. No evidence of pneumothorax, focal consolidation or pleural e ffusion. Pulmonary vascularity: Unremarkable. Heart/mediastinum: Cardiomediastinal silhouette is unremarkable. Musculoskeletal: No acute osseous pathology. Right shoulder arthroplasty. Deformity left proximal hum erus likely from prior injury. IMPRESSION: 1. Subtle scattered opacities which may represent pneumonia. 2. Left upper lobe and left perihilar mass as seen on prior CT are better characterized on CT.
--- NOTE | 2022-07-19 23:17 | CT ---
EXAMINATION TYPE: CT angio chest DATE OF EXAM: 07/19/2022 COMPARISON: 06/17/2022 HISTORY: Elevated d-dimer, history of lung cancer CT DLP: 409.3 mGycm Automated exposure control for dose reduction was used. CONTRAST: Performed with IV Contrast, patient injected with 65 mL of Isovue 370. Images obtained from the thoracic inlet through the diaphragm with the IV contrast. There are 3-D pos t processed images. There are some enlarged paratracheal and left bronchial lymph nodes up to 2.5 cm. There is adenopathy encasing the left pulmonary artery. There is coarse peripheral patchy reticular infiltrates in both lungs. There is left pleural effusion. There is some spiculated density in the left upper lobe extend ing to the left pulmonary hilum. No evidence of filling defect in the pulmonary arteries. Heart size is normal. There are rounded mass es at the left cardiac border in the pericardial fat that measure up to 2.5 cm. Upper abdominal soft tissues show no dilated ducts. No adrenal mass. Abdominal aorta is atheromatous. No aneurysm. Thoraci c aorta is intact. No aneurysm. No dissection. Thoracic vertebra show multiple compression fractures and biconcave deformities. There is vertebropla sty in the lower thoracic spine. Compression fractures of up to 50% in multiple mid and lower thorac ic vertebra. The sternum is intact. IMPRESSION: No evidence of pulmonary embolism. There is mediastinal and left bronchial adenopathy with improvement in the left hilar mass compared t o old exam that suggests a favorable treatment response. There is left upper lobe spiculated infiltra te extending from the left pulmonary hilum to the left lung apex which is slightly decreased compared to old exam. There is encasement of the left lower lobe pulmonary artery with tumor mass and artery narrowing on old exam that is improved on today's exam. COPD. Patchy bilateral reticular pulmonary interstitial infiltrates which are increased compared to old exam. There is small left pleural effusion which is increased compared to the old exam. Pericardi al tumor masses not significantly different than last exam.
[2022-07-19] MEDS ORDERED: DEXTROSE 50% SYRINGE 50 ML IVP PRN ×2 (23:49)
[2022-07-19 23:50] LABS: Glucose,Whole Blood 418 mg/dL (70-110)
[2022-07-20] MEDS: INSULIN ASPART (NovoLOG) 100 UNIT/ML VIAL SQ SCH ×5 (00:16→20:58)
[2022-07-20] MEDS: SODIUM CHLORIDE 0.9% 1,000 ML IV SCH ×4 (00:17→20:59)
[2022-07-20] MEDS: AMOXIC-POT CLAV 875-125MG 1 EACH TAB PO SCH ×3 (00:17→19:45)
[2022-07-20] MEDS: DOXYCYCLINE 100 MG CAP PO SCH ×3 (00:17→19:45)
[2022-07-20 06:12] LABS: Glucose,Whole Blood 128 mg/dL (70-110)
[2022-07-20] MEDS: IPRATROPIUM-ALBUTEROL 3 ML NEB INHALATION PRN (07:31)
[2022-07-20] MEDS: BUDESONIDE 0.25 MG/2 ML NEBU INHALATION SCH ×2 (07:32→20:40)
[2022-07-20 07:53] LABS: Anisocytosis Slight; HCT 22.6 % (39.0-53.0); HGB 7.5 gm/dL (13.0-17.5); Hypochromasia Moderate; MCH 33.7 pg (25.0-35.0); MCHC 33.2 g/dL (31.0-37.0); MCV 101.6 fL (80.0-100.0); Macrocytosis Moderate; Mean Platelet Volume 8.8; Poikilocytosis Moderate; RBC 2.22 m/uL (4.30-5.90); RDW 16.8 % (11.5-15.5)
[2022-07-20 07:54] LABS: Platelet Count 7 k/uL (150-450); WBC 0.1 k/uL (3.8-10.6)
[2022-07-20 08:07] LABS: African American GFR (CKD) >90 (>60 ml/min/1.73 sqM); Anion Gap 8 mmol/L; Blood Urea Nitrogen 13 mg/dL (9-20); Calcium 7.1 mg/dL (8.4-10.2); Carbon Dioxide 20 mmol/L (22-30); Chloride 109 mmol/L (98-107); Glucose 108 mg/dL (74-99); Non-African American GFR(CKD) >90 (>60 ml/min/1.73 sqM); Potassium 3.8 mmol/L (3.5-5.1); Sodium 137 mmol/L (137-145)
[2022-07-20] MEDS: PANTOPRAZOLE 40 MG/10 ML VIAL IV SCH (08:14)
[2022-07-20] MEDS: SUCRALFATE 1 GM TAB PO SCH ×3 (10:26→19:45)
[2022-07-20 11:40] LABS: Glucose,Whole Blood 191 mg/dL (70-110)
[2022-07-20] MEDS: METOPROLOL TARTRATE 12.5 MG TAB PO SCH ×2 (12:09→19:45)
[2022-07-20] MEDS: MORPHINE SULFATE IR 15 MG TABLET PO PRN ×2 (12:09→20:59)
--- NOTE | 2022-07-20 12:23 | P.CONS ---
History of Present Illness - Reason for Consult Consult date: 07/20/22 GI bleed Requesting physician: Bradley Stockton - Chief Complaint Bloody stools - History of Present Illness This is a pleasant 62-year-old male with a history of metastatic lung cancer with metastasis to the stomach and neck diagnosed in February 2021. He presented to the emergency department with shortness of breath for the past 2 days along with 3 episodes of bloody stools. He has undergone chemo medial therapy in the past and is currently under chemotherapy treatment through [facility]. He states that he underwent his first treatment within the last month. He states that he came into the hospital because he had 3 medium red bloody bowel movements yesterday. States he was having some lower abdominal cramping followed by the bleeding. He states he had some mild nausea but no vomiting. Denies any previous history of GI bleed. Denies any NSAID use or anti coagulation. He states that he is on Carafate and Protonix for history of GERD. Patient recently underwent EGD and colonoscopy 06/22/[address] Muro for abdominal pain. EGD found a mild chronic gastritis and colonoscopy. Osseous had any bleeding today. Last episode was yesterday evening. States he has chronic abdominal pain, and improved with his Carafate and Protonix. He had a CT angiogram of the chest that reported no evidence of pulmonary embolism. Mediastinal left bronchial adenopathy with improvement in the left hilar mass compared to old exam. Left upper lobe spiculated infiltrate extending from the left pulmonary hilum to the left lung apex which is slightly decreased compared to old exam. Encasement of the left lower lobe pulmonary artery with tumor mass and artery narrowing on old exam that is improved on today's exam. COPD. Patchy bilateral reticular pulmonary interstitial infiltrates which are increased compared to old exam. Small left pleural effusion which is increased compared to old exam. Pericardial tumor masses that significantly different than last exam. Repeat labs today WBC 0.5 hemoglobin 7.5 hematocrit 22 platelet count 7000. Patient has received 1 unit of packed red blood cell transfusion as well as 1 unit of platelets. Admitting labs: WBC 0.2 hemoglobin 6.5 hematocrit 18.9 platelet count 5000 INR 1.0 d-dimer 1.76 sodium 136 potassium 4.4 BUN 12 creatinine 0.63 glucose 1:15, bilirubin 0.4 AST 23 ALT 22 alkaline phosphatase 60 Review of Systems REVIEW OF SYSTEMS: CARDIOPULMONARY: No chest pain. Shortness of breath. Gastrointestinal: Chronic abdominal pain. No nausea or vomiting. No hematemesis, coffee-ground emesis. Rectal bleeding, more of a medium to dark red. GENITOURINARY: No dysuria or hematuria. MUSCULOSKELETAL: Reports normal range of motion. SKIN: No rashes. No jaundice. ENDOCRINE: No chills, fevers. No excessive weight gain or loss. No polydipsia or polyuria. PSYCHIATRIC: Unremarkable. NEUROLOGY: No change in mental status. Denies dizziness, headache. ENT: Vision unremarkable. CONSTITUTIONAL: No recent weight loss. No fever, chills, night sweats. Past Medical History Past Medical History: Cancer, COPD, GERD/Reflux Additional Past Medical History / Comment(s): LUNG CANCER WITH TUMOR IN STOMACH AND STATES ALSO IN HIS NECK.,. RECEIVING CHEMOTHERAPY., DDD WITH BACK ,HIP & LEG PAIN., (PAIN CLINIC PATIENT)., EMPHYSEMA., GASTRITIS. History of Any Multi-Drug Resistant Organisms: None Reported Past Surgical History: Joint Replacement, Orthopedic Surgery Additional Past Surgical History / Comment(s): RIGHT AND LEFT TOTAL HIPS, RIGHT SHOULDER SURGERY. Past Anesthesia/Blood Transfusion Reactions: No Reported Reaction Smoking Status: Former smoker - Past Family History Father Family Medical History: No Reported History Medications and Allergies Home Medications Medication Instructions Recorded Confirmed Type Atorvastatin [Lipitor] 20 mg PO DAILY 03/11/21 07/19/22 History OXcarbazepine [Trileptal] 300 mg PO BID 03/11/21 07/19/22 History Pantoprazole Sodium [Protonix] 40 mg PO BID 03/11/21 07/19/22 History Sucralfate [Carafate] 1 gm PO ACHS 03/11/21 07/19/22 History traZODone HCL [Desyrel] 100 mg PO HS 03/11/21 07/19/22 History ALPRAZolam [Xanax] 0.5 mg PO BID PRN 01/13/22 07/19/22 History Budesonide [Pulmicort] 0.25 mg INHALATION RT-BID 01/13/22 07/19/22 History Hydrocortisone [Cortef] 10 mg PO DAILY@1400 01/13/22 07/19/22 History Ipratropium-Albuterol Nebulize 3 ml INHALATION RT-QID PRN 01/13/22 07/19/22 History [Duoneb 0.5 mg-3 mg/3 ml Soln] metFORMIN HCL 500 mg PO BID 01/13/22 07/19/22 History Albuterol Nebulized [Ventolin 2.5 mg INHALATION RT-QID PRN 02/23/22 07/19/22 History Nebulized] Fluconazole [Diflucan] 100 mg PO DAILY PRN 02/23/22 07/19/22 History Insulin Aspart [NovoLOG Flexpen] See Protocol SQ ACHS 02/24/22 07/19/22 History Dicyclomine [Bentyl] 10 mg PO TID PRN 10 Days #30 04/12/22 07/19/22 Rx capsule Famotidine 40 mg PO DAILY 04/12/22 07/19/22 History Metoclopramide [Reglan] 5 mg PO AC-BID PRN 04/12/22 07/19/22 History Semaglutide [Rybelsus] 3 mg PO DAILY 04/12/22 07/19/22 History Hydrocortisone [Cortef] 20 mg PO DAILY@0800 06/17/22 07/19/22 History polyethylene glycoL 3350 [Miralax] 17 gm PO DAILY PRN 06/17/22 07/19/22 History Morphine Sulfate Ir [MSIR] 30 mg PO Q4HR PRN 3 Days #18 tab 06/27/22 07/19/22 Rx Gabapentin [Neurontin] 400 mg PO BID 07/19/22 07/19/22 History Metoprolol Tartrate [Lopressor] 12.5 mg PO BID 07/19/22 07/19/22 History Ondansetron [Zofran] 4 mg PO Q4H PRN 07/19/22 07/19/22 History Sennosides-Docusate Sodium 2 tab PO BID PRN 07/19/22 07/19/22 History [Senokot-S] fentaNYL 50MCG/HR PATCH [Duragesic 1 patch TRANSDERM Q72H 07/19/22 07/19/22 History 50MCG/HR] oxyCODONE-APAP 10-325MG [Percocet 1 tab PO Q3H PRN 07/19/22 07/19/22 History 10-325 mg] Allergies Allergy/AdvReac Type Severity Reaction Status Date / Time No Known Allergies Allergy Verified 07/19/22 22:49 Physical Exam Vitals: Vital Signs Temp Pulse Pulse Resp BP BP Pulse Ox 07/20/22 08:07 97.5 F L 97 18 98/59 100 07/20/22 07:43 100 07/20/22 07:33 97 97 07/20/22 04:00 98.7 F 96 16 108/66 97 07/20/22 02:00 102 H 18 07/20/22 00:52 98.1 F 99 18 144/76 100 07/20/22 00:22 98.4 F 105 H 18 138/76 99 07/19/22 23:30 100 20 110/58 100 07/19/22 23:23 98 F 100 20 105/66 100 07/19/22 23:03 98 F 100 20 105/65 99 07/19/22 23:00 98 F 100 18 132/66 100 07/19/22 22:31 98 F 100 18 107/56 100 07/19/22 22:19 100 20 136/68 99 07/19/22 22:12 98 F 100 20 124/70 99 07/19/22 22:00 97.8 F 102 H 20 110/60 98 07/19/22 21:00 100 20 140/66 99 07/19/22 20:40 105 H 20 96/56 100 07/19/22 19:36 100 07/19/22 19:28 98.5 F 111 H 26 H 124/85 100 Intake and Output 07/19/22 07/20/22 07/20/22 22:59 06:59 14:59 Intake Total 264 550 0 Output Total 275 Balance 264 550 -275 Intake: Oral 240 Blood Product 264 310 0 Platelet Pheresis Pas 264 Psoralen Unit [id number] Platelet Pheresis Pas 0 Psoralen Unit [id number] Rc As-1 Unit 0 310 [id number] Other 0 Platelet Pheresis Pas 0 Psoralen Unit [id number] Output: Urine 275 Other: Voiding Method Urinal Urinal Weight 74.389 kg 74.389 kg General appearance: The patient is alert, oriented, appears in no acute distress. HET: Head is normocephalic and atraumatic. Conjunctiva pink. Sclera anicteric. Neck: Supple without lymphadenopathy. Trachea midline. Heart: S1 S2. Regular rate and rhythm. Lungs: Clear to auscultation. Abdomen: Soft, nontender, nondistended with bowel sounds. No guarding or rigidity. Skin: No rashes. No jaundice. Extremities: Normal skin color and turgor. No pedal edema. Neurological: No focal deficits. Alert and oriented x3. Results CBC & Chem 7: 07/20/22 06:52 07/20/22 06:52 Labs: Abnormal Lab Results - Last 24 Hours (Table) 07/19/22 07/19/22 07/19/22 Range/Units 20:25 20:32 20:32 WBC 0.2 L* (3.8-10.6) k/uL RBC 1.78 L (4.30-5.90) m/uL Hgb 6.5 L* D (13.0-17.5) gm/dL Hct 18.9 L* (39.0-53.0) % MCV 106.2 H D (80.0-100.0) fL MCH 36.8 H (25.0-35.0) pg RDW (11.5-15.5) % Plt Count 5 L* D (150-450) k/uL D-Dimer 1.76 H (<0.60) mg/L FEU Sodium (137-145) mmol/L Chloride (98-107) mmol/L Carbon Dioxide (22-30) mmol/L Creatinine (0.66-1.25) mg/dL Glucose (74-99) mg/dL POC Glucose (mg/dL) (70-110) mg/dL Calcium (8.4-10.2) mg/dL Total Protein (6.3-8.2) g/dL Albumin (3.5-5.0) g/dL Crossmatch See Detail 07/19/22 07/19/22 07/20/22 Range/Units 20:32 23:49 06:11 WBC (3.8-10.6) k/uL RBC (4.30-5.90) m/uL Hgb (13.0-17.5) gm/dL Hct (39.0-53.0) % MCV (80.0-100.0) fL MCH (25.0-35.0) pg RDW (11.5-15.5) % Plt Count (150-450) k/uL D-Dimer (<0.60) mg/L FEU Sodium 136 L (137-145) mmol/L Chloride (98-107) mmol/L Carbon Dioxide 19 L (22-30) mmol/L Creatinine 0.63 L (0.66-1.25) mg/dL Glucose 115 H (74-99) mg/dL POC Glucose (mg/dL) 418 H 128 H (70-110) mg/dL Calcium 7.5 L (8.4-10.2) mg/dL Total Protein 5.5 L (6.3-8.2) g/dL Albumin 2.8 L (3.5-5.0) g/dL Crossmatch 07/20/22 07/20/22 Range/Units 06:52 06:52 WBC 0.1 L* (3.8-10.6) k/uL RBC 2.22 L (4.30-5.90) m/uL Hgb 7.5 L (13.0-17.5) gm/dL Hct 22.6 L (39.0-53.0) % MCV 101.6 H (80.0-100.0) fL MCH (25.0-35.0) pg RDW 16.8 H (11.5-15.5) % Plt Count 7 L* (150-450) k/uL D-Dimer (<0.60) mg/L FEU Sodium (137-145) mmol/L Chloride 109 H (98-107) mmol/L Carbon Dioxide 20 L (22-30) mmol/L Creatinine 0.59 L (0.66-1.25) mg/dL Glucose 108 H (74-99) mg/dL POC Glucose (mg/dL) (70-110) mg/dL Calcium 7.1 L (8.4-10.2) mg/dL Total Protein (6.3-8.2) g/dL Albumin (3.5-5.0) g/dL Crossmatch Comments: CT angiogram of the chest that reported no evidence of pulmonary embolism. Mediastinal left bronchial adenopathy with improvement in the left hilar mass compared to old exam. Left upper lobe spiculated infiltrate extending from the left pulmonary hilum to the left lung apex which is slightly decreased compared to old exam. Encasement of the left lower lobe pulmonary artery with tumor mass and artery narrowing on old exam that is improved on today's exam. COPD. Patchy bilateral reticular pulmonary interstitial infiltrates which are increased compared to old exam. Small left pleural effusion which is increased compared to old exam. Pericardial tumor masses that significantly different than last exam. Some Assessment and Plan (1) GI bleed Narrative/Plan: History 2-year-old male with history of low malignant lung cancer who presented to the emergency department with shortness of breath and 3 episodes of rectal bleeding. Patient was noted to be thrombocytopenic with platelet count of 5000 on admission and hemoglobin is 6.5. He has received 1 unit of breath blood cells as well as platelets. No further bleeding. No previous history of GI bleed. Underwent EGD colonoscopy 07/12/2022. Colonoscopy with findings of lipoma, benign finding. And EGD with findings of mild gastritis. Unclear etiology at this time of rectal bleeding. In light of current platelet count will taper her any endoscopic evaluation at this time. Await further recommendations from hematology Current Visit: Yes Status: Acute Code(s): K92.2 - GASTROINTESTINAL HEMORRHAGE, UNSPECIFIED SNOMED Code(s): 62719816 (2) Pancytopenia Narrative/Plan: Hematology following closely, continue with the recommendations. Current Visit: Yes Status: Acute Code(s): D61.818 - OTHER PANCYTOPENIA SNOMED Code(s): 642449576 (3) Metastatic lung cancer (metastasis from lung to other site) Current Visit: No Status: Acute Code(s): C34.90 - MALIGNANT NEOPLASM OF UNSP PART OF UNSP BRONCHUS OR LUNG SNOMED Code(s): 31744620 Plan: 1. Continue symptomatic and supportive care 2. Daily CBC, transfuse for hemoglobin less than 7 3. Agree with platelet transfusion, continue with recommendations from hematology 4. Protonix 40 mg twice a day 5. Continue with Carafate 6. No plans on endoscopic evaluation at this time Thank you for this consultation, we will continue to follow. Dr. Juan Carlos Estrada I agree with the dictator's note, documented as a scribe by Arelis Quinn.
[2022-07-20] MEDS ORDERED: polyethylene glycoL 3350 17 GM POWD.PACK PO PRN (12:25)
[2022-07-20] MEDS ORDERED: SENNOSIDES-DOCUSATE SODIUM 1 EACH TAB PO PRN (12:25)
--- NOTE | 2022-07-20 12:28 | P.CONS ---
History of Present Illness - Reason for Consult Consult date: 07/20/22 SCLC, GIB Requesting physician: Bradley Stockton - Chief Complaint SOB, JASVIR - History of Present Illness Mister velásquez is a pleasant male patient of Dr. Barksdale, initially seen in consult at [facility] . Admitted with progressive shortness of breath, chest x-ray revealed essentially opacification of the left hemithorax, CT showed large mediastinal mass 9.5 cm with pleural effusion. 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 CT AP 03/14/21 showed large left sided pleural effusion, bilateral retroperitoneal nodes, periaortic nodes and multiple iliac chain and perirectal lymph nodes. MRI of the brain 03/14/21 showed no metastatic disease. Patient opted for treatment. He received First cycle ofcarboplatin/etoposide inpatient. He completed 6 cycles around 07/26/21. CT CAP, stable disease, no new sites. He was started on maintenance tecentriq 09/28/21. Treatment follow-up CT scan showed increase in size at the primary site and mediastinal nodes, felt to be pseudo-progression from immunotherapy. Treatment was continued, short term follow-up CT scan did confirm progression. He was started on second line treatment with carboplatin and irinotecan on 12/01/21, he completed 6 cycles. Treatment follow-up imaging unfortunately did show disease progression. Patient was also experiencing back pain related to metastatic paraspinal lesions. He completed radiation 06/27/22. He had his first cycle of lurbinectedin that approximately 7 days ago. He has a past medical history of hypertension, hyperlipidemia, diabetes mellitus type 2, COPD and GERD. He is currently admitted with maroon colored diarrhea 3, started yesterday, he has also had progressive and persistent shortness of breath for 1-2 days, denies any other associated symptoms. He denied fevers, oral irritation, painful swallowing, wheezing, productive cough, chest pain, nausea, vomiting,abdominal pain, cramping, rectal pain, no other bleeding. He reports some relief him back pain after radiation treatment. He denied any acute side effects related to treatment last week. CTA was negative for PE, chest x-ray showing some scattered opacity, reporting decrease in size of left upper lobe tumor. Hemoglobin was 6.5 on admit, status post 1 unit, hemoglobin 7.5. Patient's platelets were 5000, status post 1 unit, platelets are 7000. WBC 0.1. Vital signs are stable. Review of Systems 10 point review of systems is negative except as stated in HPI Past Medical History Past Medical History: Cancer, COPD, GERD/Reflux Additional Past Medical History / Comment(s): LUNG CANCER WITH TUMOR IN STOMACH AND STATES ALSO IN HIS NECK.,. RECEIVING CHEMOTHERAPY., DDD WITH BACK ,HIP & LEG PAIN., (PAIN CLINIC PATIENT)., EMPHYSEMA., GASTRITIS. History of Any Multi-Drug Resistant Organisms: None Reported Past Surgical History: Joint Replacement, Orthopedic Surgery Additional Past Surgical History / Comment(s): RIGHT AND LEFT TOTAL HIPS, RIGHT SHOULDER SURGERY. Past Anesthesia/Blood Transfusion Reactions: No Reported Reaction Smoking Status: Former smoker - Past Family History Father Family Medical History: No Reported History Medications and Allergies Home Medications Medication Instructions Recorded Confirmed Type Atorvastatin [Lipitor] 20 mg PO DAILY 03/11/21 07/19/22 History OXcarbazepine [Trileptal] 300 mg PO BID 03/11/21 07/19/22 History Pantoprazole Sodium [Protonix] 40 mg PO BID 03/11/21 07/19/22 History Sucralfate [Carafate] 1 gm PO ACHS 03/11/21 07/19/22 History traZODone HCL [Desyrel] 100 mg PO HS 03/11/21 07/19/22 History ALPRAZolam [Xanax] 0.5 mg PO BID PRN 01/13/22 07/19/22 History Budesonide [Pulmicort] 0.25 mg INHALATION RT-BID 01/13/22 07/19/22 History Hydrocortisone [Cortef] 10 mg PO DAILY@1400 01/13/22 07/19/22 History Ipratropium-Albuterol Nebulize 3 ml INHALATION RT-QID PRN 01/13/22 07/19/22 History [Duoneb 0.5 mg-3 mg/3 ml Soln] metFORMIN HCL 500 mg PO BID 01/13/22 07/19/22 History Albuterol Nebulized [Ventolin 2.5 mg INHALATION RT-QID PRN 02/23/22 07/19/22 History Nebulized] Fluconazole [Diflucan] 100 mg PO DAILY PRN 02/23/22 07/19/22 History Insulin Aspart [NovoLOG Flexpen] See Protocol SQ ACHS 02/24/22 07/19/22 History Dicyclomine [Bentyl] 10 mg PO TID PRN 10 Days #30 04/12/22 07/19/22 Rx capsule Famotidine 40 mg PO DAILY 04/12/22 07/19/22 History Metoclopramide [Reglan] 5 mg PO AC-BID PRN 04/12/22 07/19/22 History Semaglutide [Rybelsus] 3 mg PO DAILY 04/12/22 07/19/22 History Hydrocortisone [Cortef] 20 mg PO DAILY@0800 06/17/22 07/19/22 History polyethylene glycoL 3350 [Miralax] 17 gm PO DAILY PRN 06/17/22 07/19/22 History Morphine Sulfate Ir [MSIR] 30 mg PO Q4HR PRN 3 Days #18 tab 06/27/22 07/19/22 Rx Gabapentin [Neurontin] 400 mg PO BID 07/19/22 07/19/22 History Metoprolol Tartrate [Lopressor] 12.5 mg PO BID 07/19/22 07/19/22 History Ondansetron [Zofran] 4 mg PO Q4H PRN 07/19/22 07/19/22 History Sennosides-Docusate Sodium 2 tab PO BID PRN 07/19/22 07/19/22 History [Senokot-S] fentaNYL 50MCG/HR PATCH [Duragesic 1 patch TRANSDERM Q72H 07/19/22 07/19/22 History 50MCG/HR] oxyCODONE-APAP 10-325MG [Percocet 1 tab PO Q3H PRN 07/19/22 07/19/22 History 10-325 mg] Allergies Allergy/AdvReac Type Severity Reaction Status Date / Time No Known Allergies Allergy Verified 07/19/22 22:49 Physical Exam Vitals: Vital Signs Temp Pulse Pulse Resp BP BP Pulse Ox 07/20/22 08:07 97.5 F L 97 18 98/59 100 07/20/22 07:43 100 07/20/22 07:33 97 97 07/20/22 04:00 98.7 F 96 16 108/66 97 07/20/22 02:00 102 H 18 07/20/22 00:52 98.1 F 99 18 144/76 100 07/20/22 00:22 98.4 F 105 H 18 138/76 99 07/19/22 23:30 100 20 110/58 100 07/19/22 23:23 98 F 100 20 105/66 100 07/19/22 23:03 98 F 100 20 105/65 99 07/19/22 23:00 98 F 100 18 132/66 100 07/19/22 22:31 98 F 100 18 107/56 100 07/19/22 22:19 100 20 136/68 99 07/19/22 22:12 98 F 100 20 124/70 99 07/19/22 22:00 97.8 F 102 H 20 110/60 98 07/19/22 21:00 100 20 140/66 99 07/19/22 20:40 105 H 20 96/56 100 07/19/22 19:36 100 07/19/22 19:28 98.5 F 111 H 26 H 124/85 100 Intake and Output 07/19/22 07/20/22 07/20/22 22:59 06:59 14:59 Intake Total 264 550 Balance 264 550 Intake: Oral 240 Blood Product 264 310 Platelet Pheresis Pas 264 Psoralen Unit [id number] As-1 Unit 0 310 [id number] Other 0 Platelet Pheresis Pas 0 Psoralen Unit [id number] Other: Voiding Method Urinal Weight 74.389 kg 74.389 kg - Constitutional General appearance: cooperative, mild distress, obese Results CBC & Chem 7: 07/20/22 06:52 07/20/22 06:52 Labs: Abnormal Lab Results - Last 24 Hours (Table) 07/19/22 07/19/22 07/19/22 Range/Units 20:25 20:32 20:32 WBC 0.2 L* (3.8-10.6) k/uL RBC 1.78 L (4.30-5.90) m/uL Hgb 6.5 L* D (13.0-17.5) gm/dL Hct 18.9 L* (39.0-53.0) % MCV 106.2 H D (80.0-100.0) fL MCH 36.8 H (25.0-35.0) pg RDW (11.5-15.5) % Plt Count 5 L* D (150-450) k/uL D-Dimer 1.76 H (<0.60) mg/L FEU Sodium (137-145) mmol/L Chloride (98-107) mmol/L Carbon Dioxide (22-30) mmol/L Creatinine (0.66-1.25) mg/dL Glucose (74-99) mg/dL POC Glucose (mg/dL) (70-110) mg/dL Calcium (8.4-10.2) mg/dL Total Protein (6.3-8.2) g/dL Albumin (3.5-5.0) g/dL Crossmatch See Detail 07/19/22 07/19/22 07/20/22 Range/Units 20:32 23:49 06:11 WBC (3.8-10.6) k/uL RBC (4.30-5.90) m/uL Hgb (13.0-17.5) gm/dL Hct (39.0-53.0) % MCV (80.0-100.0) fL MCH (25.0-35.0) pg RDW (11.5-15.5) % Plt Count (150-450) k/uL D-Dimer (<0.60) mg/L FEU Sodium 136 L (137-145) mmol/L Chloride (98-107) mmol/L Carbon Dioxide 19 L (22-30) mmol/L Creatinine 0.63 L (0.66-1.25) mg/dL Glucose 115 H (74-99) mg/dL POC Glucose (mg/dL) 418 H 128 H (70-110) mg/dL Calcium 7.5 L (8.4-10.2) mg/dL Total Protein 5.5 L (6.3-8.2) g/dL Albumin 2.8 L (3.5-5.0) g/dL Crossmatch 07/20/22 07/20/22 Range/Units 06:52 06:52 WBC 0.1 L* (3.8-10.6) k/uL RBC 2.22 L (4.30-5.90) m/uL Hgb 7.5 L (13.0-17.5) gm/dL Hct 22.6 L (39.0-53.0) % MCV 101.6 H (80.0-100.0) fL MCH (25.0-35.0) pg RDW 16.8 H (11.5-15.5) % Plt Count 7 L* (150-450) k/uL D-Dimer (<0.60) mg/L FEU Sodium (137-145) mmol/L Chloride 109 H (98-107) mmol/L Carbon Dioxide 20 L (22-30) mmol/L Creatinine 0.59 L (0.66-1.25) mg/dL Glucose 108 H (74-99) mg/dL POC Glucose (mg/dL) (70-110) mg/dL Calcium 7.1 L (8.4-10.2) mg/dL Total Protein (6.3-8.2) g/dL Albumin (3.5-5.0) g/dL Crossmatch Chest x-ray: report reviewed CT scan - chest: report reviewed Assessment and Plan (1) GI bleed Current Visit: Yes Status: Acute Code(s): K92.2 - GASTROINTESTINAL HEMORRHAGE, UNSPECIFIED SNOMED Code(s): 97208818 (2) Primary small cell malignant neoplasm of lung, stage 4 Current Visit: No Status: Acute Code(s): C34.90 - MALIGNANT NEOPLASM OF UNSP PART OF UNSP BRONCHUS OR LUNG SNOMED Code(s): 76068747208449 Plan: Pancytopenia secondary to recent treatment. Patient has a long history of treatment but also has impacted his bone marrow is ability to respond. Transfuse for hemoglobin less than 7-Patient did receive 1 unit with an appropriate increase in his hemoglobin. Transfuse for platelet count less than 10,000-Patient received 1 unit of platelets, count went from [id number]. An additional unit of single donor platelets ordered for today. WBC 0.1. G-CSF initiated. CBC daily. GI bleed. Patient had 3 dark, red bloody bowel movements. No rectal pain, abdominal pain or cramping. No bowel movement documented since admit. GI has been consulted. Shortness of breath. Possibly related to opacities in the lung/pneumonia in conjunction with anemia, patient's hemoglobin tends to run between 9 and 10. He has been transfused, hemoglobin 7.5, he is comfortable at rest, short of breath with activity. Encouraged short distance ambulation with staff. Patient just started zepzelca, CTA reports some improvement in tumor size. Would like to be able to continue patient on the same. He is going to need tra nsfusion support. We'll likely add G-CSF as well. Will see how patient does during hospital course. Continue pain medications as prescribed from the office. The medications pt is receiving from Oncology were reconciled.
--- NOTE | 2022-07-20 14:03 | P.HPIM ---
History of Present Illness H&P Date: 07/20/22 Chief Complaint: Rectal bleeding This is a pleasant 62-year-old gentleman with past medical history of metastatic lung disease/ primary small cell malignant neoplasm of lung, stage IV presented to the ER with Leonardo rectal bleeding X 3, accompanied by lower abdominal cramping and exertional shortness of breath. Reports some nausea, denies emesis. Also reports extensive workup of abdominal pain and per oncology attributing it to chemo effect. Last chemotherapy approximately 1 week ago. Chest CTA reported : no evidence of pulmonary embolism. Mediastinal left bronchial adenopathy with improvement in the left hilar mass compared to old exam. Slightly decreased left upper lobe spiculated infiltrate extending from the left pulmonary hilum to the left lung apex,compared to old exam. Improved encasement of the left lower lobe pulmonary artery with tumor mass and artery narrowing compared to old exam.COPD. Increased patchy bilateral reticular pulmonary interstitial infiltrates compared to prior exam. Increased small left pleural effusion compared to prior exam. Pericardial tumor masses not significantly different than last exam. On admission :WBC 0.2 hemoglobin 6.5 hematocrit 18.9 platelet count 5 INR 1.0 d-dimer 1.76 sodium 136 potassium 4.4 BUN 12 creatinine 0.63 glucose 115, bilirubin 0.4 AST 23 ALT 22 alk phos 60. Repeat labs today WBC 0.1 hemoglobin 7.5 hematocrit 22 platelet count 7. Received 1 unit of packed red blood cell transfusion as well as 1 unit of platelets. Denies any further rectal bleeding since admission. Denies shortness of breath at rest. Denies chest pain, palpitations. Review of Systems ROS Statement: Those systems with pertinent positive or pertinent negative responses have been documented in the HPI. ROS Other: All systems not noted in ROS Statement are negative. Past Medical History Past Medical History: Cancer, COPD, GERD/Reflux Additional Past Medical History / Comment(s): LUNG CANCER WITH TUMOR IN STOMACH AND STATES ALSO IN HIS NECK.,. RECEIVING CHEMOTHERAPY., DDD WITH BACK ,HIP & LEG PAIN., (PAIN CLINIC PATIENT)., EMPHYSEMA., GASTRITIS. History of Any Multi-Drug Resistant Organisms: None Reported Past Surgical History: Joint Replacement, Orthopedic Surgery Additional Past Surgical History / Comment(s): RIGHT AND LEFT TOTAL HIPS, RIGHT SHOULDER SURGERY. Past Anesthesia/Blood Transfusion Reactions: No Reported Reaction Smoking Status: Former smoker - Past Family History Father Family Medical History: No Reported History Medications and Allergies Home Medications Medication Instructions Recorded Confirmed Type Atorvastatin [Lipitor] 20 mg PO DAILY 03/11/21 07/19/22 History OXcarbazepine [Trileptal] 300 mg PO BID 03/11/21 07/19/22 History Pantoprazole Sodium [Protonix] 40 mg PO BID 03/11/21 07/19/22 History Sucralfate [Carafate] 1 gm PO ACHS 03/11/21 07/19/22 History traZODone HCL [Desyrel] 100 mg PO HS 03/11/21 07/19/22 History ALPRAZolam [Xanax] 0.5 mg PO BID PRN 01/13/22 07/19/22 History Budesonide [Pulmicort] 0.25 mg INHALATION RT-BID 01/13/22 07/19/22 History Hydrocortisone [Cortef] 10 mg PO DAILY@1400 01/13/22 07/19/22 History Ipratropium-Albuterol Nebulize 3 ml INHALATION RT-QID PRN 01/13/22 07/19/22 History [Duoneb 0.5 mg-3 mg/3 ml Soln] metFORMIN HCL 500 mg PO BID 01/13/22 07/19/22 History Albuterol Nebulized [Ventolin 2.5 mg INHALATION RT-QID PRN 02/23/22 07/19/22 History Nebulized] Fluconazole [Diflucan] 100 mg PO DAILY PRN 02/23/22 07/19/22 History Insulin Aspart [NovoLOG Flexpen] See Protocol SQ ACHS 02/24/22 07/19/22 History Dicyclomine [Bentyl] 10 mg PO TID PRN 10 Days #30 04/12/22 07/19/22 Rx capsule Famotidine 40 mg PO DAILY 04/12/22 07/19/22 History Metoclopramide [Reglan] 5 mg PO AC-BID PRN 04/12/22 07/19/22 History Semaglutide [Rybelsus] 3 mg PO DAILY 04/12/22 07/19/22 History Hydrocortisone [Cortef] 20 mg PO DAILY@0800 06/17/22 07/19/22 History polyethylene glycoL 3350 [Miralax] 17 gm PO DAILY PRN 06/17/22 07/19/22 History Morphine Sulfate Ir [MSIR] 30 mg PO Q4HR PRN 3 Days #18 tab 06/27/22 07/19/22 Rx Gabapentin [Neurontin] 400 mg PO BID 07/19/22 07/19/22 History Metoprolol Tartrate [Lopressor] 12.5 mg PO BID 07/19/22 07/19/22 History Ondansetron [Zofran] 4 mg PO Q4H PRN 07/19/22 07/19/22 History Sennosides-Docusate Sodium 2 tab PO BID PRN 07/19/22 07/19/22 History [Senokot-S] fentaNYL 50MCG/HR PATCH [Duragesic 1 patch TRANSDERM Q72H 07/19/22 07/19/22 History 50MCG/HR] oxyCODONE-APAP 10-325MG [Percocet 1 tab PO Q3H PRN 07/19/22 07/19/22 History 10-325 mg] Allergies Allergy/AdvReac Type Severity Reaction Status Date / Time No Known Allergies Allergy Verified 07/19/22 22:49 Physical Exam Vitals: Vital Signs Temp Pulse Pulse Resp BP BP Pulse Ox 07/20/22 08:07 97.5 F L 97 18 98/59 100 07/20/22 07:43 100 07/20/22 07:33 97 97 07/20/22 04:00 98.7 F 96 16 108/66 97 07/20/22 02:00 102 H 18 07/20/22 00:52 98.1 F 99 18 144/76 100 07/20/22 00:22 98.4 F 105 H 18 138/76 99 07/19/22 23:30 100 20 110/58 100 07/19/22 23:23 98 F 100 20 105/66 100 07/19/22 23:03 98 F 100 20 105/65 99 07/19/22 23:00 98 F 100 18 132/66 100 07/19/22 22:31 98 F 100 18 107/56 100 07/19/22 22:19 100 20 136/68 99 07/19/22 22:12 98 F 100 20 124/70 99 07/19/22 22:00 97.8 F 102 H 20 110/60 98 07/19/22 21:00 100 20 140/66 99 07/19/22 20:40 105 H 20 96/56 100 07/19/22 19:36 100 07/19/22 19:28 98.5 F 111 H 26 H 124/85 100 Intake and Output 07/19/22 07/20/22 07/20/22 22:59 06:59 14:59 Intake Total 264 550 Balance 264 550 Intake: Oral 240 Blood Product 264 310 Platelet Pheresis Pas 264 Psoralen Unit [id number] As-1 Unit 0 310 [id number] Other 0 Platelet Pheresis Pas 0 Psoralen Unit [id number] Other: Voiding Method Urinal Weight 74.389 kg 74.389 kg - Exam PHYSICAL EXAM: VITAL SIGNS: [As above] GENERAL: Sitting up in bed, pale, Alert and oriented 3,no acute distress HEENT: Conjunctivae normal. eyes normal. MMM. NECK: Supple, No JVD. CARDIOVASCULAR: S1, S2 regular, mild tachycardia. No murmur. RESPIRATION: Breath sounds diminished in the bases. No rhonchi or crackles. ABDOMEN: Soft, nontender, No guarding.Bowel sounds heard. LEGS: No edema. no swelling. NERVOUS SYSTEM: Cranial N 2-12 grossly normal.No focal deficits. Strength and sensation grossly intact. Skin: Warm and dry, no rash Results CBC & Chem 7: 07/20/22 06:52 07/20/22 06:52 Labs: Abnormal Lab Results - Last 24 Hours (Table) 07/19/22 07/19/22 07/19/22 Range/Units 20:25 20:32 20:32 WBC 0.2 L* (3.8-10.6) k/uL RBC 1.78 L (4.30-5.90) m/uL Hgb 6.5 L* D (13.0-17.5) gm/dL Hct 18.9 L* (39.0-53.0) % MCV 106.2 H D (80.0-100.0) fL MCH 36.8 H (25.0-35.0) pg RDW (11.5-15.5) % Plt Count 5 L* D (150-450) k/uL D-Dimer 1.76 H (<0.60) mg/L FEU Sodium (137-145) mmol/L Chloride (98-107) mmol/L Carbon Dioxide (22-30) mmol/L Creatinine (0.66-1.25) mg/dL Glucose (74-99) mg/dL POC Glucose (mg/dL) (70-110) mg/dL Calcium (8.4-10.2) mg/dL Total Protein (6.3-8.2) g/dL Albumin (3.5-5.0) g/dL Crossmatch See Detail 07/19/22 07/19/22 07/20/22 Range/Units 20:32 23:49 06:11 WBC (3.8-10.6) k/uL RBC (4.30-5.90) m/uL Hgb (13.0-17.5) gm/dL Hct (39.0-53.0) % MCV (80.0-100.0) fL MCH (25.0-35.0) pg RDW (11.5-15.5) % Plt Count (150-450) k/uL D-Dimer (<0.60) mg/L FEU Sodium 136 L (137-145) mmol/L Chloride (98-107) mmol/L Carbon Dioxide 19 L (22-30) mmol/L Creatinine 0.63 L (0.66-1.25) mg/dL Glucose 115 H (74-99) mg/dL POC Glucose (mg/dL) 418 H 128 H (70-110) mg/dL Calcium 7.5 L (8.4-10.2) mg/dL Total Protein 5.5 L (6.3-8.2) g/dL Albumin 2.8 L (3.5-5.0) g/dL Crossmatch 07/20/22 07/20/22 Range/Units 06:52 06:52 WBC 0.1 L* (3.8-10.6) k/uL RBC 2.22 L (4.30-5.90) m/uL Hgb 7.5 L (13.0-17.5) gm/dL Hct 22.6 L (39.0-53.0) % MCV 101.6 H (80.0-100.0) fL MCH (25.0-35.0) pg RDW 16.8 H (11.5-15.5) % Plt Count 7 L* (150-450) k/uL D-Dimer (<0.60) mg/L FEU Sodium (137-145) mmol/L Chloride 109 H (98-107) mmol/L Carbon Dioxide 20 L (22-30) mmol/L Creatinine 0.59 L (0.66-1.25) mg/dL Glucose 108 H (74-99) mg/dL POC Glucose (mg/dL) (70-110) mg/dL Calcium 7.1 L (8.4-10.2) mg/dL Total Protein (6.3-8.2) g/dL Albumin (3.5-5.0) g/dL Crossmatch Thrombosis Risk Factor Assmnt - Choose All That Apply Each Factor Represents 1 point: Obesity (BMI >25), Serious lung disease incl. pneumonia (< 1month) Other Risk Factors: Yes Each Risk Factor Represents 2 Points: Age 61-74 years Thrombosis Risk Factor Assessment Total Risk Factor Score: 4 Thrombosis Risk Factor Assessment Level: Moderate Risk Assessment and Plan Assessment: Acute GI bleed Pancytopenia secondary to recent treatment,Last received chemotherapy 1 week ago Chronic abdominal, back pain due to metastatic lung disease in a patient with history of primary small cell malignant neoplasm of lung, stage IV. Fentanyl patch dose increased last week with improvement in pain. History of Adrenal mass likely secondary to metastatic lesion. COPD GERD Anxiety/depression Previous history of smoking Adrenal insufficiency currently on Cortef at home. Plan: Continue on current medication regime ,monitoring and symptomatic treatment. Neutropenic precautions initiated. Platelets and another unit of packed RBCs ordered. Maintain PPI, Carafate .Continue on empiric Augmentin and doxycycline. GI and oncology/hematology consult in place with recommendations noted and appreciated. CODE STATUS discussed and patient wants to remain a full code at this time .Prognosis guarded given multiple complex medical issues. The impression and plan of care has been dictated as directed. : I performed a history and examination of this patient, discussed the same with the dictator. I agree with the dictator's note ,documented as a scribe. Any additional findings or plans will be noted.
[2022-07-20 16:32] LABS: Glucose,Whole Blood 240 mg/dL (70-110)
[2022-07-20 19:36] LABS: Glucose,Whole Blood 254 mg/dL (70-110)
[2022-07-20] MEDS: FILGRASTIM-SNDZ 480 MCG/0.8 ML SYRINGE SQ SCH (20:57)
[2022-07-20] MEDS: traZODone HCL 100 MG TAB PO SCH (20:59)
[2022-07-20] MEDS: ALPRAZolam 0.5 MG TAB PO PRN (21:04)
[2022-07-20 21:49] LABS: Anisocytosis Slight; HGB 7.2 gm/dL (13.0-17.5); Hypochromasia Slight; MCH 33.3 pg (25.0-35.0); MCHC 35.9 g/dL (31.0-37.0); Mean Platelet Volume 8.8; Poikilocytosis Moderate; RBC 2.15 m/uL (4.30-5.90); RDW 18.3 % (11.5-15.5)
[2022-07-20 21:56] LABS: MCV 92.7 fL (80.0-100.0); Platelet Count 37 k/uL (150-450); WBC 0.3 k/uL (3.8-10.6)
[2022-07-21] MEDS: MELATONIN 3 MG TABLET PO PRN (03:36)
[2022-07-21] MEDS: SODIUM CHLORIDE 0.9% 1,000 ML IV SCH ×2 (05:22→12:56)
[2022-07-21 05:54] LABS: Glucose,Whole Blood 154 mg/dL (70-110)
[2022-07-21] MEDS: INSULIN ASPART (NovoLOG) 100 UNIT/ML VIAL SQ SCH ×4 (06:50→20:13)
[2022-07-21] MEDS: SUCRALFATE 1 GM TAB PO SCH ×4 (06:55→20:12)
[2022-07-21] MEDS: DOXYCYCLINE 100 MG CAP PO SCH ×2 (07:53→20:12)
[2022-07-21] MEDS: PANTOPRAZOLE 40 MG/10 ML VIAL IV SCH (07:53)
[2022-07-21] MEDS: AMOXIC-POT CLAV 875-125MG 1 EACH TAB PO SCH ×2 (07:53→20:12)
[2022-07-21] MEDS: METOPROLOL TARTRATE 12.5 MG TAB PO SCH ×2 (07:53→20:13)
[2022-07-21] MEDS: MORPHINE SULFATE IR 15 MG TABLET PO PRN (08:08)
[2022-07-21 08:33] LABS: Anisocytosis Slight; HGB 7.9 gm/dL (13.0-17.5); Hypochromasia Slight; MCH 32.7 pg (25.0-35.0); MCHC 35.8 g/dL (31.0-37.0); MCV 91.4 fL (80.0-100.0); Mean Platelet Volume 8.4; Poikilocytosis Moderate; RBC 2.41 m/uL (4.30-5.90); RDW 18.5 % (11.5-15.5)
[2022-07-21 08:34] LABS: Platelet Count 28 k/uL (150-450); WBC 0.5 k/uL (3.8-10.6)
--- NOTE | 2022-07-21 10:47 | P.PN ---
Subjective Progress Note Date: 07/21/22 Principal diagnosis: GI bleed This is a pleasant 62-year-old male with a history of metastatic lung cancer with metastasis to the stomach and neck diagnosed in February 2021. He presented to the emergency department with shortness of breath for the past 2 days along with 3 episodes of bloody stools. He has undergone chemo medial therapy in the past and is currently under chemotherapy treatment through [facility]. He states that he underwent his first treatment within the last month. He states that he came into the hospital because he had 3 medium red bloody bowel mo vements yesterday. States he was having some lower abdominal cramping followed by the bleeding. He states he had some mild nausea but no vomiting. Denies any previous history of GI bleed. Denies any NSAID use or anticoagulation. He states that he is on Carafate and Protonix for history of GERD. Patient recently underwent EGD and colonoscopy 06/22/[address] Muro for abdominal pain. EGD found a mild chronic gastritis and colonoscopy. Osseous had any bleeding today. Last episode was yesterday evening. States he has chronic abdominal pain, and improved with his Carafate and Protonix. He had a CT angiogram of the chest that reported no evidence of pulmonary embolism. Mediastinal left bronchial adenopathy with improvement in the left hilar mass compared to old exam. Left upper lobe spiculated infiltrate extending from the left pulmonary hilum to the left lung apex which is slightly decreased compared to old exam. Encasement of the left lower lobe pulmonary artery with tumor mass and artery narrowing on old exam that is improved on today's exam. COPD. Patchy bilateral reticular pulmonary interstitial infiltrates which are increased compared to old exam. Small left pleural effusion which is increased compared to old exam. Pericardial tumor masses that significantly different than last exam. 07/21/2022: Patient seen and examined today as a follow-up. He reports that he had 2 dark maroon stools yesterday. No further bleeding since. Denies any associated abdominal pain, cramping, nausea or vomiting. Patient did receive a total now of 3 units of blood and 2 units of platelets. Repeat labs: WBC 0.5 hemoglobin 7.9 hematocrit 22 platelet count 28,000 Objective - Vital Signs Vital signs: Vital Signs Temp 97.9 F 07/21/22 04:00 Pulse 95 07/21/22 04:00 Resp 18 11/04/22 04:00 BP 112/62 07/21/22 04:00 Pulse Ox 96 07/21/22 04:00 FiO2 Intake & Output 07/20/22 07/21/22 07/21/22 18:59 06:59 18:59 Intake Total 1063 930 Output Total 275 200 Balance 788 730 Weight 74.389 kg Intake: Oral 716 Blood Product 347 930 Platelet Pheresis Pas 347 Psoralen Unit [id number] Rc Irr As1 Unit 310 [id number] Rc Irr As1 Unit 0 310 [id number] Output: Urine 275 200 Other: Voiding Method Urinal Urinal # Voids 1 # Bowel Movements 1 2 - Exam General appearance: The patient is alert, oriented, appears in no acute distress. HET: Head is normocephalic and atraumatic. Conjunctiva pink. Sclera anicteric. Neck: Supple without lymphadenopathy. Abdomen: Soft, nontender, nondistended with bowel sounds. No guarding or rigidity. Extremities: Normal skin color and turgor. No pedal edema Skin: No rashes, no jaundice Neurological: No focal deficits. Alert and oriented. - Labs CBC & Chem 7: 07/21/22 08:05 07/20/22 06:52 Labs: Abnormal Lab Results - Last 24 Hours (Table) 07/19/22 07/20/22 07/20/22 Range/Units 20:25 06:52 06:52 WBC 0.1 L* (3.8-10.6) k/uL RBC 2.22 L (4.30-5.90) m/uL Hgb 7.5 L (13.0-17.5) gm/dL Hct 22.6 L (39.0-53.0) % MCV 101.6 H (80.0-100.0) fL RDW 16.8 H (11.5-15.5) % Plt Count 7 L* (150-450) k/uL Chloride 109 H (98-107) mmol/L Carbon Dioxide 20 L (22-30) mmol/L Creatinine 0.59 L (0.66-1.25) mg/dL Glucose 108 H (74-99) mg/dL POC Glucose (mg/dL) (70-110) mg/dL Calcium 7.1 L (8.4-10.2) mg/dL Crossmatch See Detail 07/20/22 07/20/22 07/20/22 Range/Units 11:38 16:30 19:35 WBC (3.8-10.6) k/uL RBC (4.30-5.90) m/uL Hgb (13.0-17.5) gm/dL Hct (39.0-53.0) % MCV (80.0-100.0) fL RDW (11.5-15.5) % Plt Count (150-450) k/uL Chloride (98-107) mmol/L Carbon Dioxide (22-30) mmol/L Creatinine (0.66-1.25) mg/dL Glucose (74-99) mg/dL POC Glucose (mg/dL) 191 H 240 H 254 H (70-110) mg/dL Calcium (8.4-10.2) mg/dL Crossmatch 07/20/22 07/21/22 Range/Units 21:25 05:52 WBC 0.3 L* (3.8-10.6) k/uL RBC 2.15 L (4.30-5.90) m/uL Hgb 7.2 L (13.0-17.5) gm/dL Hct 20.0 L (39.0-53.0) % MCV (80.0-100.0) fL RDW 18.3 H (11.5-15.5) % Plt Count 37 L D (150-450) k/uL Chloride (98-107) mmol/L Carbon Dioxide (22-30) mmol/L Creatinine (0.66-1.25) mg/dL Glucose (74-99) mg/dL POC Glucose (mg/dL) 154 H (70-110) mg/dL Calcium (8.4-10.2) mg/dL Crossmatch Assessment and Plan (1) GI bleed Narrative/Plan: History 2-year-old male with history of low malignant lung cancer who presented to the emergency department with shortness of breath and 3 episodes of rectal bleeding. Patient was noted to be thrombocytopenic with platelet count of 5000 on admission and hemoglobin is 6.5. He has received 1 unit of breath blood cells as well as platelets. No further bleeding. No previous history of GI bleed. Underwent EGD colonoscopy 07/12/2022. Colonoscopy with findings of lipoma, benign finding. And EGD with findings of mild gastritis. Unclear etiology at this time of rectal bleeding. In light of current platelet count will taper her any endoscopic evaluation at this time. Await further recommendations from hematology Current Visit: Yes Status: Acute Code(s): K92.2 - GASTROINTESTINAL HEMORRHAGE, UNSPECIFIED SNOMED Code(s): 53144004 (2) Pancytopenia Narrative/Plan: Hematology following closely, continue with the recommendations. Current Visit: Yes Status: Acute Code(s): D61.818 - OTHER PANCYTOPENIA SNOMED Code(s): 433397192 (3) Metastatic lung cancer (metastasis from lung to other site) Current Visit: No Status: Acute Code(s): C34.90 - MALIGNANT NEOPLASM OF UNSP PART OF UNSP BRONCHUS OR LUNG SNOMED Code(s): 09071835 Plan: 1. Continue symptomatic and supportive care 2. Daily CBC, transfuse for hemoglobin less than 7 3. Continue with recommendations from hematology 4. Protonix 40 mg twice a day 5. Continue with Carafate 6. No plans on endoscopic evaluation at this time Thank you for allowing us to participate in the care of the patient, the GI service will sign off, gastroenterology will not be available at the hospital this weekend and through next week. If further evaluation by gastroenterology is required the patient will need transfer as per the primary team's discretion. Dr. Juan Carlos Estrada I agree with the dictator's note, documented as a scribe by Arelis Quinn.
--- NOTE | 2022-07-21 11:23 | P.PN ---
Subjective Progress Note Date: 07/21/22 Principal diagnosis: GI bleed In f/u today pt reports 2 maroon stools since yesterday, no other bleeding to report, he is still SOB ambulating about 15ft. No fever, chest pain. Objective - Vital Signs Vital signs: Vital Signs Temp 97.8 F 07/21/22 07:58 Pulse 101 H 07/21/22 07:58 Resp 19 07/21/22 07:58 BP 109/57 07/21/22 07:58 Pulse Ox 97 07/21/22 07:58 FiO2 Intake & Output 07/20/22 07/21/22 07/21/22 18:59 06:59 18:59 Intake Total 1063 930 300 Output Total 275 200 Balance 788 730 300 Weight 74.389 kg Intake: Oral 716 300 Blood Product 347 930 Platelet Pheresis Pas 347 Psoralen Unit [id number] Rc Irr As1 Unit 310 [id number] Rc Irr As1 Unit 0 310 [id number] Output: Urine 275 200 Other: Voiding Method Urinal Urinal Toilet Bedside Commode Urinal # Voids 1 # Bowel Movements 1 2 - Constitutional General appearance: Present: cooperative, no acute distress, obese - EENT Eyes: Present: anicteric sclerae, EOMI, poor dentition ENT: Present: hearing grossly normal - Respiratory Details: pt able to speak today without notable SOB - Peripheral edema leg Peripheral Edema: bilateral: None - Integumentary Integumentary: Present: pale - Neurologic Neurologic: Present: CNII-XII intact - Musculoskeletal Musculoskeletal: Present: generalized weakness, strength equal bilaterally - Psychiatric Psychiatric: Present: A&O x's 3, appropriate affect, intact judgment & insight - Labs CBC & Chem 7: 07/21/22 08:05 07/20/22 06:52 Labs: Abnormal Lab Results - Last 24 Hours (Table) 07/19/22 07/20/22 07/20/22 Range/Units 20:25 11:38 16:30 WBC (3.8-10.6) k/uL RBC (4.30-5.90) m/uL Hgb (13.0-17.5) gm/dL Hct (39.0-53.0) % RDW (11.5-15.5) % Plt Count (150-450) k/uL POC Glucose (mg/dL) 191 H 240 H (70-110) mg/dL Crossmatch See Detail 07/20/22 07/20/22 07/21/22 Range/Units 19:35 21:25 05:52 WBC 0.3 L* (3.8-10.6) k/uL RBC 2.15 L (4.30-5.90) m/uL Hgb 7.2 L (13.0-17.5) gm/dL Hct 20.0 L (39.0-53.0) % RDW 18.3 H (11.5-15.5) % Plt Count 37 L D (150-450) k/uL POC Glucose (mg/dL) 254 H 154 H (70-110) mg/dL Crossmatch 07/21/22 Range/Units 08:05 WBC 0.5 L* (3.8-10.6) k/uL RBC 2.41 L (4.30-5.90) m/uL Hgb 7.9 L (13.0-17.5) gm/dL Hct 22.0 L (39.0-53.0) % RDW 18.5 H (11.5-15.5) % Plt Count 28 L (150-450) k/uL POC Glucose (mg/dL) (70-110) mg/dL Crossmatch Assessment and Plan (1) GI bleed Current Visit: Yes Status: Acute Priority: High Code(s): K92.2 - GASTROINTESTINAL HEMORRHAGE, UNSPECIFIED SNOMED Code(s): 17108848 (2) Pancytopenia due to antineoplastic chemotherapy Current Visit: Yes Status: Acute Priority: High Code(s): D61.810 - ANTINEOPLASTIC CHEMOTHERAPY INDUCED PANCYTOPENIA; T45.1X5A - ADVERSE EFFECT OF ANTINEOPLASTIC AND IMMUNOSUP DRUGS, INIT SNOMED Code(s): 906612589101566 (3) Primary small cell malignant neoplasm of lung, stage 4 Current Visit: Yes Status: Acute Priority: High Code(s): C34.90 - MALIGNANT NEOPLASM OF UNSP PART OF UNSP BRONCHUS OR LUNG SNOMED Code(s): 76597365757438 Plan: Pancytopenia secondary to recent treatment. Patient has a long history of treatment this will impact his bone marrow is ability to respond in addition to treatment last week. . Transfuse for hemoglobin less than 7. Pt has received 3 units total since admit. Hgb 7.9 today, no tranfusion. Transfuse for platelet count less than 10,000-Patient received 2 units SDP, plt 28K today. No asa, NSAIDs, anticoagulation. SCDs for DVT prophylaxis. WBC 0.3. G-CSF cont. CBC daily. GI bleed. Patient had 2 bloody bowel movements since yesterday. He has been seen by GI with recent endoscopy, no scopes planned at this time, cont observ ation and supportive care. Shortness of breath. Possibly related to opacities in the lung/pneumonia in conjunction with anemia, patient's hemoglobin tends to run between 9 and 10. He has been transfused, hemoglobin 7.9, he is noted to be more comfortable at rest today then yesterday. Cont to encourag short distance ambulation with staff. Patient just started zepzelca, CTA reports some improvement in tumor size. Would like to be able to continue patient on the same. He is going to need tra nsfusion support. We'll likely add G-CSF as well. Will see how patient does during hospital course. Continue pain medications as prescribed from the office. Pain seems to be manageable at this time.
[2022-07-21] MEDS: BUDESONIDE 0.25 MG/2 ML NEBU INHALATION SCH ×2 (11:47→21:17)
[2022-07-21] MEDS: IPRATROPIUM-ALBUTEROL 3 ML NEB INHALATION PRN ×3 (11:47→21:17)
[2022-07-21 11:50] LABS: Glucose,Whole Blood 113 mg/dL (70-110)
--- NOTE | 2022-07-21 13:06 | P.PN ---
Subjective Progress Note Date: 07/21/22 H&P Date: 07/20/22 Chief Complaint: Rectal bleeding This is a pleasant 62-year-old gentleman with past medical history of metastatic lung disease/ primary small cell malignant neoplasm of lung, stage IV presented to the ER with Leonardo rectal bleeding X 3, accompanied by lower abdominal cramping and exertional shortness of breath. Reports some nausea, denies emesis. Also reports extensive workup of abdominal pain and per oncology attributing it to chemo effect. Last chemotherapy approximately 1 week ago. Chest CTA reported : no evidence of pulmonary embolism. Mediastinal left bronchial adenopathy with improvement in the left hilar mass compared to old exam. Slightly decreased left upper lobe spiculated infiltrate extending from the left pulmonary hilum to the left lung apex,compared to old exam. Improved encasement of the left lower lobe pulmonary artery with tumor mass and artery narrowing compared to old exam.COPD. Increased patchy bilateral reticular pulmonary interstitial infiltrates compared to prior exam. Increased small left pleural effusion compared to prior exam. Pericardial tumor masses not significantly different than last exam. On admission :WBC 0.2 hemoglobin 6.5 hematocrit 18.9 platelet count 5 INR 1.0 d-dimer 1.76 sodium 136 potassium 4.4 BUN 12 creatinine 0.63 glucose 115, bilirubin 0.4 AST 23 ALT 22 alk phos 60. Repeat labs today WBC 0.1 hemoglobin 7.5 hematocrit 22 platelet count 7. Received 1 unit of packed red blood cell transfusion as well as 1 unit of platelets. Denies any further rectal bleeding since admission. Denies shortness of breath at rest. Denies chest pain, palpitations. 07/21/2022 maintained on IV fluid hydration, Zarxio,PPI, carafate .reports dark maroon stooling 2 last night. Denies any further bleeding this morning. Denies abdominal cramping, abdominal pain. Consuming 25-75% with no nausea vomiting. Received a total of 3 units packed RBCs, 2 units of platelets. WBC increased to 0.5, hemoglobin 7.9, platelets 28 .Afebrile. Denies chest pain, palpitations or shortness of breath. Complains of exertional shortness of breath. Objective - Vital Signs Vital signs: Vital Signs Temp 97.8 F 07/21/22 07:58 Pulse 100 07/21/22 12:01 Resp 19 07/21/22 07:58 BP 102/58 07/21/22 11:09 Pulse Ox 97 07/21/22 11:09 FiO2 Intake & Output 07/20/22 07/21/22 07/21/22 18:59 06:59 18:59 Intake Total 1063 930 300 Output Total 275 200 150 Balance 788 730 150 Weight 74.389 kg 74.389 kg Intake: Oral 716 300 Blood Product 347 930 Platelet Pheresis Pas 347 Psoralen Unit [id number] Rc Irr As1 Unit 310 [id number] Rc Irr As1 Unit 0 310 [id number] Output: Urine 275 200 150 Other: Voiding Method Urinal Urinal Toilet Bedside Commode Urinal # Voids 1 1 # Bowel Movements 1 2 - Exam - Exam PHYSICAL EXAM: VITAL SIGNS: [As above] GENERAL: Alert and oriented 3, Sitting up in bed,no acute distress HEENT: Conjunctivae normal. eyes normal. MMM. NECK: Supple, No JVD. CARDIOVASCULAR: S1, S2 regular, mild tachycardia. No murmur. RESPIRATION: Unlabored Breath sounds diminished in the bases. No rhonchi or crackles. ABDOMEN: Soft, nontender, No guarding.Bowel sounds heard. LEGS: No edema. no swelling. NERVOUS SYSTEM: Cranial N 2-12 grossly normal.No focal deficits. Strength and sensation grossly intact. Skin: Warm and dry, no rash - Labs CBC & Chem 7: 07/21/22 08:05 07/20/22 06:52 Labs: Abnormal Lab Results - Last 24 Hours (Table) 07/19/22 07/20/22 07/20/22 Range/Units 20:25 16:30 19:35 WBC (3.8-10.6) k/uL RBC (4.30-5.90) m/uL Hgb (13.0-17.5) gm/dL Hct (39.0-53.0) % RDW (11.5-15.5) % Plt Count (150-450) k/uL POC Glucose (mg/dL) 240 H 254 H (70-110) mg/dL Crossmatch See Detail 07/20/22 07/21/22 07/21/22 Range/Units 21:25 05:52 08:05 WBC 0.3 L* 0.5 L* (3.8-10.6) k/uL RBC 2.15 L 2.41 L (4.30-5.90) m/uL Hgb 7.2 L 7.9 L (13.0-17.5) gm/dL Hct 20.0 L 22.0 L (39.0-53.0) % RDW 18.3 H 18.5 H (11.5-15.5) % Plt Count 37 L D 28 L (150-450) k/uL POC Glucose (mg/dL) 154 H (70-110) mg/dL Crossmatch 07/21/22 Range/Units 11:48 WBC (3.8-10.6) k/uL RBC (4.30-5.90) m/uL Hgb (13.0-17.5) gm/dL Hct (39.0-53.0) % RDW (11.5-15.5) % Plt Count (150-450) k/uL POC Glucose (mg/dL) 113 H (70-110) mg/dL Crossmatch Assessment and Plan Assessment: Acute GI bleed, status post transfusion of packed RBCs and platelets. No endoscopy recommended per GI. Pancytopenia secondary to recent treatment,Last received chemotherapy 1 week ago Chronic abdominal, back pain due to metastatic lung disease in a patient with history of primary small cell malignant neoplasm of lung, stage IV. Fentanyl patch dose increased last week with improvement in pain. History of Adrenal mass likely secondary to metastatic lesion. COPD GERD Anxiety/depression Previous history of smoking Adrenal insufficiency currently on Cortef at home. Plan: Continue on current medication regime ,monitoring and symptomatic treatment. Neutropenic precautions. Maintain zaxrio,PPI, Carafate,empiric Augmentin and doxycycline. Transfusion parameters as per oncology. Close monitoring of coags.with repeat labs ordered for a.m. PT/OT. Prognosis guarded given multiple complex medical issues. The impression and plan of care has been dictated as directed. : I performed a history and examination of this patient, discussed the same with the dictator. I agree with the dictator's note ,documented as a scribe. Any additional findings or plans will be noted.
[2022-07-21 16:19] LABS: Glucose,Whole Blood 102 mg/dL (70-110)
[2022-07-21] MEDS: FILGRASTIM-SNDZ 480 MCG/0.8 ML SYRINGE SQ SCH (17:08)
[2022-07-21 20:12] LABS: Glucose,Whole Blood 140 mg/dL (70-110)
[2022-07-21] MEDS: traZODone HCL 100 MG TAB PO SCH (20:12)
[2022-07-22] MEDS: ALPRAZolam 0.5 MG TAB PO PRN ×2 (01:04→23:10)
[2022-07-22] MEDS: IPRATROPIUM-ALBUTEROL 3 ML NEB INHALATION PRN ×4 (09:21→21:31)
[2022-07-22] MEDS: BUDESONIDE 0.25 MG/2 ML NEBU INHALATION SCH ×2 (09:22→21:31)
[2022-07-22] MEDS: SODIUM CHLORIDE 0.9% 1,000 ML IV SCH ×2 (10:25→12:07)
[2022-07-22] MEDS: INSULIN ASPART (NovoLOG) 100 UNIT/ML VIAL SQ SCH ×4 (10:25→21:41)
[2022-07-22] MEDS: AMOXIC-POT CLAV 875-125MG 1 EACH TAB PO SCH (10:26)
[2022-07-22] MEDS: SUCRALFATE 1 GM TAB PO SCH ×4 (10:26→20:10)
[2022-07-22] MEDS: METOPROLOL TARTRATE 12.5 MG TAB PO SCH ×2 (10:26→20:10)
[2022-07-22] MEDS: DOXYCYCLINE 100 MG CAP PO SCH (10:26)
[2022-07-22] MEDS: PANTOPRAZOLE 40 MG/10 ML VIAL IV SCH (10:27)
[2022-07-22 11:37] LABS: Glucose,Whole Blood 91 mg/dL (70-110)
[2022-07-22 11:48] LABS: Glucose,Whole Blood 110 mg/dL (70-110)
[2022-07-22] MEDS: oxyCODONE-APAP 10-325MG 1 EACH TAB PO PRN (14:20)
[2022-07-22 15:43] LABS: Appearance,Urine Clear (Clear); Bilirubin,Urine Negative (Negative); Blood,Urine Negative (Negative); Color,Urine Yellow; Glucose,Urine (UA) Negative (Negative); Ketones,Urine Negative (Negative); Leukocyte Esterase,Urine Negative (Negative); Nitrite,Urine Negative (Negative); Protein,Urine Negative (Negative); Specific Gravity,Urine 1.012 (1.001-1.035); Urobilinogen,Urine <2.0 mg/dL (<2.0)
[2022-07-22] MEDS: HYDROCORTISONE SUCCINATE 100 MG/2 ML VIAL IV SCH ×2 (16:13→23:10)
[2022-07-22 16:39] LABS: Glucose,Whole Blood 110 mg/dL (70-110)
[2022-07-22] MEDS: FILGRASTIM-SNDZ 480 MCG/0.8 ML SYRINGE SQ SCH (17:23)
[2022-07-22] MEDS: MORPHINE SULFATE IR 15 MG TABLET PO PRN (17:56)
[2022-07-22 18:42] LABS: Anisocytosis Slight; HCT 23.5 % (39.0-53.0); HGB 8.5 gm/dL (13.0-17.5); Hypochromasia Slight; MCH 33.4 pg (25.0-35.0); MCHC 36.2 g/dL (31.0-37.0); MCV 92.4 fL (80.0-100.0); Mean Platelet Volume 8.7; Poikilocytosis Moderate; RBC 2.55 m/uL (4.30-5.90); RDW 18.4 % (11.5-15.5)
[2022-07-22 18:44] LABS: Platelet Count 23 k/uL (150-450); WBC 0.8 k/uL (3.8-10.6)
[2022-07-22 19:56] LABS: African American GFR (CKD) >90 (>60 ml/min/1.73 sqM); Anion Gap 4 mmol/L; Blood Urea Nitrogen 6 mg/dL (9-20); Calcium 6.9 mg/dL (8.4-10.2); Carbon Dioxide 19 mmol/L (22-30); Chloride 110 mmol/L (98-107); Glucose 179 mg/dL (74-99); Non-African American GFR(CKD) >90 (>60 ml/min/1.73 sqM); Potassium 4.1 mmol/L (3.5-5.1); Sodium 133 mmol/L (137-145)
[2022-07-22] MEDS: GABAPENTIN 400 MG CAP PO SCH (20:10)
[2022-07-22] MEDS: OXcarbazepine 300 MG TAB PO SCH (20:10)
[2022-07-22 21:49] LABS: Glucose,Whole Blood 239 mg/dL (70-110)
[2022-07-22] MEDS: traZODone HCL 100 MG TAB PO SCH (23:10)
[2022-07-23] MEDS: SODIUM CHLORIDE 0.9% 1,000 ML IV SCH ×2 (01:44→17:21)
--- NOTE | 2022-07-23 02:25 | PN ---
PROGRESS NOTE DATE OF SERVICE: 07/22/2022 HISTORY OF PRESENT ILLNESS: This is a 62-year-old gentleman who was admitted with acute GI bleed, also had 3 units of RBC transfusions and 2 units of platelet transfusions at this time. The patient's hemoglobin is 7.9, white count is 0.5, and platelets are 28. The patient has continued melenic stools. PAST MEDICAL HISTORY: Reviewed. REVIEW OF SYSTEMS: A 14-point review is negative as mentioned earlier. CURRENT MEDICATIONS: Reviewed include Pulmicort, dose and rest of medications also noted. PHYSICAL EXAMINATION: VITAL SIGNS: Pulse is 104, blood pressure 89/52, and respirations 25. HEENT: Conjunctivae normal. CARDIOVASCULAR: S1, S2 muffled. RESPIRATIONS: Decreased at the bases, few scattered rhonchi. ABDOMEN: Soft, nontender. LEGS: No edema. LABS: White count 0.5, hemoglobin 7.9, and hematocrit 28 as mentioned earlier. Yesterday's and today's labs are not available. ASSESSMENT: 1. Acute gastrointestinal bleed, recent EGD showed mild gastritis. 2. Thrombocytopenia and leukopenia secondary to chemotherapy. 3. Lung cancer stage IV. 4. Chronic obstructive pulmonary disease. 5. Multiple medical issues. RECOMMENDATIONS: This 62-year-old gentleman presented with multiple complex medical issues, we will monitor the patient closely. Repeat hemoglobin. Continue with rest of medications NSAIDs. Also recommended to stop doxycycline and Augmentin, we will initiate parenteral antibiotic, check C difficile. Guarded prognosis because of multiple complex medical issues. Further recommendations to follow. See orders for further details. MMODL / IJN: [id number] / LYNSEY
[2022-07-23 06:05] LABS: Glucose,Whole Blood 192 mg/dL (70-110)
[2022-07-23] MEDS: SUCRALFATE 1 GM TAB PO SCH ×4 (06:29→20:20)
[2022-07-23] MEDS: INSULIN ASPART (NovoLOG) 100 UNIT/ML VIAL SQ SCH ×4 (06:29→20:13)
[2022-07-23] MEDS: HYDROCORTISONE SUCCINATE 100 MG/2 ML VIAL IV SCH ×3 (08:01→23:39)
[2022-07-23] MEDS: PANTOPRAZOLE 40 MG/10 ML VIAL IV SCH (08:01)
[2022-07-23] MEDS: OXcarbazepine 300 MG TAB PO SCH ×2 (08:03→20:21)
[2022-07-23] MEDS: GABAPENTIN 400 MG CAP PO SCH ×2 (08:03→20:20)
[2022-07-23] MEDS: METOPROLOL TARTRATE 12.5 MG TAB PO SCH ×2 (08:03→20:19)
[2022-07-23] MEDS: BUDESONIDE 0.25 MG/2 ML NEBU INHALATION SCH ×2 (09:07→19:15)
[2022-07-23] MEDS: IPRATROPIUM-ALBUTEROL 3 ML NEB INHALATION PRN ×4 (09:07→19:15)
[2022-07-23 11:56] LABS: Anisocytosis Slight; Hypochromasia Slight; MCH 32.2 pg (25.0-35.0); MCHC 33.9 g/dL (31.0-37.0); Macrocytosis Slight; Mean Platelet Volume 11.8; Poikilocytosis Moderate; RBC 1.88 m/uL (4.30-5.90)
[2022-07-23 11:57] LABS: Glucose,Whole Blood 156 mg/dL (70-110)
[2022-07-23 11:59] LABS: WBC 0.9 k/uL (3.8-10.6)
[2022-07-23 12:03] LABS: African American GFR (CKD) >90 (>60 ml/min/1.73 sqM); Anion Gap 4 mmol/L; Blood Urea Nitrogen 6 mg/dL (9-20); Calcium 7.1 mg/dL (8.4-10.2); Carbon Dioxide 19 mmol/L (22-30); Chloride 110 mmol/L (98-107); Glucose 139 mg/dL (74-99); HCT 17.8 % (39.0-53.0); Non-African American GFR(CKD) >90 (>60 ml/min/1.73 sqM); Potassium 3.6 mmol/L (3.5-5.1); Sodium 133 mmol/L (137-145)
[2022-07-23 12:04] LABS: Platelet Count 8 k/uL (150-450)
[2022-07-23] MEDS ORDERED: FUROSEMIDE 10 MG/ML 2 ML VIAL IV PRN (12:18)
[2022-07-23 12:49] LABS: Glucose,Whole Blood 145 mg/dL (70-110)
[2022-07-23] MEDS: MORPHINE SULFATE IR 15 MG TABLET PO PRN ×2 (16:24→21:04)
--- NOTE | 2022-07-23 16:49 | P.PN ---
Subjective Progress Note Date: 07/23/22 Principal diagnosis: Pancytopenia due to chemotherapy GIB Pt's CBC was stable yesterday however today he had increased bloody stools with significant drop of Hgb to 6 and plt from 23 to 8. Transferred to ICU. Objective - Vital Signs Vital signs: Vital Signs Temp 97.4 F L 07/23/22 07:58 Pulse 98 07/23/22 12:23 Resp 20 07/23/22 07:58 BP 93/51 07/23/22 07:58 Pulse Ox 98 07/23/22 09:10 FiO2 Intake & Output 07/22/22 07/23/22 07/23/22 19:59 06:59 18:59 Intake Total 240 Output Total Balance 240 Intake: Oral 240 Output: Urine Stool Urine/Stool Mix Other: Voiding Method Toilet Bedside Commode Urinal # Voids 1 # Bowel Movements 1 - Exam Gen.: In no acute distress HEENT: Conjunctival pallor Neck: Supple Lungs: No respiratory distress. Heart: Tachycardic Neuro: Alert and oriented 3. Skin: Generalized pallor. Psych: Appropriate affect. - Labs CBC & Chem 7: 07/23/22 11:30 07/23/22 11:30 Labs: Abnormal Lab Results - Last 24 Hours (Table) 07/22/22 07/22/22 07/22/22 Range/Units 08:25 19:01 21:37 WBC 0.8 L* (3.8-10.6) k/uL RBC 2.55 L (4.30-5.90) m/uL Hgb 8.5 L (13.0-17.5) gm/dL Hct 23.5 L (39.0-53.0) % RDW 18.4 H (11.5-15.5) % Plt Count 23 L (150-450) k/uL Sodium 133 L (137-145) mmol/L Chloride 110 H (98-107) mmol/L Carbon Dioxide 19 L (22-30) mmol/L BUN 6 L (9-20) mg/dL Creatinine 0.54 L (0.66-1.25) mg/dL Glucose 179 H (74-99) mg/dL POC Glucose (mg/dL) 239 H (70-110) mg/dL Calcium 6.9 L (8.4-10.2) mg/dL Crossmatch 07/23/22 07/23/22 07/23/22 Range/Units 06:03 11:30 11:30 WBC 0.9 L* (3.8-10.6) k/uL RBC 1.88 L (4.30-5.90) m/uL Hgb 6.0 L* D (13.0-17.5) gm/dL Hct 17.8 L* (39.0-53.0) % RDW 18.0 H (11.5-15.5) % Plt Count 8 L* D (150-450) k/uL Sodium 133 L (137-145) mmol/L Chloride 110 H (98-107) mmol/L Carbon Dioxide 19 L (22-30) mmol/L BUN 6 L (9-20) mg/dL Creatinine 0.49 L (0.66-1.25) mg/dL Glucose 139 H (74-99) mg/dL POC Glucose (mg/dL) 192 H (70-110) mg/dL Calcium 7.1 L (8.4-10.2) mg/dL Crossmatch 07/23/22 07/23/22 07/23/22 Range/Units 11:56 12:35 12:47 WBC (3.8-10.6) k/uL RBC (4.30-5.90) m/uL Hgb (13.0-17.5) gm/dL Hct (39.0-53.0) % RDW (11.5-15.5) % Plt Count (150-450) k/uL Sodium (137-145) mmol/L Chloride (98-107) mmol/L Carbon Dioxide (22-30) mmol/L BUN (9-20) mg/dL Creatinine (0.66-1.25) mg/dL Glucose (74-99) mg/dL POC Glucose (mg/dL) 156 H 145 H (70-110) mg/dL Calcium (8.4-10.2) mg/dL Crossmatch See Detail Assessment and Plan Assessment: 1. Pneumonia 2. GI bleed 3. Pancytopenia due to chemotherapy 4. Worsening thrombocytopenia and anemia due to GIB Plan: Mr. Sanchez is a very pleasant 62 yo male with history of SCLC on chemotherapy who is here for SOB due to pneumonia. Found to be pancytopenic due to chemotherapy. Course complicated by maroon colored stools which today turned to bloodly stools. Also with acute drop of Hgb and plt today. Transferred to ICU with plan of transfer to OSH, possibly [facility]. Continue with supportive transfusion to maintain plt >50 while he has active bleeding. Needs GI evaluation. Transfuse Hgb to keep >7, Pls transfuse 2 units plt and 2 units pRBC now, and repeat CBC once this is complete. Would closely monitor CBC q8h for now. Hold all antiplt/anticoagulation therapy (currently not on anything). Will continue to follow pt with you while here. Agree with transfer to OSH since GI not available here now. Discussed with pt and nursing staff.
[2022-07-23 17:13] LABS: Glucose,Whole Blood 140 mg/dL (70-110)
[2022-07-23] MEDS: FILGRASTIM-SNDZ 480 MCG/0.8 ML SYRINGE SQ SCH (17:49)
[2022-07-23] MEDS: oxyCODONE-APAP 10-325MG 1 EACH TAB PO PRN (19:41)
[2022-07-23 20:14] LABS: Glucose,Whole Blood 138 mg/dL (70-110)
[2022-07-23] MEDS: ALPRAZolam 0.5 MG TAB PO PRN (20:20)
[2022-07-23] MEDS: MELATONIN 3 MG TABLET PO PRN (20:20)
[2022-07-23] MEDS: traZODone HCL 100 MG TAB PO SCH ×2 (23:16→23:39)
[2022-07-24 00:19] LABS: Anisocytosis Slight; HCT 23.9 % (39.0-53.0); MCH 29.6 pg (25.0-35.0); MCHC 34.3 g/dL (31.0-37.0); Mean Platelet Volume 9.9; Poikilocytosis Slight; RBC 2.78 m/uL (4.30-5.90); RDW 18.2 % (11.5-15.5); WBC 1.6 k/uL (3.8-10.6)
[2022-07-24 00:34] LABS: HGB 8.2 gm/dL (13.0-17.5); MCV 86.1 fL (80.0-100.0)
[2022-07-24 00:35] LABS: Platelet Count 57 k/uL (150-450)
[2022-07-24 02:31] LABS: Band Neutrophils % 5 %; Basophils # (M) 0.02 k/uL (0-0.2); Lymphocytes # (M) 0.32 k/uL (1.0-4.8); Monocytes # (M) 0.35 k/uL (0-1.0); Neutrophils % (M) 52 %; Nucleated Red Blood Cells 0 /100 WBC (0-0); Total Cells Counted 100; Toxic Granulation Present
[2022-07-24 05:52] LABS: Anisocytosis Slight; HCT 25.9 % (39.0-53.0); Hypochromasia Slight; MCH 30.6 pg (25.0-35.0); MCHC 34.6 g/dL (31.0-37.0); MCV 88.4 fL (80.0-100.0); Poikilocytosis Slight; RBC 2.93 m/uL (4.30-5.90); RDW 18.5 % (11.5-15.5); WBC 2.1 k/uL (3.8-10.6)
[2022-07-24 06:02] LABS: African American GFR (CKD) >90 (>60 ml/min/1.73 sqM); Anion Gap 2 mmol/L; Blood Urea Nitrogen 7 mg/dL (9-20); Calcium 7.5 mg/dL (8.4-10.2); Carbon Dioxide 23 mmol/L (22-30); Chloride 110 mmol/L (98-107); Glucose 133 mg/dL (74-99); Non-African American GFR(CKD) >90 (>60 ml/min/1.73 sqM); Potassium 3.7 mmol/L (3.5-5.1); Sodium 135 mmol/L (137-145)
[2022-07-24 06:24] LABS: Glucose,Whole Blood 124 mg/dL (70-110)
[2022-07-24 06:30] LABS: Platelet Count 42 k/uL (150-450)
[2022-07-24] MEDS: INSULIN ASPART (NovoLOG) 100 UNIT/ML VIAL SQ SCH ×4 (06:31→20:31)
[2022-07-24] MEDS: SUCRALFATE 1 GM TAB PO SCH ×4 (06:31→20:32)
[2022-07-24 07:00] LABS: Band Neutrophils % 4 %; Lymphocytes # (M) 0.29 k/uL (1.0-4.8); Monocytes # (M) 0.32 k/uL (0-1.0); Neutrophils % (M) 67 %; Nucleated Red Blood Cells 0 /100 WBC (0-0); Polychromasia Present; Total Cells Counted 100
[2022-07-24 07:01] LABS: Toxic Granulation Present
--- NOTE | 2022-07-24 07:17 | PN ---
PROGRESS NOTE DATE OF SERVICE: 07/23/2022 I am covering for Dr. Ceron. SUBJECTIVE: This 62-year-old gentleman, who was admitted with acute GI bleed, had significant GI bleed last night. Hemoglobin dropped to 6. The patient is extremely pale and complains of weakness. The patient is being transfused 2 units, and Dr. Barksdale has been consulted. I also talked with Dr. Portillo for ICU transfer, also recommended a nurse to contact the case folder to initiate the possible transfer to [facility] for tertiary care. Dr. Henry from Surgery is also being consulted. PAST MEDICAL HISTORY: Reviewed. REVIEW OF SYSTEMS: A 14-point review of systems is negative as mentioned earlier. CURRENT MEDICATIONS: Reviewed and include Ventolin, dose and rest of medication noted. PHYSICAL EXAMINATION: VITAL SIGNS: Pulse is 100, blood pressure ntd, respirations 15. HEENT: Conjunctivae pale. Oral mucosa is pale. NECK: No JVD. CARDIOVASCULAR: S1, S2. RESPIRATION: Few scattered rhonchi. ABDOMEN: Soft, obese. LEGS: No edema. NERVOUS SYSTEM: Diffusely weak. LABORATORY DATA: WBC 0.9, hemoglobin is 6, and platelets are 8. ASSESSMENT: 1. Acute gastrointestinal bleed with acute blood loss anemia, symptomatic. 2. Previous EGD showed mild gastritis. 3. Thrombocytopenia and leukopenia secondary to chemotherapy. 4. Lung cancer, stage IV. 5. Chronic obstructive pulmonary disease. 6. Multiple medical issues. RECOMMENDATIONS: I recommend to continue current medications and symptomatic treatment. Otherwise, as mentioned earlier, at least 2 units of transfusion and platelet transfusions also. Closely follow with Hematology/Oncology, transferred to ICU. No NSAIDs or anticoagulants. The prognosis is extremely guarded, and I would also discuss with [facility] for possible transfer once they are available, and repeat labs will be ordered, and further recommendations to follow. Prognosis is extremely guarded. Discussed with the patient. Discussed with the staff. MMERYNL / IJN: [id number] / LYNSEY
[2022-07-24] MEDS: MORPHINE SULFATE IR 15 MG TABLET PO PRN (07:39)
[2022-07-24] MEDS: IPRATROPIUM-ALBUTEROL 3 ML NEB INHALATION PRN ×2 (08:18→15:03)
[2022-07-24] MEDS: BUDESONIDE 0.25 MG/2 ML NEBU INHALATION SCH ×2 (08:18→21:09)
[2022-07-24] MEDS: HYDROCORTISONE SUCCINATE 100 MG/2 ML VIAL IV SCH ×3 (09:06→22:33)
[2022-07-24] MEDS: METOPROLOL TARTRATE 12.5 MG TAB PO SCH ×2 (09:07→20:31)
[2022-07-24] MEDS: GABAPENTIN 400 MG CAP PO SCH ×2 (09:07→20:31)
[2022-07-24] MEDS: OXcarbazepine 300 MG TAB PO SCH ×2 (09:07→20:32)
[2022-07-24] MEDS: PANTOPRAZOLE 40 MG/10 ML VIAL IV SCH (09:07)
[2022-07-24] MEDS: SODIUM CHLORIDE 0.9% 1,000 ML IV SCH (09:08)
[2022-07-24 11:24] LABS: Glucose,Whole Blood 155 mg/dL (70-110)
--- NOTE | 2022-07-24 12:19 | P.DS ---
Providers Date of admission: 07/19/22 21:38 Expected date of discharge: 07/24/22 Attending physician: Raghav Ceron MD Consults: 07/19/22 21:23 Consult Physician Routine Consulting Provider: Maynor Barksdale Consult Reason/Comments: Lung cancer, GI bleed, thrombocytopenia, symptomatic anemia Do you want consulting provider notified?: Yes, Notify in am Consult Physician Routine Consulting Provider: Leatha Estrada Consult Reason/Comments: GIB Do you want consulting provider notified?: Yes, Notify in am 07/24/22 08:24 Consult Physician Routine Consulting Provider: Rod Muro Consult Reason/Comments: GIB Do you want consulting provider notified?: Already Contacted Primary care physician: Alesha Ceron [place] [facility] Course: Final Diagnoses: Acute GI bleed Pancytopenia secondary to recent treatment,Last received chemotherapy 1 week ago Chronic abdominal, back pain due to metastatic lung disease in a patient with history of primary small cell malignant neoplasm of lung, stage IV. Fentanyl patch dose increased last week with improvement in pain. History of Adrenal mass likely secondary to metastatic lesion. COPD GERD Anxiety/depression Previous history of smoking Adrenal insufficiency currently on Cortef at home. Hospital course:This is a pleasant 62-year-old gentleman with past medical history of metastatic lung disease/ primary small cell malignant neoplasm of lung, stage IV presented to the ER with Leonardo rectal bleeding X 3, accompanied by lower abdominal cramping and exertional shortness of breath. Reports some nausea, denies emesis. Also reports extensive workup of abdominal pain and per oncology attributing it to chemo effect. Last chemotherapy approximately 1 week ago. Chest CTA reported : no evidence of pulmonary embolism. Mediastinal left bronchial adenopathy with improvement in the left hilar mass compared to old exam. Slightly decreased left upper lobe spiculated infiltrate extending from the left pulmonary hilum to the left lung apex,compared to old exam. Improved encasement of the left lower lobe pulmonary artery with tumor mass and artery narrowing compared to old exam.COPD. Increased patchy bilateral reticular pulmonary interstitial infiltrates compared to prior exam. Increased small left pleural effusion compared to prior exam. Pericardial tumor masses not significantly different than last exam. On admission :WBC 0.2 hemoglobin 6.5 hematocrit 18.9 platelet count 5 INR 1.0 d-dimer 1.76 sodium 136 potassium 4.4 BUN 12 creatinine 0.63 glucose 115, bilirubin 0.4 AST 23 ALT 22 alk phos 60. Repeat labs today WBC 0.1 hemoglobin 7.5 hematocrit 22 platelet count 7. Received 1 unit of packed red blood cell transfusion as well as 1 unit of platelets. Denies any further rectal bleeding since admission. Denies shortness of breath at rest. Denies chest pain, palpitations. 07/21/2022 maintained on IV fluid hydration, Zarxio,PPI, carafate .reports dark maroon stooling 2 last night. Denies any further bleeding this morning. Denies abdominal cramping, abdominal pain. Consuming 25-75% with no nausea vomiting. Received a total of 3 units packed RBCs, 2 units of platelets. WBC increased to 0.5, hemoglobin 7.9, platelets 28 .Afebrile. Denies chest pain, palpitations or shortness of breath. Complains of exertional shortness of breath. Evaluated by both GI and oncology with recommendations noted and appreciated. Neutropenic precautions. Maintained on zaxrio,PPI, Carafate,empiric Augmentin and doxycycline. Transfusion parameters as per oncology. Close monitoring of coags.with repeat labs ordered for a.m. PT/OT. Prognosis guarded given multiple complex medical issues. Over the weekend, patient had reoccurrence of rectal bleeding accompanied by acute drop in hemoglobin to 6 and platelets to 8 requiring transfer into the ICU.Maintained on supportive transfusions to maintain hemoglobin greater than 7, platelets greater than 50. Post transfusion, hemoglobin currently up to 9, platelets 42. No bowel movement since yesterday .Denies abdominal pain . Denies chest pain, palpitations or shortness of breath. Chronic back pain controlled. Patient in need of GI evaluation.Transfer to [facility],in progress related to GI services not available at this site, this week. Prognosis guarded given multiple complex medical issues. The impression and plan of care has been dictated as directed. : I performed a history and examination of this patient, discussed the same with the dictator. I agree with the dictator's note ,documented as a scribe. Any additional findings or plans will be noted. Patient Condition at Discharge: Stable Plan - Discharge Summary Discharge Rx Participant: No New Discharge Prescriptions: No Action Sucralfate [Carafate] 1 gm PO ACHS Pantoprazole Sodium [Protonix] 40 mg PO BID OXcarbazepine [Trileptal] 300 mg PO BID Atorvastatin [Lipitor] 20 mg PO DAILY traZODone HCL [Desyrel] 100 mg PO HS metFORMIN HCL 500 mg PO BID Budesonide [Pulmicort] 0.25 mg INHALATION RT-BID Fluconazole [Diflucan] 100 mg PO DAILY PRN PRN Reason: THRUSH Albuterol Nebulized [Ventolin Nebulized] 2.5 mg INHALATION RT-QID PRN PRN Reason: Shortness Of Breath Hydrocortisone [Cortef] 20 mg PO DAILY@0800 polyethylene glycoL 3350 [Miralax] 17 gm PO DAILY PRN PRN Reason: Constipation Morphine Sulfate Ir [MSIR] 30 mg PO Q4HR PRN 3 Days #18 tab PRN Reason: Pain Ondansetron [Zofran] 4 mg PO Q4H PRN PRN Reason: Nausea fentaNYL 50MCG/HR PATCH [Duragesic 50MCG/HR] 1 patch TRANSDERM Q72H Metoprolol Tartrate [Lopressor] 12.5 mg PO BID Ipratropium-Albuterol Nebulize [Duoneb 0.5 mg-3 mg/3 ml Soln] 3 ml INHALATION RT-QID PRN PRN Reason: Shortness Of Breath ALPRAZolam [Xanax] 0.5 mg PO BID PRN PRN Reason: Anxiety Hydrocortisone [Cortef] 10 mg PO DAILY@1400 Insulin Aspart [NovoLOG Flexpen] See Protocol SQ ACHS Metoclopramide [Reglan] 5 mg PO AC-BID PRN PRN Reason: Nausea Famotidine 40 mg PO DAILY Semaglutide [Rybelsus] 3 mg PO DAILY Dicyclomine [Bentyl] 10 mg PO TID PRN 10 Days #30 capsule PRN Reason: Pain oxyCODONE-APAP 10-325MG [Percocet 10-325 mg] 1 tab PO Q3H PRN PRN Reason: Pain Sennosides-Docusate Sodium [Senokot-S] 2 tab PO BID PRN PRN Reason: Constipation Gabapentin [Neurontin] 400 mg PO BID Discharge Medication List Atorvastatin [Lipitor] 20 mg PO DAILY 03/11/21 [History] OXcarbazepine [Trileptal] 300 mg PO BID 03/11/21 [History] Pantoprazole Sodium [Protonix] 40 mg PO BID 03/11/21 [History] Sucralfate [Carafate] 1 gm PO ACHS 03/11/21 [History] traZODone HCL [Desyrel] 100 mg PO HS 03/11/21 [History] ALPRAZolam [Xanax] 0.5 mg PO BID PRN 01/13/22 [History] Budesonide [Pulmicort] 0.25 mg INHALATION RT-BID 01/13/22 [History] Hydrocortisone [Cortef] 10 mg PO DAILY@1400 01/13/22 [History] Ipratropium-Albuterol Nebulize [Duoneb 0.5 mg-3 mg/3 ml Soln] 3 ml INHALATION RT-QID PRN 01/13/22 [History] metFORMIN HCL 500 mg PO BID 01/13/22 [History] Albuterol Nebulized [Ventolin Nebulized] 2.5 mg INHALATION RT-QID PRN 02/23/22 [History] Fluconazole [Diflucan] 100 mg PO DAILY PRN 02/23/22 [History] Insulin Aspart [NovoLOG Flexpen] See Protocol SQ ACHS 02/24/22 [History] Dicyclomine [Bentyl] 10 mg PO TID PRN 10 Days #30 capsule 04/12/22 [Rx] Famotidine 40 mg PO DAILY 04/12/22 [History] Metoclopramide [Reglan] 5 mg PO AC-BID PRN 04/12/22 [History] Semaglutide [Rybelsus] 3 mg PO DAILY 04/12/22 [History] Hydrocortisone [Cortef] 20 mg PO DAILY@0800 06/17/22 [History] polyethylene glycoL 3350 [Miralax] 17 gm PO DAILY PRN 06/17/22 [History] Morphine Sulfate Ir [MSIR] 30 mg PO Q4HR PRN 3 Days #18 tab 06/27/22 [Rx] Gabapentin [Neurontin] 400 mg PO BID 07/19/22 [History] Metoprolol Tartrate [Lopressor] 12.5 mg PO BID 07/19/22 [History] Ondansetron [Zofran] 4 mg PO Q4H PRN 07/19/22 [History] Sennosides-Docusate Sodium [Senokot-S] 2 tab PO BID PRN 07/19/22 [History] fentaNYL 50MCG/HR PATCH [Duragesic 50MCG/HR] 1 patch TRANSDERM Q72H 07/19/22 [History] oxyCODONE-APAP 10-325MG [Percocet 10-325 mg] 1 tab PO Q3H PRN 07/19/22 [History] Follow up Appointment(s)/Referral(s): Alesha Ceron DO [Primary Care Provider] - 1-2 days
--- NOTE | 2022-07-24 12:28 | P.GSCN ---
History of Present Illness Consult date: 07/24/22 History of present illness: CHIEF COMPLAINT: GI bleed HISTORY OF PRESENT ILLNESS: This is a 62-year-old male who presented to the hospital with complaints of shortness of breath and bloody stools. Patient did require a transfer to the ICU yesterday due to a drop in his hemoglobin and bright red blood per rectum. Patient's hemoglobin on admission was 6.5 did get up to 8.5 then had another drop of hemoglobin down to 6.0 hemoglobin is currently 9.0. Patient has received a total of 5 units of blood and 4 units of platelets. Platelets on admission were 5 now up to 42. Patient has had no further bleeding last night or this morning. He is strongly requesting to be started on diet. He does have a history of stage IV small cell lung cancer status post chemo and radiation treatment. Patient followed by oncology service and his pancytopenia and thrombocytopenia due to his last chemotherapy a week ago. Patient denies any abdominal pain. Denies any nausea or vomiting. Patient had recent EGD and colonoscopy June [address] carter which did reveal gastritis and a right colon lipoma. Patient seen by GI service during this admission and had no plans for further endoscopy. There is no current GI service this week. Patient seen and examined with Dr. carter PAST MEDICAL HISTORY: LUNG CANCER WITH TUMOR IN STOMACH AND STATES ALSO IN HIS NECK.,. RECEIVING CHEMOTHERAPY., DDD WITH BACK ,HIP & LEG PAIN., (PAIN CLINIC PATIENT)., EMPHYSEMA., GASTRITIS. COPD, GERD PAST SURGICAL HISTORY: See below MEDICATIONS: See below ALLERGIES: See below SOCIAL HISTORY: No illicit drug use. REVIEW OF SYSTEMS: CONSTITUTIONAL: Denies fever or chills. HEENT: Denies blurred vision, vision changes, or eye pain. Denies hemoptysis CARDIOVASCULAR: Denies chest pain or pressure. RESPIRATORY: No shortness of breath. GASTROINTESTINAL: See HPI for pertinent findings HEMATOLOGIC: Denies bleeding disorders. GENITOURINARY: Denies any blood in urine or increased urinary frequency. SKIN: Denies pruitis. Denies rash. PHYSICAL EXAM: VITAL SIGNS: Reviewed GENERAL: Well-developed in no acute distress. HEENT: No sclera icterus. Extraocular movements grossly intact. Moist buccal mucosa. Head is atraumatic, normocephalic. No nasal drainage. ABDOMEN: Soft. Nondistended. Nontender NEUROLOGIC: Alert and oriented. Cranial nerves II through XII grossly intact. LABORATORY DATA: WBC 0.2 up to 2.1 Hgb 6.5 up to 8.5 down to 6 and then up to 9. Hemoglobin was 7.7 on discharge 06/26/2022 platelets 5 up to 42 after transfusion Sodium is 135 potassium is 3.7 creatinine 0.51 Glucose 133 IMAGING: CTA of the chest no evidence of PE. There is mediastinal and left bronchial adenopathy with improvement in the left pillar mass compared to older they suggest a role treatment response. There is left upper lobe spiculated infiltrate extending from left pulmonary home to the left lung [place] which is slightly decreased compared to old exam. There is encasement of the left lower lobe pulmonary artery with tumor mass and artery narrowing on old exam that is improved on today's exam. COPD. Patchy bilateral reticular pulmonary interstitial infiltrates which are increased compared to old exam. There is small left pericardial effusion which is increased compared to old exam. Paracardial tumor masses not strictly different from last exam. ASSESSMENT: 1. Acute GI bleed with bright red blood per rectum status post blood transfusion 2. History of small cell lung cancer 3. Pancytopenia PLAN: -Start clear liquid diet -If patient has any further bleeding tagged RBC scan will be ordered -Continue monitor hemoglobin -Continue monitor for any signs or symptoms of bleeding -Continue IV fluids -Continue supportive care -Continue ICU management Thank you for this consultation Physician Yarn Washer note has been reviewed by physician. Signing provider agrees with the documented findings, assessment, and plan of care. Past Medical History Past Medical History: Cancer, COPD, GERD/Reflux Additional Past Medical History / Comment(s): LUNG CANCER WITH TUMOR IN STOMACH AND STATES ALSO IN HIS NECK.,. RECEIVING CHEMOTHERAPY., DDD WITH BACK ,HIP & LEG PAIN., (PAIN CLINIC PATIENT)., EMPHYSEMA., GASTRITIS. History of Any Multi-Drug Resistant Organisms: None Reported Past Surgical History: Joint Replacement, Orthopedic Surgery Additional Past Surgical History / Comment(s): RIGHT AND LEFT TOTAL HIPS, RIGHT SHOULDER SURGERY. Past Anesthesia/Blood Transfusion Reactions: No Reported Reaction Smoking Status: Former smoker - Past Family History Father Family Medical History: No Reported History Medications and Allergies Home Medications Medication Instructions Recorded Confirmed Type Atorvastatin [Lipitor] 20 mg PO DAILY 03/11/21 07/19/22 History OXcarbazepine [Trileptal] 300 mg PO BID 03/11/21 07/19/22 History Pantoprazole Sodium [Protonix] 40 mg PO BID 03/11/21 07/19/22 History Sucralfate [Carafate] 1 gm PO ACHS 03/11/21 07/19/22 History traZODone HCL [Desyrel] 100 mg PO HS 03/11/21 07/19/22 History ALPRAZolam [Xanax] 0.5 mg PO BID PRN 01/13/22 07/19/22 History Budesonide [Pulmicort] 0.25 mg INHALATION RT-BID 01/13/22 07/19/22 History Hydrocortisone [Cortef] 10 mg PO DAILY@1400 01/13/22 07/19/22 History Ipratropium-Albuterol Nebulize 3 ml INHALATION RT-QID PRN 01/13/22 07/19/22 History [Duoneb 0.5 mg-3 mg/3 ml Soln] metFORMIN HCL 500 mg PO BID 01/13/22 07/19/22 History Albuterol Nebulized [Ventolin 2.5 mg INHALATION RT-QID PRN 02/23/22 07/19/22 History Nebulized] Fluconazole [Diflucan] 100 mg PO DAILY PRN 02/23/22 07/19/22 History Insulin Aspart [NovoLOG Flexpen] See Protocol SQ ACHS 02/24/22 07/19/22 History Dicyclomine [Bentyl] 10 mg PO TID PRN 10 Days #30 04/12/22 07/19/22 Rx capsule Famotidine 40 mg PO DAILY 04/12/22 07/19/22 History Metoclopramide [Reglan] 5 mg PO AC-BID PRN 04/12/22 07/19/22 History Semaglutide [Rybelsus] 3 mg PO DAILY 04/12/22 07/19/22 History Hydrocortisone [Cortef] 20 mg PO DAILY@0800 06/17/22 07/19/22 History polyethylene glycoL 3350 [Miralax] 17 gm PO DAILY PRN 06/17/22 07/19/22 History Morphine Sulfate Ir [MSIR] 30 mg PO Q4HR PRN 3 Days #18 tab 06/27/22 07/19/22 Rx Gabapentin [Neurontin] 400 mg PO BID 07/19/22 07/19/22 History Metoprolol Tartrate [Lopressor] 12.5 mg PO BID 07/19/22 07/19/22 History Ondansetron [Zofran] 4 mg PO Q4H PRN 07/19/22 07/19/22 History Sennosides-Docusate Sodium 2 tab PO BID PRN 07/19/22 07/19/22 History [Senokot-S] fentaNYL 50MCG/HR PATCH [Duragesic 1 patch TRANSDERM Q72H 07/19/22 07/19/22 History 50MCG/HR] oxyCODONE-APAP 10-325MG [Percocet 1 tab PO Q3H PRN 07/19/22 07/19/22 History 10-325 mg] Allergies Allergy/AdvReac Type Severity Reaction Status Date / Time No Known Allergies Allergy Verified 07/19/22 22:49 Surgical - Exam Vital Signs Temp Pulse Resp BP Pulse Ox 98.5 F 111 H 26 H 124/85 100 07/19/22 19:28 07/19/22 19:28 07/19/22 19:28 07/19/22 19:28 07/19/22 19:28 Results - Labs 07/24/22 05:40 07/24/22 05:40 Abnormal Lab Results - Last 24 Hours (Table) 07/23/22 07/23/22 07/23/22 Range/Units 11:30 11:30 11:56 WBC 0.9 L* (3.8-10.6) k/uL RBC 1.88 L (4.30-5.90) m/uL Hgb 6.0 L* D (13.0-17.5) gm/dL Hct 17.8 L* (39.0-53.0) % RDW 18.0 H (11.5-15.5) % Plt Count 8 L* D (150-450) k/uL Neutrophils # (Manual) (1.3-7.7) k/uL Lymphocytes # (Manual) (1.0-4.8) k/uL Sodium 133 L (137-145) mmol/L Chloride 110 H (98-107) mmol/L Carbon Dioxide 19 L (22-30) mmol/L BUN 6 L (9-20) mg/dL Creatinine 0.49 L (0.66-1.25) mg/dL Glucose 139 H (74-99) mg/dL POC Glucose (mg/dL) 156 H (70-110) mg/dL Calcium 7.1 L (8.4-10.2) mg/dL Crossmatch 07/23/22 07/23/22 07/23/22 Range/Units 12:35 12:47 17:11 WBC (3.8-10.6) k/uL RBC (4.30-5.90) m/uL Hgb (13.0-17.5) gm/dL Hct (39.0-53.0) % RDW (11.5-15.5) % Plt Count (150-450) k/uL Neutrophils # (Manual) (1.3-7.7) k/uL Lymphocytes # (Manual) (1.0-4.8) k/uL Sodium (137-145) mmol/L Chloride (98-107) mmol/L Carbon Dioxide (22-30) mmol/L BUN (9-20) mg/dL Creatinine (0.66-1.25) mg/dL Glucose (74-99) mg/dL POC Glucose (mg/dL) 145 H 140 H (70-110) mg/dL Calcium (8.4-10.2) mg/dL Crossmatch See Detail 07/23/22 07/23/22 07/24/22 Range/Units 20:13 23:46 05:40 WBC 1.6 L 2.1 L (3.8-10.6) k/uL RBC 2.78 L 2.93 L (4.30-5.90) m/uL Hgb 8.2 L D 9.0 L (13.0-17.5) gm/dL Hct 23.9 L 25.9 L (39.0-53.0) % RDW 18.2 H 18.5 H (11.5-15.5) % Plt Count 57 L D 42 L (150-450) k/uL Neutrophils # (Manual) 0.90 L (1.3-7.7) k/uL Lymphocytes # (Manual) 0.32 L 0.29 L (1.0-4.8) k/uL Sodium (137-145) mmol/L Chloride (98-107) mmol/L Carbon Dioxide (22-30) mmol/L BUN (9-20) mg/dL Creatinine (0.66-1.25) mg/dL Glucose (74-99) mg/dL POC Glucose (mg/dL) 138 H (70-110) mg/dL Calcium (8.4-10.2) mg/dL Crossmatch 07/24/22 07/24/22 Range/Units 05:40 06:23 WBC (3.8-10.6) k/uL RBC (4.30-5.90) m/uL Hgb (13.0-17.5) gm/dL Hct (39.0-53.0) % RDW (11.5-15.5) % Plt Count (150-450) k/uL Neutrophils # (Manual) (1.3-7.7) k/uL Lymphocytes # (Manual) (1.0-4.8) k/uL Sodium 135 L (137-145) mmol/L Chloride 110 H (98-107) mmol/L Carbon Dioxide (22-30) mmol/L BUN 7 L (9-20) mg/dL Creatinine 0.51 L (0.66-1.25) mg/dL Glucose 133 H (74-99) mg/dL POC Glucose (mg/dL) 124 H (70-110) mg/dL Calcium 7.5 L (8.4-10.2) mg/dL Crossmatch Microbiology - Last 24 Hours (Table) 07/22/22 17:30 Blood Culture - Preliminary Blood No Growth after 24 hours Diabetes panel 07/23/22 07/24/22 Range/Units 11:30 05:40 Sodium 133 L 135 L (137-145) mmol/L Potassium 3.6 3.7 (3.5-5.1) mmol/L Chloride 110 H 110 H (98-107) mmol/L Carbon Dioxide 19 L 23 (22-30) mmol/L BUN 6 L 7 L (9-20) mg/dL Creatinine 0.49 L 0.51 L (0.66-1.25) mg/dL Glucose 139 H 133 H (74-99) mg/dL Calcium 7.1 L 7.5 L (8.4-10.2) mg/dL Calcium panel 07/23/22 07/24/22 Range/Units 11:30 05:40 Calcium 7.1 L 7.5 L (8.4-10.2) mg/dL Pituitary panel 07/23/22 07/24/22 Range/Units 11:30 05:40 Sodium 133 L 135 L (137-145) mmol/L Potassium 3.6 3.7 (3.5-5.1) mmol/L Chloride 110 H 110 H (98-107) mmol/L Carbon Dioxide 19 L 23 (22-30) mmol/L BUN 6 L 7 L (9-20) mg/dL Creatinine 0.49 L 0.51 L (0.66-1.25) mg/dL Glucose 139 H 133 H (74-99) mg/dL Calcium 7.1 L 7.5 L (8.4-10.2) mg/dL Adrenal panel 07/23/22 07/24/22 Range/Units 11:30 05:40 Sodium 133 L 135 L (137-145) mmol/L Potassium 3.6 3.7 (3.5-5.1) mmol/L Chloride 110 H 110 H (98-107) mmol/L Carbon Dioxide 19 L 23 (22-30) mmol/L BUN 6 L 7 L (9-20) mg/dL Creatinine 0.49 L 0.51 L (0.66-1.25) mg/dL Glucose 139 H 133 H (74-99) mg/dL Calcium 7.1 L 7.5 L (8.4-10.2) mg/dL
--- NOTE | 2022-07-24 13:08 | P.CNPUL ---
History of Present Illness Consult date: 07/24/22 Requesting physician: Raghav Ceron Reason for consult: other (GI bleeding) Chief complaint: Shortness of breath and bloody stools History of present illness: This is a 62-year-old white male with history of small cell lung cancer, presented initially back in 2020 with a large pleural effusion requiring thoracentesis and the diagnosis was made. Patient received chemotherapy by oncology, and has been receiving chemotherapy maintenance. Patient was admitted on 08/08, mostly with shortness of breath, and multiple episodes of bloody stools. Patient required so far multiple blood transfusions including 5 units of packed RBCs and 4 units of platelets, patient was noted to be pancytopenic, admitted because of the GI bleeding, and we were asked to see him on consultation today as the patient had worsening episodes of bleeding and required transfer to the ICU. He was seen by general surgery, the plan is to consider tagged RBC study, no plans to have any intervention. No GI coverage a vailable, patient is being considered for transfer to [facility] once a bed becomes available. Considering the patient was admitted to the ICU, I was asked to see him on consultation. Pulmonary-stewart, the patient does not seem to be in any distress, he seems to be very comfortable. His hemoglobin this morning is 9.0, WBC count is 2.1, platelets are 42,000. Patient is being followed by hematology/oncology. CT angiogram of the chest showed no evidence of pulmonary embolism, patient had bilateral reticular pulmonary interstitial infiltrates, and he had left upper lobe spiculated abnormality consistent with bronchogenic carcinoma, however seems to have a partial response to treatment Review of Systems CARDIOPULMONARY: As noted in HPI Gastrointestinal: As noted in HPI GENITOURINARY: No dysuria or hematuria. MUSCULOSKELETAL: Reports normal range of motion. SKIN: No rashes. No jaundice. ENDOCRINE: No chills, fevers. No excessive weight gain or loss. No polydipsia or polyuria. PSYCHIATRIC: Unremarkable. NEUROLOGY: No change in mental status. Denies dizziness, headache. ENT: Vision unremarkable. CONSTITUTIONAL: No recent weight loss. No fever, chills, night sweats. Past Medical History Past Medical History: Cancer, COPD, GERD/Reflux Additional Past Medical History / Comment(s): LUNG CANCER WITH TUMOR IN STOMACH AND STATES ALSO IN HIS NECK.,. RECEIVING CHEMOTHERAPY., DDD WITH BACK ,HIP & LEG PAIN., (PAIN CLINIC PATIENT)., EMPHYSEMA., GASTRITIS. History of Any Multi-Drug Resistant Organisms: None Reported Past Surgical History: Joint Replacement, Orthopedic Surgery Additional Past Surgical History / Comment(s): RIGHT AND LEFT TOTAL HIPS, RIGHT SHOULDER SURGERY. Past Anesthesia/Blood Transfusion Reactions: No Reported Reaction Smoking Status: Former smoker - Past Family History Father Family Medical History: No Reported History Medications and Allergies Home Medications Medication Instructions Recorded Confirmed Type Atorvastatin [Lipitor] 20 mg PO DAILY 03/11/21 07/19/22 History OXcarbazepine [Trileptal] 300 mg PO BID 03/11/21 07/19/22 History Pantoprazole Sodium [Protonix] 40 mg PO BID 03/11/21 07/19/22 History Sucralfate [Carafate] 1 gm PO ACHS 03/11/21 07/19/22 History traZODone HCL [Desyrel] 100 mg PO HS 03/11/21 07/19/22 History ALPRAZolam [Xanax] 0.5 mg PO BID PRN 01/13/22 07/19/22 History Budesonide [Pulmicort] 0.25 mg INHALATION RT-BID 01/13/22 07/19/22 History Hydrocortisone [Cortef] 10 mg PO DAILY@1400 01/13/22 07/19/22 History Ipratropium-Albuterol Nebulize 3 ml INHALATION RT-QID PRN 01/13/22 07/19/22 History [Duoneb 0.5 mg-3 mg/3 ml Soln] metFORMIN HCL 500 mg PO BID 01/13/22 07/19/22 History Albuterol Nebulized [Ventolin 2.5 mg INHALATION RT-QID PRN 02/23/22 07/19/22 History Nebulized] Fluconazole [Diflucan] 100 mg PO DAILY PRN 02/23/22 07/19/22 History Insulin Aspart [NovoLOG Flexpen] See Protocol SQ ACHS 02/24/22 07/19/22 History Dicyclomine [Bentyl] 10 mg PO TID PRN 10 Days #30 04/12/22 07/19/22 Rx capsule Famotidine 40 mg PO DAILY 04/12/22 07/19/22 History Metoclopramide [Reglan] 5 mg PO AC-BID PRN 04/12/22 07/19/22 History Semaglutide [Rybelsus] 3 mg PO DAILY 04/12/22 07/19/22 History Hydrocortisone [Cortef] 20 mg PO DAILY@0800 06/17/22 07/19/22 History polyethylene glycoL 3350 [Miralax] 17 gm PO DAILY PRN 06/17/22 07/19/22 History Morphine Sulfate Ir [MSIR] 30 mg PO Q4HR PRN 3 Days #18 tab 06/27/22 07/19/22 Rx Gabapentin [Neurontin] 400 mg PO BID 07/19/22 07/19/22 History Metoprolol Tartrate [Lopressor] 12.5 mg PO BID 07/19/22 07/19/22 History Ondansetron [Zofran] 4 mg PO Q4H PRN 07/19/22 07/19/22 History Sennosides-Docusate Sodium 2 tab PO BID PRN 07/19/22 07/19/22 History [Senokot-S] fentaNYL 50MCG/HR PATCH [Duragesic 1 patch TRANSDERM Q72H 07/19/22 07/19/22 History 50MCG/HR] oxyCODONE-APAP 10-325MG [Percocet 1 tab PO Q3H PRN 07/19/22 07/19/22 History 10-325 mg] Allergies Allergy/AdvReac Type Severity Reaction Status Date / Time No Known Allergies Allergy Verified 07/19/22 22:49 Physical Exam Vitals: Vital Signs Temp Pulse Resp BP Pulse Ox 07/24/22 12:48 97.7 F 112 H 28 H 117/69 92 L 07/24/22 12:00 96 24 96/65 87 L 07/24/22 11:00 97 15 99/57 92 L 07/24/22 10:00 99 15 112/69 87 L 07/24/22 09:00 97 20 116/73 90 L 07/24/22 08:34 96 07/24/22 08:18 93 07/24/22 08:00 98.0 F 92 16 131/75 94 L 07/24/22 06:00 89 12 129/69 93 L 07/24/22 05:30 90 10 L 138/76 94 L 07/24/22 05:00 88 12 132/75 93 L 07/24/22 04:30 88 12 151/77 91 L 07/24/22 04:00 96.2 F L 87 12 147/79 93 L 07/24/22 03:30 85 16 139/77 92 L 07/24/22 03:00 85 11 L 150/76 92 L 07/24/22 02:30 77 10 L 138/80 94 L 07/24/22 02:00 76 9 L 122/66 93 L 07/24/22 01:30 77 10 L 116/67 94 L 07/24/22 01:00 79 10 L 107/58 94 L 07/24/22 00:30 82 10 L 80/51 93 L 07/24/22 00:00 87 10 L 98/60 92 L 07/23/22 23:30 98.1 F 84 12 92/62 93 L 07/23/22 23:00 86 11 L 96/57 95 07/23/22 22:55 98.1 F 86 11 L 81/65 94 L 07/23/22 22:35 97.9 F 90 12 96/57 93 L 07/23/22 22:30 90 19 90/62 93 L 07/23/22 22:27 98.0 F 90 16 90/62 94 L 07/23/22 22:00 91 18 102/60 93 L 07/23/22 21:30 92 15 107/59 92 L 07/23/22 21:09 97.9 F 95 12 107/59 92 L 07/23/22 21:00 97 12 103/53 93 L 07/23/22 20:30 106 H 15 113/63 92 L 07/23/22 20:00 97.5 F L 109 H 15 118/58 93 L 07/23/22 19:37 97.6 F 101 H 14 118/58 94 L 07/23/22 19:32 98 07/23/22 19:30 96 15 117/56 100 07/23/22 19:15 93 07/23/22 19:00 95 13 117/56 97 07/23/22 18:30 94 14 116/55 95 07/23/22 18:11 98.0 F 95 18 128/60 07/23/22 18:00 96 21 128/60 95 07/23/22 17:51 98.4 F 97 19 121/51 94 L 07/23/22 17:41 97.8 F 98 23 123/42 93 L 07/23/22 17:18 97.8 F 98 20 122/56 93 L 07/23/22 17:00 98.1 F 100 17 133/72 93 L 07/23/22 16:00 97.7 F 101 H 21 106/62 93 L 07/23/22 15:56 98.4 F 101 H 18 106/62 93 L 07/23/22 15:51 98.4 F 100 15 120/53 92 L 07/23/22 15:44 98.4 F 99 17 110/57 95 07/23/22 15:29 99 07/23/22 15:18 98 91 L 07/23/22 15:00 105 H 21 101/50 91 L 07/23/22 14:30 98 19 89/49 96 07/23/22 14:29 97.8 F 98 21 89/49 98 07/23/22 14:09 97.6 F 100 19 104/53 07/23/22 14:00 104 H 18 91/46 94 L 07/23/22 13:59 97.7 F 99 18 113/66 07/23/22 13:30 100 17 92/51 96 Intake and Output 07/23/22 07/24/22 07/24/22 22:59 06:59 14:59 Intake Total 1329 726 500 Output Total 200 1050 300 Balance 1129 -324 200 Intake: IV 240 480 350 Sodium Chloride 0.9% 1, 240 480 300 000 ml @ 60 mls/hr IV . [id number] [facility] Rx#:[id number] cefTRIAXone 1 gm In 50 Sodium Chloride 0.9% 50 ml @ 100 mls/hr IVPB Q24HR [facility] Rx#:[id number] Intake, IV Titration 120 Amount Sodium Chloride 0.9% 1, 120 000 ml @ 60 mls/hr IV . [id number] [facility] Rx#:[id number] Oral 150 Blood Product 969 246 0 Platelet Lvds Acda Pas [address] Unit [id number] Platelet Pheresis Pas 0 Psoralen Unit [id number] Platelet Pheresis Pas 349 Psoralen Unit [id number] Rc Irr As1 Unit 310 [id number] Rc Irr As1 Unit 310 [id number] Output: Urine 200 1050 300 Other: Voiding Method Urinal External Catheter External Catheter # Voids 0 1 # Bowel Movements 1 Weight 83.2 kg 83.2 kg General appearance: Revealed a 62-year-old white male in no distress. HET: Head is normocephalic and atraumatic. Conjunctiva pink. Sclera anicteric. Neck: Supple without lymphadenopathy. Trachea midline. Heart: S1 S2. Regular rate and rhythm. Lungs: Clear to auscultation. No crackles or rhonchi or wheezes. Abdomen: Soft, nontender, nondistended with bowel sounds. No guarding or rigidity. Skin: No rashes. No jaundice. Extremities: Normal skin color and turgor. No pedal edema. Neurological: No focal deficits. Alert and oriented x3. Psychiatric: Normal mood, affect and normal mental status examination. Musculoskeletal: No deformities and no limitation in range of motion Results - Laboratory Findings CBC and BMP: 07/24/22 05:40 07/24/22 05:40 PT/INR, D-dimer PT 10.5 sec (9.0-12.0) 07/19/22 20:32 INR 1.0 (<1.2) 07/19/22 20:32 D-Dimer 1.76 mg/L FEU (<0.60) H 07/19/22 20:32 Abnormal lab findings: Abnormal Labs 07/19/22 07/19/22 07/19/22 20:25 20:32 20:32 WBC 0.2 L* RBC 1.78 L Hgb 6.5 L* D Hct 18.9 L* MCV 106.2 H D MCH 36.8 H RDW Plt Count 5 L* D Neutrophils # (Manual) Lymphocytes # (Manual) D-Dimer 1.76 H Sodium Chloride Carbon Dioxide BUN Creatinine Glucose POC Glucose (mg/dL) Calcium Total Protein Albumin Crossmatch See Detail 07/19/22 07/19/22 07/20/22 20:32 23:49 06:11 WBC RBC Hgb Hct MCV MCH RDW Plt Count Neutrophils # (Manual) Lymphocytes # (Manual) D-Dimer Sodium 136 L Chloride Carbon Dioxide 19 L BUN Creatinine 0.63 L Glucose 115 H POC Glucose (mg/dL) 418 H 128 H Calcium 7.5 L Total Protein 5.5 L Albumin 2.8 L Crossmatch 07/20/22 07/20/22 07/20/22 06:52 06:52 11:38 WBC 0.1 L* RBC 2.22 L Hgb 7.5 L Hct 22.6 L MCV 101.6 H MCH RDW 16.8 H Plt Count 7 L* Neutrophils # (Manual) Lymphocytes # (Manual) D-Dimer Sodium Chloride 109 H Carbon Dioxide 20 L BUN Creatinine 0.59 L Glucose 108 H POC Glucose (mg/dL) 191 H Calcium 7.1 L Total Protein Albumin Crossmatch 07/20/22 07/20/22 07/20/22 16:30 19:35 21:25 WBC 0.3 L* RBC 2.15 L Hgb 7.2 L Hct 20.0 L MCV MCH RDW 18.3 H Plt Count 37 L D Neutrophils # (Manual) Lymphocytes # (Manual) D-Dimer Sodium Chloride Carbon Dioxide BUN Creatinine Glucose POC Glucose (mg/dL) 240 H 254 H Calcium Total Protein Albumin Crossmatch 07/21/22 07/21/22 07/21/22 05:52 08:05 11:48 WBC 0.5 L* RBC 2.41 L Hgb 7.9 L Hct 22.0 L MCV MCH RDW 18.5 H Plt Count 28 L Neutrophils # (Manual) Lymphocytes # (Manual) D-Dimer Sodium Chloride Carbon Dioxide BUN Creatinine Glucose POC Glucose (mg/dL) 154 H 113 H Calcium Total Protein Albumin Crossmatch 07/21/22 07/22/22 07/22/22 20:11 08:25 19:01 WBC 0.8 L* RBC 2.55 L Hgb 8.5 L Hct 23.5 L MCV MCH RDW 18.4 H Plt Count 23 L Neutrophils # (Manual) Lymphocytes # (Manual) D-Dimer Sodium 133 L Chloride 110 H Carbon Dioxide 19 L BUN 6 L Creatinine 0.54 L Glucose 179 H POC Glucose (mg/dL) 140 H Calcium 6.9 L Total Protein Albumin Crossmatch 07/22/22 07/23/22 07/23/22 21:37 06:03 11:30 WBC 0.9 L* RBC 1.88 L Hgb 6.0 L* D Hct 17.8 L* MCV MCH RDW 18.0 H Plt Count 8 L* D Neutrophils # (Manual) Lymphocytes # (Manual) D-Dimer Sodium Chloride Carbon Dioxide BUN Creatinine Glucose POC Glucose (mg/dL) 239 H 192 H Calcium Total Protein Albumin Crossmatch 07/23/22 07/23/22 07/23/22 11:30 11:56 12:35 WBC RBC Hgb Hct MCV MCH RDW Plt Count Neutrophils # (Manual) Lymphocytes # (Manual) D-Dimer Sodium 133 L Chloride 110 H Carbon Dioxide 19 L BUN 6 L Creatinine 0.49 L Glucose 139 H POC Glucose (mg/dL) 156 H Calcium 7.1 L Total Protein Albumin Crossmatch See Detail 07/23/22 07/23/22 07/23/22 12:47 17:11 20:13 WBC RBC Hgb Hct MCV MCH RDW Plt Count Neutrophils # (Manual) Lymphocytes # (Manual) D-Dimer Sodium Chloride Carbon Dioxide BUN Creatinine Glucose POC Glucose (mg/dL) 145 H 140 H 138 H Calcium Total Protein Albumin Crossmatch 07/23/22 07/24/22 07/24/22 23:46 05:40 05:40 WBC 1.6 L 2.1 L RBC 2.78 L 2.93 L Hgb 8.2 L D 9.0 L Hct 23.9 L 25.9 L MCV MCH RDW 18.2 H 18.5 H Plt Count 57 L D 42 L Neutrophils # (Manual) 0.90 L Lymphocytes # (Manual) 0.32 L 0.29 L D-Dimer Sodium 135 L Chloride 110 H Carbon Dioxide BUN 7 L Creatinine 0.51 L Glucose 133 H POC Glucose (mg/dL) Calcium 7.5 L Total Protein Albumin Crossmatch 07/24/22 07/24/22 06:23 11:22 WBC RBC Hgb Hct MCV MCH RDW Plt Count Neutrophils # (Manual) Lymphocytes # (Manual) D-Dimer Sodium Chloride Carbon Dioxide BUN Creatinine Glucose POC Glucose (mg/dL) 124 H 155 H Calcium Total Protein Albumin Crossmatch - Diagnostic Findings CT scan - chest: image reviewed (As noted in HPI) Assessment and Plan Assessment: Impression: Acute GI bleeding, being addressed by general surgery and hematology/oncology on the case. Pancytopenia secondary to chemotherapy Small cell lung cancer/metastatic. History of underlying COPD/emphysema History of degenerative joint disease and multiple orthopedic surgeries. History of GERD. Recommendation: Continue to monitor in the ICU Transfuse blood products as felt necessary and transfuse packed RBCs if hemoglobin below 7 Continue transfer plans to [facility] once a bed is available especially since we have no GI coverage Continue to monitor daily labs and daily CBC Continue bronchodilators Resume home meds Prognosis is guarded, we'll continue to follow Time with Patient: Greater than 30
[2022-07-24 16:38] LABS: Glucose,Whole Blood 183 mg/dL (70-110)
[2022-07-24 17:23] LABS: Anisocytosis Slight; HCT 25.9 % (39.0-53.0); Hypochromasia Slight; MCH 31.6 pg (25.0-35.0); MCHC 34.9 g/dL (31.0-37.0); MCV 90.6 fL (80.0-100.0); Mean Platelet Volume 8.4; Poikilocytosis Slight; RBC 2.86 m/uL (4.30-5.90); RDW 18.6 % (11.5-15.5); WBC 3.4 k/uL (3.8-10.6)
[2022-07-24 17:34] LABS: Platelet Count 81 k/uL (150-450)
[2022-07-24 17:59] LABS: Band Neutrophils % 11 %; Lymphocytes # (M) 0.37 k/uL (1.0-4.8); Monocytes # (M) 0.24 k/uL (0-1.0); Neutrophils % (M) 71 %; Nucleated Red Blood Cells 0 /100 WBC (0-0); Total Cells Counted 100
[2022-07-24] MEDS: FILGRASTIM-SNDZ 480 MCG/0.8 ML SYRINGE SQ SCH (18:45)
[2022-07-24] MEDS: ONDANSETRON 4 MG/2 ML VIAL IVP PRN (19:21)
[2022-07-24 19:56] LABS: Glucose,Whole Blood 214 mg/dL (70-110)
[2022-07-24] MEDS: ALPRAZolam 0.5 MG TAB PO PRN (22:33)
[2022-07-24] MEDS: traZODone HCL 100 MG TAB PO SCH (22:33)
[2022-07-24 23:16] LABS: Anisocytosis Slight; HCT 24.2 % (39.0-53.0); HGB 8.5 gm/dL (13.0-17.5); MCHC 35.2 g/dL (31.0-37.0); MCV 88.2 fL (80.0-100.0); Mean Platelet Volume 8.5; Poikilocytosis Slight; RBC 2.75 m/uL (4.30-5.90); RDW 18.5 % (11.5-15.5); WBC 4.2 k/uL (3.8-10.6)
[2022-07-24 23:25] LABS: Platelet Count 60 k/uL (150-450)
[2022-07-25 00:06] LABS: Band Neutrophils % 2 %; Lymphocytes # (M) 0.34 k/uL (1.0-4.8); Metamyelocytes # (M) 0.04 k/uL (0); Metamyelocytes % 1 %; Monocytes # (M) 0.92 k/uL (0-1.0); Neutrophils % (M) 69 %; Nucleated Red Blood Cells 1 /100 WBC (0-0); Total Cells Counted 200
[2022-07-25] MEDS: ONDANSETRON 4 MG/2 ML VIAL IVP PRN (04:23)
[2022-07-25 06:20] LABS: Glucose,Whole Blood 136 mg/dL (70-110)
[2022-07-25] MEDS: SODIUM CHLORIDE 0.9% 1,000 ML IV SCH ×2 (06:34→13:43)
[2022-07-25] MEDS: INSULIN ASPART (NovoLOG) 100 UNIT/ML VIAL SQ SCH ×4 (06:35→20:36)
[2022-07-25] MEDS: oxyCODONE-APAP 10-325MG 1 EACH TAB PO PRN (06:37)
[2022-07-25] MEDS: SUCRALFATE 1 GM TAB PO SCH ×4 (07:29→20:40)
[2022-07-25] MEDS: IPRATROPIUM-ALBUTEROL 3 ML NEB INHALATION PRN ×3 (07:35→19:57)
[2022-07-25] MEDS: BUDESONIDE 0.25 MG/2 ML NEBU INHALATION SCH ×2 (07:35→19:57)
[2022-07-25] MEDS: HYDROCORTISONE SUCCINATE 100 MG/2 ML VIAL IV SCH ×2 (08:21→16:59)
[2022-07-25] MEDS: GABAPENTIN 400 MG CAP PO SCH ×2 (08:21→20:40)
[2022-07-25] MEDS: METOPROLOL TARTRATE 12.5 MG TAB PO SCH ×2 (08:21→20:40)
[2022-07-25] MEDS: OXcarbazepine 300 MG TAB PO SCH ×2 (08:22→20:40)
[2022-07-25] MEDS: PANTOPRAZOLE 40 MG/10 ML VIAL IV SCH (08:22)
[2022-07-25 09:46] LABS: Anisocytosis Slight; HCT 26.3 % (39.0-53.0); HGB 9.1 gm/dL (13.0-17.5); MCH 30.7 pg (25.0-35.0); MCHC 34.4 g/dL (31.0-37.0); MCV 89.2 fL (80.0-100.0); Poikilocytosis Slight; RBC 2.95 m/uL (4.30-5.90); RDW 18.5 % (11.5-15.5); WBC 5.9 k/uL (3.8-10.6)
[2022-07-25 10:03] LABS: Platelet Count 54 k/uL (150-450)
[2022-07-25 10:05] LABS: African American GFR (CKD) >90 (>60 ml/min/1.73 sqM); Anion Gap 2 mmol/L; Blood Urea Nitrogen 8 mg/dL (9-20); Calcium 7.5 mg/dL (8.4-10.2); Carbon Dioxide 26 mmol/L (22-30); Chloride 109 mmol/L (98-107); Glucose 125 mg/dL (74-99); Non-African American GFR(CKD) >90 (>60 ml/min/1.73 sqM); Potassium 3.5 mmol/L (3.5-5.1); Sodium 137 mmol/L (137-145)
[2022-07-25 11:51] LABS: Monocytes # (M) 0.94 k/uL (0-1.0); Neutrophils # (M) 4.66 k/uL (1.3-7.7); Neutrophils % (M) 79 %; Nucleated Red Blood Cells 0 /100 WBC (0-0); Total Cells Counted 100
--- NOTE | 2022-07-25 11:51 | P.PN ---
Subjective Progress Note Date: 07/25/22 Principal diagnosis: Acute GI bleeding This is a 62-year-old white male with history of small cell lung cancer, presented initially back in 2020 with a large pleural effusion requiring thoracentesis and the diagnosis was made. Patient received chemotherapy by oncology, and has been receiving chemotherapy maintenance. Patient was admitted on 08/08, mostly with shortness of breath, and multiple episodes of bloody stools. Patient required so far multiple blood transfusions including 5 units of packed RBCs and 4 units of platelets, patient was noted to be pancytopenic, admitted because of the GI bleeding, and we were asked to see him on consultation today as the patient had worsening episodes of bleeding and required transfer to the ICU. He was seen by general surgery, the plan is to consider tagged RBC study, no plans to have any intervention. No GI coverage available, patient is being considered for transfer to [facility] once a bed becomes available. Considering the patient was admitted to the ICU, I was asked to see him on consultation. Pulmonary-stewart, the patient does not seem to be in any distress, he seems to be very comfortable. His hemoglobin this morning is 9.0, WBC count is 2.1, platelets are 42,000. Patient is being followed by hematology/oncology. CT angiogram of the chest showed no evidence of pulmonary embolism, patient had bilateral reticular pulmonary interstitial infiltrates, and he had left upper lobe spiculated abnormality consistent with bronchogenic carcinoma, however seems to have a partial response to treatment Reevaluated today on 07/25/22, patient remains in the ICU, continues to have intermittent episodes of lower GI bleeding, bright red blood per rectum. Still waiting for transfer to [facility], patient was seen by general surgery, no immediate intervention is planned, however he may be undergoing tagged RBC study. His hemoglobin this morning is 9.1, electrolytes are normal renal profile is normal WBC count is 5.9. Patient received a total of 5 units of packed RBCs since admission and 5 units of platelets. Platelets today are 54,000. Patient is comfortable, not in distress. Objective - Vital Signs Vital signs: Vital Signs Temp 96.7 F L 07/25/22 08:00 Pulse 93 07/25/22 11:42 Resp 21 07/25/22 11:00 BP 114/62 07/25/22 11:00 Pulse Ox 94 L 07/25/22 11:00 FiO2 Intake & Output 11/07/22 11/08/22 11/08/22 18:59 06:59 18:59 Intake Total 1408 490 280 Output Total 500 500 Balance 908 -10 280 Weight 83.2 kg 84.6 kg Intake: IV 430 240 280 Sodium Chloride 0.9% 1, 380 240 180 000 ml @ 100 mls/hr IV . Q10H [facility] Rx#:[id number] cefTRIAXone 1 gm In 50 100 Sodium Chloride 0.9% 50 ml @ 100 mls/hr IVPB Q24HR [facility] Rx#:[id number] Oral 300 250 Blood Product 678 Platelet Pheresis Pas 339 Psoralen Unit [id number] Output: Urine 500 500 Other: Voiding Method External Catheter External Catheter External Catheter # Voids 1 1 # Bowel Movements 1 1 1 - Exam General appearance: Revealed a 62-year-old white male in no distress. On 4 L nasal cannula with O2 sat sugar 94%. HET: Head is normocephalic and atraumatic. Conjunctiva pink. Sclera anicteric. Neck: Supple without lymphadenopathy. Trachea midline. Heart: S1 S2. Regular rate and rhythm. Lungs: Clear to auscultation. No crackles or rhonchi or wheezes. Abdomen: Soft, nontender, nondistended with bowel sounds. No guarding or rigidity. Skin: No rashes. No jaundice. Extremities: Normal skin color and turgor. No pedal edema. Neurological: No focal deficits. Alert and oriented x3. Psychiatric: Normal mood, affect and normal mental status examination. Musculoskeletal: No deformities and no limitation in range of motion - Labs CBC & Chem 7: 07/25/22 08:19 07/25/22 08:19 Labs: Abnormal Lab Results - Last 24 Hours (Table) 07/23/22 07/24/22 07/24/22 Range/Units 12:35 16:36 17:12 WBC 3.4 L (3.8-10.6) k/uL RBC 2.86 L (4.30-5.90) m/uL Hgb 9.0 L (13.0-17.5) gm/dL Hct 25.9 L (39.0-53.0) % RDW 18.6 H (11.5-15.5) % Plt Count 81 L D (150-450) k/uL Lymphocytes # (Manual) 0.37 L (1.0-4.8) k/uL Metamyelocytes # (Man) (0) k/uL Nucleated RBCs (0-0) /100 WBC Chloride (98-107) mmol/L BUN (9-20) mg/dL Creatinine (0.66-1.25) mg/dL Glucose (74-99) mg/dL POC Glucose (mg/dL) 183 H (70-110) mg/dL Calcium (8.4-10.2) mg/dL Crossmatch See Detail 07/24/22 07/24/22 07/25/22 Range/Units 19:55 23:01 06:07 WBC (3.8-10.6) k/uL RBC 2.75 L (4.30-5.90) m/uL Hgb 8.5 L (13.0-17.5) gm/dL Hct 24.2 L (39.0-53.0) % RDW 18.5 H (11.5-15.5) % Plt Count 60 L (150-450) k/uL Lymphocytes # (Manual) 0.34 L (1.0-4.8) k/uL Metamyelocytes # (Man) 0.04 H (0) k/uL Nucleated RBCs 1 H (0-0) /100 WBC Chloride (98-107) mmol/L BUN (9-20) mg/dL Creatinine (0.66-1.25) mg/dL Glucose (74-99) mg/dL POC Glucose (mg/dL) 214 H 136 H (70-110) mg/dL Calcium (8.4-10.2) mg/dL Crossmatch 07/25/22 07/25/22 Range/Units 08:19 08:19 WBC (3.8-10.6) k/uL RBC 2.95 L (4.30-5.90) m/uL Hgb 9.1 L (13.0-17.5) gm/dL Hct 26.3 L (39.0-53.0) % RDW 18.5 H (11.5-15.5) % Plt Count 54 L (150-450) k/uL Lymphocytes # (Manual) (1.0-4.8) k/uL Metamyelocytes # (Man) (0) k/uL Nucleated RBCs (0-0) /100 WBC Chloride 109 H (98-107) mmol/L BUN 8 L (9-20) mg/dL Creatinine 0.51 L (0.66-1.25) mg/dL Glucose 125 H (74-99) mg/dL POC Glucose (mg/dL) (70-110) mg/dL Calcium 7.5 L (8.4-10.2) mg/dL Crossmatch Microbiology - Last 24 Hours (Table) 07/22/22 17:30 Blood Culture - Preliminary Blood No Growth after 48 hours Assessment and Plan Assessment: Impression: Acute GI bleeding, persistent, exact etiology and source is not clear yet. Patient is being considered for a tagged RBC study. Pancytopenia secondary to chemotherapy Small cell lung cancer/metastatic. History of underlying COPD/emphysema History of degenerative joint disease and multiple orthopedic surgeries. History of GERD. Recommendation: Continue to monitor in the ICU Maintaining hemoglobin above 7, transfuse accordingly Continue transfer plans to [facility] Continue bronchodilators Resume home meds Prognosis is guarded, we'll continue to follow Time with Patient: Less than 30
[2022-07-25 11:53] LABS: Toxic Granulation Present
[2022-07-25 12:06] LABS: Glucose,Whole Blood 232 mg/dL (70-110)
[2022-07-25] MEDS ORDERED: LIDOCAINE 1% INJ 10MG/ML (30 ML VIAL-PF) SQ ONE (13:00)
--- NOTE | 2022-07-25 14:00 | IR ---
PICC LINE PLACEMENT: HISTORY: Infection requiring long-term antibiotic therapy PROCEDURE: Ultrasound guidance of PICC line placement. PROTECTIVE SIGNAL INSTALLER HELPER: Dr. Castle. COMPLICATIONS: None ANESTHESIA: 1. 1% Lidocaine locally. FINDINGS/TECHNIQUE: The procedure was explained to the patient. The risks, complications, benefits and alternatives were discussed and any questions were answered. Informed consent was obtained. The patient was placed supine on the fluoroscopic table and prepped and draped in the usual sterile fas ion. Utilizing a 21 gauge needle and sonographic guidance, access in the left basilic vein was achi eved and there is placement of a 0.018 guidewire. The vein is patent. A 5-F. sheath was placed over the guidewire. The guidewire and dilator were removed and a 5-F. Double lumen PICC line was placed through the sheath with the chest x-ray confirming the tip at the level of the SVC. The sheath was r emoved, the catheter was flushed and sutured into position. The patient was stable throughout the pr ocedure and remained stable upon discharge from the Department of Radiology. The vein puncture was patent under ultrasound. A lopez scale image was obtained to document patency of the vein punctured. All elements of the maximal barrier technique were utilized. IMPRESSION: 1. Successful PICC line placement under ultrasound performed bedside within the ICU.
--- NOTE | 2022-07-25 14:20 | XR ---
EXAMINATION TYPE: XR chest 1V portable DATE OF EXAM: 07/25/2022 COMPARISON: 07/19/2022 HISTORY: PICC line placement TECHNIQUE: Single frontal view of the chest is obtained. FINDINGS: Diffuse interstitial pattern with bilateral pleural effusion or thickening disease or infi ltrate. Diffuse osteopenia. Left-sided PICC line seen with the tip overlying the cavoatrial junction. Postsurgical change right shoulder. Underlying COPD suspected. Sclerotic left humeral lesion not inc luded in the field of view on today's x-ray. IMPRESSION: 1. COPD with bilateral pleural thickening or small effusion stable from prior exam. Suspect chronic i diopathic pulmonary fibrosis. Superimposed pneumonitis not excluded.
--- NOTE | 2022-07-25 14:57 | P.PN ---
Subjective Progress Note Date: 07/25/22 CHIEF COMPLAINT: Acute GI bleeding HISTORY OF PRESENT ILLNESS: Patient remains in the ICU. Patient did have 2 more bloody bowel movements this morning. He had bright red blood mixed with stool. He is awaiting transfer to [facility]. Afebrile. Mild tachycardia. WBC is 5.9 Hgb is up from 8.5-9.1 repeat CBC at 3:00 is pending platelets are 54 sodium is 137 potassium 3.5 creatinine 0.51 patient denies any abdominal pain. PHYSICAL EXAM: VITAL SIGNS: Reviewed. GENERAL: Well-developed in no acute distress. HEENT: No sclera icterus. Extraocular movements grossly intact. Moist buccal mucosa. Head is atraumatic, normocephalic. ABDOMEN: Soft. Nondistended. Nontender. NEUROLOGIC: Alert and oriented. Cranial nerves II through XII grossly intact. ASSESSMENT: 1. Acute GI bleed with bright red blood per rectum status post blood transfusion 2. History of small cell lung cancer 3. Pancytopenia PLAN: -Patient scheduled for tagged RBC scan for further evaluation of GI bleed -Continue to monitor hemoglobin. Repeat CBC is at 3:00 today -Increase IV fluids 100 mL per hour -Continue PPI -Continue transfer plans to [facility] -Continue clear liquids Physician [employer] Program Chair note has been reviewed by physician. Signing provider agrees with the documented findings, assessment, and plan of care. I have personally seen and examined the patient, reviewed the [employer] /PAs history, exam and MDM and agree with the assessment and plan as written. Based on total visit time, I have performed more than 50% of the visit. As above: Patient doing better today. Denies abdominal pain. He was having rectal bleeding earlier today but it was becoming more brownish in color. Tagged red blood cell scan is negative. We'll follow. Objective - Vital Signs Vital signs: Vital Signs Temp 96.7 F L 07/25/22 08:00 Pulse 108 H 07/25/22 14:00 Resp 19 07/25/22 14:00 BP 117/64 07/25/22 14:00 Pulse Ox 94 L 07/25/22 14:00 FiO2 Intake & Output 07/24/22 07/25/22 07/25/22 18:59 06:59 18:59 Intake Total 1408 490 730 Output Total 500 500 200 Balance 908 -10 530 Weight 83.2 kg 84.6 kg Intake: IV 430 240 580 Sodium Chloride 0.9% 1, 380 240 480 000 ml @ 100 mls/hr IV . Q10H [facility] Rx#:[id number] cefTRIAXone 1 gm In 50 100 Sodium Chloride 0.9% 50 ml @ 100 mls/hr IVPB Q24HR [facility] Rx#:[id number] Oral 300 250 150 Blood Product 678 Platelet Pheresis Pas 339 Psoralen Unit [id number] Output: Urine 500 500 200 Other: Voiding Method External Catheter External Catheter External Catheter # Voids 1 1 # Bowel Movements 1 1 1 - Labs CBC & Chem 7: 07/25/22 08:19 07/25/22 08:19 Labs: Abnormal Lab Results - Last 24 Hours (Table) 07/23/22 07/24/22 07/24/22 Range/Units 12:35 16:36 17:12 WBC 3.4 L (3.8-10.6) k/uL RBC 2.86 L (4.30-5.90) m/uL Hgb 9.0 L (13.0-17.5) gm/dL Hct 25.9 L (39.0-53.0) % RDW 18.6 H (11.5-15.5) % Plt Count 81 L D (150-450) k/uL Lymphocytes # (Manual) 0.37 L (1.0-4.8) k/uL Metamyelocytes # (Man) (0) k/uL Nucleated RBCs (0-0) /100 WBC Chloride (98-107) mmol/L BUN (9-20) mg/dL Creatinine (0.66-1.25) mg/dL Glucose (74-99) mg/dL POC Glucose (mg/dL) 183 H (70-110) mg/dL Calcium (8.4-10.2) mg/dL Crossmatch See Detail 07/24/22 07/24/22 07/25/22 Range/Units 19:55 23:01 06:07 WBC (3.8-10.6) k/uL RBC 2.75 L (4.30-5.90) m/uL Hgb 8.5 L (13.0-17.5) gm/dL Hct 24.2 L (39.0-53.0) % RDW 18.5 H (11.5-15.5) % Plt Count 60 L (150-450) k/uL Lymphocytes # (Manual) 0.34 L (1.0-4.8) k/uL Metamyelocytes # (Man) 0.04 H (0) k/uL Nucleated RBCs 1 H (0-0) /100 WBC Chloride (98-107) mmol/L BUN (9-20) mg/dL Creatinine (0.66-1.25) mg/dL Glucose (74-99) mg/dL POC Glucose (mg/dL) 214 H 136 H (70-110) mg/dL Calcium (8.4-10.2) mg/dL Crossmatch 07/25/22 07/25/22 07/25/22 Range/Units 08:19 08:19 12:04 WBC (3.8-10.6) k/uL RBC 2.95 L (4.30-5.90) m/uL Hgb 9.1 L (13.0-17.5) gm/dL Hct 26.3 L (39.0-53.0) % RDW 18.5 H (11.5-15.5) % Plt Count 54 L (150-450) k/uL Lymphocytes # (Manual) 0.30 L (1.0-4.8) k/uL Metamyelocytes # (Man) (0) k/uL Nucleated RBCs (0-0) /100 WBC Chloride 109 H (98-107) mmol/L BUN 8 L (9-20) mg/dL Creatinine 0.51 L (0.66-1.25) mg/dL Glucose 125 H (74-99) mg/dL POC Glucose (mg/dL) 232 H (70-110) mg/dL Calcium 7.5 L (8.4-10.2) mg/dL Crossmatch Microbiology - Last 24 Hours (Table) 07/22/22 17:30 Blood Culture - Preliminary Blood No Growth after 48 hours
--- NOTE | 2022-07-25 16:35 | NM ---
EXAMINATION TYPE: NM GI bleeding DATE OF EXAM: 07/25/2022 4:20 PM CLINICAL INDICATION:Male, 62 years old with history of GIB; COMPARISON: CT abdomen pelvis. Following administration of 3 ml PYP 25.3 mCi Tc 99m Sodium Pertechnat e. Immediate images post injection. FINDINGS: Normal tracer activity is seen in the blood pool of the abdominal aorta, common iliac arteries, femor al arteries, liver, and spleen on all of the interval images. Later images show accumulation of trace r in the urinary bladder, which is consistent with excreted tracer. No abnormal tracer uptake is pres ent outside the blood pool that would be consistent with an active GI bleed. Suspected. Tracer uptake in the expected location of the stomach likely on the basis of free pertechn etate. IMPRESSION: Negative examination. No evidence of active gastrointestinal bleeding during the initial 1 hr observa tion period.
[2022-07-25 16:53] LABS: Glucose,Whole Blood 138 mg/dL (70-110)
[2022-07-25] MEDS: MORPHINE SULFATE IR 15 MG TABLET PO PRN (18:41)
[2022-07-25 20:33] LABS: Glucose,Whole Blood 142 mg/dL (70-110)
--- NOTE | 2022-07-25 21:43 | P.PN ---
Subjective Progress Note Date: 07/25/22 Principal diagnosis: GI bleed In f/u today pt reports that he has seen some blood in his stool, states that the color of the stool is brown. No other bleeding to report. Objective - Vital Signs Vital signs: Vital Signs Temp 96.8 F L 07/25/22 16:00 Pulse 109 H 07/25/22 20:11 Resp 28 H 07/25/22 19:00 BP 147/71 07/25/22 19:00 Pulse Ox 93 L 07/25/22 19:49 FiO2 Intake & Output 07/25/22 07/25/22 07/26/22 06:59 18:59 06:59 Intake Total 490 1130 Output Total 500 500 Balance -10 630 Weight 84.6 kg Intake: IV 240 980 Sodium Chloride 0.9% 1, 240 880 000 ml @ 100 mls/hr IV . Q10H [facility] Rx#:[id number] cefTRIAXone 1 gm In 100 Sodium Chloride 0.9% 50 ml @ 100 mls/hr IVPB Q24HR [facility] Rx#:[id number] Oral 250 150 Output: Urine 500 500 Other: Voiding Method External Catheter External Catheter # Voids 1 # Bowel Movements 1 1 - Constitutional General appearance: Present: cooperative, no acute distress, obese - EENT Eyes: Present: anicteric sclerae, EOMI ENT: Present: hearing grossly normal - Respiratory Details: respirations even and unlabored at rest - Gastrointestinal General gastrointestinal: Present: normal bowel sounds, soft. Absent: absent bowel sounds, decreased bowel sounds, distended, hepatomegaly, hyperactive bowel sounds, organomegaly, rigid, scaphoid, splenomegaly, tenderness, umbilical hernia, ventral hernia - Neurologic Neurologic: Present: CNII-XII intact - Musculoskeletal Musculoskeletal: Present: generalized weakness, strength equal bilaterally - Psychiatric Psychiatric: Present: A&O x's 3, appropriate affect, intact judgment & insight - Labs CBC & Chem 7: 07/25/22 08:19 07/25/22 08:19 Labs: Abnormal Lab Results - Last 24 Hours (Table) 07/23/22 07/24/22 07/25/22 Range/Units 12:35 23:01 06:07 RBC 2.75 L (4.30-5.90) m/uL Hgb 8.5 L (13.0-17.5) gm/dL Hct 24.2 L (39.0-53.0) % RDW 18.5 H (11.5-15.5) % Plt Count 60 L (150-450) k/uL Lymphocytes # (Manual) 0.34 L (1.0-4.8) k/uL Metamyelocytes # (Man) 0.04 H (0) k/uL Nucleated RBCs 1 H (0-0) /100 WBC Chloride (98-107) mmol/L BUN (9-20) mg/dL Creatinine (0.66-1.25) mg/dL Glucose (74-99) mg/dL POC Glucose (mg/dL) 136 H (70-110) mg/dL Calcium (8.4-10.2) mg/dL Crossmatch See Detail 07/25/22 07/25/22 07/25/22 Range/Units 08:19 08:19 12:04 RBC 2.95 L (4.30-5.90) m/uL Hgb 9.1 L (13.0-17.5) gm/dL Hct 26.3 L (39.0-53.0) % RDW 18.5 H (11.5-15.5) % Plt Count 54 L (150-450) k/uL Lymphocytes # (Manual) 0.30 L (1.0-4.8) k/uL Metamyelocytes # (Man) (0) k/uL Nucleated RBCs (0-0) /100 WBC Chloride 109 H (98-107) mmol/L BUN 8 L (9-20) mg/dL Creatinine 0.51 L (0.66-1.25) mg/dL Glucose 125 H (74-99) mg/dL POC Glucose (mg/dL) 232 H (70-110) mg/dL Calcium 7.5 L (8.4-10.2) mg/dL Crossmatch 07/25/22 07/25/22 Range/Units 16:51 20:31 RBC (4.30-5.90) m/uL Hgb (13.0-17.5) gm/dL Hct (39.0-53.0) % RDW (11.5-15.5) % Plt Count (150-450) k/uL Lymphocytes # (Manual) (1.0-4.8) k/uL Metamyelocytes # (Man) (0) k/uL Nucleated RBCs (0-0) /100 WBC Chloride (98-107) mmol/L BUN (9-20) mg/dL Creatinine (0.66-1.25) mg/dL Glucose (74-99) mg/dL POC Glucose (mg/dL) 138 H 142 H (70-110) mg/dL Calcium (8.4-10.2) mg/dL Crossmatch Microbiology - Last 24 Hours (Table) 07/25/22 08:40 Sputum Culture - Preliminary Sputum 07/22/22 17:30 Blood Culture - Preliminary Blood No Growth after 48 hours Assessment and Plan (1) GI bleed Current Visit: Yes Status: Acute Priority: High Code(s): K92.2 - GASTROINTESTINAL HEMORRHAGE, UNSPECIFIED SNOMED Code(s): 80069636 (2) Pancytopenia due to antineoplastic chemotherapy Current Visit: Yes Status: Acute Priority: High Code(s): D61.810 - ANTINEOPLASTIC CHEMOTHERAPY INDUCED PANCYTOPENIA; T45.1X5A - ADVERSE EFFECT OF ANTINEOPLASTIC AND IMMUNOSUP DRUGS, INIT SNOMED Code(s): 079511299735519 (3) Primary small cell malignant neoplasm of lung, stage 4 Current Visit: Yes Status: Acute Priority: High Code(s): C34.90 - MALIGNANT NEOPLASM OF UNSP PART OF UNSP BRONCHUS OR LUNG SNOMED Code(s): 28659762290482 Plan: Pancytopenia secondary to recent treatment with zepzelca. patient did receive G-CSF. WBCs 5.9 today. G-CSF discontinued. Hemoglobin 9.1 today. No transfusion needed. Platelets 54,000 today. He had CBC 3 times yesterday. Pt has received 5 units of PRBCs and 5 units of platelets, last platelet infusion 07/24, last PRBC transfusion 07/23. Plans for tagged RBC scan today. Will recheck coags and check fibrinogen. Patient has been seen by Surgery. Reports plans for transfer to [facility]. Shortness of breath. Patient seems to be less short of breath today on examination. Patient just started zepzelca, CTA reports some improvement in tumor size. Would like to be able to continue patient on the same. there are dose reductions, that may be a possibility. G-CSF can be added after treatment. Will see how patient does during hospital course/results of transfer. Continue pain medications as prescribed from the office. Pain seems to be manageable at this time.
[2022-07-25] MEDS: traZODone HCL 100 MG TAB PO SCH (21:50)
[2022-07-25] MEDS: MELATONIN 3 MG TABLET PO PRN (22:07)
[2022-07-25] MEDS: ALPRAZolam 0.5 MG TAB PO PRN (22:07)
[2022-07-26] MEDS: HYDROCORTISONE SUCCINATE 100 MG/2 ML VIAL IV SCH ×3 (00:18→16:30)
[2022-07-26] MEDS: SODIUM CHLORIDE 0.9% 1,000 ML IV SCH ×2 (01:30→20:30)
[2022-07-26] MEDS: MORPHINE SULFATE IR 15 MG TABLET PO PRN (04:52)
[2022-07-26] MEDS: SUCRALFATE 1 GM TAB PO SCH ×4 (05:18→20:30)
[2022-07-26 07:01] LABS: Anisocytosis Slight; Basophils % (A) 0 %; Eosinophils % (A) 0 %; HCT 21.2 % (39.0-53.0); Lymphocytes # (A) 0.4 k/uL (1.0-4.8); Lymphocytes % (A) 4 %; MCH 31.4 pg (25.0-35.0); MCHC 35.3 g/dL (31.0-37.0); Mean Platelet Volume 9.1; Monocytes # (A) 0.6 k/uL (0-1.0); Monocytes % (A) 7 %; Neutrophils # (A) 7.7 k/uL (1.3-7.7); Neutrophils % (A) 85 %; Poikilocytosis Slight; RBC 2.38 m/uL (4.30-5.90); RDW 18.7 % (11.5-15.5); WBC 9.1 k/uL (3.8-10.6)
[2022-07-26 07:01] LABS: Glucose,Whole Blood 140 mg/dL (70-110)
[2022-07-26] MEDS: INSULIN ASPART (NovoLOG) 100 UNIT/ML VIAL SQ SCH ×4 (07:02→20:29)
[2022-07-26 07:10] LABS: Prothrombin Time 11.1 sec (9.0-12.0)
[2022-07-26 07:11] LABS: Partial Thromboplastin Time 22.5 sec (22.0-30.0)
[2022-07-26 07:25] LABS: ALT 39 U/L (4-49); AST 26 U/L (17-59); African American GFR (CKD) >90 (>60 ml/min/1.73 sqM); Albumin 2.1 g/dL (3.5-5.0); Alkaline Phosphatase 96 U/L (38-126); Anion Gap 1 mmol/L; Blood Urea Nitrogen 9 mg/dL (9-20); Calcium 6.8 mg/dL (8.4-10.2); Carbon Dioxide 26 mmol/L (22-30); Chloride 110 mmol/L (98-107); Glucose 123 mg/dL (74-99); Non-African American GFR(CKD) >90 (>60 ml/min/1.73 sqM); Potassium 3.2 mmol/L (3.5-5.1); Sodium 137 mmol/L (137-145); Total Bilirubin 0.5 mg/dL (0.2-1.3); Total Protein 4.1 g/dL (6.3-8.2)
[2022-07-26 07:31] LABS: HGB 7.5 gm/dL (13.0-17.5)
[2022-07-26] MEDS: IPRATROPIUM-ALBUTEROL 3 ML NEB INHALATION PRN (07:42)
[2022-07-26] MEDS: BUDESONIDE 0.25 MG/2 ML NEBU INHALATION SCH (07:42)
[2022-07-26] MEDS ORDERED: Potassium Replacement Protocol 1 EACH MISC MISCELLANE PRN (08:27)
[2022-07-26] MEDS ORDERED: FUROSEMIDE 10 MG/ML 4 ML VIAL IV STA (08:46)
--- NOTE | 2022-07-26 09:16 | XR ---
EXAMINATION TYPE: XR chest 1V portable DATE OF EXAM: 07/26/2022 COMPARISON: 07/25/2022 HISTORY: Shortness of breath TECHNIQUE: Single frontal view of the chest is obtained. FINDINGS: Diffuse interstitial pattern with bilateral consolidation and pleural small effusion. Left -sided PICC line noted. Postsurgical change right shoulder. Sclerotic change involving the left humer al head likely represents bone infarct. Diffuse osteopenia. No pneumothorax. Previous vertebral plast y. IMPRESSION: 1. Correlate for pulmonary fibrosis pleural thickening or small effusion stable exam. Superimposed in terstitial pneumonitis difficult to exclude.
[2022-07-26] MEDS: POTASSIUM CHLORIDE ER 20 MEQ TAB.ER PO SCH ×6 (09:17→22:08)
[2022-07-26] MEDS: PANTOPRAZOLE 40 MG/10 ML VIAL IV SCH (09:17)
[2022-07-26] MEDS: METOPROLOL TARTRATE 12.5 MG TAB PO SCH ×2 (09:18→20:30)
[2022-07-26] MEDS: GABAPENTIN 400 MG CAP PO SCH ×2 (09:18→20:29)
[2022-07-26] MEDS: ALPRAZolam 0.5 MG TAB PO PRN ×2 (09:18→21:47)
[2022-07-26] MEDS: OXcarbazepine 300 MG TAB PO SCH ×2 (09:19→20:30)
[2022-07-26] MEDS: IPRATROPIUM-ALBUTEROL 3 ML NEB INHALATION SCH ×3 (11:17→19:37)
[2022-07-26 11:36] LABS: Platelet Count 24 k/uL (150-450)
[2022-07-26 11:44] LABS: Glucose,Whole Blood 154 mg/dL (70-110)
--- NOTE | 2022-07-26 12:33 | P.PN ---
Subjective Progress Note Date: 07/26/22 Principal diagnosis: Acute GI bleeding This is a 62-year-old white male with history of small cell lung cancer, presented initially back in 2020 with a large pleural effusion requiring thoracentesis and the diagnosis was made. Patient received chemotherapy by oncology, and has been receiving chemotherapy maintenance. Patient was admitted on 08/08, mostly with shortness of breath, and multiple episodes of bloody stools. Patient required so far multiple blood transfusions including 5 units of packed RBCs and 4 units of platelets, patient was noted to be pancytopenic, admitted because of the GI bleeding, and we were asked to see him on consultation today as the patient had worsening episodes of bleeding and required transfer to the ICU. He was seen by general surgery, the plan is to consider tagged RBC study, no plans to have any intervention. No GI coverage available, patient is being considered for transfer to [facility] once a bed becomes available. Considering the patient was admitted to the ICU, I was asked to see him on consultation. Pulmonary-stewart, the patient does not seem to be in any distress, he seems to be very comfortable. His hemoglobin this morning is 9.0, WBC count is 2.1, platelets are 42,000. Patient is being followed by hematology/oncology. CT angiogram of the chest showed no evidence of pulmonary embolism, patient had bilateral reticular pulmonary interstitial infiltrates, and he had left upper lobe spiculated abnormality consistent with bronchogenic carcinoma, however seems to have a partial response to treatment Reevaluated today on 07/25/22, patient remains in the ICU, continues to have intermittent episodes of lower GI bleeding, bright red blood per rectum. Still waiting for transfer to [facility], patient was seen by general surgery, no immediate intervention is planned, however he may be undergoing tagged RBC study. His hemoglobin this morning is 9.1, electrolytes are normal renal profile is normal WBC count is 5.9. Patient received a total of 5 units of packed RBCs since admission and 5 units of platelets. Platelets today are 54,000. Patient is comfortable, not in distress. Reevaluated today on , remains in the ICU, hemodynamically stable, nonetheless the patient continues to demonstrate slight bleeding but no active bleeding clinically. Hemoglobin dropped today to 7.5 compared to yesterday. Hemoglobin was 9.1 yesterday, stools are black and brown. Hopefully the patient is not actively bleeding. But that's not definitely certain at this point. Patient seems to be a bit more short of breath today compared to yesterday, chest x-ray is showing interstitial edema, and I'm recommending a dose of Lasix to be given. Patient does have possibly some underlying interstitial lung disease Objective - Vital Signs Vital signs: Vital Signs Temp 97.8 F 07/26/22 04:00 Pulse 94 07/26/22 11:28 Resp 22 07/26/22 11:00 BP 121/67 07/26/22 11:00 Pulse Ox 92 L 07/26/22 11:00 FiO2 Intake & Output 07/25/22 07/26/22 07/26/22 18:59 06:59 18:59 Intake Total 1130 810 320 Output Total 808 818 7948 Balance 630 460 -1830 Weight 86.2 kg Intake: IV 980 810 320 Sodium Chloride 0.9% 1, 880 810 270 000 ml @ 20 mls/hr IV . Q24H [facility] Rx#:[id number] cefTRIAXone 1 gm In 100 50 Sodium Chloride 0.9% 50 ml @ 100 mls/hr IVPB Q24HR [facility] Rx#:[id number] Oral 150 Output: Urine 022 184 4148 Other: Voiding Method External Catheter External Catheter External Catheter # Voids 1 1 # Bowel Movements 1 - Exam General appearance: Revealed a 62-year-old white male in no distress. On 4 L nasal cannula with O2 sat sugar 94%. HET: Head is normocephalic and atraumatic. Conjunctiva pink. Sclera anicteric. Neck: Supple without lymphadenopathy. Trachea midline. Heart: S1 S2. Regular rate and rhythm. Lungs: Clear to auscultation. No crackles or rhonchi or wheezes. Abdomen: Soft, nontender, nondistended with bowel sounds. No guarding or rigidity. Skin: No rashes. No jaundice. Extremities: Normal skin color and turgor. 1+ bipedal edema Neurological: No focal deficits. Alert and oriented x3. Psychiatric: Normal mood, affect and normal mental status examination. Musculoskeletal: No deformities and no limitation in range of motion - Labs CBC & Chem 7: 07/26/22 06:28 07/26/22 06:28 Labs: Abnormal Lab Results - Last 24 Hours (Table) 1107/25/22 07/26/22 Range/Units 16:51 20:31 06:28 RBC 2.38 L (4.30-5.90) m/uL Hgb 7.5 L D (13.0-17.5) gm/dL Hct 21.2 L (39.0-53.0) % RDW 18.7 H (11.5-15.5) % Plt Count 24 L D (150-450) k/uL Lymphocytes # 0.4 L (1.0-4.8) k/uL Potassium (3.5-5.1) mmol/L Chloride (98-107) mmol/L Creatinine (0.66-1.25) mg/dL Glucose (74-99) mg/dL POC Glucose (mg/dL) 138 H 142 H (70-110) mg/dL Calcium (8.4-10.2) mg/dL Total Protein (6.3-8.2) g/dL Albumin (3.5-5.0) g/dL 07/26/22 07/26/22 07/26/22 Range/Units 06:28 06:59 11:43 RBC (4.30-5.90) m/uL Hgb (13.0-17.5) gm/dL Hct (39.0-53.0) % RDW (11.5-15.5) % Plt Count (150-450) k/uL Lymphocytes # (1.0-4.8) k/uL Potassium 3.2 L (3.5-5.1) mmol/L Chloride 110 H (98-107) mmol/L Creatinine 0.48 L (0.66-1.25) mg/dL Glucose 123 H (74-99) mg/dL POC Glucose (mg/dL) 140 H 154 H (70-110) mg/dL Calcium 6.8 L (8.4-10.2) mg/dL Total Protein 4.1 L (6.3-8.2) g/dL Albumin 2.1 L (3.5-5.0) g/dL Microbiology - Last 24 Hours (Table) 07/25/22 08:40 Gram Stain - Preliminary Sputum Sputum Culture - Preliminary 07/22/22 17:30 Blood Culture - Preliminary Blood No Growth after 72 hours Assessment and Plan Assessment: Impression: Acute GI bleeding, persistent, exact etiology and source is not clear yet. Tagged RBC study is nondiagnostic. Pancytopenia secondary to chemotherapy Small cell lung cancer/metastatic. History of underlying COPD/emphysema History of degenerative joint disease and multiple orthopedic surgeries. History of GERD. Recommendation: Continue to monitor in the ICU Maintaining hemoglobin above 7, transfuse accordingly Continue transfer plans to [facility] Continue bronchodilators Prognosis is guarded, we'll continue to follow Time with Patient: Less than 30
--- NOTE | 2022-07-26 12:38 | P.PN ---
Subjective Progress Note Date: 07/26/22 Principal diagnosis: GI bleed. SCLC, on treatment In f/u today pt and staff report last BMs of the day yesterday were brown in color, no other bleeding from the rectum noted. Pt is more SOB today, he cannot talk without being SOB. No chest pain or other bleeding to report. Objective - Vital Signs Vital signs: Vital Signs Temp 97.8 F 07/26/22 04:00 Pulse 94 07/26/22 11:28 Resp 22 07/26/22 11:00 BP 121/67 07/26/22 11:00 Pulse Ox 92 L 07/26/22 11:00 FiO2 Intake & Output 07/25/22 07/26/22 07/26/22 18:59 06:59 18:59 Intake Total 1130 810 320 Output Total 571 443 6995 Balance 630 460 -1830 Weight 86.2 kg Intake: IV 980 810 320 Sodium Chloride 0.9% 1, 880 810 270 000 ml @ 20 mls/hr IV . Q24H [facility] Rx#:[id number] cefTRIAXone 1 gm In 100 50 Sodium Chloride 0.9% 50 ml @ 100 mls/hr IVPB Q24HR [facility] Rx#:[id number] Oral 150 Output: Urine 883 [id number] Other: Voiding Method External Catheter External Catheter External Catheter # Voids 1 1 # Bowel Movements 1 - Constitutional General appearance: Present: average body habitus, cooperative, mild distress - EENT Eyes: Present: anicteric sclerae, EOMI ENT: Present: hearing grossly normal - Respiratory Respiratory: bilateral: CTA - Cardiovascular Rhythm: regular Heart sounds: normal: S1, S2 Abnormal Heart Sounds: Absent: systolic murmur, diastolic murmur, rub, S3 Gallop, S4 Gallop, click, other - Peripheral edema leg Peripheral Edema: bilateral: Trace - Gastrointestinal General gastrointestinal: Present: normal bowel sounds, soft - Integumentary Integumentary: Present: pale - Neurologic Neurologic: Present: CNII-XII intact - Musculoskeletal Musculoskeletal: Present: generalized weakness, strength equal bilaterally - Psychiatric Psychiatric: Present: A&O x's 3, appropriate affect, intact judgment & insight - Labs CBC & Chem 7: 07/26/22 06:28 07/26/22 06:28 Labs: Abnormal Lab Results - Last 24 Hours (Table) 1107/25/22 07/26/22 Range/Units 16:51 20:31 06:28 RBC 2.38 L (4.30-5.90) m/uL Hgb 7.5 L D (13.0-17.5) gm/dL Hct 21.2 L (39.0-53.0) % RDW 18.7 H (11.5-15.5) % Plt Count 24 L D (150-450) k/uL Lymphocytes # 0.4 L (1.0-4.8) k/uL Potassium (3.5-5.1) mmol/L Chloride (98-107) mmol/L Creatinine (0.66-1.25) mg/dL Glucose (74-99) mg/dL POC Glucose (mg/dL) 138 H 142 H (70-110) mg/dL Calcium (8.4-10.2) mg/dL Total Protein (6.3-8.2) g/dL Albumin (3.5-5.0) g/dL 07/26/22 07/26/22 07/26/22 Range/Units 06:28 06:59 11:43 RBC (4.30-5.90) m/uL Hgb (13.0-17.5) gm/dL Hct (39.0-53.0) % RDW (11.5-15.5) % Plt Count (150-450) k/uL Lymphocytes # (1.0-4.8) k/uL Potassium 3.2 L (3.5-5.1) mmol/L Chloride 110 H (98-107) mmol/L Creatinine 0.48 L (0.66-1.25) mg/dL Glucose 123 H (74-99) mg/dL POC Glucose (mg/dL) 140 H 154 H (70-110) mg/dL Calcium 6.8 L (8.4-10.2) mg/dL Total Protein 4.1 L (6.3-8.2) g/dL Albumin 2.1 L (3.5-5.0) g/dL Microbiology - Last 24 Hours (Table) 07/25/22 08:40 Gram Stain - Preliminary Sputum Sputum Culture - Preliminary 07/22/22 17:30 Blood Culture - Preliminary Blood No Growth after 72 hours - Imaging and Cardiology Tagged RBC scan report reviewed Assessment and Plan (1) GI bleed Current Visit: Yes Status: Acute Priority: High Code(s): K92.2 - GASTROINTESTINAL HEMORRHAGE, UNSPECIFIED SNOMED Code(s): 36526843 (2) Pancytopenia due to antineoplastic chemotherapy Current Visit: Yes Status: Acute Priority: High Code(s): D61.810 - ANTINEOPLASTIC CHEMOTHERAPY INDUCED PANCYTOPENIA; T45.1X5A - ADVERSE EFFECT OF ANTINEOPLASTIC AND IMMUNOSUP DRUGS, INIT SNOMED Code(s): 969885461168766 (3) Primary small cell malignant neoplasm of lung, stage 4 Current Visit: Yes Status: Acute Priority: High Code(s): C34.90 - MALIGNANT NEOPLASM OF UNSP PART OF UNSP BRONCHUS OR LUNG SNOMED Code(s): 50230460744108 Plan: Pancytopenia secondary to recent treatment with zepzelca. Patient did receive G-CSF x 6. WBC 9.1, ANC 7.7 today. G-CSF discontinued. Pt has received 5 units of platelets, plt count down to 24K today, was 54K yesterday. DIC work up this AM was neg. Hemoglobin down to 7.5 today. Providers have all weighed in on if to transfuse-pt just received a dose of lasix for fluid overload. Pending pt clinical course throughout the day, there is a CBC ordered for this afternoon. Tagged RBC scan was non diagnostic for a source of acute bleeding. Pt has received 5 units of PRBCs and 5 units of platelets, last platelet infusion 07/24, last PRBC transfusion 07/23. Patient has been seen by Surgery. There are reported plans for transfer to [facility] Shortness of breath. Patient is MORE short of breath today. He has received lasix due to crackles/wheezing on resp exam earlier this AM. Lungs sounds improved, clear on late morning exam. Patient just started zepzelca, CTA reports some improvement in tumor size when compared to imaging 06/17. Would like to be able to continue patient on the same. There are dose reductions so, continuation of therapy after pt has adequately recovered (clinically and hematologically) may be a possibility. G- CSF can be added as well if felt necessary. Cont to follow hospital course. Continue pain medications as prescribed from the office. Pain seems to be manageable at this time. attests: I have seen and examined pt, performed H&P, developed impression and plan of care. Discussed with dictator. Agree with documentation, dictated as a scribe.
--- NOTE | 2022-07-26 13:20 | P.PN ---
Subjective Progress Note Date: 07/26/22 H&P Date: 07/20/22 Chief Complaint: Rectal bleeding This is a pleasant 62-year-old gentleman with past medical history of metastatic lung disease/ primary small cell malignant neoplasm of lung, stage IV presented to the ER with Leonardo rectal bleeding X 3, accompanied by lower abdominal cramping and exertional shortness of breath. Reports some nausea, denies emesis. Also reports extensive workup of abdominal pain and per oncology attributing it to chemo effect. Last chemotherapy approximately 1 week ago. Chest CTA reported : no evidence of pulmonary embolism. Mediastinal left bronchial adenopathy with improvement in the left hilar mass compared to old exam. Slightly decreased left upper lobe spiculated infiltrate extending from the left pulmonary hilum to the left lung apex,compared to old exam. Improved encasement of the left lower lobe pulmonary artery with tumor mass and artery narrowing compared to old exam.COPD. Increased patchy bilateral reticular pulmonary interstitial infiltrates compared to prior exam. Increased small left pleural effusion compared to prior exam. Pericardial tumor masses not significantly different than last exam. On admission :WBC 0.2 hemoglobin 6.5 hematocrit 18.9 platelet count 5 INR 1.0 d-dimer 1.76 sodium 136 potassium 4.4 BUN 12 creatinine 0.63 glucose 115, bilirubin 0.4 AST 23 ALT 22 alk phos 60. Repeat labs today WBC 0.1 hemoglobin 7.5 hematocrit 22 platelet count 7. Received 1 unit of packed red blood cell transfusion as well as 1 unit of platelets. Denies any further rectal bleeding since admission. Denies shortness of breath at rest. Denies chest pain, palpitations. 07/21/2022 maintained on IV fluid hydration, Zarxio,PPI, carafate .reports dark maroon stooling 2 last night. Denies any further bleeding this morning. Denies abdominal cramping, abdominal pain. Consuming 25-75% with no nausea vomiting. Received a total of 3 units packed RBCs, 2 units of platelets. WBC increased to 0.5, hemoglobin 7.9, platelets 28 .Afebrile. Denies chest pain, palpitations or shortness of breath. Complains of exertional shortness of breath. Evaluated by both GI and oncology with recommendations noted and appreciated. Neutropenic precautions. Maintained on zaxrio,PPI, Carafate,empiric Augmentin and doxycycline. Transfusion parameters as per oncology. 07/24/2022 Over the weekend, patient had reoccurrence of rectal bleeding accompanied by acute drop in hemoglobin to 6 and platelets to 8 requiring transfer into the ICU.Maintained on supportive transfusions to maintain hemoglobin greater than 7, platelets greater than 50. Post transfusion, hemoglobin currently up to 9, platelets 42. No bowel movement since yesterday .Denies abdominal pain . Denies chest pain, palpitations or shortness of breath. Chronic back pain controlled. Patient in need of GI evaluation.Transfer to [facility],in progress related to GI services not available at this site, this week. Prognosis guarded given multiple complex medical issues. 07/25/2022 transfer to tertiary care center pending. Patient continued to have maroon bowel movements yesterday, last night and throughout the midnight shift. Repeat blood counts of yesterday reported hemoglobin dropping to 8.5, platelets down to 60 with a.m. labs pending. Patient reports chills, increased shortness of breath at rest. Maintaining O2 sats in the 90s on 4 L nasal cannula. Minimal cough, including dark brownish sputum-cultures sent; possible microscopic bleeding. Afebrile, WBC of yesterday 4.2. Supportive transfusions. Denies chest pain, palpitations. ICU management as per reed or wind instrument repairer. Awaiting bed for transfer. 07/26/2022 hemoglobin decreased to 7.5, platelets 24, neutrophils 85. No further stooling this morning. Staff reports patient had 4 bowel movements with minimal rectal bleeding yesterday that initially subsided-last bowel movement reported brown in color. Denies abdominal pain.Increased shortness of breath at rest with oxygen requirements worsened, requiring 8 L high flow nasal cannula to maintain O2 sats in the low 90s. Mild tachycardia this morning with heart rates in the 1 teens. Afebrile, normal WBC. Receiving potassium supplements for potassium 3.2. Renal function stable. Blood sugars controlled. Chest x-ray reporting bilateral pleural thickening/interstitial edema, suspect chronic idi opathic pulmonary fibrosis. IV fluids pivl'd, received a dose of Lasix IV push. Objective - Vital Signs Vital signs: Vital Signs Temp 98.1 F 07/26/22 12:00 Pulse 98 07/26/22 12:00 Resp 24 07/26/22 12:00 BP 93/61 07/26/22 12:00 Pulse Ox 93 L 07/26/22 12:00 FiO2 Intake & Output 07/25/22 07/26/22 07/26/22 18:59 06:59 18:59 Intake Total 1130 810 340 Output Total 304 586 6905 Balance 630 460 -1860 Weight 86.2 kg Intake: IV 980 810 340 Sodium Chloride 0.9% 1, 880 810 290 000 ml @ 20 mls/hr IV . Q24H [facility] Rx#:[id number] cefTRIAXone 1 gm In 100 50 Sodium Chloride 0.9% 50 ml @ 100 mls/hr IVPB Q24HR [facility] Rx#:[id number] Oral 150 Output: Urine 535 527 9540 Stool 50 Other: Voiding Method External Catheter External Catheter External Catheter # Voids 1 1 # Bowel Movements 1 - Exam - Exam PHYSICAL EXAM: VITAL SIGNS: [As above] GENERAL: Alert and oriented 3, Sitting up in bed,no acute distress HEENT: Conjunctivae normal. eyes normal. NECK: Supple, No JVD. CARDIOVASCULAR: S1, S2 regular, mild tachycardia. No murmur. RESPIRATION: Unlabored Breath sounds diminished in the bases. No rhonchi, crackles or wheezing. ABDOMEN: Soft, nontender, No guarding.Bowel sounds heard. LEGS: Mild edema NERVOUS SYSTEM: Cranial N 2-12 grossly normal.No focal deficits. Strength and sensation grossly intact. Skin: Warm and dry, no rash - Labs CBC & Chem 7: 07/26/22 06:28 07/26/22 06:28 Labs: Abnormal Lab Results - Last 24 Hours (Table) 07/25/22 07/25/22 07/26/22 Range/Units 16:51 20:31 06:28 RBC 2.38 L (4.30-5.90) m/uL Hgb 7.5 L D (13.0-17.5) gm/dL Hct 21.2 L (39.0-53.0) % RDW 18.7 H (11.5-15.5) % Plt Count 24 L D (150-450) k/uL Lymphocytes # 0.4 L (1.0-4.8) k/uL Potassium (3.5-5.1) mmol/L Chloride (98-107) mmol/L Creatinine (0.66-1.25) mg/dL Glucose (74-99) mg/dL POC Glucose (mg/dL) 138 H 142 H (70-110) mg/dL Calcium (8.4-10.2) mg/dL Total Protein (6.3-8.2) g/dL Albumin (3.5-5.0) g/dL 07/26/22 07/26/22 07/26/22 Range/Units 06:28 06:59 11:43 RBC (4.30-5.90) m/uL Hgb (13.0-17.5) gm/dL Hct (39.0-53.0) % RDW (11.5-15.5) % Plt Count (150-450) k/uL Lymphocytes # (1.0-4.8) k/uL Potassium 3.2 L (3.5-5.1) mmol/L Chloride 110 H (98-107) mmol/L Creatinine 0.48 L (0.66-1.25) mg/dL Glucose 123 H (74-99) mg/dL POC Glucose (mg/dL) 140 H 154 H (70-110) mg/dL Calcium 6.8 L (8.4-10.2) mg/dL Total Protein 4.1 L (6.3-8.2) g/dL Albumin 2.1 L (3.5-5.0) g/dL Microbiology - Last 24 Hours (Table) 07/25/22 08:40 Gram Stain - Preliminary Sputum Sputum Culture - Preliminary 07/22/22 17:30 Blood Culture - Preliminary Blood No Growth after 72 hours Assessment and Plan Assessment: Acute GI bleed, status post transfusion of packed RBCs and platelets. No endoscopy recommended per GI. Pancytopenia secondary to recent treatment,Last received chemotherapy 1 week ago Chronic abdominal, back pain due to metastatic lung disease in a patient with history of primary small cell malignant neoplasm of lung, stage IV. Fentanyl patch dose increased last week with improvement in pain. History of Adrenal mass likely secondary to metastatic lesion. COPD GERD Anxiety/depression Previous history of smoking Adrenal insufficiency currently on Cortef at home. Plan: Continue on current medication regime ,monitoring and symptomatic treatment. Close monitoring of coags.with repeat CBC ordered for 1600. Continue with transfer process -accepted, awaiting bed at [facility]. Manan declined secondary to bed status. ICU management as per reed or wind instrument repairer .Prognosis guarded given multiple complex medical issues. The impression and plan of care has been dictated as directed. : I performed a history and examination of this patient, discussed the same with the dictator. I agree with the dictator's note ,documented as a scribe. Any additional findings or plans will be noted.
--- NOTE | 2022-07-26 15:17 | P.PN ---
Subjective Progress Note Date: 07/26/22 CHIEF COMPLAINT: Acute GI bleeding HISTORY OF PRESENT ILLNESS: Patient remains in the ICU. Patient bowel movements are now brown. He had 4 bowel movements total yesterday that initially had blood and transitioned to brown in color. Patient denies any abdominal pain. He denies any nausea or vomiting. Patient is receiving Lasix for fluid overload. Fluids have been hep-locked. His potassium is being replaced. His tagged RBC scan was negative for bleeding. WBC is 9.1 hemoglobin did drop from 9.1-7.5 platelets are 24 sodium 137 potassium is 3.2 creatinine 0.48 Patient seen and examined with Dr. Muro PHYSICAL EXAM: VITAL SIGNS: Reviewed. GENERAL: Well-developed in no acute distress. HEENT: No sclera icterus. Extraocular movements grossly intact. Moist buccal mucosa. Head is atraumatic, normocephalic. ABDOMEN: Soft. Nondistended. Nontender. NEUROLOGIC: Alert and oriented. Cranial nerves II through XII grossly intact. ASSESSMENT: 1. Acute GI bleed with bright red blood per rectum status post blood transfusion 2. History of small cell lung cancer 3. Pancytopenia PLAN: -Patient has repeat CBC ordered for this evening. If hemoglobin less than 7 recommend blood transfusion -Continue to monitor hemoglobin -Continue monitor for any signs or symptoms of bleeding -Continue PPI -Continue transfer plans to [facility] -Continue clear liquids -No plans for endoscopy Physician Pharm Spec note has been reviewed by physician. Signing provider agrees with the documented findings, assessment, and plan of care. Objective - Vital Signs Vital signs: Vital Signs Temp 98.1 F 07/26/22 12:00 Pulse 100 07/26/22 14:00 Resp 18 07/26/22 14:00 BP 101/65 07/26/22 14:00 Pulse Ox 92 L 07/26/22 14:00 FiO2 Intake & Output 07/25/22 07/26/22 07/26/22 18:59 06:59 18:59 Intake Total 1130 810 380 Output Total 559 286 4078 Balance 630 460 -2020 Weight 86.2 kg Intake: IV 980 810 380 Sodium Chloride 0.9% 1, 880 810 330 000 ml @ 20 mls/hr IV . Q24H [facility] Rx#:[id number] cefTRIAXone 1 gm In 100 50 Sodium Chloride 0.9% 50 ml @ 100 mls/hr IVPB Q24HR [facility] Rx#:[id number] Oral 150 Output: Urine 684 300 0990 Stool 50 Other: Voiding Method External Catheter External Catheter External Catheter # Voids 1 1 # Bowel Movements 1 1 - Labs CBC & Chem 7: 07/26/22 06:28 07/26/22 06:28 Labs: Abnormal Lab Results - Last 24 Hours (Table) 07/25/22 07/25/22 07/26/22 Range/Units 16:51 20:31 06:28 RBC 2.38 L (4.30-5.90) m/uL Hgb 7.5 L D (13.0-17.5) gm/dL Hct 21.2 L (39.0-53.0) % RDW 18.7 H (11.5-15.5) % Plt Count 24 L D (150-450) k/uL Lymphocytes # 0.4 L (1.0-4.8) k/uL Potassium (3.5-5.1) mmol/L Chloride (98-107) mmol/L Creatinine (0.66-1.25) mg/dL Glucose (74-99) mg/dL POC Glucose (mg/dL) 138 H 142 H (70-110) mg/dL Calcium (8.4-10.2) mg/dL Total Protein (6.3-8.2) g/dL Albumin (3.5-5.0) g/dL 07/26/22 07/26/22 07/26/22 Range/Units 06:28 06:59 11:43 RBC (4.30-5.90) m/uL Hgb (13.0-17.5) gm/dL Hct (39.0-53.0) % RDW (11.5-15.5) % Plt Count (150-450) k/uL Lymphocytes # (1.0-4.8) k/uL Potassium 3.2 L (3.5-5.1) mmol/L Chloride 110 H (98-107) mmol/L Creatinine 0.48 L (0.66-1.25) mg/dL Glucose 123 H (74-99) mg/dL POC Glucose (mg/dL) 140 H 154 H (70-110) mg/dL Calcium 6.8 L (8.4-10.2) mg/dL Total Protein 4.1 L (6.3-8.2) g/dL Albumin 2.1 L (3.5-5.0) g/dL Microbiology - Last 24 Hours (Table) 07/25/22 08:40 Gram Stain - Preliminary Sputum Sputum Culture - Preliminary Gram Neg Bacilli 07/22/22 17:30 Blood Culture - Preliminary Blood No Growth after 72 hours
[2022-07-26 15:36] LABS: Anisocytosis Slight; HCT 21.4 % (39.0-53.0); HGB 7.6 gm/dL (13.0-17.5); MCH 31.6 pg (25.0-35.0); MCHC 35.6 g/dL (31.0-37.0); MCV 88.6 fL (80.0-100.0); Mean Platelet Volume 9.7; Poikilocytosis Slight; RBC 2.42 m/uL (4.30-5.90); RDW 18.5 % (11.5-15.5)
[2022-07-26 15:52] LABS: Platelet Count 20 k/uL (150-450)
[2022-07-26 17:53] LABS: Glucose,Whole Blood 194 mg/dL (70-110)
[2022-07-26] MEDS: ONDANSETRON 4 MG/2 ML VIAL IVP PRN (19:26)
[2022-07-26] MEDS: FORMOTEROL FUMARATE 20 MCG/2 ML NEBU INHALATION SCH (19:37)
[2022-07-26] MEDS: BUDESONIDE 1 MG/2 ML NEBU INHALATION SCH (19:37)
[2022-07-26 19:55] LABS: Glucose,Whole Blood 176 mg/dL (70-110)
[2022-07-26] MEDS: oxyCODONE-APAP 10-325MG 1 EACH TAB PO PRN (21:44)
[2022-07-26] MEDS: traZODone HCL 100 MG TAB PO SCH (21:47)
[2022-07-27] MEDS: POTASSIUM CHLORIDE ER 20 MEQ TAB.ER PO SCH ×3 (00:13→04:03)
[2022-07-27] MEDS: HYDROCORTISONE SUCCINATE 100 MG/2 ML VIAL IV SCH ×3 (00:14→16:17)
[2022-07-27] MEDS: ONDANSETRON 4 MG/2 ML VIAL IVP PRN ×2 (05:04→14:48)
[2022-07-27 05:15] LABS: Anisocytosis Slight; HCT 21.1 % (39.0-53.0); HGB 7.1 gm/dL (13.0-17.5); MCHC 33.7 g/dL (31.0-37.0); MCV 88.9 fL (80.0-100.0); Mean Platelet Volume 11.4; Poikilocytosis Slight; RBC 2.38 m/uL (4.30-5.90); RDW 19.2 % (11.5-15.5); WBC 9.4 k/uL (3.8-10.6)
[2022-07-27 05:24] LABS: Platelet Count 12 k/uL (150-450)
[2022-07-27 05:33] LABS: African American GFR (CKD) >90 (>60 ml/min/1.73 sqM); Anion Gap -1 mmol/L; Blood Urea Nitrogen 9 mg/dL (9-20); Calcium 7.3 mg/dL (8.4-10.2); Carbon Dioxide 28 mmol/L (22-30); Chloride 109 mmol/L (98-107); Glucose 144 mg/dL (74-99); Non-African American GFR(CKD) >90 (>60 ml/min/1.73 sqM); Potassium 4.1 mmol/L (3.5-5.1); Sodium 136 mmol/L (137-145)
[2022-07-27 06:31] LABS: Glucose,Whole Blood 143 mg/dL (70-110)
[2022-07-27] MEDS: INSULIN ASPART (NovoLOG) 100 UNIT/ML VIAL SQ SCH ×4 (06:31→20:31)
[2022-07-27] MEDS: SUCRALFATE 1 GM TAB PO SCH ×4 (06:31→20:32)
[2022-07-27] MEDS: BUDESONIDE 1 MG/2 ML NEBU INHALATION SCH ×2 (07:18→20:17)
[2022-07-27] MEDS: FORMOTEROL FUMARATE 20 MCG/2 ML NEBU INHALATION SCH ×2 (07:18→20:17)
[2022-07-27] MEDS: IPRATROPIUM-ALBUTEROL 3 ML NEB INHALATION SCH ×4 (07:18→20:17)
[2022-07-27] MEDS: OXcarbazepine 300 MG TAB PO SCH ×2 (08:18→20:32)
[2022-07-27] MEDS: PANTOPRAZOLE 40 MG/10 ML VIAL IV SCH (08:18)
[2022-07-27] MEDS: GABAPENTIN 400 MG CAP PO SCH ×2 (08:19→20:32)
[2022-07-27] MEDS: METOPROLOL TARTRATE 12.5 MG TAB PO SCH ×2 (08:19→20:32)
[2022-07-27] MEDS: FUROSEMIDE 10 MG/ML 4 ML VIAL IV SCH ×2 (09:42→20:31)
--- NOTE | 2022-07-27 10:49 | P.PN ---
Subjective Progress Note Date: 07/27/22 H&P Date: 07/20/22 Chief Complaint: Rectal bleeding This is a pleasant 62-year-old gentleman with past medical history of metastatic lung disease/ primary small cell malignant neoplasm of lung, stage IV presented to the ER with Leonardo rectal bleeding X 3, accompanied by lower abdominal cramping and exertional shortness of breath. Reports some nausea, denies emesis. Also reports extensive workup of abdominal pain and per oncology attributing it to chemo effect. Last chemotherapy approximately 1 week ago. Chest CTA reported : no evidence of pulmonary embolism. Mediastinal left bronchial adenopathy with improvement in the left hilar mass compared to old exam. Slightly decreased left upper lobe spiculated infiltrate extending from the left pulmonary hilum to the left lung apex,compared to old exam. Improved encasement of the left lower lobe pulmonary artery with tumor mass and artery narrowing compared to old exam.COPD. Increased patchy bilateral reticular pulmonary interstitial infiltrates compared to prior exam. Increased small left pleural effusion compared to prior exam. Pericardial tumor masses not significantly different than last exam. On admission :WBC 0.2 hemoglobin 6.5 hematocrit 18.9 platelet count 5 INR 1.0 d-dimer 1.76 sodium 136 potassium 4.4 BUN 12 creatinine 0.63 glucose 115, bilirubin 0.4 AST 23 ALT 22 alk phos 60. Repeat labs today WBC 0.1 hemoglobin 7.5 hematocrit 22 platelet count 7. Received 1 unit of packed red blood cell transfusion as well as 1 unit of platelets. Denies any further rectal bleeding since admission. Denies shortness of breath at rest. Denies chest pain, palpitations. 07/21/2022 maintained on IV fluid hydration, Zarxio,PPI, carafate .reports dark maroon stooling 2 last night. Denies any further bleeding this morning. Denies abdominal cramping, abdominal pain. Consuming 25-75% with no nausea vomiting. Received a total of 3 units packed RBCs, 2 units of platelets. WBC increased to 0.5, hemoglobin 7.9, platelets 28 .Afebrile. Denies chest pain, palpitations or shortness of breath. Complains of exertional shortness of breath. Evaluated by both GI and oncology with recommendations noted and appreciated. Neutropenic precautions. Maintained on zaxrio,PPI, Carafate,empiric Augmentin and doxycycline. Transfusion parameters as per oncology. 07/24/2022 Over the weekend, patient had reoccurrence of rectal bleeding accompanied by acute drop in hemoglobin to 6 and platelets to 8 requiring transfer into the ICU.Maintained on supportive transfusions to maintain hemoglobin greater than 7, platelets greater than 50. Post transfusion, hemoglobin currently up to 9, platelets 42. No bowel movement since yesterday .Denies abdominal pain . Denies chest pain, palpitations or shortness of breath. Chronic back pain controlled. Patient in need of GI evaluation.Transfer to [facility],in progress related to GI services not available at this site, this week. Prognosis guarded given multiple complex medical issues. 07/25/2022 transfer to tertiary care center pending. Patient continued to have maroon bowel movements yesterday, last night and throughout the midnight shift. Repeat blood counts of yesterday reported hemoglobin dropping to 8.5, platelets down to 60 with a.m. labs pending. Patient reports chills, increased shortness of breath at rest. Maintaining O2 sats in the 90s on 4 L nasal cannula. Minimal cough, including dark brownish sputum-cultures sent; possible microscopic bleeding. Afebrile, WBC of yesterday 4.2. Supportive transfusions. Denies chest pain, palpitations. ICU management as per top executive. Awaiting bed for transfer. 07/26/2022 hemoglobin decreased to 7.5, platelets 24, neutrophils 85. No further stooling this morning. Staff reports patient had 4 bowel movements with minimal rectal bleeding yesterday that initially subsided-last bowel movement reported brown in color. Denies abdominal pain.Increased shortness of breath at rest with oxygen requirements worsened, requiring 8 L high flow nasal cannula to maintain O2 sats in the low 90s. Mild tachycardia this morning with heart rates in the 1 teens. Afebrile, normal WBC. Receiving potassium supplements for potassium 3.2. Renal function stable. Blood sugars controlled. Chest x-ray reporting bilateral pleural thickening/interstitial edema, suspect chronic idi opathic pulmonary fibrosis. IV fluids pivl'd, received a dose of Lasix IV push. Tagged RBC reported no evidence of active GI bleeding during the initial 1 hour of observation. 07/27/2022 Tagged RBC nondiagnostic. Continues on 8 L high flow nasal cannula maintaining O2 sats in the high 80s to low 90s. Feels about the same -Shortness of breath unchanged. Mild tachycardia. 2 bowel movements yesterday reported normal/brown. Denies nausea/vomiting. Denies abdominal pain. Requesting diet advancement from clear liquids. Blood sugars controlled. Chronic back pain controlled. Hemoglobin decreased to 7.1, platelets decreased to 12. Potassium supplemented yesterday, currently 4.1. Renal function stable. Denies chest pain, palpitations. Afebrile, WBC 9.4. Objective - Vital Signs Vital signs: Vital Signs Temp 96.7 F L 07/27/22 08:00 Pulse 95 07/27/22 10:00 Resp 19 07/27/22 10:00 BP 123/69 07/27/22 10:00 Pulse Ox 92 L 07/27/22 10:00 FiO2 Intake & Output 07/26/22 07/27/22 07/27/22 18:59 06:59 18:59 Intake Total 460 240 130 Output Total 2600 425 Balance -2140 -185 130 Weight 86.8 kg Intake: IV 460 240 130 Sodium Chloride 0.9% 1, 410 240 80 000 ml @ 20 mls/hr IV . Q24H [facility] Rx#:[id number] cefTRIAXone 1 gm In 50 50 Sodium Chloride 0.9% 50 ml @ 100 mls/hr IVPB Q24HR [facility] Rx#:[id number] Output: Urine 2600 425 Other: Voiding Method External Catheter Urinal Urinal # Voids 1 0 0 # Bowel Movements 1 - Exam - Exam PHYSICAL EXAM: VITAL SIGNS: [As above] GENERAL: Alert and oriented 3, Sitting up in bed,no acute distress HEENT: Conjunctivae normal. eyes normal. NECK: Supple, No JVD. CARDIOVASCULAR: S1, S2 regular, mild tachycardia. No murmur. RESPIRATION: Respiratory effort mildly increased, Breath sounds diminished in the bases. Positive rhonchi, no crackles or wheezing. ABDOMEN: Soft, nontender, No guarding.Bowel sounds heard. LEGS: Mild edema NERVOUS SYSTEM: Cranial N 2-12 grossly normal.No focal deficits. Strength and sensation grossly intact. Skin: Warm and dry, no rash - Labs CBC & Chem 7: 07/27/22 05:00 07/27/22 05:00 Labs: Abnormal Lab Results - Last 24 Hours (Table) 07/26/22 07/26/22 07/26/22 Range/Units 06:28 11:43 15:11 RBC (4.30-5.90) m/uL Hgb (13.0-17.5) gm/dL Hct (39.0-53.0) % RDW (11.5-15.5) % Plt Count 24 L D (150-450) k/uL Lymphocytes # 0.4 L (1.0-4.8) k/uL Sodium (137-145) mmol/L Potassium 2.9 L (3.5-5.1) mmol/L Chloride (98-107) mmol/L Creatinine (0.66-1.25) mg/dL Glucose (74-99) mg/dL POC Glucose (mg/dL) 154 H (70-110) mg/dL Calcium (8.4-10.2) mg/dL Crossmatch 07/26/22 07/26/22 07/26/22 Range/Units 15:11 17:51 19:54 RBC 2.42 L (4.30-5.90) m/uL Hgb 7.6 L (13.0-17.5) gm/dL Hct 21.4 L (39.0-53.0) % RDW 18.5 H (11.5-15.5) % Plt Count 20 L (150-450) k/uL Lymphocytes # (1.0-4.8) k/uL Sodium (137-145) mmol/L Potassium (3.5-5.1) mmol/L Chloride (98-107) mmol/L Creatinine (0.66-1.25) mg/dL Glucose (74-99) mg/dL POC Glucose (mg/dL) 194 H 176 H (70-110) mg/dL Calcium (8.4-10.2) mg/dL Crossmatch 07/26/22 07/27/22 07/27/22 Range/Units 21:19 05:00 05:00 RBC 2.38 L (4.30-5.90) m/uL Hgb 7.1 L (13.0-17.5) gm/dL Hct 21.1 L (39.0-53.0) % RDW 19.2 H (11.5-15.5) % Plt Count 12 L* (150-450) k/uL Lymphocytes # (1.0-4.8) k/uL Sodium 136 L (137-145) mmol/L Potassium 3.0 L (3.5-5.1) mmol/L Chloride 109 H (98-107) mmol/L Creatinine 0.47 L (0.66-1.25) mg/dL Glucose 144 H (74-99) mg/dL POC Glucose (mg/dL) (70-110) mg/dL Calcium 7.3 L (8.4-10.2) mg/dL Crossmatch 07/27/22 07/27/22 Range/Units 06:30 08:54 RBC (4.30-5.90) m/uL Hgb (13.0-17.5) gm/dL Hct (39.0-53.0) % RDW (11.5-15.5) % Plt Count (150-450) k/uL Lymphocytes # (1.0-4.8) k/uL Sodium (137-145) mmol/L Potassium (3.5-5.1) mmol/L Chloride (98-107) mmol/L Creatinine (0.66-1.25) mg/dL Glucose (74-99) mg/dL POC Glucose (mg/dL) 143 H (70-110) mg/dL Calcium (8.4-10.2) mg/dL Crossmatch See Detail Microbiology - Last 24 Hours (Table) 07/22/22 17:30 Blood Culture - Preliminary Blood No Growth after 96 hours 07/25/22 08:40 Gram Stain - Preliminary Sputum Sputum Culture - Preliminary Gram Neg Bacilli Assessment and Plan Assessment: Acute GI bleed, status post transfusion of packed RBCs and platelets. No endoscopy recommended per GI. Nondiagnostic RBC scan. Pancytopenia secondary to recent treatment,Last received chemotherapy 1 week ago Chronic abdominal, back pain due to metastatic lung disease in a patient with history of primary small cell malignant neoplasm of lung, stage IV. Fentanyl patch dose increased last week with improvement in pain. History of Adrenal mass likely secondary to metastatic lesion. COPD GERD Anxiety/depression Previous history of smoking Adrenal insufficiency currently on Cortef at home. Plan: Continue on current medication regime ,monitoring and symptomatic treatment. Transfuse 1 unit packed RBCs and platelets. Close monitoring of coags. Continue with transfer process -accepted, awaiting bed at [facility].ICU management as per top executive .Prognosis guarded given multiple complex medical issues. The impression and plan of care has been dictated as directed. : I performed a history and examination of this patient, discussed the same with the dictator. I agree with the dictator's note ,documented as a scribe. Any additional findings or plans will be noted.
--- NOTE | 2022-07-27 11:23 | P.PN ---
Subjective Progress Note Date: 07/27/22 Principal diagnosis: Acute GI bleeding This is a 62-year-old white male with history of small cell lung cancer, presented initially back in 2020 with a large pleural effusion requiring thoracentesis and the diagnosis was made. Patient received chemotherapy by oncology, and has been receiving chemotherapy maintenance. Patient was admitted on 08/08, mostly with shortness of breath, and multiple episodes of bloody stools. Patient required so far multiple blood transfusions including 5 units of packed RBCs and 4 units of platelets, patient was noted to be pancytopenic, admitted because of the GI bleeding, and we were asked to see him on consultation today as the patient had worsening episodes of bleeding and required transfer to the ICU. He was seen by general surgery, the plan is to consider tagged RBC study, no plans to have any intervention. No GI coverage available, patient is being considered for transfer to [facility] once a bed becomes available. Considering the patient was admitted to the ICU, I was asked to see him on consultation. Pulmonary-stewart, the patient does not seem to be in any distress, he seems to be very comfortable. His hemoglobin this morning is 9.0, WBC count is 2.1, platelets are 42,000. Patient is being followed by hematology/oncology. CT angiogram of the chest showed no evidence of pulmonary embolism, patient had bilateral reticular pulmonary interstitial infiltrates, and he had left upper lobe spiculated abnormality consistent with bronchogenic carcinoma, however seems to have a partial response to treatment Reevaluated today on 07/25/22, patient remains in the ICU, continues to have intermittent episodes of lower GI bleeding, bright red blood per rectum. Still waiting for transfer to [facility], patient was seen by general surgery, no immediate intervention is planned, however he may be undergoing tagged RBC study. His hemoglobin this morning is 9.1, electrolytes are normal renal profile is normal WBC count is 5.9. Patient received a total of 5 units of packed RBCs since admission and 5 units of platelets. Platelets today are 54,000. Patient is comfortable, not in distress. Reevaluated today on 07/26/22, remains in the ICU, hemodynamically stable, nonetheless the patient continues to demonstrate slight bleeding but no active bleeding clinically. Hemoglobin dropped today to 7.5 compared to yesterday. Hemoglobin was 9.1 yesterday, stools are black and brown. Hopefully the patient is not actively bleeding. But that's not definitely certain at this point. Patient seems to be a bit more short of breath today compared to yesterday, chest x-ray is showing interstitial edema, and I'm recommending a dose of Lasix to be given. Patient does have possibly some underlying interstitial lung disease Reevaluated today on 07/27/20, a shunt remains in the ICU. Hemoglobin continues to drop down slowly. Clinically no active bleeding is noted. Hemoglobin today is 7.1 platelets are 12,000. Patient received so far 5 units of packed RBCs and 5 units of platelets and he is to receive another unit of packed RBCs today and 1 unit of platelets today. Sputum is positive for gram-negative bacilli, patient is on Rocephin. Chest x-ray is showing interstitial edema and the patient is on Lasix today 40 mg IV push every 12 hours. Continues to have shortness of breath, he is on 8 L high flow cannula, and on physical examination he has crackles and rhonchi bilaterally. Maintenance Lasix was ordered today. Renal profile is normal. Patient has intermittent cough and wheezing shortness of breath noted. Objective - Vital Signs Vital signs: Vital Signs Temp 97.4 F L 07/27/22 11:08 Pulse 98 07/27/22 11:08 Resp 18 07/27/22 11:08 BP 115/65 07/27/22 11:08 Pulse Ox 91 L 07/27/22 11:08 FiO2 Intake & Output 07/26/22 07/27/22 07/27/22 18:59 06:59 18:59 Intake Total 460 240 130 Output Total 2600 425 Balance -2140 -185 130 Weight 86.8 kg Intake: IV 460 240 130 Sodium Chloride 0.9% 1, 410 240 80 000 ml @ 20 mls/hr IV . Q24H [facility] Rx#:[id number] cefTRIAXone 1 gm In 50 50 Sodium Chloride 0.9% 50 ml @ 100 mls/hr IVPB Q24HR [facility] Rx#:[id number] Blood Product 0 Rc Irr As1 Unit 0 [id number] Output: Urine 2600 425 Other: Voiding Method External Catheter Urinal Urinal # Voids 1 0 0 # Bowel Movements 1 - Exam General appearance: Revealed a 62-year-old white male in no distress. On 8 L high flow cannula. HET: Head is normocephalic and atraumatic. Conjunctiva pink. Sclera anicteric. Neck: Supple without lymphadenopathy. Trachea midline. Heart: S1 S2. Regular rate and rhythm. Lungs: Scattered rhonchi and wheezing noted bilaterally. Abdomen: Soft, nontender, nondistended with bowel sounds. No guarding or rigidity. Skin: No rashes. No jaundice. Extremities: Normal skin color and turgor. 2+ b bipedal edema Neurological: No focal deficits. Alert and oriented x3. Psychiatric: Normal mood, affect and normal mental status examination. Musculoskeletal: No deformities and no limitation in range of motion - Labs CBC & Chem 7: 07/27/22 05:00 07/27/22 05:00 Labs: Abnormal Lab Results - Last 24 Hours (Table) 07/26/22 07/26/22 07/26/22 Range/Units 06:28 11:43 15:11 RBC (4.30-5.90) m/uL Hgb (13.0-17.5) gm/dL Hct (39.0-53.0) % RDW (11.5-15.5) % Plt Count 24 L D (150-450) k/uL Lymphocytes # 0.4 L (1.0-4.8) k/uL Sodium (137-145) mmol/L Potassium 2.9 L (3.5-5.1) mmol/L Chloride (98-107) mmol/L Creatinine (0.66-1.25) mg/dL Glucose (74-99) mg/dL POC Glucose (mg/dL) 154 H (70-110) mg/dL Calcium (8.4-10.2) mg/dL Crossmatch 07/26/22 07/26/22 07/26/22 Range/Units 15:11 17:51 19:54 RBC 2.42 L (4.30-5.90) m/uL Hgb 7.6 L (13.0-17.5) gm/dL Hct 21.4 L (39.0-53.0) % RDW 18.5 H (11.5-15.5) % Plt Count 20 L (150-450) k/uL Lymphocytes # (1.0-4.8) k/uL Sodium (137-145) mmol/L Potassium (3.5-5.1) mmol/L Chloride (98-107) mmol/L Creatinine (0.66-1.25) mg/dL Glucose (74-99) mg/dL POC Glucose (mg/dL) 194 H 176 H (70-110) mg/dL Calcium (8.4-10.2) mg/dL Crossmatch 07/26/22 07/27/22 07/27/22 Range/Units 21:19 05:00 05:00 RBC 2.38 L (4.30-5.90) m/uL Hgb 7.1 L (13.0-17.5) gm/dL Hct 21.1 L (39.0-53.0) % RDW 19.2 H (11.5-15.5) % Plt Count 12 L* (150-450) k/uL Lymphocytes # (1.0-4.8) k/uL Sodium 136 L (137-145) mmol/L Potassium 3.0 L (3.5-5.1) mmol/L Chloride 109 H (98-107) mmol/L Creatinine 0.47 L (0.66-1.25) mg/dL Glucose 144 H (74-99) mg/dL POC Glucose (mg/dL) (70-110) mg/dL Calcium 7.3 L (8.4-10.2) mg/dL Crossmatch 07/27/22 07/27/22 Range/Units 06:30 08:54 RBC (4.30-5.90) m/uL Hgb (13.0-17.5) gm/dL Hct (39.0-53.0) % RDW (11.5-15.5) % Plt Count (150-450) k/uL Lymphocytes # (1.0-4.8) k/uL Sodium (137-145) mmol/L Potassium (3.5-5.1) mmol/L Chloride (98-107) mmol/L Creatinine (0.66-1.25) mg/dL Glucose (74-99) mg/dL POC Glucose (mg/dL) 143 H (70-110) mg/dL Calcium (8.4-10.2) mg/dL Crossmatch See Detail Microbiology - Last 24 Hours (Table) 07/22/22 17:30 Blood Culture - Preliminary Blood No Growth after 96 hours 07/25/22 08:40 Gram Stain - Preliminary Sputum Sputum Culture - Preliminary Gram Neg Bacilli Assessment and Plan Assessment: Impression: Acute GI bleeding, persistent, exact source is yet to be determined tagged RBC study was nondiagnostic Pancytopenia secondary to chemotherapy Small cell lung cancer/metastatic. History of underlying COPD/emphysema History of degenerative joint disease and multiple orthopedic surgeries. History of GERD. Recommendation: Continue to monitor in the ICU Tena's platelets and packed RBCs today. Lasix 40 mg IV push twice a day. Continue transfer plans to [facility] Continue bronchodilators Prognosis remains extremely poor and guarded We will continue to follow Time with Patient: Less than 30
[2022-07-27 11:53] LABS: Glucose,Whole Blood 164 mg/dL (70-110)
--- NOTE | 2022-07-27 13:48 | P.PN ---
Subjective Progress Note Date: 07/27/22 CHIEF COMPLAINT: Acute GI bleeding HISTORY OF PRESENT ILLNESS: Patient remains in the ICU. Patient has had no further bloody bowel movements. Patient's hemoglobin is down to 7.1 and platelets are down to 12. He is receiving a unit of blood and a unit of platelets. He tolerated advancement to full liquids. Afebrile. Mild tachycardia Patient seen and examined with Dr. Muro PHYSICAL EXAM: VITAL SIGNS: Reviewed. GENERAL: Well-developed in no acute distress. HEENT: No sclera icterus. Extraocular movements grossly intact. Moist buccal mucosa. Head is atraumatic, normocephalic. ABDOMEN: Soft. Nondistended. Nontender. NEUROLOGIC: Alert and oriented. Cranial nerves II through XII grossly intact. ASSESSMENT: 1. Acute GI bleed with bright red blood per rectum status post blood trans fusion 2. History of small cell lung cancer 3. Pancytopenia PLAN: -Agree with blood transfusion and platelet transfusion -Advance diet to regular -Continue to monitor hemoglobin -Continue monitor for any signs or symptoms of bleeding -Continue PPI -Continue transfer plans to [facility] -No plans for endoscopy Physician Clinical Research Specialist note has been reviewed by physician. Signing provider agrees with the documented findings, assessment, and plan of care. Objective - Vital Signs Vital signs: Vital Signs Temp 97.5 F L 07/27/22 13:03 Pulse 105 H 07/27/22 13:03 Resp 18 07/27/22 13:03 BP 107/62 07/27/22 13:03 Pulse Ox 90 L 07/27/22 13:03 FiO2 Intake & Output 07/26/22 07/27/22 07/27/22 18:59 06:59 18:59 Intake Total 460 240 460 Output Total 2600 425 1125 Balance -1926 -964 -634 Weight 86.8 kg 86.8 kg Intake: IV 460 240 150 Sodium Chloride 0.9% 1, 410 240 100 000 ml @ 20 mls/hr IV . Q24H [facility] Rx#:[id number] cefTRIAXone 1 gm In 50 50 Sodium Chloride 0.9% 50 ml @ 100 mls/hr IVPB Q24HR [facility] Rx#:[id number] Blood Product 310 Rc Irr As1 Unit 310 [id number] Output: Urine 2600 425 1125 Other: Voiding Method External Catheter Urinal Urinal # Voids 1 0 0 # Bowel Movements 1 - Labs CBC & Chem 7: 07/27/22 05:00 07/27/22 05:00 Labs: Abnormal Lab Results - Last 24 Hours (Table) 07/26/22 07/26/22 07/26/22 Range/Units 15:11 15:11 17:51 RBC 2.42 L (4.30-5.90) m/uL Hgb 7.6 L (13.0-17.5) gm/dL Hct 21.4 L (39.0-53.0) % RDW 18.5 H (11.5-15.5) % Plt Count 20 L (150-450) k/uL Sodium (137-145) mmol/L Potassium 2.9 L (3.5-5.1) mmol/L Chloride (98-107) mmol/L Creatinine (0.66-1.25) mg/dL Glucose (74-99) mg/dL POC Glucose (mg/dL) 194 H (70-110) mg/dL Calcium (8.4-10.2) mg/dL Crossmatch 07/26/22 07/26/22 07/27/22 Range/Units 19:54 21:19 05:00 RBC 2.38 L (4.30-5.90) m/uL Hgb 7.1 L (13.0-17.5) gm/dL Hct 21.1 L (39.0-53.0) % RDW 19.2 H (11.5-15.5) % Plt Count 12 L* (150-450) k/uL Sodium (137-145) mmol/L Potassium 3.0 L (3.5-5.1) mmol/L Chloride (98-107) mmol/L Creatinine (0.66-1.25) mg/dL Glucose (74-99) mg/dL POC Glucose (mg/dL) 176 H (70-110) mg/dL Calcium (8.4-10.2) mg/dL Crossmatch 07/27/22 07/27/22 07/27/22 Range/Units 05:00 06:30 08:54 RBC (4.30-5.90) m/uL Hgb (13.0-17.5) gm/dL Hct (39.0-53.0) % RDW (11.5-15.5) % Plt Count (150-450) k/uL Sodium 136 L (137-145) mmol/L Potassium (3.5-5.1) mmol/L Chloride 109 H (98-107) mmol/L Creatinine 0.47 L (0.66-1.25) mg/dL Glucose 144 H (74-99) mg/dL POC Glucose (mg/dL) 143 H (70-110) mg/dL Calcium 7.3 L (8.4-10.2) mg/dL Crossmatch See Detail 07/27/22 Range/Units 11:51 RBC (4.30-5.90) m/uL Hgb (13.0-17.5) gm/dL Hct (39.0-53.0) % RDW (11.5-15.5) % Plt Count (150-450) k/uL Sodium (137-145) mmol/L Potassium (3.5-5.1) mmol/L Chloride (98-107) mmol/L Creatinine (0.66-1.25) mg/dL Glucose (74-99) mg/dL POC Glucose (mg/dL) 164 H (70-110) mg/dL Calcium (8.4-10.2) mg/dL Crossmatch Microbiology - Last 24 Hours (Table) 07/22/22 17:30 Blood Culture - Preliminary Blood No Growth after 96 hours 07/25/22 08:40 Gram Stain - Preliminary Sputum Sputum Culture - Preliminary Gram Neg Bacilli
[2022-07-27 16:06] LABS: Glucose,Whole Blood 176 mg/dL (70-110)
[2022-07-27] MEDS: MORPHINE SULFATE IR 15 MG TABLET PO PRN (16:16)
[2022-07-27 16:37] LABS: Anisocytosis Slight; HCT 25.3 % (39.0-53.0); MCH 30.5 pg (25.0-35.0); MCHC 35.1 g/dL (31.0-37.0); Mean Platelet Volume 11.6; Poikilocytosis Slight; RBC 2.91 m/uL (4.30-5.90); RDW 18.3 % (11.5-15.5); WBC 11.2 k/uL (3.8-10.6)
[2022-07-27 16:47] LABS: HGB 8.9 gm/dL (13.0-17.5); Platelet Count 10 k/uL (150-450)
[2022-07-27] MEDS: SODIUM CHLORIDE 0.9% 1,000 ML IV SCH (17:54)
--- NOTE | 2022-07-27 18:00 | P.PN ---
Subjective Progress Note Date: 07/27/22 Principal diagnosis: GI bleed. SCLC, on treatment In f/u today pt reports ongoing shortness of breath, is unable to participate in any activity. He has had bowel movements and denies any dark, tarry or overtly bloody stools. Objective - Vital Signs Vital signs: Vital Signs Temp 97.6 F 07/27/22 16:00 Pulse 111 H 07/27/22 17:00 Resp 21 07/27/22 17:00 BP 139/77 07/27/22 17:00 Pulse Ox 88 L 07/27/22 17:00 FiO2 Intake & Output 07/26/22 07/27/22 07/27/22 18:59 06:59 18:59 Intake Total 460 240 870 Output Total 2600 425 1825 Balance -5380 185 -240 Weight 86.8 kg 86.8 kg Intake: IV 460 240 250 Sodium Chloride 0.9% 1, 410 240 150 000 ml @ 20 mls/hr IV . Q24H [facility] Rx#:[id number] cefTRIAXone 1 gm In 50 100 Sodium Chloride 0.9% 50 ml @ 100 mls/hr IVPB Q24HR [facility] Rx#:[id number] Blood Product 620 Rc Irr As1 Unit 310 [id number] Output: Urine 2600 425 1825 Other: Voiding Method External Catheter Urinal Urinal # Voids 1 0 1 # Bowel Movements 1 - Constitutional General appearance: Present: cooperative, mild distress, obese - EENT Eyes: Present: anicteric sclerae, EOMI ENT: Present: hearing grossly normal - Respiratory Respiratory: bilateral: diminished - Cardiovascular Rhythm: regular Heart sounds: normal: S1, S2 Abnormal Heart Sounds: Absent: systolic murmur, diastolic murmur, rub, S3 Gallop, S4 Gallop, click, other - Peripheral edema leg Peripheral Edema: bilateral: None - Gastrointestinal General gastrointestinal: Present: normal bowel sounds, soft - Neurologic Neurologic: Present: CNII-XII intact - Musculoskeletal Musculoskeletal: Present: generalized weakness - Psychiatric Psychiatric: Present: A&O x's 3, appropriate affect, intact judgment & insight - Labs CBC & Chem 7: 07/27/22 16:10 07/27/22 05:00 Labs: Abnormal Lab Results - Last 24 Hours (Table) 07/26/22 07/26/22 07/26/22 Range/Units 17:51 19:54 21:19 WBC (3.8-10.6) k/uL RBC (4.30-5.90) m/uL Hgb (13.0-17.5) gm/dL Hct (39.0-53.0) % RDW (11.5-15.5) % Plt Count (150-450) k/uL Sodium (137-145) mmol/L Potassium 3.0 L (3.5-5.1) mmol/L Chloride (98-107) mmol/L Creatinine (0.66-1.25) mg/dL Glucose (74-99) mg/dL POC Glucose (mg/dL) 194 H 176 H (70-110) mg/dL Calcium (8.4-10.2) mg/dL Crossmatch 07/27/22 07/27/22 07/27/22 Range/Units 05:00 05:00 06:30 WBC (3.8-10.6) k/uL RBC 2.38 L (4.30-5.90) m/uL Hgb 7.1 L (13.0-17.5) gm/dL Hct 21.1 L (39.0-53.0) % RDW 19.2 H (11.5-15.5) % Plt Count 12 L* (150-450) k/uL Sodium 136 L (137-145) mmol/L Potassium (3.5-5.1) mmol/L Chloride 109 H (98-107) mmol/L Creatinine 0.47 L (0.66-1.25) mg/dL Glucose 144 H (74-99) mg/dL POC Glucose (mg/dL) 143 H (70-110) mg/dL Calcium 7.3 L (8.4-10.2) mg/dL Crossmatch 07/27/22 07/27/22 07/27/22 Range/Units 08:54 11:51 16:04 WBC (3.8-10.6) k/uL RBC (4.30-5.90) m/uL Hgb (13.0-17.5) gm/dL Hct (39.0-53.0) % RDW (11.5-15.5) % Plt Count (150-450) k/uL Sodium (137-145) mmol/L Potassium (3.5-5.1) mmol/L Chloride (98-107) mmol/L Creatinine (0.66-1.25) mg/dL Glucose (74-99) mg/dL POC Glucose (mg/dL) 164 H 176 H (70-110) mg/dL Calcium (8.4-10.2) mg/dL Crossmatch See Detail 07/27/22 Range/Units 16:10 WBC 11.2 H (3.8-10.6) k/uL RBC 2.91 L (4.30-5.90) m/uL Hgb 8.9 L D (13.0-17.5) gm/dL Hct 25.3 L (39.0-53.0) % RDW 18.3 H (11.5-15.5) % Plt Count 10 L* (150-450) k/uL Sodium (137-145) mmol/L Potassium (3.5-5.1) mmol/L Chloride (98-107) mmol/L Creatinine (0.66-1.25) mg/dL Glucose (74-99) mg/dL POC Glucose (mg/dL) (70-110) mg/dL Calcium (8.4-10.2) mg/dL Crossmatch Microbiology - Last 24 Hours (Table) 07/22/22 17:30 Blood Culture - Preliminary Blood No Growth after 96 hours 07/25/22 08:40 Gram Stain - Preliminary Sputum Sputum Culture - Preliminary Gram Neg Bacilli Assessment and Plan (1) GI bleed Current Visit: Yes Status: Acute Priority: High Code(s): K92.2 - GASTROINTESTINAL HEMORRHAGE, UNSPECIFIED SNOMED Code(s): 02630652 (2) Pancytopenia due to antineoplastic chemotherapy Current Visit: Yes Status: Acute Priority: High Code(s): D61.810 - ANTINEOPLASTIC CHEMOTHERAPY INDUCED PANCYTOPENIA; T45.1X5A - ADVERSE EFFECT OF ANTINEOPLASTIC AND IMMUNOSUP DRUGS, INIT SNOMED Code(s): 008083325181941 (3) Primary small cell malignant neoplasm of lung, stage 4 Current Visit: Yes Status: Acute Priority: High Code(s): C34.90 - MALIGNANT NEOPLASM OF UNSP PART OF UNSP BRONCHUS OR LUNG SNOMED Code(s): 01097733362877 Plan: Pancytopenia secondary to recent treatment with zepzelca. Patient did receive G-CSF x 6. WBC 9.4. Platelets 12,000 today. 1 unit SDP ordered. Hemoglobin 7.1 today. 1 unit packed red blood cells ordered. DIC work up Yesterday was negative. No evidence of ongoing acute bleeding today. CBC will be monitored daily now. Tagged RBC scan was non diagnostic for a source of acute bleeding. Patient has been seen by Surgery. Shortness of breath. Stable, no better, no worse. Will see if any improvement after PRBCs. Patient just started zepzelca, CTA reports some improvement in tumor size when compared to imaging 06/17. Would like to be able to continue patient on the same. There are dose reductions so, continuation of therapy after pt has adequately recovered (clinically and hematologically) may be a possibility. G- CSF can be added as well if felt necessary. Cont to follow hospital course. Continue pain medications as prescribed from the office. Pain seems to be manageable at this time.
[2022-07-27 20:27] LABS: Glucose,Whole Blood 242 mg/dL (70-110)
[2022-07-27] MEDS: traZODone HCL 100 MG TAB PO SCH (22:06)
[2022-07-27] MEDS: ALPRAZolam 0.5 MG TAB PO PRN (22:06)
[2022-07-28] MEDS: HYDROCORTISONE SUCCINATE 100 MG/2 ML VIAL IV SCH ×3 (00:44→16:53)
[2022-07-28] MEDS: ONDANSETRON 4 MG/2 ML VIAL IVP PRN (04:37)
[2022-07-28 05:38] LABS: ALT 48 U/L (4-49); AST 34 U/L (17-59); African American GFR (CKD) >90 (>60 ml/min/1.73 sqM); Albumin 2.5 g/dL (3.5-5.0); Alkaline Phosphatase 138 U/L (38-126); Anion Gap -1 mmol/L; Blood Urea Nitrogen 12 mg/dL (9-20); Calcium 7.4 mg/dL (8.4-10.2); Carbon Dioxide 34 mmol/L (22-30); Chloride 103 mmol/L (98-107); Glucose 156 mg/dL (74-99); Non-African American GFR(CKD) >90 (>60 ml/min/1.73 sqM); Potassium 2.9 mmol/L (3.5-5.1); Sodium 136 mmol/L (137-145); Total Bilirubin 0.5 mg/dL (0.2-1.3); Total Protein 4.9 g/dL (6.3-8.2)
[2022-07-28 06:02] LABS: Anisocytosis Slight; Basophils % (A) 0 %; Eosinophils % (A) 0 %; HCT 25.3 % (39.0-53.0); HGB 8.8 gm/dL (13.0-17.5); Lymphocytes # (A) 0.4 k/uL (1.0-4.8); Lymphocytes % (A) 4 %; MCH 30.5 pg (25.0-35.0); MCHC 34.9 g/dL (31.0-37.0); MCV 87.2 fL (80.0-100.0); Mean Platelet Volume 8.9; Monocytes # (A) 0.5 k/uL (0-1.0); Monocytes % (A) 5 %; Neutrophils # (A) 8.1 k/uL (1.3-7.7); Neutrophils % (A) 88 %; Poikilocytosis Slight; RDW 18.5 % (11.5-15.5); WBC 9.3 k/uL (3.8-10.6)
[2022-07-28 06:03] LABS: Platelet Count 27 k/uL (150-450)
[2022-07-28 06:40] LABS: Glucose,Whole Blood 158 mg/dL (70-110)
[2022-07-28] MEDS: SUCRALFATE 1 GM TAB PO SCH ×3 (06:42→16:53)
[2022-07-28] MEDS: INSULIN ASPART (NovoLOG) 100 UNIT/ML VIAL SQ SCH ×3 (06:42→16:53)
[2022-07-28] MEDS: BUDESONIDE 1 MG/2 ML NEBU INHALATION SCH (07:47)
[2022-07-28] MEDS: FORMOTEROL FUMARATE 20 MCG/2 ML NEBU INHALATION SCH (07:47)
[2022-07-28] MEDS: IPRATROPIUM-ALBUTEROL 3 ML NEB INHALATION SCH ×3 (07:47→15:17)
--- NOTE | 2022-07-28 08:04 | XR ---
EXAMINATION TYPE: XR chest 1V portable DATE OF EXAM: 07/28/2022 COMPARISON: 07/26/2022 HISTORY: Shortness of breath TECHNIQUE: Single frontal view of the chest is obtained. FINDINGS: Postsurgical change right shoulder and arthropathy of the left shoulder with the sclerotic lesion suggestive of bone infarct. Diffuse interstitial pattern. Heart size normal. Left-sided PICC line noted. Small bilateral pleural effusion. Evidence of previous vertebroplasty. IMPRESSION: 1. Correlate for chronic pulmonary fibrosis. Pleural thickening or small effusions persist. Superimpo sed pneumonitis not excluded.
[2022-07-28] MEDS: MORPHINE SULFATE IR 15 MG TABLET PO PRN (09:40)
[2022-07-28] MEDS: FUROSEMIDE 10 MG/ML 4 ML VIAL IV SCH (09:41)
[2022-07-28] MEDS: GABAPENTIN 400 MG CAP PO SCH (09:41)
[2022-07-28] MEDS: POTASSIUM BICARBONATE/CIT AC 20 MEQ TABLET.EFF NG-TUBE SCH ×3 (09:41→11:40)
[2022-07-28] MEDS: OXcarbazepine 300 MG TAB PO SCH (09:41)
[2022-07-28] MEDS: METOPROLOL TARTRATE 12.5 MG TAB PO SCH (09:41)
[2022-07-28] MEDS: PANTOPRAZOLE 40 MG/10 ML VIAL IV SCH (09:42)
[2022-07-28 10:52] VITALS: BMI 31.4
[2022-07-28 11:16] LABS: Glucose,Whole Blood 181 mg/dL (70-110)
--- NOTE | 2022-07-28 12:04 | P.PN ---
Subjective Progress Note Date: 07/28/22 H&P Date: 07/20/22 Chief Complaint: Rectal bleeding This is a pleasant 62-year-old gentleman with past medical history of metastatic lung disease/ primary small cell malignant neoplasm of lung, stage IV presented to the ER with Leonardo rectal bleeding X 3, accompanied by lower abdominal cramping and exertional shortness of breath. Reports some nausea, denies emesis. Also reports extensive workup of abdominal pain and per oncology attributing it to chemo effect. Last chemotherapy approximately 1 week ago. Chest CTA reported : no evidence of pulmonary embolism. Mediastinal left bronchial adenopathy with improvement in the left hilar mass compared to old exam. Slightly decreased left upper lobe spiculated infiltrate extending from the left pulmonary hilum to the left lung apex,compared to old exam. Improved encasement of the left lower lobe pulmonary artery with tumor mass and artery narrowing compared to old exam.COPD. Increased patchy bilateral reticular pulmonary interstitial infiltrates compared to prior exam. Increased small left pleural effusion compared to prior exam. Pericardial tumor masses not significantly different than last exam. On admission :WBC 0.2 hemoglobin 6.5 hematocrit 18.9 platelet count 5 INR 1.0 d-dimer 1.76 sodium 136 potassium 4.4 BUN 12 creatinine 0.63 glucose 115, bilirubin 0.4 AST 23 ALT 22 alk phos 60. Repeat labs today WBC 0.1 hemoglobin 7.5 hematocrit 22 platelet count 7. Received 1 unit of packed red blood cell transfusion as well as 1 unit of platelets. Denies any further rectal bleeding since admission. Denies shortness of breath at rest. Denies chest pain, palpitations. 07/21/2022 maintained on IV fluid hydration, Zarxio,PPI, carafate .reports dark maroon stooling 2 last night. Denies any further bleeding this morning. Denies abdominal cramping, abdominal pain. Consuming 25-75% with no nausea vomiting. Received a total of 3 units packed RBCs, 2 units of platelets. WBC increased to 0.5, hemoglobin 7.9, platelets 28 .Afebrile. Denies chest pain, palpitations or shortness of breath. Complains of exertional shortness of breath. Evaluated by both GI and oncology with recommendations noted and appreciated. Neutropenic precautions. Maintained on zaxrio,PPI, Carafate,empiric Augmentin and doxycycline. Transfusion parameters as per oncology. 07/24/2022 Over the weekend, patient had reoccurrence of rectal bleeding accompanied by acute drop in hemoglobin to 6 and platelets to 8 requiring transfer into the ICU.Maintained on supportive transfusions to maintain hemoglobin greater than 7, platelets greater than 50. Post transfusion, hemoglobin currently up to 9, platelets 42. No bowel movement since yesterday .Denies abdominal pain . Denies chest pain, palpitations or shortness of breath. Chronic back pain controlled. Patient in need of GI evaluation.Transfer to [facility],in progress related to GI services not available at this site, this week. Prognosis guarded given multiple complex medical issues. 07/25/2022 transfer to tertiary care center pending. Patient continued to have maroon bowel movements yesterday, last night and throughout the midnight shift. Repeat blood counts of yesterday reported hemoglobin dropping to 8.5, platelets down to 60 with a.m. labs pending. Patient reports chills, increased shortness of breath at rest. Maintaining O2 sats in the 90s on 4 L nasal cannula. Minimal cough, including dark brownish sputum-cultures sent; possible microscopic bleeding. Afebrile, WBC of yesterday 4.2. Supportive transfusions. Denies chest pain, palpitations. 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 Awaiting bed for transfer. 07/26/2022 hemoglobin decreased to 7.5, platelets 24, neutrophils 85. No further stooling this morning. Staff reports patient had 4 bowel movements with minimal rectal bleeding yesterday that initially subsided-last bowel movement reported brown in color. Denies abdominal pain.Increased shortness of breath at rest with oxygen requirements worsened, requiring 8 L high flow nasal cannula to maintain O2 sats in the low 90s. Mild tachycardia this morning with heart rates in the 1 teens. Afebrile, normal WBC. Receiving potassium supplements for potassium 3.2. Renal function stable. Blood sugars controlled. Chest x-ray reporting bilateral pleural thickening/interstitial edema, suspect chronic idi opathic pulmonary fibrosis. IV fluids pivl'd, received a dose of Lasix IV push. Tagged RBC reported no evidence of active GI bleeding during the initial 1 hour of observation. 07/27/2022 Tagged RBC nondiagnostic. Continues on 8 L high flow nasal cannula maintaining O2 sats in the high 80s to low 90s. Feels about the same -Shortness of breath unchanged. Mild tachycardia. 2 bowel movements yesterday reported normal/brown. Denies nausea/vomiting. Denies abdominal pain. Requesting diet advancement from clear liquids. Blood sugars controlled. Chronic back pain controlled. Hemoglobin decreased to 7.1, platelets decreased to 12. Potassium supplemented yesterday, currently 4.1. Renal function stable. Denies chest pain, palpitations. Afebrile, WBC 9.4. 07/28/22 no further bleeding reported, normal bowel movement yesterday. Tolerating advanced diet with no nausea vomiting or diarrhea. Denies abdominal pain. Feels "puffy" and short of breath at rest, worsened by minimal exertion. Patient has received a total of 6 units packed RBCs, 6 units of platelets. Diuresing with Lasix IV push with 24-hour I&O reflecting a negative fluid balance. Maintaining O2 sats in the low 90s on 2 L high flow nasal cannula. Chest x-ray reporting pleural thickening or small effusions persist /correlate for chronic pulmonary fibrosis. Hemoglobin 8.8, platelets 27. Potassium 2.9. Objective - Vital Signs Vital signs: Vital Signs Temp 97.6 F 07/28/22 08:00 Pulse 103 H 07/28/22 11:06 Resp 16 07/28/22 11:00 BP 134/87 07/28/22 11:00 Pulse Ox 97 07/28/22 11:00 FiO2 Intake & Output 07/27/22 07/28/22 07/28/22 18:59 06:59 18:59 Intake Total 880 395 100 Output Total 1825 2500 1550 Balance -940 -1824 -8854 Weight 86.8 kg 83.2 kg 83.2 kg Intake: IV 260 120 100 Sodium Chloride 0.9% 1, 160 120 50 000 ml @ 20 mls/hr IV . Q24H [facility] Rx#:[id number] cefTRIAXone 1 gm In 100 50 Sodium Chloride 0.9% 50 ml @ 100 mls/hr IVPB Q24HR [facility] Rx#:[id number] Blood Product 620 275 Platelet Pheresis Pas 275 Psoralen Unit [id number] Rc Irr As1 Unit 310 [id number] Output: Urine 1825 2500 1550 Other: Voiding Method Urinal Urinal Urinal # Voids 0 1 1 # Bowel Movements 1 - Exam - Exam PHYSICAL EXAM: VITAL SIGNS: [As above] GENERAL: Alert and oriented 3, Sitting up in bed,no acute distress HEENT: Conjunctivae normal. eyes normal. NECK: Supple, No JVD. CARDIOVASCULAR: S1, S2 regular, mild tachycardia. No murmur. RESPIRATION: Respiratory effort increased, Breath sounds diminished in the bases. Positive rhonchi, bibasilar crackles, no wheezing. ABDOMEN: Soft, nontender, No guarding.Bowel sounds heard. LEGS: Mild edema NERVOUS SYSTEM: Cranial N 2-12 grossly normal.No focal deficits. Strength and sensation grossly intact. Skin: Warm and dry, no rash - Labs CBC & Chem 7: 07/28/22 05:18 07/28/22 05:18 Labs: Abnormal Lab Results - Last 24 Hours (Table) 07/27/22 07/27/22 07/27/22 Range/Units 08:54 11:51 16:04 WBC (3.8-10.6) k/uL RBC (4.30-5.90) m/uL Hgb (13.0-17.5) gm/dL Hct (39.0-53.0) % RDW (11.5-15.5) % Plt Count (150-450) k/uL Neutrophils # (1.3-7.7) k/uL Lymphocytes # (1.0-4.8) k/uL Sodium (137-145) mmol/L Potassium (3.5-5.1) mmol/L Carbon Dioxide (22-30) mmol/L Creatinine (0.66-1.25) mg/dL Glucose (74-99) mg/dL POC Glucose (mg/dL) 164 H 176 H (70-110) mg/dL Calcium (8.4-10.2) mg/dL Alkaline Phosphatase (38-126) U/L Total Protein (6.3-8.2) g/dL Albumin (3.5-5.0) g/dL Crossmatch See Detail 07/27/22 07/27/22 07/28/22 Range/Units 16:10 20:26 05:18 WBC 11.2 H (3.8-10.6) k/uL RBC 2.91 L 2.90 L (4.30-5.90) m/uL Hgb 8.9 L D 8.8 L (13.0-17.5) gm/dL Hct 25.3 L 25.3 L (39.0-53.0) % RDW 18.3 H 18.5 H (11.5-15.5) % Plt Count 10 L* 27 L D (150-450) k/uL Neutrophils # 8.1 H (1.3-7.7) k/uL Lymphocytes # 0.4 L (1.0-4.8) k/uL Sodium (137-145) mmol/L Potassium (3.5-5.1) mmol/L Carbon Dioxide (22-30) mmol/L Creatinine (0.66-1.25) mg/dL Glucose (74-99) mg/dL POC Glucose (mg/dL) 242 H (70-110) mg/dL Calcium (8.4-10.2) mg/dL Alkaline Phosphatase (38-126) U/L Total Protein (6.3-8.2) g/dL Albumin (3.5-5.0) g/dL Crossmatch 07/28/22 07/28/22 07/28/22 Range/Units 05:18 06:38 11:15 WBC (3.8-10.6) k/uL RBC (4.30-5.90) m/uL Hgb (13.0-17.5) gm/dL Hct (39.0-53.0) % RDW (11.5-15.5) % Plt Count (150-450) k/uL Neutrophils # (1.3-7.7) k/uL Lymphocytes # (1.0-4.8) k/uL Sodium 136 L (137-145) mmol/L Potassium 2.9 L (3.5-5.1) mmol/L Carbon Dioxide 34 H (22-30) mmol/L Creatinine 0.51 L (0.66-1.25) mg/dL Glucose 156 H (74-99) mg/dL POC Glucose (mg/dL) 158 H 181 H (70-110) mg/dL Calcium 7.4 L (8.4-10.2) mg/dL Alkaline Phosphatase 138 H (38-126) U/L Total Protein 4.9 L (6.3-8.2) g/dL Albumin 2.5 L (3.5-5.0) g/dL Crossmatch - Last 24 Hours (Table) 07/22/22 17:30 Blood Culture - Preliminary Blood No Growth after 120 hours Assessment and Plan Assessment: Acute GI bleed, status post transfusion of packed RBCs and platelets. No endoscopy recommended per GI. Nondiagnostic RBC scan. Pancytopenia secondary to recent treatment,Last received chemotherapy 1 week ago. Chronic abdominal, back pain due to metastatic lung disease in a patient with history of primary small cell malignant neoplasm of lung, stage IV. Fentanyl patch dose increased last week with improvement in pain. History of Adrenal mass likely secondary to metastatic lesion. COPD GERD Anxiety/depression Previous history of smoking Adrenal insufficiency Plan: Continue on current medication regime ,monitoring and symptomatic hadley tment. Potassium supplementation as per replacement protocol as previously ordered .Maintain diuretics. 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 The impression and plan of care has been dictated as directed. : I performed a history and examination of this patient, discussed the same with the dictator. I agree with the dictator's note ,documented as a scribe. Any additional findings or plans will be noted.
--- NOTE | 2022-07-28 12:07 | P.PN ---
Subjective Progress Note Date: 07/28/22 Principal diagnosis: Acute GI bleeding This is a 62-year-old white male with history of small cell lung cancer, presented initially back in 2020 with a large pleural effusion requiring thoracentesis and the diagnosis was made. Patient received chemotherapy by oncology, and has been receiving chemotherapy maintenance. Patient was admitted on 08/08, mostly with shortness of breath, and multiple episodes of bloody stools. Patient required so far multiple blood transfusions including 5 units of packed RBCs and 4 units of platelets, patient was noted to be pancytopenic, admitted because of the GI bleeding, and we were asked to see him on consultation today as the patient had worsening episodes of bleeding and required transfer to the ICU. He was seen by general surgery, the plan is to consider tagged RBC study, no plans to have any intervention. No GI coverage available, patient is being considered for transfer to [facility] once a bed becomes available. Considering the patient was admitted to the ICU, I was asked to see him on consultation. Pulmonary-stewart, the patient does not seem to be in any distress, he seems to be very comfortable. His hemoglobin this morning is 9.0, WBC count is 2.1, platelets are 42,000. Patient is being followed by hematology/oncology. CT angiogram of the chest showed no evidence of pulmonary embolism, patient had bilateral reticular pulmonary interstitial infiltrates, and he had left upper lobe spiculated abnormality consistent with bronchogenic carcinoma, however seems to have a partial response to treatment Reevaluated today on 07/25/22, patient remains in the ICU, continues to have intermittent episodes of lower GI bleeding, bright red blood per rectum. Still waiting for transfer to [facility], patient was seen by general surgery, no immediate intervention is planned, however he may be undergoing tagged RBC study. His hemoglobin this morning is 9.1, electrolytes are normal renal profile is normal WBC count is 5.9. Patient received a total of 5 units of packed RBCs since admission and 5 units of platelets. Platelets today are 54,000. Patient is comfortable, not in distress. Reevaluated today on 07/26/22, remains in the ICU, hemodynamically stable, nonetheless the patient continues to demonstrate slight bleeding but no active bleeding clinically. Hemoglobin dropped today to 7.5 compared to yesterday. Hemoglobin was 9.1 yesterday, stools are black and brown. Hopefully the patient is not actively bleeding. But that's not definitely certain at this point. Patient seems to be a bit more short of breath today compared to yesterday, chest x-ray is showing interstitial edema, and I'm recommending a dose of Lasix to be given. Patient does have possibly some underlying interstitial lung disease Reevaluated today on 07/27/22, patient remains in the ICU. Hemoglobin continues to drop down slowly. Clinically no active bleeding is noted. Hemoglobin today is 7.1 platelets are 12,000. Patient received so far 5 units of packed RBCs and 5 units of platelets and he is to receive another unit of packed RBCs today and 1 unit of platelets today. Sputum is positive for gram-negative bacilli, patient is on Rocephin. Chest x-ray is showing interstitial edema and the patient is on Lasix today 40 mg IV push every 12 hours. Continues to have shortness of breath, he is on 8 L high flow cannula, and on physical examination he has crackles and rhonchi bilaterally. Maintenance Lasix was ordered today. Renal profile is normal. Patient has intermittent cough and wheezing shortness of breath noted. Reevaluated today on 07/28/22, patient remains in the ICU, not much of a currency exchange specialist the last 24 hours. Chest x-ray continues to show bilateral interstitial infiltrates, looking back, the infiltrates were not present before he started receiving blood transfusions, hence I'm really suspicion that the patient has transfusion related acute lung injury. Patient does not improve much with diuretics, he is in a negative fluid balance, but his chest x-ray remains about the same, and no changes noted. He did not require any transfusion over the last 24 hours. Hemoglobin is 8.8. Electrolytes showed low potassium being corrected as per protocol. Patient is on 10 L high flow nasal cannula, O2 sats is 97% today. Objective - Vital Signs Vital signs: Vital Signs Temp 97.6 F 07/28/22 08:00 Pulse 103 H 07/28/22 11:06 Resp 16 07/28/22 11:00 BP 134/87 07/28/22 11:00 Pulse Ox 97 07/28/22 11:00 FiO2 Intake & Output 07/27/22 07/28/22 07/28/22 18:59 06:59 18:59 Intake Total 880 395 100 Output Total 1825 2500 1550 Balance -945 -2105 -1450 Weight 86.8 kg 83.2 kg 83.2 kg Intake: IV 260 120 100 Sodium Chloride 0.9% 1, 160 120 50 000 ml @ 20 mls/hr IV . Q24H [facility] Rx#:[id number] cefTRIAXone 1 gm In 100 50 Sodium Chloride 0.9% 50 ml @ 100 mls/hr IVPB Q24HR [facility] Rx#:[id number] Blood Product 620 275 Platelet Pheresis Pas 275 Psoralen Unit [id number] Rc Irr As1 Unit 310 [id number] Output: Urine 1825 2500 1550 Other: Voiding Method Urinal Urinal Urinal # Voids 0 1 1 # Bowel Movements 1 - Exam General appearance: Revealed a 62-year-old white male in no distress. On 10 L high flow cannula. HET: Head is normocephalic and atraumatic. Conjunctiva pink. Sclera anicteric. Neck: Supple without lymphadenopathy. Trachea midline. Heart: S1 S2. Regular rate and rhythm. Lungs: Crackles at the bases persists. Abdomen: Soft, nontender, nondistended with bowel sounds. No guarding or rigidity. Skin: No rashes. No jaundice. Extremities: Normal skin color and turgor. 1+ bipedal edema Neurological: No focal deficits. Alert and oriented x3. Psychiatric: Normal mood, affect and normal mental status examination. Musculoskeletal: No deformities and no limitation in range of motion - Labs CBC & Chem 7: 07/28/22 05:18 07/28/22 05:18 Labs: Abnormal Lab Results - Last 24 Hours (Table) 07/27/22 07/27/22 07/27/22 Range/Units 08:54 16:04 16:10 WBC 11.2 H (3.8-10.6) k/uL RBC 2.91 L (4.30-5.90) m/uL Hgb 8.9 L D (13.0-17.5) gm/dL Hct 25.3 L (39.0-53.0) % RDW 18.3 H (11.5-15.5) % Plt Count 10 L* (150-450) k/uL Neutrophils # (1.3-7.7) k/uL Lymphocytes # (1.0-4.8) k/uL Sodium (137-145) mmol/L Potassium (3.5-5.1) mmol/L Carbon Dioxide (22-30) mmol/L Creatinine (0.66-1.25) mg/dL Glucose (74-99) mg/dL POC Glucose (mg/dL) 176 H (70-110) mg/dL Calcium (8.4-10.2) mg/dL Alkaline Phosphatase (38-126) U/L Total Protein (6.3-8.2) g/dL Albumin (3.5-5.0) g/dL Crossmatch See Detail 07/27/22 07/28/22 07/28/22 Range/Units 20:26 05:18 05:18 WBC (3.8-10.6) k/uL RBC 2.90 L (4.30-5.90) m/uL Hgb 8.8 L (13.0-17.5) gm/dL Hct 25.3 L (39.0-53.0) % RDW 18.5 H (11.5-15.5) % Plt Count 27 L D (150-450) k/uL Neutrophils # 8.1 H (1.3-7.7) k/uL Lymphocytes # 0.4 L (1.0-4.8) k/uL Sodium 136 L (137-145) mmol/L Potassium 2.9 L (3.5-5.1) mmol/L Carbon Dioxide 34 H (22-30) mmol/L Creatinine 0.51 L (0.66-1.25) mg/dL Glucose 156 H (74-99) mg/dL POC Glucose (mg/dL) 242 H (70-110) mg/dL Calcium 7.4 L (8.4-10.2) mg/dL Alkaline Phosphatase 138 H (38-126) U/L Total Protein 4.9 L (6.3-8.2) g/dL Albumin 2.5 L (3.5-5.0) g/dL Crossmatch 07/28/22 07/28/22 Range/Units 06:38 11:15 WBC (3.8-10.6) k/uL RBC (4.30-5.90) m/uL Hgb (13.0-17.5) gm/dL Hct (39.0-53.0) % RDW (11.5-15.5) % Plt Count (150-450) k/uL Neutrophils # (1.3-7.7) k/uL Lymphocytes # (1.0-4.8) k/uL Sodium (137-145) mmol/L Potassium (3.5-5.1) mmol/L Carbon Dioxide (22-30) mmol/L Creatinine (0.66-1.25) mg/dL Glucose (74-99) mg/dL POC Glucose (mg/dL) 158 H 181 H (70-110) mg/dL Calcium (8.4-10.2) mg/dL Alkaline Phosphatase (38-126) U/L Total Protein (6.3-8.2) g/dL Albumin (3.5-5.0) g/dL Crossmatch Microbiology - Last 24 Hours (Table) 07/22/22 17:30 Blood Culture - Preliminary Blood No Growth after 120 hours Assessment and Plan Assessment: Impression: Acute GI bleeding, persistent, exact source is yet to be determined tagged RBC study was nondiagnostic Pancytopenia secondary to chemotherapy Small cell lung cancer/metastatic. History of underlying COPD/emphysema History of degenerative joint disease and multiple orthopedic surgeries. History of GERD. Possible transfusion related acute lung injury./TRALI Recommendation:Transfer to a stepdown unit/floor Continue with transfer plans to [facility]. Continue Lasix 40 mg twice a day Continue to monitor daily labs including daily CBC and platelets Continue Cortef Continue bronchodilatorsOverall prognosis remains poor and guarded. We will continue to follow Time with Patient: Less than 30 (1111)
--- NOTE | 2022-07-28 12:49 | P.PN ---
Subjective Progress Note Date: 07/28/22 CHIEF COMPLAINT: Acute GI bleeding HISTORY OF PRESENT ILLNESS: Patient remains in the ICU. Patient has had no further bloody bowel movements. He denies any abdominal pain. Hemoglobin is remained stable. Afebrile. WBC is 9.3 hemoglobin 8.8 platelets are 27 patient received 1 unit of blood and 1 unit of platelets. Hemoglobin came up from 7.1- 8.8 and platelets improved from 10-27. Sodium 136 potassium is 2.9 creatinine 0.51 Patient seen and examined with Dr. Muro PHYSICAL EXAM: VITAL SIGNS: Reviewed. GENERAL: Well-developed in no acute distress. HEENT: No sclera icterus. Extraocular movements grossly intact. Moist buccal mucosa. Head is atraumatic, normocephalic. ABDOMEN: Soft. Nondistended. Nontender. NEUROLOGIC: Alert and oriented. Cranial nerves II through XII grossly intact. ASSESSMENT: 1. Acute GI bleed with bright red blood per rectum status post blood transfusion 2. History of small cell lung cancer 3. Pancytopenia 4. Hypokalemia PLAN: -Continue regular diet -Continue to monitor hemoglobin -Continue monitor for any signs or symptoms of bleeding -Continue PPI -Continue transfer plans to [facility] -No plans for endoscopy -replace potassium Physician Sales Service Professional note has been reviewed by physician. Signing provider agrees with the documented findings, assessment, and plan of care. Objective - Vital Signs Vital signs: Vital Signs Temp 97.6 F 07/28/22 08:00 Pulse 103 H 07/28/22 11:06 Resp 16 07/28/22 11:00 BP 134/87 07/28/22 11:00 Pulse Ox 97 07/28/22 11:00 FiO2 Intake & Output 07/27/22 07/28/22 07/28/22 18:59 06:59 18:59 Intake Total 880 395 100 Output Total 1825 8353 1550 Balance -993 -3646 -6480 Weight 86.8 kg 83.2 kg 83.2 kg Intake: IV 260 120 100 Sodium Chloride 0.9% 1, 160 120 50 000 ml @ 20 mls/hr IV . Q24H [facility] Rx#:[id number] cefTRIAXone 1 gm In 100 50 Sodium Chloride 0.9% 50 ml @ 100 mls/hr IVPB Q24HR [facility] Rx#:[id number] Blood Product 620 275 Platelet Pheresis Pas 275 Psoralen Unit [id number] Rc Irr As1 Unit 310 [id number] Output: Urine 1825 2500 1550 Other: Voiding Method Urinal Urinal Urinal # Voids 0 1 1 # Bowel Movements 1 - Labs CBC & Chem 7: 07/28/22 05:18 07/28/22 05:18 Labs: Abnormal Lab Results - Last 24 Hours (Table) 07/27/22 07/27/22 07/27/22 Range/Units 08:54 16:04 16:10 WBC 11.2 H (3.8-10.6) k/uL RBC 2.91 L (4.30-5.90) m/uL Hgb 8.9 L D (13.0-17.5) gm/dL Hct 25.3 L (39.0-53.0) % RDW 18.3 H (11.5-15.5) % Plt Count 10 L* (150-450) k/uL Neutrophils # (1.3-7.7) k/uL Lymphocytes # (1.0-4.8) k/uL Sodium (137-145) mmol/L Potassium (3.5-5.1) mmol/L Carbon Dioxide (22-30) mmol/L Creatinine (0.66-1.25) mg/dL Glucose (74-99) mg/dL POC Glucose (mg/dL) 176 H (70-110) mg/dL Calcium (8.4-10.2) mg/dL Alkaline Phosphatase (38-126) U/L Total Protein (6.3-8.2) g/dL Albumin (3.5-5.0) g/dL Crossmatch See Detail 07/27/22 07/28/22 07/28/22 Range/Units 20:26 05:18 05:18 WBC (3.8-10.6) k/uL RBC 2.90 L (4.30-5.90) m/uL Hgb 8.8 L (13.0-17.5) gm/dL Hct 25.3 L (39.0-53.0) % RDW 18.5 H (11.5-15.5) % Plt Count 27 L D (150-450) k/uL Neutrophils # 8.1 H (1.3-7.7) k/uL Lymphocytes # 0.4 L (1.0-4.8) k/uL Sodium 136 L (137-145) mmol/L Potassium 2.9 L (3.5-5.1) mmol/L Carbon Dioxide 34 H (22-30) mmol/L Creatinine 0.51 L (0.66-1.25) mg/dL Glucose 156 H (74-99) mg/dL POC Glucose (mg/dL) 242 H (70-110) mg/dL Calcium 7.4 L (8.4-10.2) mg/dL Alkaline Phosphatase 138 H (38-126) U/L Total Protein 4.9 L (6.3-8.2) g/dL Albumin 2.5 L (3.5-5.0) g/dL Crossmatch 07/28/22 07/28/22 Range/Units 06:38 11:15 WBC (3.8-10.6) k/uL RBC (4.30-5.90) m/uL Hgb (13.0-17.5) gm/dL Hct (39.0-53.0) % RDW (11.5-15.5) % Plt Count (150-450) k/uL Neutrophils # (1.3-7.7) k/uL Lymphocytes # (1.0-4.8) k/uL Sodium (137-145) mmol/L Potassium (3.5-5.1) mmol/L Carbon Dioxide (22-30) mmol/L Creatinine (0.66-1.25) mg/dL Glucose (74-99) mg/dL POC Glucose (mg/dL) 158 H 181 H (70-110) mg/dL Calcium (8.4-10.2) mg/dL Alkaline Phosphatase (38-126) U/L Total Protein (6.3-8.2) g/dL Albumin (3.5-5.0) g/dL Crossmatch Microbiology - Last 24 Hours (Table) 07/22/22 17:30 Blood Culture - Preliminary Blood No Growth after 120 hours
--- NOTE | 2022-07-28 13:31 | P.PN ---
Subjective Progress Note Date: 07/28/22 Principal diagnosis: GI bleed. SCLC, on treatment In f/u today pt reports ongoing shortness of breath even after PRBCs-Hgb 8.8 today, his baseline is 9's. Pt reports last bloody/suspicious BM was 3-4 days ago. Objective - Vital Signs Vital signs: Vital Signs Temp 97.6 F 07/28/22 08:00 Pulse 103 H 07/28/22 11:06 Resp 16 07/28/22 11:00 BP 134/87 07/28/22 11:00 Pulse Ox 97 07/28/22 11:00 FiO2 Intake & Output 07/27/22 07/28/22 07/28/22 18:59 06:59 18:59 Intake Total 880 395 100 Output Total 1825 2500 1550 Balance -566 -2194 -7884 Weight 86.8 kg 83.2 kg 83.2 kg Intake: IV 260 120 100 Sodium Chloride 0.9% 1, 160 120 50 000 ml @ 20 mls/hr IV . Q24H [facility] Rx#:[id number] cefTRIAXone 1 gm In 100 50 Sodium Chloride 0.9% 50 ml @ 100 mls/hr IVPB Q24HR [facility] Rx#:[id number] Blood Product 620 275 Platelet Pheresis Pas 275 Psoralen Unit [id number] Rc Irr As1 Unit 310 [id number] Output: Urine 1825 2500 1550 Other: Voiding Method Urinal Urinal Urinal # Voids 0 1 1 # Bowel Movements 1 - Constitutional General appearance: Present: cooperative, mild distress, obese - EENT Eyes: Present: anicteric sclerae, edentulous ENT: Present: hearing grossly normal - Respiratory Respiratory: bilateral: CTA, diminished - Cardiovascular Heart sounds: normal: S1, S2 Abnormal Heart Sounds: Absent: systolic murmur, diastolic murmur, rub, S3 Gallop, S4 Gallop, click, other - Peripheral edema leg Peripheral Edema: bilateral: 1+, Pitting (mid chu distal) - Neurologic Neurologic: Present: CNII-XII intact - Musculoskeletal Musculoskeletal: Present: generalized weakness, strength equal bilaterally - Psychiatric Psychiatric: Present: A&O x's 3, appropriate affect, intact judgment & insight - Labs CBC & Chem 7: 07/28/22 05:18 07/28/22 05:18 Labs: Abnormal Lab Results - Last 24 Hours (Table) 07/27/22 07/27/22 07/27/22 Range/Units 16:04 16:10 20:26 WBC 11.2 H (3.8-10.6) k/uL RBC 2.91 L (4.30-5.90) m/uL Hgb 8.9 L D (13.0-17.5) gm/dL Hct 25.3 L (39.0-53.0) % RDW 18.3 H (11.5-15.5) % Plt Count 10 L* (150-450) k/uL Neutrophils # (1.3-7.7) k/uL Lymphocytes # (1.0-4.8) k/uL Sodium (137-145) mmol/L Potassium (3.5-5.1) mmol/L Carbon Dioxide (22-30) mmol/L Creatinine (0.66-1.25) mg/dL Glucose (74-99) mg/dL POC Glucose (mg/dL) 176 H 242 H (70-110) mg/dL Calcium (8.4-10.2) mg/dL Alkaline Phosphatase (38-126) U/L Total Protein (6.3-8.2) g/dL Albumin (3.5-5.0) g/dL 07/28/22 07/28/22 07/28/22 Range/Units 05:18 05:18 06:38 WBC (3.8-10.6) k/uL RBC 2.90 L (4.30-5.90) m/uL Hgb 8.8 L (13.0-17.5) gm/dL Hct 25.3 L (39.0-53.0) % RDW 18.5 H (11.5-15.5) % Plt Count 27 L D (150-450) k/uL Neutrophils # 8.1 H (1.3-7.7) k/uL Lymphocytes # 0.4 L (1.0-4.8) k/uL Sodium 136 L (137-145) mmol/L Potassium 2.9 L (3.5-5.1) mmol/L Carbon Dioxide 34 H (22-30) mmol/L Creatinine 0.51 L (0.66-1.25) mg/dL Glucose 156 H (74-99) mg/dL POC Glucose (mg/dL) 158 H (70-110) mg/dL Calcium 7.4 L (8.4-10.2) mg/dL Alkaline Phosphatase 138 H (38-126) U/L Total Protein 4.9 L (6.3-8.2) g/dL Albumin 2.5 L (3.5-5.0) g/dL 07/28/22 Range/Units 11:15 WBC (3.8-10.6) k/uL RBC (4.30-5.90) m/uL Hgb (13.0-17.5) gm/dL Hct (39.0-53.0) % RDW (11.5-15.5) % Plt Count (150-450) k/uL Neutrophils # (1.3-7.7) k/uL Lymphocytes # (1.0-4.8) k/uL Sodium (137-145) mmol/L Potassium (3.5-5.1) mmol/L Carbon Dioxide (22-30) mmol/L Creatinine (0.66-1.25) mg/dL Glucose (74-99) mg/dL POC Glucose (mg/dL) 181 H (70-110) mg/dL Calcium (8.4-10.2) mg/dL Alkaline Phosphatase (38-126) U/L Total Protein (6.3-8.2) g/dL Albumin (3.5-5.0) g/dL Microbiology - Last 24 Hours (Table) 07/22/22 17:30 Blood Culture - Preliminary Blood No Growth after 120 hours - Imaging and Cardiology Chest x-ray: report reviewed Assessment and Plan (1) GI bleed Current Visit: Yes Status: Acute Priority: High Code(s): K92.2 - GASTROINTESTINAL HEMORRHAGE, UNSPECIFIED SNOMED Code(s): 91857214 (2) Pancytopenia due to antineoplastic chemotherapy Current Visit: Yes Status: Acute Priority: High Code(s): D61.810 - ANTINEOPLASTIC CHEMOTHERAPY INDUCED PANCYTOPENIA; T45.1X5A - ADVERSE EFFECT OF ANTINEOPLASTIC AND IMMUNOSUP DRUGS, INIT SNOMED Code(s): 279239528369347 (3) Primary small cell malignant neoplasm of lung, stage 4 Current Visit: Yes Status: Acute Priority: High Code(s): C34.90 - MALIGNANT NEOPLASM OF UNSP PART OF UNSP BRONCHUS OR LUNG SNOMED Code(s): 19640585701964 Plan: Pancytopenia secondary to recent treatment with zepzelca. Patient did receive G-CSF x 6. WBC 9.3. Platelets 27,000 today. Hemoglobin 8.8 today. DIC work up negative. No evidence of bleeding for 3-4 days now. CBC daily. Tagged RBC scan was non diagnostic for a source of acute bleeding. Shortness of breath. Stable, no better, no worse, no improvement after PRBCs. He is being diruesed. Patient just started zepzelca, CTA reports some improvement in tumor size when compared to imaging 06/17. Would like to be able to continue patient on the same. There are dose reductions so, continuation of therapy after pt has adequately recovered (clinically and hematologically) may be a possibility. G- CSF can be added as well if felt necessary. Cont to follow hospital course. Continue pain medications as prescribed from the office. Pain seems to be manageable at this time. attests: I have seen and examined pt, performed H&P, developed impression and plan of care. Discussed with dictator. Agree with documentation, dictated as a scribe.
[2022-07-28 14:32] VITALS: TEMP 97.7
[2022-07-28 16:22] LABS: Glucose,Whole Blood 271 mg/dL (70-110)
[2022-07-28 17:08] VITALS: BP 132/67; PULSE 110; RESP 19
== END 2022-07-28 17:09 | disposition short-term general hospital (02) | DRG 377 ==
LOC: EC 19:21 → 3SCARD 21:38 → 2SICU 07-23 12:37
PROVIDERS: ADMIT Family Medicine; ATTEND Family Medicine
PROC: 30233N1 Transfusion of Nonautologous Red Blood Cells into Peripheral Vein, Percutaneous Approach (ICD-10-PCS; 2022-07-19)
PROC: 30233R1 Transfusion of Nonautologous Platelets into Peripheral Vein, Percutaneous Approach (ICD-10-PCS; 2022-07-19)
PROC: 02HV33Z Insertion of Infusion Device into Superior Vena Cava, Percutaneous Approach (ICD-10-PCS; principal; 2022-07-25 16:00)
DX: K92.1 Melena (principal); D61.810 Antineoplastic chemotherapy induced pancytopenia; C34.12 Malignant neoplasm of upper lobe, left bronchus or lung; C79.51 Secondary malignant neoplasm of bone; C78.89 Secondary malignant neoplasm of other digestive organs; C79.70 Secondary malignant neoplasm of unspecified adrenal gland; D62 Acute posthemorrhagic anemia; E27.40 Unspecified adrenocortical insufficiency; J90 Pleural effusion, not elsewhere classified; J95.84 Transfusion-related acute lung injury (TRALI); D17.9 Benign lipomatous neoplasm, unspecified; E11.9 Type 2 diabetes mellitus without complications; E78.5 Hyperlipidemia, unspecified; E87.6 Hypokalemia; E87.70 Fluid overload, unspecified; F32.A Depression, unspecified; F41.9 Anxiety disorder, unspecified; G89.3 Neoplasm related pain (acute) (chronic); I10 Essential (primary) hypertension; J43.9 Emphysema, unspecified; M19.90 Unspecified osteoarthritis, unspecified site; K21.9 Gastro-esophageal reflux disease without esophagitis; Z20.822 Contact with and (suspected) exposure to COVID-19; K29.50 Unspecified chronic gastritis without bleeding; T45.1X5A Adverse effect of antineoplastic and immunosuppressive drugs, initial encounter; Z79.84 Long term (current) use of oral hypoglycemic drugs; Z79.899 Other long term (current) drug therapy; Z87.891 Personal history of nicotine dependence; Z92.3 Personal history of irradiation; Z96.643 Presence of artificial hip joint, bilateral; Z79.51 Long term (current) use of inhaled steroids; Z71.3 Dietary counseling and surveillance
CPT/HCPCS: 36415; 36573; 71045; 71046; 71275; 78278; 80048; 80053; 81003; 82533; 83605; 83735; 83880; 84132; 84145; 84484; 85025; 85027; 85379; 85384; 85610; 85730; 86850; 86900; 86901; 86920; 87040; 87070; 87077; 87186; 87205; 87635; 93005; 94640; 94760; 96374; 96375; 99285